=== PATIENT | female | born 1945 | race Caucasian/White ===

== ENCOUNTER 2017-03-17 11:11 | Inpatient (IN) | payer OTHER ==
[2017-03-17] MEDS ORDERED: LIDOCAINE 2% VISCOUS 15 ML UDCUP PO ONE (11:36)
[2017-03-17] MEDS ORDERED: MAG HYDROX/AL HYDROX/SIMETH 30 ML UDCUP PO ONE (11:36)
[2017-03-17] MEDS ORDERED: HYOSCYAMINE SULFATE 0.125 MG TAB PO ONE (11:36)
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
[2017-03-17 12:35] LABS: % IMMATURE GRANULYOCYTES 0.5 % (0.0-1.1); ABSOLUTE IMMATURE GRANULOCYTES 0.06 10^3/uL (0.00-0.10); ADD DIFF? NO; ADD MORPH? NO; ADD SCAN? NO; ATYPICAL LYMPHOCYTE FLAG 0 (0-99); FRAGMENT RBC FLAG 0 (0-99); HEMATOCRIT 46.8 % (38.0-47.0); HEMOGLOBIN 16.2 g/dL (12.6-16.3); LEFT SHIFT FLG 20 (0-99); LIPEMIA HEMOLYSIS FLAG 90 (0-99); MEAN CELL HEMOGLOBIN CONCENTR. 34.6 g/dL (32.4-36.7); MEAN CELL VOLUME 92.3 fL (81.5-99.8); MEAN PLATELET VOLUME 11.2 fL (8.7-11.7); PLATELET CLUMPS FLAG 0 (0-99); PLATELET COUNT 120 10^3/uL (150-400); RED BLOOD CELL COUNT 5.07 10^6/uL (4.18-5.33); RED CELL DISTRIBUTION WIDTH 12.3 % (11.5-15.2)
[2017-03-17 12:45] LABS: SEDIMENTATION RATE 22 MM/HR (0-30)
[2017-03-17 12:53] LABS: ANION GAP 18 mEq/L (8-16); CALCIUM 9.8 mg/dL (8.5-10.4); CARBON DIOXIDE 24 mEq/l (22-31); CHLORIDE 95 mEq/L (97-110); CREATININE 0.8 mg/dL (0.6-1.0); GLOMERULAR FILTRATION RATE > 60; GLUCOSE 125 mg/dL (70-100); POTASSIUM 3.9 mEq/L (3.5-5.2); SODIUM 137 mEq/L (134-144)
[2017-03-17] MEDS ORDERED: VANCOMYCIN 1 GM in NS 250 ML IV ONE (13:13)
[2017-03-17] MEDS ORDERED: HYDROmorphONE/DILAUDID 1 MG/ML SYR IVP ONE (13:14)
[2017-03-17] MEDS ORDERED: methylPREDNISolone SOD SUCC 125 MG/2 ML VIAL IVP ONE (13:14)
[2017-03-17 16:16] LABS: WBC, SYNOVIAL FLUID 74379 /mm3 (0-150)
[2017-03-17 16:58] LABS: GLUCOSE, SYNOVIAL FLUID < 20 mg/dL (55-113)
[2017-03-17] MEDS ORDERED: TEMAZEPAM 15 MG CAP PO PRN (17:27)
[2017-03-17] MEDS ORDERED: oxyCODONE IR 5 MG TAB PO PRN (17:27)
[2017-03-17] MEDS ORDERED: ONDANSETRON DISINTEGRATING 4 MG TAB PO PRN (17:27)
[2017-03-17] MEDS ORDERED: ACETAMINOPHEN 325 MG TAB PO PRN (17:27)
[2017-03-17] MEDS ORDERED: ONDANSETRON 4 MG/2 ML VIAL IVP PRN (17:27)
[2017-03-17 17:54] LABS: CRYSTALS, SYNOVIAL FLUID NONE SEEN (NONE SEEN)
--- NOTE | 2017-03-17 18:22 | GHP ---
[f rep st] HISTORY AND PHYSICAL DATE OF ADMISSION: 03/17/2017 CHIEF COMPLAINT: Right knee pain. HISTORY OF PRESENT ILLNESS: This is a 72-year-old female, who presents with right knee pain. She h as a complicated orthopedic history with this knee, there is concern for septic arthritis. She has had 2 knee replacements in that knee. The first was complicated by what sounds like an MRSA infecti on. This was about 15 years ago. She was treated with long-term IV antibiotics including vancomyci n. At the end of her course of vancomycin, she developed a full body rash. I do not believe that t he hardware was ever explanted during this first infection. She then had a second knee replacement done by Dr. Long. She says that her right knee has been hurting for about the last year. About 2 months ago, she went to see Dr. Long, who told that there was nothing wrong with that knee. He had done x-rays at that point, but no other diagnostic workup. She then developed a rash on her ri ght jack distal to the knee and was started on Keflex by her PCP on Wednesday. She presented to the em ergency department with much worsening swelling in her knee. She has had some chills, but no fevers . The knee has been very painful, and she is unable to bend it more than a few degrees. [place] [facility]. She also received vancomycin preceded by IV Solu-Medrol, a s well as Benadryl. PAST MEDICAL/SURGICAL HISTORY: 1. Hypertension. 2. GERD. 3. CHUCKIE, on CPAP. 4. History of rheumatic fever with mild valvular disease. 5. Knee replacements, as above. 6. Colon resection. 7. . 8. Carpal tunnel release. MEDICATIONS: Please see medication reconciliation. ALLERGIES: Sulfa, tetracyclines, alcohol, caffeine, gluten, vancomycin, beer, nuts, seeds, spices, onion, broccoli, cauliflower, [place] sprouts, dairy, fresh fruits except bananas, fresh vegetables , tapes except paper. FAMILY HISTORY: Father had COPD, as well as a stroke. SOCIAL HISTORY: She drinks about 2 glasses of wine a year. She does not smoke. REVIEW OF SYSTEMS: A 10-point review of systems is conducted and is negative, except per HPI. PHYSICAL EXAMINATION: VITAL SIGNS: Blood pressure 120/68, heart rate is 85, respiration rate 16, s atting 92% on room air. Temperature is 36.9. GENERAL: The patient is a pleasant female, who is re sting in bed comfortably, in no acute distress. HEENT: Shows her to be normocephalic, atraumatic. CARDIOVASCULAR: Regular rate and rhythm. No murmurs, rubs, or gallops. PULMONARY: Lungs clear t o auscultation bilaterally. ABDOMEN: Soft, nontender, nondistended. SKIN: Showed no rash. : No Us. NEUROLOGIC: Shows her to be alert and oriented x3. She is moving all extremities. PSYC HIATRIC: Normal mood and affect. EXTREMITIES: Show her right lower extremity to have a mild area of erythema on the distal jack. This area is warm. Also, her right knee has a notable effusion. S he has an old surgical scar that is well healed. It is not red, however, it is quite warm, very ten angus to palpation, and very tender with active or passive range of motion. LABS: White count is 13,000, with 76% neutrophils. Lactate 1.1. CRP is 255. ESR is 22. Her meta bolic panel is unremarkable. Synovial fluid shows 74,000 whites, crystals are pending at this time, it was a yellow-cloudy fluid. DATA: 1. Knee x-ray shows knee joint effusion with no fracture. 2. I discussed this with Dr. Izquierdo, who will consult. IMPRESSION AND PLAN: A 72-year-old female, with suspected prosthetic knee joint infection. 1. Suspected prosthetic knee joint infection: Gram stain is still pending, as are crystals. She h as empirically gotten a dose of vancomycin. Fluid has been sent for Gram stain and culture. We jeffry l follow this. Dr. Lackey, with orthopedics, has been consulted, who will be involved in her care. I have discussed this with Dr. Izquierdo, who will be involved in her care. If this ends up being cryst alline disease, we will discontinue antibiotics and start appropriate treatment. Otherwise, would e xpect that she would get a washout. She may need her hardware explanted. Given her reaction to van comycin, Dr. Izquierdo will likely put her on daptomycin. She does have significant swelling distal to t he knee. I will go ahead and order a lower extremity ultrasound. I think a deep venous thrombosis may be secondary to the inflammatory process and swelling that she is experiencing. 2. Leukocytosis: No evidence of sepsis. This is secondary to her knee inflammatory process. 3. Hypertension: We will continue her home medications. 4. Obstructive sleep apnea: Continuous positive airway pressure. 5. Venous thromboembolism risk is moderate to high. I have given her prophylactic Lovenox. 6. Code status: She would like to be full code. /[id number]/MODL
[2017-03-17] MEDS: NS 1,000 ML IV SCH (18:32)
[2017-03-17] MEDS: HYDROmorphONE/DILAUDID 1 MG/ML SYR IVP PRN (18:44)
--- NOTE | 2017-03-17 20:37 | GCON ---
[f rep st] CONSULTATION INFECTIOUS DISEASE CONSULTATION DATE OF CONSULTATION: 03/17/2017 REFERRING PHYSICIAN: Panfilo Zabala MD REASON FOR CONSULTATION: Possible right knee total arthroplasty infection. HISTORY OF PRESENT ILLNESS: The patient is a 72-year-old female with a past medical history of righ t knee replacement x2 and prior infection in the right knee replacement who I am asked to see in [facility] for possible right total knee arthroplasty infection. The patient describes having an ini tial knee replacement on the right many years ago in [place]. She describes having postoperativ e infection of this knee several months after the initial surgery. She does not know what bacterial organism was responsible. She does describe having several weeks of IV antibiotics and a prolonged rehabilitation course. She does not describe having her joint explanted and is unclear if she unde rwent incision and drainage. She subsequently had a 2nd knee replacement done several years previou s to today's visit after moving to [place]. Over the last year, she notes that she has had progres sive right knee pain. Over the last several days, she noted that the pain had increased and became a ssociated with erythema over the knee and anterior jack. She was seen by her primary care physician and treated for cellulitis with cephalexin; this did not lead to any improvement and she subsequent ly had progressive knee pain to the point that she could not walk or stand. She did not have associ ated fever. She does describe having chills but no rigors. Based on those findings, she was seen a t the emergency department in [place] earlier today, at which point in time an arthrocentesis was performed. Synovial fluid showed 74,379 white blood cells, with 1269 red blood cells; neutrophils w ere at 94%. Crystal analysis is pending. Gram stain of the specimen has shown 4+ white blood cells with 1+ gram-positive cocci. Blood cultures x2 sets are pending. The patient was given a dose of vancomycin with premedication including Solu-Medrol based on a prior rash with vancomycin. She tole rated this dose without difficulty. She subsequently has been admitted to the hospital for further evaluation, including Orthopedic and Infectious Disease consultation. The patient does not note any preceding injury to the knee. She has been receiving injections of steroids and local anesthetic i nto her right hip and back for pain over the last several months. Given the above findings, I am no w asked to assist in her ongoing management. 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 Aortic insufficiency, prior rheumatic hea rt disease, asthma, Roth's esophagus, gastroesophageal reflux, gout (patient does not note prior history of gout however when asked), hypertension, hyperlipidemia, irritable bowel syndrome, history of right bundle branch block, thrombocytopenia, vitamin D deficiency. PAST SURGICAL HISTORY: Bilateral knee replacements as outlined above, , sigmoid resection, hysterectomy, prior lumbar spinal fusion. CURRENT MEDICATIONS: Lovenox 40 mg subcu daily, status post vancomycin 1 g x1. Prior to admission included cephalexin 500 mg p.o. four times daily, carvedilol 6.25 mg p.o. twice daily, losartan 50 m g p.o. daily, oxybutynin 5 mg p.o. twice daily, spironolactone 50 mg p.o. daily. ALLERGIES: Vancomycin associated with diffuse rash 10 days into therapy; sulfonamides associated wi th hives; doxycycline associated with rash. SOCIAL HISTORY: Patient does not smoke or drink alcohol. Traveled to [place]. Pet cat at [facility] with no recent bites or scratches. FAMILY HISTORY: No notable family history contributory to current presentation. REVIEW OF SYSTEMS: Outside that noted in the HPI, remainder of a 10 system review is unremarkable. PHYSICAL EXAMINATION: VITAL SIGNS: Temperature 36.9, heart rate 85, respiratory rate 16, blood pre ssure 120/68, oxygen saturation 92% on room air. GENERAL: Patient is an obese female, in no acute distress. She appears nontoxic. HEENT: There is no scleral icterus, conjunctival injection, or co njunctival petechiae. Oropharynx clear without lesions. The mucous membranes are moist. There is no nasal discharge. There is no tenderness over the frontal, maxillary or mastoid area. NECK: Sup ple without lymphadenopathy or palpable thyromegaly. CHEST: Clear to auscultation bilaterally with out adventitious sounds. The respiratory effort is normal. CARDIOVASCULAR: Regular rate and rhyth m with a 2/6 systolic murmur heard throughout. There are no gallops or rubs. ABDOMEN: Obese, nont [place], nondistended. There is no palpable organomegaly. Bowel sounds are present. MUSCULOSKELETAL : The right knee shows edema with tenderness to palpation which is most prominent medially; there i s irritability present with range of motion. There is discontinuous erythema beginning over the low er knee incision with subsequent patches present more distally and along the anterior jack. These a re warm and tender to palpation. The left knee shows well-healed incision without warmth or tendern ess. LYMPHATICS: No cervical or supraclavicular nodes. There is no lymphangitis in the right thigh . NEUROLOGIC: Patient is alert and interacts appropriately with the examiner. Cranial nerves 2-12 are grossly intact. Sensation is grossly intact. Muscle tone and bulk are normal. LABORATORY DATA: White blood cell count 13.1, hematocrit 46.8, platelets 120, neutrophils 77%. ESR 22, C-reactive protein 255. Synovial fluid as outlined in history of present illness. Venous lactate is 1.1. Blood cultures x2 sets are pending. Plain film of the knee shows a joint effusion. Gram stain of the synovial fluid shows 4+ white bloo d cells with 1+ gram-positive cocci. IMPRESSION: 1. Right total knee arthroplasty inflammatory arthropathy: Synovial fluid shows 74,000 white blood cells with 1+ GPCs seen on Gram stain consistent with total knee arthroplasty infection. She does have concomitant overlying cellulitis present. Most likely, this will be due to staphylococci or be ta-hemolytic streptococci. In the setting of prior history of gout, crystalline arthropathy as a co ntributor is also a consideration. Crystalline analysis is currently pending. The initial Gram sta in was set up on a cytospin specimen and I have asked the Laboratory to perform a repeat specimen fo r confirmation. If Gram stain confirmed, will need to undergo incision and drainage as component of her therapy. RECOMMENDATIONS: 1. Daptomycin 600 mg IV q. 24 hours. 2. Check baseline CPK with daptomycin use. 3. Await repeat Gram stain. 4. Agree with orthopedic consultation to assess for possible incision and drainage. 5. Follow up blood and synovial cultures as available. 6. Thank you for this consultation. We will continue to follow the patient with you. /[id number]/MODL
[2017-03-17] MEDS: DOCUSATE SODIUM 100 MG CAP PO SCH (21:15)
[2017-03-18] MEDS: HYDROmorphONE/DILAUDID 1 MG/ML SYR IVP PRN ×3 (01:15→15:46)
--- NOTE | 2017-03-18 02:08 | PDCONSULT ---
Analytical Chemist Note: Ortho Consult DOS: 03/18/2017 CC: R knee and leg pain and swelling HPI: 72y F h/o B TKA, revision R TKA p/w 2 days of increased redness and swelling of Right knee and leg. Pt's original R TKA done in [place], was c/ b infection but resolved. R TKA revised by Javi Alvarez of [place] 4-5 years ago , potentially for continued knee pain. Did well for several years. During last year, patient has noted some medial sided pain. This episode's pain seems more distinct. She noted some leg rash and was started on PO abx by PCP. Today she presented to [facility] ED for continued Right leg pain, swelling and rash. She denies any inciting trauma for this episode. subjective chills. difficulty with ambulation The ED physician called me to describe the patient. He noted the suspicion for septic TKA joint with an elevated WBC and I encouraged him to attempt an aspiration of the joint for cell count/GS/culture/crystals. I asked him to call me back with the results. I told him that while I was comfortable doing a shawnee knee washout, a washout of a prosthetic knee would best be triaged to a knee arthroplasty expert and that a liner exchange concomitant with an knee I&D would be appropriate. I requested we get the aspiration data to determine if the patient needed a surgical debridement, and if so, to help facilitate a transfer to a different ED and/or ortho provider with more accurate information (e.g. definitive cell count, fluid appearance, etc.) Much to my suprise, I later got a call from the [facility] floor nurse indicating that the patient had been admitted to the hospitalist service and that I was being expected to wash the joint out tonight. I came to speak with the patient and help develop the most appropriate plan for her continuing care. PMHx/PSHx: HTN, GERD, CHUCKIE (CPAP), RA, L TKA, R TKA x2, Colon resections, hysterectomy, , carpal tunnel release Meds: See med list (many) Allergies: includes sulfa, tetracylcine, alcohol, caffeine and more SocHx: retired nurse. Nonsmoker ROS: MSK per HPI Eyes wnl, ENT wnl, CV wnl, Pulm - CPAP used, GI - irritable bowel stable at the moment, - leaky bladder, Skin - rash, Endocrine wnl, Neuro wnl PE: AxOx3, unlabored breathing R knee: large midline scar over knee. small scab 1/3 down. mildly ballotable patella, Increased edema of R leg, rash over anterior mid-leg. PROM 0-85 degrees, AROM limited, SILT S/S/SP/DP/T, 2+ DP/PT Labs: WBC 13, Synovial fluid with >74k WBC Right knee aspirate:Yellow, turbid/cloudy 15cc removed RLE: U/s negative for clot Imaging: Radiographs visualized of the R knee showing stemmed tibial implant. No signs of loosening under tibial compojnent nor around femoral component A/p: 72y F patient of Dr Alvarez for R revision TKA p/w septic Right TKA - Ideally, patient would go to OR for surgical debridement of R knee combined with liner exchange. She is not septic yet and symptoms have only been present for a coule days. We have a window of time, albeit limited, to get her to the OR for debridement. We discussed that too long adelay in treatment would mean an explant and/or amputation. - Patient will try to obtain record of operation to get size of implant - She will call Dr. Alvarez' office in the AM to discuss possibility of their involvement in her care as she needs both long and short term management of this problem - I am happy to discuss her case with them and to help develop a plan going forward and even facilitate transfer if needed. This was a scenario I was hoping to avoid by having [facility] potentially transfer the patient to an appropriate ED with access to the correct subspecialty services. - ID/Primary service to start IV abx.
[2017-03-18 05:40] LABS: % IMMATURE GRANULYOCYTES 0.7 % (0.0-1.1); ABSOLUTE IMMATURE GRANULOCYTES 0.08 10^3/uL (0.00-0.10); ADD DIFF? NO; ADD MORPH? NO; ADD SCAN? NO; ATYPICAL LYMPHOCYTE FLAG 0 (0-99); FRAGMENT RBC FLAG 0 (0-99); HEMATOCRIT 41.4 % (38.0-47.0); HEMOGLOBIN 13.9 g/dL (12.6-16.3); LEFT SHIFT FLG 30 (0-99); LIPEMIA HEMOLYSIS FLAG 80 (0-99); MEAN CELL HEMOGLOBIN 31.8 pg (27.9-34.1); MEAN CELL HEMOGLOBIN CONCENTR. 33.6 g/dL (32.4-36.7); MEAN CELL VOLUME 94.7 fL (81.5-99.8); MEAN PLATELET VOLUME 12.3 fL (8.7-11.7); PLATELET CLUMPS FLAG 0 (0-99); PLATELET COUNT 99 10^3/uL (150-400); RED BLOOD CELL COUNT 4.37 10^6/uL (4.18-5.33); RED CELL DISTRIBUTION WIDTH 12.3 % (11.5-15.2)
[2017-03-18 06:13] LABS: ALANINE AMINOTRANSFERASE 27 IU/L (9-52); ALBUMIN 3.3 g/dL (3.5-5.0); ALKALINE PHOSPHATASE 64 IU/L (38-126); ANION GAP 11 mEq/L (8-16); ASPARTATE AMINOTRANSFERASE 20 IU/L (14-46); BILIRUBIN,TOTAL 0.9 mg/dL (0.1-1.4); CALCIUM 9.2 mg/dL (8.5-10.4); CARBON DIOXIDE 22 mEq/l (22-31); CHLORIDE 105 mEq/L (97-110); CREATININE 0.7 mg/dL (0.6-1.0); GLOMERULAR FILTRATION RATE > 60; GLUCOSE 154 mg/dL (70-100); POTASSIUM 4.1 mEq/L (3.5-5.2); SODIUM 138 mEq/L (134-144); TOTAL PROTEIN 6.1 g/dL (6.3-8.2)
[2017-03-18] MEDS: NS 1,000 ML IV SCH (06:13)
[2017-03-18] MEDS ORDERED: DAPTOmycin 600 MG in NS 100 ML IV SCH (09:00)
[2017-03-18] MEDS ORDERED: ENOXAPARIN 40 MG/0.4 ML SYR SC SCH (09:00)
[2017-03-18] MEDS: DOCUSATE SODIUM 100 MG CAP PO SCH (09:01)
[2017-03-18 09:41] VITALS: RESP 18
[2017-03-18] MEDS ORDERED: FLUTICASONE HFA 110 MCG MDI IH PRN (10:07)
[2017-03-18] MEDS ORDERED: Diclofenac Sodium [Voltaren Gel (*)] 1 APP TP PRN (10:07)
[2017-03-18] MEDS ORDERED: DOCUSATE SODIUM 100 MG CAP PO PRN (10:07)
[2017-03-18] MEDS ORDERED: ALBUTEROL 60 PUFFS/8 GM MDI IH PRN (10:07)
[2017-03-18] MEDS ORDERED: CARVEDILOL 6.25 MG TAB PO SCH (10:15)
[2017-03-18] MEDS ORDERED: SPIRONOLACTONE 50 MG TAB PO SCH (10:15)
--- NOTE | 2017-03-18 10:42 | PCMIDPN ---
Assessment/Plan: Assessment/Plan: * Right TKA septic arthritis: Synovial cultures with early growth of gram- positive not further identified. Confirmatory of septic arthritis. Will require incision and drainage. Likely will be transferred to [facility] given prior knee replacement x2 to define optimal therapy including consideration of incision and drainage with liner exchange versus 2 step revision. Patient is anxious about additional surgical intervention. Will continue daptomycin pending culture data given prior vancomycin allergy. Findings and plan were discussed with patient, nursing staff, and Dr. Zabala 03/18/17 10:39 03/18/17 10:40 Subjective: Patient with persistent right knee pain. Erythema slightly decreased. Orthopedic consultation reviewed. Objective: Vital Signs Temp Pulse Resp BP Pulse Ox 36.6 C 77 18 152/70 H 97 03/18/17 09:39 03/18/17 09:39 03/18/17 09:39 03/18/17 09:39 03/18/17 09:39 Microbiology 03/18/17 01:20 Gram Stain - Final Synovial Fluid - Aspirate 03/17/17 14:06 Gram Stain - Final Knee - Aspirate Laboratory Results 03/18/17 04:52 03/18/17 04:52 03/17/17 03/18/17 03/19/17 05:59 05:59 05:59 Intake Total 590 Output Total 400 350 Balance 190 -350 ESR 22 MM/HR (0-30) 03/17/17 12:20 C-Reactive Protein 255.0 mg/L (<10.0) H 03/17/17 12:20 Daptomycin # 1 Synovial cultures with early growth of gram-positive organism (too young for id) Blood cultures x2 pending Synovial fluid crystal analysis pending Laboratory Tests 03/17/17 20:02 Creatine Kinase 83 - Physical Exam General Appearance: alert, no apparent distress Extremities: inflammation (Erythema over right knee and anterior jack less prominent; overall less tender but still irritable with range of motion primarily medially) Abdomen: non-tender, No distended Lymphatic: other (No lymphangitis right thigh) ICD10 Worksheet Patient Problems: Problems Problem Status Onset Knee pain Acute Septic joint of right knee joint Acute
[2017-03-18 15:44] VITALS: BP 130/70; PULSE 75; TEMP 98.2; O2SAT 94
--- NOTE | 2017-03-18 15:49 | GDS ---
[f rep st] DISCHARGE SUMMARY FINAL DIAGNOSES: 1. 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 2. Leukocytosis without sepsis. 3. Hypertension. 4. Obstructive sleep apnea. 5. Gastroesophageal reflux disease. 6. Continuous positive airway pressure use. 7. History of rheumatic fever with mild valvular disease. HOSPITAL COURSE: A 72-year-old female who presented with a right prosthetic septic knee arthritis. Preliminary cultures growing Staph aureus, no susceptibilities are available at this time. She has had her right knee replaced 2 times. 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 She was treated with vancomycin. At that time she developed a rash, though t to be allergic not red man syndrome. Because of this, she is being treated at this hospital with daptomycin. The plan will be to transfer her to [facility] [place] given lack of orthopedic specialty capable of handling this at [facility]. I have discussed this with Dr. Miller, who will be the accepting hos pitalist there. Dr. Isidro with Orthopedics has been consulted, and plans to assume her orthopedic c are at [facility] [place]. She has been stable without any signs of sepsis. Dr. Ethan Izquierdo has been involved at [facility]. He is with Infectious Disease. She received her last dose of daptomycin 600 mg at 9:0 0 a.m. this morning. She will be due for her next dose 24 hours after that. She has been n.p.o. to day. BILLING: I spent more than 30 minutes on the day of discharge coordinating her care. /[id number]/MODL
[2017-03-18] MEDS ORDERED: CALCIUM CARBONATE 500 MG TAB PO SCH (21:00)
[2017-03-18] MEDS ORDERED: LOSARTAN POTASSIUM 50 MG TAB PO SCH (21:00)
[2017-03-18] MEDS ORDERED: OXYBUTYNIN CHLORIDE 5 MG TAB PO SCH (21:00)
[2017-03-18] MEDS ORDERED: FAMOTIDINE 20 MG TAB PO SCH (21:00)
[2017-03-18] MEDS ORDERED: CALCIUM CITRATE 400 MG PO SCH (21:00)
== END 2017-03-18 16:02 | disposition short-term general hospital (02) | DRG 561 ==
LOC: CED 11:11 → CEDHOLD 13:24 → OBSVTOIN 13:24 → F1N 16:20
PROVIDERS: ADMIT Internal Medicine Pulmonary Disease; ATTEND Student in an Organized Health Care Education/Training Program
DX: T84.53XA Infection and inflammatory reaction due to internal right knee prosthesis, initial encounter (principal); Z98.1 Arthrodesis status; Z96.698 Presence of other orthopedic joint implants; I10 Essential (primary) hypertension; K21.9 Gastro-esophageal reflux disease without esophagitis; G47.33 Obstructive sleep apnea (adult) (pediatric); D72.829 Elevated white blood cell count, unspecified
CPT/HCPCS: 73562-PO; 80048-PO; 83605-PO; 85025-PO; 85652-PO; 93971-PO; 97161-GP; G8978-GP-CI; G8979-GP-CI; G8980-GP-CI; J0878; J1170; J1200; J1650; J3370

== ENCOUNTER → 2017-05-28 | Outpatient (CLI) | payer OTHER | LOC: CIMAGING 10:24 | PROVIDERS: ATTEND Physician Assistant Medical | DX: M46.92 Unspecified inflammatory spondylopathy, cervical region (principal); M48.02 Spinal stenosis, cervical region; M50.11 Cervical disc disorder with radiculopathy, high cervical region | CPT/HCPCS: 72125-PO ==

== ENCOUNTER → 2017-06-29 | Outpatient (CLI) | payer OTHER | LOC: CIMAGING 13:26 | PROVIDERS: ATTEND Internal Medicine | DX: Z12.31 Encounter for screening mammogram for malignant neoplasm of breast (principal); R92.8 Other abnormal and inconclusive findings on diagnostic imaging of breast | CPT/HCPCS: G0202 ==

== ENCOUNTER → 2017-07-09 | Outpatient (CLI) | payer OTHER | LOC: CIMAGING 13:51 | PROVIDERS: ATTEND Internal Medicine | DX: Z12.39 Encounter for other screening for malignant neoplasm of breast (principal); R92.8 Other abnormal and inconclusive findings on diagnostic imaging of breast | CPT/HCPCS: 76641-PO ==

== ENCOUNTER → 2017-07-21 | Outpatient (CLI) | payer OTHER | LOC: CIMAGING 11:54 | PROVIDERS: ATTEND Internal Medicine Infectious Disease | DX: M25.561 Pain in right knee (principal); M25.461 Effusion, right knee; Z96.651 Presence of right artificial knee joint | CPT/HCPCS: 73564-PO ==

== ENCOUNTER 2017-11-05 08:39 | Observation (INO) | payer OTHER ==
--- NOTE | 2017-11-05 06:45 | GHP ---
[f rep st] PREOP HISTORY AND PHYSICAL DATE OF SURGERY: 11/05/2017 PREOPERATIVE DIAGNOSIS: Septic arthritis, right knee following total knee arthroplasty. HISTORY OF PRESENT ILLNESS: The patient is a 72-year-old female who has had 2 knee replacements in the right knee. These were done at outside facilities. She has also had an irrigation and debridement, done in April of 2017 in [place] for a periprosthetic infection. She was treated with IV antibiotics for 6 weeks followed by suppressive oral antibiotics, Keflex 2 a day, and approximately 1 week ago developed a small red bump on the front of her knee. This has gotten slightly larger. She followed up with Dr. Ethan Izquierdo in infectious disease, who increased her dose of Keflex temporally to 4 a day and referred her to me. We have evaluated her and decided to proceed with an irrigation debridement if it is a superficial infection and explant of the total knee replacement if the infection goes into the joint. PRIOR MEDICAL HISTORY: She has mitral regurgitation, not currently on any blood thinner for that. Hypertension. SURGICAL HISTORY: Multiple orthopedic surgeries including a left total knee arthroplasty and bilateral shoulder rotator cuff repairs. MEDICATION: See attached medication list. ALLERGIES: Sulfa, antibiotics, vancomycin and tetracycline. SOCIAL HISTORY: She is . Lives with her . They recently moved from [place]. She does not smoke. Does not drink alcohol. REVIEW OF SYSTEMS: No fevers, no chills. No shortness of breath. Otherwise, review of systems is unremarkable. PHYSICAL EXAM: GENERAL: A 72-year-old female, she is alert and oriented times 3. Blood pressure is 156/84, heart rate is 88, respiratory rate is 16 on room air. HEENT: Normocephalic, atraumatic. Extraocular muscles intact. NECK: Supple. There is no lymphadenopathy. No JVD. CHEST: Clear to auscultation. CARDIOVASCULAR: Regular rate and rhythm. ABDOMEN: Soft, nontender, nondistended. Right knee does not show any significant swelling. She does have a small abscess in the distal 3rd of her knee. It is about 1 cm across. It is not draining. There is a little bit of surrounding erythema. Range of motion of the knee, she has full extension 120 degrees of flexion without much pain. She is ambulating with a walker. Her calf is otherwise soft. She has 5/ 5 ankle dorsiflexion and plantar flexion strength. Alignment of the knee is straight. IMAGING: X-rays 2 views of the knee taken today in the office show a long-stem tibial prosthesis cemented in place. No signs of loosening. ASSESSMENT: Possible superficial abscess versus recurrent septic arthritis following total knee arthroplasty right knee. PLAN: The patient and I and her spent 15 minutes reviewing treatment options. I think at this point, we should proceed with an I and D. if it is superficial, we will wash it out and then have Infectious Disease decide how to treat that. If it is deeper, I would recommend removing the total knee prosthesis since this has already been washed out once with a poly exchange and with a recurrent infection. She understands that she will get an antibiotic spacer and then treated with IV antibiotics. Hopefully we can clear that infection and then proceed with a reimplantation. We have surgery set up for tomorrow afternoon at [facility]. Preoperative paperwork was completed. /[id number]/MODL MTDD
[2017-11-05] MEDS ORDERED: ceFAZolin 1 GM/5 ML SYR ONE ×2 (13:15→14:56)
[2017-11-05] MEDS ORDERED: ceFAZolin 2 GM/SWFI 2 GM/20 ML SYR IVP ONE (13:22)
[2017-11-05] MEDS ORDERED: LR 1,000 ML IV ONE (13:23)
[2017-11-05] MEDS ORDERED: MIDAZOLAM 2 MG/2 ML VIAL IVP ONE (13:57)
--- NOTE | 2017-11-05 13:57 | PDANEPAE ---
ANE History of Present Illness I&D infected R knee prosthesis ANE Past Medical History - Cardiovascular History Hx Hypertension: Yes Hx Arrhythmias: No Hx Chest Pain: No Hx Coronary Artery / Peripheral Vascular Disease: Yes Hx CHF / Valvular Disease: No Hx Palpitations: No Cardiovascular History Comment: aortic insuff. htn. rheumatic heart disease - Pulmonary History Hx COPD: No Hx Asthma/Reactive Airway Disease: Yes Hx Recent Upper Respiratory Infection: No Hx Oxygen in Use at Home: No Hx Sleep Apnea: Yes Sleep Apnea Screening Result - Last Documented: Positive Pulmonary History Comment: berkley positive- uses cpap- instructed pt to bring. instructed pt to bring inhalers - Neurologic History Hx Cerebrovascular Accident: No Hx Seizures: No Hx Dementia: No Neurologic History Comment: hx of lumbar fusion - Endocrine History Hx Diabetes: No - Renal History Hx Renal Disorders: No - Liver History Hx Hepatic Disorders: No - Neurological & Psychiatric Hx Hx Neurological and Psychiatric Disorders: No - Cancer History Hx Cancer: No - Congenital Disorder History Hx Congenital Disorders: No - GI History Hx Gastrointestinal Disorders: Yes Gastrointestinal History Comment: GERD. HIATAL HERNIA. BARRETS ESOPHAGUS. DIFF SWALLOWING. ibs - Other Health History Other Health History: EASY BLEEDING AND BRUISING. FIBROMYALGIA. CHRONIC FATIGUE SYNDROME. wears glasses - Chronic Pain History Chronic Pain: Yes (right knee and generalized d/t fibromyalgia) - Surgical History Prior Surgeries: 05/09/14 right hammer toe repair with kincaid. 03/06/13 right rtc repair. varicose vein surgery- right leg. left knee scope x2. right knee scope x2. left tka x2. right tka x2. t&a as child. d&c in mid . i&d of episotomy in 1972. 1973. urethrotomy. exploratory lap with removal of benign tumor. abd hysterectomy. lumbar laminectomy x2. lumbosacral fusion. sigmoid colon resction 2003. colposcopy 2007. phlebectomy right leg ANE Review of Systems Review of Systems: - Exercise capacity METS (RN): 3 METS ANE Patient History - Allergies Allergies/Adverse Reactions: alcohol Allergy (Verified 11/04/17 17:36) allergic to sulfates in alcohol caffeine Allergy (Verified 11/04/17 17:36) causes agitation and insomnia gluten Allergy (Verified 11/04/17 17:36) gi issues oxycodone Allergy (Verified 11/04/17 17:36) Itching Sulfa (Sulfonamide Antibiotics) Allergy (Verified 11/04/17 17:36) Hives tetracycline [Tetracycline] Allergy (Verified 11/04/17 17:36) Hives vancomycin Allergy (Verified 11/04/17 17:36) very fine whole body rash BEANS,NUTS,SEEDS,SPICES,ONIONS Allergy (Uncoded 11/04/17 17:36) GI PROBLEMS BROCCOLI,CAULIFLOWER,BRUSSELSPROUTS Allergy (Uncoded 11/04/17 17:36) GI PROBLEMS DAIRY Allergy (Uncoded 11/04/17 17:36) GI PROBLEMS FRESH FRUITS EXCEPT BANANAS Allergy (Uncoded 11/04/17 17:36) GI PROBLEMS FRESH VEGETABLES Allergy (Uncoded 11/04/17 17:36) GI PROBLEMS TAPES EXCEPT PAPER Allergy (Uncoded 11/04/17 17:36) SKIN IRRITATION-BLISTERS - Home Medications Home medications: home medication list seen and reviewed Home Medications: Albuterol [Proventil Inhaler HFA (*)] 2 puffs IH Q6 PRN 02/24/13 [Last Taken Unknown] Calcium Citrate [Citracal] 400 mg PO BID 02/24/13 [Last Taken 03/05/13] Cholecalciferol Vit D3 [Vitamin D3 (*)] 5,000 units PO HS 02/24/13 [Last Taken 03/05/13] Herbals/Supplements -Info Only 1 each PO AD 02/24/13 [Last Taken Unknown] Vitamin B Complex [Vitamin B Complex (OTC)] 1 each PO HS 02/24/13 [Last Taken Unknown] Multivitamins W-Minerals [Thera M Plus Tablet (*)] 1 each PO DAILY 03/06/13 [ Last Taken 03/05/13] Ranitidine HCl [Ranitidine HCl 150 mg] 150 mg PO BID 03/06/13 [Last Taken 06:00] Losartan Potassium [Cozaar 50 mg (*)] 50 mg PO HS 07/08/13 [Last Taken Unknown] Carvedilol 6.25 mg PO BID 03/17/17 [Last Taken 03/17/17] Docusate Sodium [Colace 100 MG (*)] 100 mg PO BID PRN 03/17/17 [Last Taken Unknown] Methylcellulose [Citrucel] 1,000 mg PO BID 05/31/17 [Last Taken Unknown] Spironolactone [SPIRONOLACTONE] 50 mg PO DAILY 03/17/17 [Last Taken 03/17/17] Aller-Radha D 5-120 mg Tablet 11/04/17 [Last Taken Unknown] Flovent 110 MCG Hfa MDI (*) 11/04/17 [Last Taken Unknown] GUAIFENESIN 400 mg PO BID 11/04/17 [Last Taken Unknown] HYDROCODONE BIT/ACETAMINOPHEN 11/04/17 [Last Taken Unknown] - NPO status NPO Status: no food or drink >8 hours - Anes Hx Anes Hx: post operative nausea and vomiting (better with Zofran) - Smoking Hx Smoking Status: Never smoked - Alcohol Use Alcohol Use: None - Family Anes Hx Family Anes Hx: none Family Hx Anesthesia Complications: none ANE Labs/Vital Signs - Labs - BMP Sodium: pending - Vital Signs Height: 149.86 cm Weight: 99.79 kg ANE Physical Exam - Airway Mallampati Score: Class 2 Mouth exam: normal dental/mouth exam - Pulmonary Pulmonary: no respiratory distress - Cardiovascular Cardiovascular: regular rate and rhythym - ASA Status ASA Status: II ANE Anesthesia Plan Anesthesia Plan: GA w LMA (R/B/A explained and agrees to proceed)
[2017-11-05] MEDS ORDERED: MIDAZOLAM 2 MG/2 ML VIAL ONE (13:59)
[2017-11-05] MEDS ORDERED: fentaNYL 100 MCG/2 ML INJ ONE ×3 (14:23→16:28)
[2017-11-05] MEDS ORDERED: PROPOFOL/EMULSION 500 MG/50 ML BOTTLE IV ONE (14:24)
[2017-11-05] MEDS ORDERED: LIDOCAINE 2% JELLY 5 ML TUBE ONE (14:28)
[2017-11-05] MEDS ORDERED: DEXAMETHASONE 4 MG/ML VIAL ONE (14:35)
[2017-11-05] MEDS ORDERED: ONDANSETRON 4 MG/2 ML VIAL ONE (14:35)
[2017-11-05] MEDS ORDERED: PHENYLEPHRINE HCL 100 MCG/ML SYR ONE (14:36)
[2017-11-05] MEDS ORDERED: BUPIVACAINE 0.5% 30 ML SDV ONE (14:54)
[2017-11-05] MEDS ORDERED: MEPERIDINE 25 MG/ML SYR IVP PRN (15:28)
[2017-11-05] MEDS ORDERED: PROMETHAZINE HCL 25 MG/ML INJ IVP PRN ×2 (15:28→15:45)
[2017-11-05] MEDS ORDERED: NALOXONE HCL 0.4 MG/ML INJ IVP PRN (15:28)
[2017-11-05] MEDS ORDERED: LR 500 ML IV PRN (15:28)
[2017-11-05] MEDS ORDERED: HYDROCODONE/APAP 5/325 TAB PO PRN (15:28)
[2017-11-05] MEDS ORDERED: ALBUTEROL 3 ML DEYVIAL IH PRN (15:28)
[2017-11-05] MEDS ORDERED: ACETAMINOPHEN 500 MG TAB PO PRN (15:28)
[2017-11-05] MEDS ORDERED: LABETALOL HCL 5 MG/ML 20 ML MDV IVP PRN (15:28)
[2017-11-05] MEDS ORDERED: DEXAMETHASONE 4 MG/ML VIAL IVP PRN (15:28)
[2017-11-05] MEDS ORDERED: ONDANSETRON 4 MG/2 ML VIAL IVP PRN ×2 (15:28→15:45)
[2017-11-05] MEDS ORDERED: OXYCODONE/APAP 5/325 TAB PO PRN (15:28)
[2017-11-05] MEDS ORDERED: PHENYLEPHRINE HCL 100 MCG/ML SYR IVP PRN (15:28)
[2017-11-05] MEDS ORDERED: METOCLOPRAMIDE 10 MG/2 ML VIAL IVP PRN ×2 (15:28→15:45)
[2017-11-05] MEDS ORDERED: BISACODYL 10 MG SUPP PR PRN (15:45)
[2017-11-05] MEDS ORDERED: LACTULOSE 20 GM/30 ML UDCUP PO PRN (15:45)
[2017-11-05] MEDS ORDERED: ONDANSETRON DISINTEGRATING 4 MG TAB PO PRN (15:45)
[2017-11-05] MEDS ORDERED: TEMAZEPAM 15 MG CAP PO PRN (15:45)
[2017-11-05] MEDS ORDERED: diphenhydrAMINE 25 MG CAP PO PRN (15:45)
[2017-11-05] MEDS ORDERED: traMADol 50 MG TAB PO PRN (15:45)
[2017-11-05] MEDS ORDERED: POLYETHYLENE GLYCOL 3350 17 GM PKT PO PRN (15:45)
[2017-11-05] MEDS ORDERED: DIPHENOXYLATE/ATROPINE LOMOTIL 1 TAB PO PRN (15:45)
[2017-11-05] MEDS ORDERED: NS 500 ML IV PRN (15:45)
[2017-11-05] MEDS ORDERED: MAGNESIUM HYDROXIDE 30 ML UDCUP PO PRN (15:45)
[2017-11-05] MEDS ORDERED: PROMETHAZINE HCL 25 MG SUPPR PR PRN (15:45)
[2017-11-05] MEDS ORDERED: HYDROCODONE/APAP 10/325 TAB PO PRN (15:51)
[2017-11-05] MEDS ORDERED: HYDROmorphONE/DILAUDID 1 MG/ML INJ IVP PRN (15:51)
[2017-11-05] MEDS: fentaNYL 100 MCG/2 ML INJ IVP PRN ×3 (15:52→16:30)
--- NOTE | 2017-11-05 15:55 | POSTOPPROG ---
Post Op Note Date of Operation: 11/05/17 Surgeon: Mina Holden Anesthesiologist: Malick Anesthesia: GET(General Endotracheal) Pre-op Diagnosis: possible septic arthritis Post-op Diagnosis: Superficial abscess Procedure: I&D RT knee Findings: superficial abscess Inf/Abcess present in the surg proc area at time of surgery?: Yes Depth: Superfical (Skin SQ) EBL: 50-100 Complications: none
[2017-11-05] MEDS ORDERED: LR 1,000 ML IV SCH (16:00)
[2017-11-05] MEDS: CYCLOBENZAPRINE 10 MG TAB PO PRN (18:03)
[2017-11-05] MEDS: HYDROCODONE/APAP 10/325 TAB PO PRN ×2 (18:05→22:25)
--- NOTE | 2017-11-05 18:45 | PCMIDPN ---
Assessment/Plan: Assessment: Superficial postoperative infection of the knee. Surgeon discussion revealed that there was a small superficial abscess that did not penetrate the joint space. This was drained intraoperatively. Cultures were taken. Patient has previous MSSA infection. She is covered with IV cefazolin currently. Plan to transition over to oral Keflex for discharge tomorrow. Dose is 500 mg p.o. four times daily. Duration for 10 days. Follow-up in office. Plan: 1. IV cefazolin through tomorrow morning q.8 hours. 2. Transition over to oral Keflex 500 mg p.o. 4 times a day. Duration of 10 days upon discharge. 11/05/17 18:43 Subjective: Patient is postoperative and resting in her hospital bed. Reasonable amount of postoperative pain at knee present. No fevers or chills. Objective: Cefazolin # 1 Vital Signs Temp Pulse Resp BP Pulse Ox 36.9 C 87 17 154/73 H 97 11/05/17 17:24 11/05/17 17:24 11/05/17 17:24 11/05/17 17:24 11/05/17 17:24 Microbiology 11/05/17 14:50 Gram Stain - Final Knee - Eswab Laboratory Results 11/05/17 13:51 11/04/17 11/05/17 11/06/17 05:59 05:59 05:59 Intake Total 1000 Output Total 290 Balance 710 - Physical Exam General Appearance: WD/WN, alert, no apparent distress, non-toxic Respiratory: lungs clear, normal breath sounds, No respiratory distress Cardiac/Chest: regular rate, rhythm, No tachycardia Extremities: No non-tender, No normal inspection Skin: normal color, warm/dry, No rash Neuro/Psych: alert, normal mood/affect, oriented x 3 ICD10 Worksheet Patient Problems: Problems Problem Status Onset Knee pain Acute Septic joint of right knee joint Acute
[2017-11-05 20:06] VITALS: RESP 16
[2017-11-05] MEDS: SENNOSIDES/DOCUSATE SODIUM TAB PO SCH (20:21)
[2017-11-05] MEDS: FAMOTIDINE 20 MG TAB PO SCH ×2 (20:21→21:34)
--- NOTE | 2017-11-05 21:22 | POSTANESTH ---
Post Anesthetic Evaluation Cardiovascular Status: Normal, Stable Respiratory Status: Normal, Stable Level of Consciousness/Mental Status: Can Participate in Eval Pain Control: Adequate, Prn Tx Ordered Nausea/Vomiting Control: Adequate, Prn Tx Ordered Complications Possibly Related to Anesthesia: None Noted
[2017-11-05] MEDS ORDERED: ceFAZolin 2 GM/DEXTROSE 100 ML IV ONE (22:00)
--- NOTE | 2017-11-05 23:23 | GOP ---
[f rep st] OPERATIVE REPORT DATE OF OPERATION: SURGEON: Mina Holden MD ANESTHESIA: General. ANESTHESIOLOGIST: Dr. Teresa PREOPERATIVE DIAGNOSIS: Possible septic arthritis, right knee. POSTOPERATIVE DIAGNOSIS: Superficial abscess, right knee. PROCEDURE PERFORMED: Irrigation and debridement of skin, subcutaneous fat, soft tissue. FINDINGS: INDICATIONS: The patient is a 72-year-old female, who has had a revision knee replacement on the [facility]. She had a septic arthritis in April of 2017. This was washed out by Dr. Vanessa barker in [place]. She has been on both IV and suppressive oral antibiotics since then. About a week or so ago, she dev eloped a red bump on the front of the incision. It was evaluated by Dr. Ethan Izquierdo, who asked me in c onsultation to see her. I saw in the office and decision was made to proceed with an irrigation and debridement, possible explant of the total knee. DESCRIPTION OF PROCEDURE: After appropriate informed consent was obtained, patient was taken to the operating room, placed supine on the operating table. Time-out was performed. Patient was identifie d, correct site was identified. She received no antibiotics preoperatively. The right lower extremi ty was prepped and draped in usual sterile fashion. All bony prominences well padded. I incised the area over the abscess and sent cultures. We then gave her 2 g of Ancef. The remainder of the wound was opened up. This was a very superficial abscess just in the subcutaneous layer of fat, did not p enetrate the fascia. There was no fluid collection beneath the fat. There was no purulence beneath the fat. I excised all the necrotic fat around this abscess, on both the medial and lateral flaps of skin. I gently elevated the skin flaps both medially and laterally, and with pulsatile lavage, irri gated the wound with 9 L of normal saline with Ancef in the irrigation. Any nonviable tissue was rem ashutosh with a rongeur. Bleeding was controlled with electrocautery. I closed the deep layers with 0 V icryl, superficial layers closed with 2-0 Vicryl. Skin was closed with kaitlynn. I instilled 30 mL o f 0.5% Marcaine plain into the knee. A sterile dressing was applied. The patient was awakened from anesthesia, taken to the recovery room in satisfactory condition. There were no immediate intraopera tive complications. COMPLICATIONS: None. DRAINS: None. TOTAL TOURNIQUET TIME: 48 minutes at 275 mmHg. /[id number]/MODL
[2017-11-05 23:27] VITALS: O2SAT 90
[2017-11-06] MEDS: HYDROCODONE/APAP 10/325 TAB PO PRN (05:17)
[2017-11-06] MEDS: CYCLOBENZAPRINE 10 MG TAB PO PRN (05:55)
[2017-11-06] MEDS ORDERED: ceFAZolin 2 GM/SWFI 2 GM/20 ML SYR IVP ONE (06:00)
[2017-11-06 07:29] VITALS: BP 128/58; PULSE 72; TEMP 97.9
[2017-11-06] MEDS: FAMOTIDINE 20 MG TAB PO SCH (07:31)
[2017-11-06] MEDS: SENNOSIDES/DOCUSATE SODIUM TAB PO SCH (07:32)
[2017-11-06] MEDS ORDERED: ASPIRIN EC 325 MG TAB PO SCH (09:00)
[2017-11-06] MEDS ORDERED: DOCUSATE SODIUM 100 MG CAP PO PRN (09:22)
[2017-11-06] MEDS ORDERED: FLUTICASONE HFA 110 MCG MDI IH PRN (09:22)
[2017-11-06] MEDS ORDERED: ALBUTEROL 60 PUFFS/8 GM MDI IH PRN (09:22)
--- NOTE | 2017-11-06 09:22 | SOAPPROG ---
SOAP Progress Note Assessment/Plan: Assessment: POD#1 I&D superficial abscess Plan: 11/06/17 09:21 DC home Keflex 500 mg qid [place] prn pain F/U [facility] 7-10 days Subjective: Pain controlled walking to BR on own Objective: dressing changed incision healing nicely minimal drainage calf soft Vital Signs Temp Pulse Resp BP Pulse Ox 36.6 C 72 16 128/58 H 90 L 11/06/17 07:27 11/06/17 07:27 11/06/17 07:27 11/06/17 07:27 11/06/17 03:48 Microbiology 11/05/17 14:50 Gram Stain - Final Knee - Eswab Laboratory Results 11/05/17 13:51 11/05/17 11/06/17 11/07/17 05:59 05:59 05:59 Intake Total 2040 Output Total 1390 Balance 650 ICD10 Worksheet Patient Problems: Problems Problem Status Onset Knee pain Acute Septic joint of right knee joint Acute
[2017-11-06] MEDS ORDERED: HYDROCODONE/APAP 5/325 TAB PO PRN (09:25)
--- NOTE | 2017-11-06 09:28 | PDIAF ---
- Diagnosis Code Status: Full Code - Medication Management Discharge Medications: Medications to Continue on Transfer Albuterol [Proventil Inhaler HFA (*)] 2 puffs IH Q6 PRN 02/24/13 [Last Taken 06:00] Calcium Citrate [Citracal] 400 mg PO BID 02/24/13 [Last Taken 11/04/17 20:00] Cholecalciferol Vit D3 [Vitamin D3 (*)] 5,000 units PO HS 02/24/13 [Last Taken 11/04/17 20:00] Herbals/Supplements -Info Only 1 each PO AD 02/24/13 [Last Taken 11/04/17 20:00] Vitamin B Complex [Vitamin B Complex (OTC)] 1 each PO HS 02/24/13 [Last Taken 20:00] Multivitamins W-Minerals [Thera M Plus Tablet (*)] 1 each PO DAILY 03/06/13 [ Last Taken 11/04/17 20:00] Ranitidine HCl [Ranitidine HCl 150 mg] 150 mg PO BID 03/06/13 [Last Taken 20:00] Losartan Potassium [Cozaar 50 mg (*)] 50 mg PO HS 07/08/13 [Last Taken 11/04/17 20:00] Carvedilol 6.25 mg PO BID 03/17/17 [Last Taken 11/05/17 06:00] Docusate Sodium [Colace 100 MG (*)] 100 - 200 mg PO BID PRN 03/17/17 [Last Taken 11/04/17 20:00] Methylcellulose [Citrucel] 1,000 mg PO BID 03/17/17 [Last Taken 11/04/17 20:00] Spironolactone [SPIRONOLACTONE] 50 mg PO DAILY 03/17/17 [Last Taken 11/04/17 08: 00] Fluticasone Hfa 110 Mcg [Flovent 110 MCG Hfa MDI (*)] 2 puffs IH BID PRN [Last Taken Unknown] Mcfp Antibiotics: keflex 500 mg qid Discharge Medications: Refer to the Discharge Home Medication list for PRN reason. PICC Care - Routine: N/A - Orders Isolation Type: None Diet Recommendation: no restrictions on diet Diet Texture: Regular Texture Diet Us: Not applicable Wound Care Instructions: Keep wound covered x 7 days Sutures/[place] Site: remove 3 weeks Activity/Weight Bearing Restrictions: WBAT - Follow Up Care Current Providers and Referrals: Carol Ann Cain MD [Primary Care Provider] - Ethan Izquierdo MD [Medical Doctor] - Mina Holden MD [Medical Doctor] -
--- NOTE | 2017-11-06 10:42 | ASDISCHSUM ---
Discharge Information Plan Status:Home with No Needs Medically Cleared to Leave:11/05/2017 Discharge Date:11/06/2017 10:23 AM CM D/C Disposition:Home, Routine, Self-Care ADT D/C Disposition:Home, Routine, Self-Care Projected Discharge Date:11/06/2017 10:23 AM Transportation at D/C:Family Discharge Delay Reason: Follow-Up Date:11/06/2017 10:23 AM Discharge Slot:1 - 8:01 am - 12:00 noon Final Diagnosis:Septic arthritis s/p total knee arthroplasty, s/p I&D Placement Information Patient Contact Information Contact Name:PHIL Relationship: Address:[address] [place] Alternate Phone: [facility]/Zip Code:[place] [address] Email: Financial Information Financial Class:Medicare Advantage Plans Primary Plan Desc:[employer] MEDICARE COMPLETE Primary Plan Number:[id number] Secondary Plan Desc:[facility] Secondary Plan Number:[id number] Assessment Information [facility] CM Progress Note CM Note CM Note Notes: Pt admitted for septic arthritis s/p total knee arthroplasty. Per MD notes, I&D done, Infectious Disease consulted, pt started on PO antibiotics. PT/OT consulted, pt declined evals and per notes, declined Home Health Care. Pt to discharge home independently w/ family support and no identified needs. No IM/FLORES signed, pt admission <24 hrs. Pt to follow up as directed. CM avail for any further issues or concerns. Discharge Plan: Home independently Date Signed: 11/06/2017 10:39 AM Electronically Signed By:Mell Lujan RN Intervention Information Intervention Type:*Incorrect Registration Date of Service:11/05/2017 06:39 PM Patient Type:Inpatient Staff Member:BALA Barrientos Dina Hours: Discipline: Severity: Comment:
[2017-11-06] MEDS ORDERED: CALCIUM CITRATE 400 MG PO SCH (21:00)
[2017-11-06] MEDS ORDERED: CARVEDILOL 6.25 MG TAB PO SCH (21:00)
[2017-11-06] MEDS ORDERED: CHOLECALCIFEROL VIT D3 1,000 UNITS TAB PO SCH (21:00)
[2017-11-06] MEDS ORDERED: LOSARTAN POTASSIUM 50 MG TAB PO SCH (21:00)
[2017-11-06] MEDS ORDERED: METHYLCELLULOSE 1000 MG PO SCH (21:00)
[2017-11-06] MEDS ORDERED: VITAMIN B COMPLEX 1 EA CAP/TAB PO SCH (21:00)
[2017-11-06] MEDS ORDERED: FAMOTIDINE 20 MG TAB PO SCH (21:00)
[2017-11-07] MEDS ORDERED: MULTIVITAMINS W-MINERALS 1 EACH TAB PO SCH (09:00)
[2017-11-07] MEDS ORDERED: SPIRONOLACTONE 50 MG TAB PO SCH (09:00)
== END 2017-11-06 10:23 | disposition home or self-care (01) ==
LOC: INTOOBSV 13:11 → F3N 13:11
PROVIDERS: ADMIT Orthopaedic Surgery; ATTEND Orthopaedic Surgery
PROC: 0J9N0ZX Drainage of Right Lower Leg Subcutaneous Tissue and Fascia, Open Approach, Diagnostic (ICD-10-PCS; principal; 2017-11-05 15:00)
DX: L02.415 Cutaneous abscess of right lower limb (principal); T81.4XXA Infection following a procedure, initial encounter; G47.33 Obstructive sleep apnea (adult) (pediatric); I10 Essential (primary) hypertension; I34.0 Nonrheumatic mitral (valve) insufficiency; Z96.651 Presence of right artificial knee joint; Z86.19 Personal history of other infectious and parasitic diseases; Z98.1 Arthrodesis status
CPT/HCPCS: 10060; G0378; J0690; J1100; J2250; J2370; J2405; J2704; J3010; J2765

== ENCOUNTER → 2017-11-18 | Outpatient (CLI) | payer OTHER | LOC: CIMAGING 11:27 | PROVIDERS: ATTEND Nurse Practitioner | DX: R05 Cough (principal) | CPT/HCPCS: 71046-PO ==

== ENCOUNTER 2018-01-18 09:12 | Emergency (ER) | payer OTHER ==
[2018-01-18 09:17] VITALS: TEMP 97.9
--- NOTE | 2018-01-18 09:25 | CPEKG ---
Heart Rate: 85 RR Interval: 706 P-R Interval: 136 QRSD Interval: 134 QT Interval: 376 QTC Interval: 447 P [place]: -68 QRS [place]: -53 T Wave [place]: 15 EKG Severity - ABNORMAL ECG - EKG Impression: SINUS OR ECTOPIC ATRIAL RHYTHM EKG Impression: RBBB AND LAFB EKG Impression: LEFT VENTRICULAR HYPERTROPHY Electronically Signed By: Sergio Manzanares 19-Jan-2018 11:29:28
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
[2018-01-18 09:46] LABS: PLATELET COUNT 236 10^3/uL (150-400)
[2018-01-18] MEDS ORDERED: IOPAMIDOL (ISOVUE 370) 100 ML BTL IV ONE (09:56)
[2018-01-18 10:24] VITALS: O2SAT 97
[2018-01-18 11:09] VITALS: BP 118/61; PULSE 89; RESP 18
== END 2018-01-18 11:08 | disposition home or self-care (01) ==
DX: J18.9 Pneumonia, unspecified organism (principal); J45.909 Unspecified asthma, uncomplicated
CPT/HCPCS: 71275; 93005; 99285; Q9967

== ENCOUNTER 2018-01-24 05:38 | Inpatient (IN) | payer OTHER ==
--- NOTE | 2018-01-23 08:04 | GHP ---
[f rep st] PREOP HISTORY AND PHYSICAL Amended report DATE OF PLANNED PROCEDURE: 01/24/2018. ADMISSION DIAGNOSIS: Septic arthritis, following total knee arthroplasty, right knee. PLANNED PROCEDURE: Explant right knee. HPI: The patient is a 72-year-old female, who has had a long history with this right knee dating back 15 years ago when she had an initial postoperative infection. It sounds like this may have been an MRSA infection. She was treated with vancomycin toward the end of that course of infection. She developed a rash to vancomycin. She then underwent a revision knee arthroplasty. She has had a washout done by Dr. 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 She has been on suppressive antibiotics and followed by Dr. Ethan Izquierdo in Infectious Disease. PRIOR MEDICAL HISTORY: Hypertension; GERD; sleep apnea, currently on CPAP; rheumatic fever with valvular disease. SURGICAL HISTORY: Colon resection, , carpal tunnel release, and multiple knee surgeries as noted above. MEDICATIONS: Please see attached medication list. ALLERGIES: Sulfa, tetracycline, alcohol, caffeine, glutin, vancomycin, nuts, seeds, spices, onions, broccoli, cauliflower, brussel sprouts, dairy, fresh fruit, fresh vegetables, and adhesive tape. SOCIAL HISTORY: . Does not smoke. Occasional alcohol use. REVIEW OF SYSTEMS: No fevers, no chills. No shortness of breath. No chest pain. PHYSICAL EXAM: VITAL SIGNS: She is 4 feet 11 inches tall, weighs 228 pounds. Blood pressure is 125/81, heart rate is 91, respiratory rate is 16 on room air. GENERAL: Alert and oriented x3. HEENT: Normocephalic, atraumatic. Extraocular muscles intact. NECK: Supple. There is no lymphadenopathy. No JVD. CHEST: Clear to auscultation. CARDIOVASCULAR: Regular rate and rhythm. ABDOMEN: Soft, nontender, nondistended. EXTREMITIES: Right knee shows a well-healed incision. There is a small sinus tract. Mid to the distal 3rd of the incision is not currently draining. There is some redness and warmth there. She is able to bear weight on the knee. She lacks about 5 degrees extension and flexes to 120 degrees. Knee is stable to varus and valgus stress testing. IMAGING: Cemented knee replacement, stable. ASSESSMENT: Septic arthritis, right knee. Currently on suppressive antibiotics. PLAN: We have spent several visits discussing treatment options for this. I think given the fact that the infection has returned, we have no other choice other than explant the knee, treat with IV antibiotics, and proceed from there. Currently, cultures are growing MSSA, so we will treat her with Ancef. We will consult Infectious Disease. We will put an antibiotic spacer in. Hopefully we can clear the infection up after 6 weeks and reimplant the knee. /[id number]/MODL Add account number [email or web address]
[2018-01-24] MEDS ORDERED: LR 1,000 ML IV ONE (05:52)
[2018-01-24] MEDS ORDERED: ceFAZolin 1 GM/5 ML SYR ONE (07:00)
[2018-01-24] MEDS ORDERED: ceFAZolin 2 GM/SWFI 2 GM/20 ML SYR IVP ONE (07:05)
--- NOTE | 2018-01-24 07:07 | PDHPUP ---
History & Physical Update H&P update statement: This history and physical update is based on an assessment of the patient which was completed after admission or registration (within 24 hours), but prior to the surgery/procedure. H&P update: H&P reviewed & patient examined, no change in patient's condition since H&P completed
[2018-01-24] MEDS ORDERED: MIDAZOLAM 2 MG/2 ML VIAL ONE (07:09)
[2018-01-24] MEDS ORDERED: MIDAZOLAM 2 MG/2 ML VIAL IVP ONE (07:14)
--- NOTE | 2018-01-24 07:14 | PDANEPAE ---
ANE History of Present Illness Patient presents for explant of R TKA ANE Past Medical History - Cardiovascular History Hx Hypertension: Yes Hx Arrhythmias: No Hx Chest Pain: No Hx Coronary Artery / Peripheral Vascular Disease: Yes Hx CHF / Valvular Disease: No Hx Palpitations: No Cardiovascular History Comment: aortic insuff. htn. rheumatic heart disease - Pulmonary History Hx COPD: No Hx Asthma/Reactive Airway Disease: Yes Hx Recent Upper Respiratory Infection: No Hx Oxygen in Use at Home: No Hx Sleep Apnea: Yes Sleep Apnea Screening Result - Last Documented: Positive Pulmonary History Comment: berkley positive- uses cpap- instructed pt to bring. instructed pt to bring inhalers - Neurologic History Hx Cerebrovascular Accident: No Hx Seizures: No Hx Dementia: No Neurologic History Comment: Hx of kirill quintero - Endocrine History Hx Diabetes: No - Renal History Hx Renal Disorders: No Renal History Comment: serious incontinence USES 2 POISE PAD EVERY 2-3 HRS - Liver History Hx Hepatic Disorders: No - Neurological & Psychiatric Hx Hx Neurological and Psychiatric Disorders: Yes Neurological / Psychiatric History Comment: essential tremor. Hx of kirill quintero - Cancer History Hx Cancer: No Cancer History Comment: pre-cancerous lumpectomy - Congenital Disorder History Hx Congenital Disorders: No - GI History Hx Gastrointestinal Disorders: Yes Gastrointestinal History Comment: GERD-controlled with Zantac. HIATAL HERNIA. BARRETS ESOPHAGUS. DIFF SWALLOWING. IBS - Other Health History Other Health History: EASY BLEEDING AND BRUISING. FIBROMYALGIA. CHRONIC FATIGUE SYNDROME. MSSA KNEE INFECTION X 3 YSR 3RD ATTEMPT TO CORRECT INFECTION. PT TENDS TO HAVE LOW PLATETS. SPINAL STENOSIS. BILAT ROTATOR CUFF TEARS - Chronic Pain History Chronic Pain: Yes (right knee and generalized d/t fibromyalgia) - Surgical History Prior Surgeries: 05/09/14 right hammer toe repair with kincaid. 03/06/13 right rtc repair. varicose vein surgery- right leg. left knee scope x2. right knee scope x2. left tka x2. right tka x2. t&a as child. d&c in mid . i&d of episotomy in 1972. 1973. urethrotomy. exploratory lap with removal of benign tumor. abd hysterectomy. lumbar laminectomy x2. lumbosacral fusion. sigmoid colon resction 2003. colposcopy 2006. phlebectomy right leg. 09/03 right knee cleaned out ANE Review of Systems Review of Systems: - Exercise capacity METS (RN): 2 METS ANE Patient History - Allergies Allergies/Adverse Reactions: alcohol Allergy (Verified 01/18/18 09:14) allergic to sulfates in alcohol caffeine Allergy (Verified 01/18/18 09:14) causes agitation and insomnia gluten Allergy (Verified 01/18/18 09:14) gi issues oxycodone Allergy (Verified 01/18/18 09:14) Itching Sulfa (Sulfonamide Antibiotics) Allergy (Verified 01/18/18 09:14) Hives tetracycline [Tetracycline] Allergy (Verified 01/18/18 09:14) Hives vancomycin Allergy (Verified 01/18/18 09:14) very fine whole body rash BEANS,NUTS,SEEDS,SPICES,ONIONS Allergy (Uncoded 11/04/17 17:36) GI PROBLEMS BROCCOLI,CAULIFLOWER,BRUSSELSPROUTS Allergy (Uncoded 11/04/17 17:36) GI PROBLEMS DAIRY Allergy (Uncoded 11/04/17 17:36) GI PROBLEMS FRESH FRUITS EXCEPT BANANAS Allergy (Uncoded 11/04/17 17:36) GI PROBLEMS FRESH VEGETABLES Allergy (Uncoded 11/04/17 17:36) GI PROBLEMS TAPES EXCEPT PAPER Allergy (Uncoded 11/04/17 17:36) SKIN IRRITATION-BLISTERS - Home Medications Home medications: home medication list seen and reviewed Home Medications: Albuterol [Proventil Inhaler HFA (*)] 2 puffs IH Q6 PRN 02/24/13 [Last Taken 06/04] Calcium Citrate [Citracal] 400 mg PO BID 02/24/13 [Last Taken 01/23/18] Cholecalciferol Vit D3 [Vitamin D3 (*)] 5,000 units PO HS 02/24/13 [Last Taken 01/23/18] Vitamin B Complex [Vitamin B Complex (OTC)] 1 each PO HS 02/24/13 [Last Taken ] Multivitamins W-Minerals [Thera M Plus Tablet (*)] 1 each PO DAILY 03/06/13 [ Last Taken 01/23/18] Ranitidine HCl [Ranitidine HCl 150 mg] 150 mg PO BID 03/06/13 [Last Taken ] Losartan Potassium [Cozaar 50 mg (*)] 50 mg PO HS 07/08/13 [Last Taken 01/23/18] Carvedilol 6.25 mg PO BID 03/17/17 [Last Taken 01/24/18] Docusate Sodium [Colace 100 MG (*)] 100 - 200 mg PO BID PRN 03/17/17 [Last Taken 01/23/18] Methylcellulose [Citrucel] 1,000 mg PO BID 03/17/17 [Last Taken 01/23/18] Spironolactone [SPIRONOLACTONE] 50 mg PO DAILY 03/17/17 [Last Taken 01/23/18] Fluticasone Hfa 110 Mcg [Flovent 110 MCG Hfa MDI (*)] 2 puffs IH BID PRN [Last Taken 01/23/18] - NPO status NPO Status: no food or drink >8 hours NPO Since - Liquids (Date): 01/24/18 NPO Since - Liquids (Time): 05:00 NPO Since - Solids (Date): 01/23/18 NPO Since - Solids (Time): 21:00 - Smoking Hx Smoking Status: Never smoked - Family Anes Hx Family Hx Anesthesia Complications: none ANE Labs/Vital Signs - Vital Signs Blood Pressure: 119/65 Heart Rate: 88 Respiratory Rate: 18 O2 Sat (%): 95 Height: 149.86 cm Weight: 97.976 kg ANE Physical Exam - Airway Neck exam: decreased ROM Mallampati Score: Class 3 - Pulmonary Pulmonary: no respiratory distress - Cardiovascular Cardiovascular: regular rate and rhythym - ASA Status ASA Status: III ANE Anesthesia Plan Anesthesia Plan: GA w LMA (RBA discussed)
[2018-01-24] MEDS ORDERED: PROPOFOL 200 MG/20 ML VIAL ONE (07:17)
[2018-01-24] MEDS ORDERED: PROPOFOL/EMULSION 500 MG/50 ML BOTTLE IV ONE (07:17)
[2018-01-24] MEDS ORDERED: fentaNYL 100 MCG/2 ML INJ ONE ×5 (07:17→10:59)
[2018-01-24] MEDS ORDERED: ONDANSETRON 4 MG/2 ML VIAL ONE (07:49)
[2018-01-24] MEDS ORDERED: DEXAMETHASONE 4 MG/ML VIAL ONE (07:49)
[2018-01-24] MEDS ORDERED: ROPIVACAINE HCL 150 MG/30 ML INJ ONE (07:58)
[2018-01-24] MEDS ORDERED: BUPIVACAINE/EPI 0.5% 30 ML SDV ONE (07:58)
[2018-01-24] MEDS ORDERED: clonIDINE 1 MG/10 ML VIAL EP ONE (07:58)
[2018-01-24] MEDS ORDERED: HYDROCODONE/APAP 5/325 TAB PO PRN (09:32)
[2018-01-24] MEDS ORDERED: NALOXONE HCL 0.4 MG/ML INJ IVP PRN (09:32)
[2018-01-24] MEDS ORDERED: ONDANSETRON 4 MG/2 ML VIAL IVP PRN ×2 (09:32→10:10)
[2018-01-24] MEDS ORDERED: LR 500 ML IV PRN (09:32)
[2018-01-24] MEDS ORDERED: TEMAZEPAM 15 MG CAP PO PRN (10:10)
[2018-01-24] MEDS ORDERED: DIPHENOXYLATE/ATROPINE LOMOTIL 1 TAB PO PRN (10:10)
[2018-01-24] MEDS ORDERED: ONDANSETRON DISINTEGRATING 4 MG TAB PO PRN (10:10)
[2018-01-24] MEDS ORDERED: METOCLOPRAMIDE 10 MG/2 ML VIAL IVP PRN (10:10)
[2018-01-24] MEDS ORDERED: PROMETHAZINE HCL 25 MG/ML INJ IVP PRN (10:10)
[2018-01-24] MEDS ORDERED: POLYETHYLENE GLYCOL 3350 17 GM PKT PO PRN (10:10)
[2018-01-24] MEDS ORDERED: LACTULOSE 20 GM/30 ML UDCUP PO PRN (10:10)
[2018-01-24] MEDS ORDERED: BISACODYL 10 MG SUPP PR PRN (10:10)
[2018-01-24] MEDS ORDERED: PROMETHAZINE HCL 25 MG SUPPR PR PRN (10:10)
[2018-01-24] MEDS ORDERED: MAGNESIUM HYDROXIDE 30 ML UDCUP PO PRN (10:10)
[2018-01-24] MEDS ORDERED: diphenhydrAMINE 25 MG CAP PO PRN (10:10)
--- NOTE | 2018-01-24 10:10 | POSTOPPROG ---
Post Op Note Date of Operation: 01/24/18 Surgeon: Mina Holden [employer] Worker: FLY Shaw Anesthesia: GET(General Endotracheal) Pre-op Diagnosis: septic arthritis rt knee Post-op Diagnosis: same Procedure: RT TKA explant Inf/Abcess present in the surg proc area at time of surgery?: Yes Depth: Deep Incisional (Fascial) EBL: 100-500 Complications: none
[2018-01-24] MEDS: fentaNYL 100 MCG/2 ML INJ IVP PRN ×4 (10:20→11:20)
--- NOTE | 2018-01-24 10:25 | POSTANESTH ---
Post Anesthetic Evaluation Cardiovascular Status: Similar to Pre-Op Cond Respiratory Status: Similar to Pre-op Cond. Level of Consciousness/Mental Status: Alert and Oriented Pain Control: Adequate, Prn Tx Ordered Nausea/Vomiting Control: Adequate, Prn Tx Ordered Complications Possibly Related to Anesthesia: None Noted
[2018-01-24] MEDS ORDERED: LR 1,000 ML IV SCH (10:30)
--- NOTE | 2018-01-24 11:16 | GOP ---
[f rep st] OPERATIVE REPORT DATE OF OPERATION: 01/24/2018 SURGEON: Mina Holden MD OFFICE CORRESPONDENT: Anselmo Aleman, THEODORA. ANESTHESIA: General with a femoral canal block. ANESTHESIOLOGIST: Dr. Martino. PREOPERATIVE DIAGNOSIS: Septic arthritis, right knee. POSTOPERATIVE DIAGNOSIS: Septic arthritis, right knee. PROCEDURE PERFORMED: Explant total knee arthroplasty, right knee, with antibiotic spacer placement. FINDINGS: ESTIMATED BLOOD LOSS: 200 mL. INDICATIONS: The patient has had a longstanding right knee septic arthritis, has been on suppressive antibiotics. However, she has developed a fistula. Consulted with Infectious Disease, Dr. Izquierdo, min ferrer has recommended implant removal and she is brought to the operating room today for implant removal and IV antibiotics postoperatively. She, in the past, has grown out MSSA bacteria. DESCRIPTION OF PROCEDURE: After appropriate informed consent was obtained, patient was taken to the operating room and placed supine on the operating table. Time-out was performed. Patient was identi fied. Correct site was identified, matched with radiographs available in the room. She received 2 g of Ancef following cultures that were taken intraoperatively. After general endotracheal tube anest hesia, the right lower extremity was prepped and draped in the usual sterile fashion. There was 1 ar ea of fistula drainage on the anterior aspect of the knee, distal 3rd. Using the previous incision, skin was incised. Bleeding was controlled with electrocautery. The fistula was also excised. There was abundant scar tissue in the knee. I was able to perform a medial parapatellar arthrotomy, parti ally parvez the patella. Within the joint, there was no purulence, but the fluid was quite cloudy; th is was removed. We sent cultures both from the synovial fluid as well as the synovial lining. Then, using flexible reamers and oscillating saw, I was able to remove the femoral component. The infecti on had softened the bone throughout the distal end of the femur, and there was extensive bone loss. The tibial component was also removed again with a combination of flexible osteotomes and oscillating saw. It was well fixed but was able to be removed. The patella showed complete erosion of the cent ral pole of the patella down to the patellar tendon. The poly implant was removed. Any excess remai roel cement was removed from the bone. Pulsatile lavage was used with 7 L of normal saline. Remaini ng nonviable tissue was sharply excised. Bleeding was controlled with electrocautery. She sized to a size femur spacer. Tobramycin infused cement was mixed on the back table. Implant was cemented in to the knee. We then closed the deep layers with 0 Vicryl. Superficial layers were closed with 2-0 Vicryl. I instilled 20 mL of 0.5% Marcaine with epinephrine into the knee. Skin was closed with sta ples. Sterile dressing and a knee immobilizer were applied. Maury Aleman's assistance was required th roughout the entire case. COMPLICATIONS: None. DRAINS: None. TOTAL TOURNIQUET TIME: 107 minutes at 250 mmHg. IMPLANTS: Antibiotic spacer was a size medium tibial component with a wedge and a size medium femora l component. These were Remedy implants with tobramycin antibiotic cement. We also used tobramycin cement to cement the prosthesis in. /[id number]/MODL
[2018-01-24] MEDS: ACETAMINOPHEN 325 MG TAB PO SCH ×3 (12:36→23:36)
[2018-01-24] MEDS: CYCLOBENZAPRINE 10 MG TAB PO PRN ×2 (12:37→23:16)
[2018-01-24] MEDS: KETOROLAC 30 MG/1 ML SDV IVP PRN ×2 (12:42→23:17)
[2018-01-24] MEDS: traMADol 50 MG TAB PO PRN (12:59)
[2018-01-24] MEDS ORDERED: FLUTICASONE HFA 110 MCG MDI IH PRN (13:40)
[2018-01-24] MEDS ORDERED: ALBUTEROL 60 PUFFS/8 GM MDI IH PRN (13:40)
[2018-01-24] MEDS ORDERED: ceFAZolin 2 GM/DEXTROSE 100 ML IV SCH (14:00)
[2018-01-24] MEDS: oxyCODONE IR 5 MG TAB PO PRN ×3 (15:37→23:18)
--- NOTE | 2018-01-24 18:02 | PCMIDPN ---
Assessment/Plan: Assessment/Plan: * Chronic septic arthritis of right TKA status post explantation with spacer placement: Prior cultures with growth of MSSA. Will continue on cefazolin. Anticipate 6 week course of postoperative therapy. Follow-up operative cultures as available. 01/24/18 17:59 Subjective: Patient well known to me from outpatient care for chronic septic arthritis of right knee with sinus tract. Admitted today for explantation and spacer placement. Operative notes reviewed. Prior cultures with growth of MSSA. Objective: Vital Signs Temp Pulse Resp BP Pulse Ox 36.6 C 76 16 144/52 H 100 01/24/18 16:53 01/24/18 16:53 01/24/18 16:53 01/24/18 16:53 01/24/18 16:53 Microbiology 01/24/18 08:01 Mycobacterial Smear (SUZANNE) - Final Knee - Tissue 01/24/18 08:01 Mycobacterial Smear (SUZANNE) - Final Knee - Tissue 01/24/18 08:01 Gram Stain - Final Knee - Eswab 01/24/18 08:01 Gram Stain - Final Knee - Tissue 01/24/18 08:01 Gram Stain - Final Knee - Tissue 01/24/18 08:50 Fungal Culture - Final Knee - Tissue 01/24/18 08:50 Mycobacterial Smear (SUZANNE) - Final Knee - Tissue Mycobacterial Culture - Final 01/24/18 08:50 Gram Stain - Final Knee - Tissue Anaerobic Culture - Final 01/24/18 08:25 Fungal Culture - Final Knee - Eswab 01/24/18 08:25 Gram Stain - Final Knee - Eswab Anaerobic Culture - Final 01/24/18 08:25 Mycobacterial Smear (SUZANNE) - Final Knee - Tissue Mycobacterial Culture - Final 01/24/18 08:25 Fungal Culture - Final Knee - Tissue 01/24/18 08:25 Gram Stain - Final Knee - Tissue Anaerobic Culture - Final 01/24/18 08:01 Mycobacterial Smear (SUZANNE) - Final Knee - Eswab Mycobacterial Culture - Final 01/23/18 01/24/18 01/25/18 05:59 05:59 05:59 Intake Total 1610 Output Total 375 Balance 1235 Multiple Gram stain showing white blood cells with no organisms - Physical Exam General Appearance: alert, no apparent distress EENT: No scleral icterus Extremities: other (Right knee dressed postoperatively) ICD10 Worksheet Patient Problems: Problems Problem Status Onset Abscess of knee, right Acute Knee pain Acute Septic joint of right knee joint Acute
[2018-01-24] MEDS: ceFAZolin 2 GM/SWFI 2 GM/20 ML SYR IVP SCH (18:37)
[2018-01-24] MEDS: CARVEDILOL 6.25 MG TAB PO SCH (18:39)
[2018-01-24] MEDS ORDERED: FAMOTIDINE 20 MG TAB PO SCH (21:00)
[2018-01-24] MEDS ORDERED: NON-FORMULARY NEW DRUG (Ranitidine Hcl [Ranitidine Hcl 150 Mg] 150 MG) PO SCH (21:00)
[2018-01-24] MEDS: VITAMIN B COMPLEX 1 EA CAP/TAB PO SCH (23:16)
[2018-01-24] MEDS: CHOLECALCIFEROL VIT D3 1,000 UNITS TAB PO SCH (23:16)
[2018-01-24] MEDS: ASPIRIN 325 MG TAB PO SCH ×2 (23:17→23:23)
[2018-01-24] MEDS: SENNOSIDES/DOCUSATE SODIUM TAB PO SCH (23:17)
[2018-01-24] MEDS: FAMOTIDINE 20 MG TAB PO SCH (23:17)
[2018-01-24] MEDS: LOSARTAN POTASSIUM 50 MG TAB PO SCH (23:19)
[2018-01-24] MEDS: METHYLCELLULOSE 1000 MG PO SCH (23:23)
[2018-01-24] MEDS: CALCIUM CITRATE 400 MG PO SCH (23:23)
[2018-01-25] MEDS: ceFAZolin 2 GM/SWFI 2 GM/20 ML SYR IVP SCH ×3 (00:29→23:33)
[2018-01-25] MEDS: KETOROLAC 30 MG/1 ML SDV IVP PRN ×2 (05:07→11:59)
[2018-01-25] MEDS: ACETAMINOPHEN 325 MG TAB PO SCH ×3 (05:09→18:54)
[2018-01-25] MEDS ORDERED: DIAZEPAM 5 MG/ML 1 ML SYR IVP PRN (06:24)
[2018-01-25] MEDS: CYCLOBENZAPRINE 10 MG TAB PO PRN ×2 (08:45→17:10)
[2018-01-25] MEDS: oxyCODONE IR 5 MG TAB PO PRN ×2 (08:45→11:59)
[2018-01-25] MEDS: SENNOSIDES/DOCUSATE SODIUM TAB PO SCH ×2 (08:47→21:37)
[2018-01-25] MEDS: FAMOTIDINE 20 MG TAB PO SCH ×2 (08:48→21:37)
[2018-01-25] MEDS: CARVEDILOL 6.25 MG TAB PO SCH (08:50)
[2018-01-25] MEDS: CALCIUM CITRATE 400 MG PO SCH (08:51)
[2018-01-25] MEDS: METHYLCELLULOSE 1000 MG PO SCH ×2 (08:51→22:52)
[2018-01-25] MEDS: SPIRONOLACTONE 25 MG TAB PO SCH (08:52)
[2018-01-25] MEDS: ASPIRIN 325 MG TAB PO SCH (08:53)
[2018-01-25] MEDS ORDERED: SPIRONOLACTONE 50 MG TAB PO SCH (09:00)
--- NOTE | 2018-01-25 12:05 | SOAPPROG ---
SOAP Progress Note Assessment/Plan: Assessment: Plan: - hold ASA by pt request - will monitor, cont pt 01/25/18 12:05 Subjective: Pt c/o severe pain this am, doing better currently. Very unstable, difficulty w transfers Objective: Vital Signs Temp Pulse Resp BP Pulse Ox 36.9 C 98 17 104/62 88 L 01/25/18 08:02 01/25/18 08:50 01/25/18 08:02 01/25/18 08:50 01/25/18 08:02 Microbiology 01/24/18 08:01 Gram Stain - Final Knee - Eswab 01/24/18 08:01 Gram Stain - Final Knee - Tissue 01/24/18 08:01 Gram Stain - Final Knee - Tissue 01/24/18 08:01 Mycobacterial Smear (SUZANNE) - Final Knee - Tissue 01/24/18 08:01 Mycobacterial Smear (SUZANNE) - Final Knee - Tissue 01/24/18 08:50 Fungal Culture - Final Knee - Tissue 01/24/18 08:50 Mycobacterial Smear (SUZANNE) - Final Knee - Tissue Mycobacterial Culture - Final 01/24/18 08:50 Gram Stain - Final Knee - Tissue Anaerobic Culture - Final 01/24/18 08:25 Fungal Culture - Final Knee - Eswab 01/24/18 08:25 Gram Stain - Final Knee - Eswab Anaerobic Culture - Final 01/24/18 08:25 Mycobacterial Smear (SUZANNE) - Final Knee - Tissue Mycobacterial Culture - Final 01/24/18 08:25 Fungal Culture - Final Knee - Tissue 01/24/18 08:25 Gram Stain - Final Knee - Tissue Anaerobic Culture - Final 01/24/18 08:01 Mycobacterial Smear (SUZANNE) - Final Knee - Eswab Mycobacterial Culture - Final Laboratory Results 01/25/18 05:31 01/24/18 01/25/18 01/26/18 05:59 05:59 05:59 Intake Total 2885 Output Total 725 Balance 2160 dressing cdi, compartments soft, nvi, no dvt - Time Spent With Patient Time Spent With Patient: 15 - Pending Discharge Pending Discharge Within 24 Hours: No Pending Discharge Within 48 Hours: No ICD10 Worksheet Patient Problems: Problems Problem Status Onset Abscess of knee, right Acute Knee pain Acute Septic joint of right knee joint Acute
[2018-01-25] MEDS ORDERED: ALTEPLASE 2 MG VIAL IVP PRN (12:47)
--- NOTE | 2018-01-25 13:37 | PDMN ---
Medical Necessity Medical necessity: S700 knee arthroplasty explant of Total knee with spacer insertion [facility] INPT only- S/P I/D of infected joint and hardware, pending PICC line, poss MSSA infection, not tolerating Weight bearing, ongoing pain, pt with chronic septic arthritis - [facility] [place] S605 3 days: cont. monitoring and tx > 2 midnights
--- NOTE | 2018-01-25 16:45 | ASMTCMCOM ---
CM Note CM Note Notes: Met with patient and regarding discharge plan of care. Patient lives at home with and normally functions very well. Patient is concerned about her ability to transfer/move at this time. Patient agreeable to rehab, #1 choice [facility], #2 choice [facility]. Referral sent to [facility], awaiting final approval. Spoke with Sharron at [facility], they are recommending SNF at this time. CM will continue to follow. Plan: [facility] Date Signed: 01/25/2018 04:45 PM Electronically Signed By:Briseida Vela RN
--- NOTE | 2018-01-25 18:33 | PCMIDPN ---
Assessment/Plan: Assessment/Plan: * Chronic septic arthritis of right TKA status post explantation with spacer placement: 1 of 3 culture showing growth of Staphylococcus species. Suspect will likely be MSSA which has been isolated previously. Continue cefazolin with anticipated 6 week course of IV treatment post explantation. PICC line placed earlier today with plans for weekly CBC, CMP and CRP on antibiotic therapy. Continue to follow cultures as they mature. 01/25/18 18:31 Subjective: Patient complains of inability to bear weight. Objective: Vital Signs Temp Pulse Resp BP Pulse Ox 37.6 C 102 H 15 149/56 H 89 L 01/25/18 16:00 01/25/18 16:00 01/25/18 16:00 01/25/18 16:00 01/25/18 16:00 Microbiology 01/24/18 08:01 Gram Stain - Final Knee - Eswab 01/24/18 08:01 Mycobacterial Smear (SUZANNE) - Final Knee - Tissue 01/24/18 08:01 Mycobacterial Smear (SUZANNE) - Final Knee - Tissue 01/24/18 08:01 Gram Stain - Final Knee - Tissue 01/24/18 08:01 Gram Stain - Final Knee - Tissue Laboratory Results 01/25/18 05:31 01/24/18 01/25/18 01/26/18 05:59 05:59 05:59 Intake Total 2885 Output Total 725 Balance 2160 Cefazolin # 1 1/3 operative cultures with growth of Staphylococcus species AFB smears negative - Physical Exam General Appearance: alert, non-toxic EENT: No scleral icterus, No thrush Cardiac/Chest: tachycardia Extremities: inflammation (Right lower extremity dressed postoperatively) Abdomen: non-tender, No distended ICD10 Worksheet Patient Problems: Problems Problem Status Onset Abscess of knee, right Acute Knee pain Acute Septic joint of right knee joint Acute
[2018-01-25] MEDS: VITAMIN B COMPLEX 1 EA CAP/TAB PO SCH (21:36)
[2018-01-25] MEDS: LOSARTAN POTASSIUM 50 MG TAB PO SCH (21:37)
[2018-01-25] MEDS: CHOLECALCIFEROL VIT D3 1,000 UNITS TAB PO SCH (21:37)
--- NOTE | 2018-01-25 22:19 | GCON ---
[f rep st] CONSULTATION DATE OF CONSULTATION: 01/25/2018 REFERRING PHYSICIAN: Mina Holden MD REASON FOR CONSULTATION: Acute encephalopathy. HISTORY OF PRESENT ILLNESS: A 72-year-old female with history of chronic septic arthritis of right TKA on suppressive antibiotics. Followed by ID. She developed a fistula, so Dr. Izquierdo recommended surgical intervention. Status post explantation and spacer placement yesterday by Dr. Holden. One of 3 cultures show staph species, likely MSSA, which has been previously isolated. She is on cefazolin 6 weeks post explantation. I was called due to increased confusion that was different from this afternoon. says when he came into the room, and she was confused, had the oxygen cord wrapped around her head, and was not making sense. Patient denies chest pain, fevers, chills, or sweats. No nausea, vomiting, diarrhea. Has pain in the right knee. No headache. No blurred vision. No dysuria or urinary frequency. Has a history of CHUCKIE on CPAP, hypertension, GERD. Medications today: 6mg morphine, 20 mg of oxycodone, Flexeril at 17:00 this evening. REVIEW OF SYSTEMS: I completed a 10-point review of systems, negative except as noted in HPI. PAST MEDICAL HISTORY: Hypertension, GERD, CHUCKIE on CPAP, chronic right knee septic arthritis. PAST SURGICAL HISTORY: Right TKA complicated by infection, back surgery, colon resection, carpal tunnel, leaky aortic valve, . SOCIAL HISTORY: Lives with her , been 35 years in [place]. No alcohol, tobacco, or illicits. HOME MEDICATIONS: 1. Vitamin B. 2. Spironolactone 50 mg daily. 3. Ranitidine 150 mg b.i.d. 4. Multivitamin. 5. Citrucel 1000 mg b.i.d. 6. Hooker 1 tab q.4 hours. 7. Colace. 8. Vitamin D3. 9. Coreg 6.25 mg b.i.d. 10. Calcium citrate. 11. Albuterol as needed. ALLERGIES: Alcohol, caffeine, gluten, oxycodone, sulfa, tetracycline, vancomycin, beer, nuts, seeds, spices, onions, tape. PHYSICAL EXAMINATION: VITAL SIGNS: Temperature 37.6, blood pressure 149/56, heart rate is 100, respirations 15, 89% on room air, 94% on 1 L. GENERAL: Patient is an obese female, lying in bed, mildly agitated. HEENT: PERRLA. Small pupils, but reactive. EOMI. Dry mucous membranes. CVA: Tachy, but regular. No murmurs, gallops, or rubs. LUNGS: Clear anteriorly. ABDOMEN: Soft, nontender, nondistended. Positive bowel sounds. : Us in place. MUSCULOSKELETAL: Right leg in brace. Lalo bandage. She is moving all 4 extremities, 5/5 upper extremity strength. NEURO: 2 through 12 intact. Normal sensation to touch. No focal neuro deficits PSYCH: Alert and oriented to place, self, and the year, but she was confused saying her center administrator visited her at home today. LABORATORY DATA: H/H 7.7 and 25 (BL ). Sodium 139, potassium 5, chloride 102, carbon dioxide 24, creatinine 0.8, glucose 162. IMAGING DATA: CTA, 01/18/2018, was negative for pulmonary embolism. Positive for coronary artery calcifications. ASSESSMENT AND PLAN: 1. Acute toxic encephalopathy: related to pain medications and Flexeril. She has a nonfocal exam. May be retaining CO2 with CHUCKIE. Check ABG, trop, EKG ( coronary calcifications on recent CTA). Stop narcotics and Flexeril, Reglan. She is afebrile. H/H was low, repeat. 2. Obstructive sleep apnea: CPAP 3. Chronic septic knee joint: Status post explantation and spacer placement. Care per ortho team 4. Chronic right septic knee joint: Cefazolin per ID. 5. Tachycardia: from pain, acute blood loss anemia. CTA /3 negative for PE 6. Acute blood loss anemia: transfuse 1 unit RBC DISPOSITION: We will continue to follow along, and please call if any questions. /[id number]/MODL MTDD
[2018-01-26] MEDS: ACETAMINOPHEN 325 MG TAB PO SCH ×4 (02:11→17:10)
[2018-01-26] MEDS: CALCIUM CITRATE 400 MG PO SCH ×3 (02:20→20:46)
[2018-01-26] MEDS: traMADol 50 MG TAB PO PRN ×2 (03:12→12:06)
[2018-01-26] MEDS: KETOROLAC 30 MG/1 ML SDV IVP PRN ×2 (03:12→09:35)
[2018-01-26] MEDS: CARVEDILOL 6.25 MG TAB PO SCH ×3 (05:31→17:10)
[2018-01-26] MEDS: ceFAZolin 2 GM/SWFI 2 GM/20 ML SYR IVP SCH ×3 (07:54→22:49)
[2018-01-26 07:59] LABS: PLATELET COUNT 154 10^3/uL (150-400)
[2018-01-26] MEDS: ASPIRIN 325 MG TAB PO SCH ×2 (08:16→08:19)
[2018-01-26] MEDS: METHYLCELLULOSE 1000 MG PO SCH ×2 (08:20→20:46)
--- NOTE | 2018-01-26 08:43 | SOAPPROG ---
SOAP Progress Note Assessment/Plan: Assessment: Plan: 01/26/18 08:41 POD#2 explant removed appreciate medicine help mental status improved HGB stable after 1 unit PRBC for acute blodd loss anemia remove Us xray knee due to pain will probably need SNF DC asa will start xarelto for dvt proph if hgb stable in am Subjective: feeling better Today knee still painful with movement Objective: knee immob in place dressing in place df/pf 01/19 Vital Signs Temp Pulse Resp BP Pulse Ox 36.7 C 86 17 131/67 H 95 01/26/18 07:27 01/26/18 07:27 01/26/18 07:27 01/26/18 07:27 01/26/18 07:27 Microbiology 01/24/18 08:01 Gram Stain - Final Knee - Eswab 01/24/18 08:01 Mycobacterial Smear (SUZANNE) - Final Knee - Tissue 01/24/18 08:01 Mycobacterial Smear (SUZANNE) - Final Knee - Tissue 01/24/18 08:01 Gram Stain - Final Knee - Tissue 01/24/18 08:01 Gram Stain - Final Knee - Tissue Laboratory Results 01/26/18 07:45 01/26/18 07:45 01/25/18 01/26/18 01/27/18 05:59 05:59 05:59 Intake Total 8955 750 Output Total 728 1100 Balance 2160 -350 ICD10 Worksheet Patient Problems: Problems Problem Status Onset Abscess of knee, right Acute Knee pain Acute Septic joint of right knee joint Acute
[2018-01-26] MEDS ORDERED: HYDROCODONE/APAP 5/325 TAB PO PRN (09:18)
[2018-01-26] MEDS: SENNOSIDES/DOCUSATE SODIUM TAB PO SCH ×2 (09:25→20:44)
[2018-01-26] MEDS: FAMOTIDINE 20 MG TAB PO SCH ×2 (09:25→20:44)
[2018-01-26] MEDS: SPIRONOLACTONE 25 MG TAB PO SCH (09:25)
--- NOTE | 2018-01-26 14:09 | HOSPPROG ---
Hospitalist Progress Note Assessment/Plan: 72y female with c/o confusion. First encounter, chart reviewed. #Acute encephalopathy -resolved -in the setting of anemia and medication #Pain -add oxy CR -watch closely -try robaxin #Anemia -1 unit given -follow #Septic knee -cont IV abx therapy #CHUCKIE -CPAP #Dispo -unclear -needs better pain control -cont to follow Subjective: Feeling better today. Still having significant pain. Knows she was confused yesterday. Objective: Vital Signs Temp Pulse Resp BP Pulse Ox 36.6 C 87 18 119/50 L 93 01/26/18 12:53 01/26/18 12:53 01/26/18 12:53 01/26/18 12:53 01/26/18 12:53 Microbiology 01/24/18 08:01 Gram Stain - Final Knee - Tissue 01/24/18 08:01 Mycobacterial Smear (SUZANNE) - Final Knee - Tissue 01/24/18 08:01 Gram Stain - Final Knee - Eswab 01/24/18 08:01 Gram Stain - Final Knee - Tissue 01/24/18 08:01 Mycobacterial Smear (SUZANNE) - Final Knee - Eswab Mycobacterial Culture - Final 01/24/18 08:01 Mycobacterial Smear (SUZANNE) - Final Knee - Tissue Laboratory Results 01/26/18 07:45 01/26/18 07:45 01/25/18 01/26/18 01/27/18 05:59 05:59 05:59 Intake Total 2885 750 200 Output Total 725 1100 500 Balance 2160 -350 -300 - Physical Exam Constitutional: chronically ill appearing, obese, uncomfortable Eyes: PERRL, anicteric sclera, EOMI Ears, Nose, Mouth, Throat: moist mucous membranes, hearing normal, ears appear normal Cardiovascular: edema, No JVD, No tachycardia Respiratory: no respiratory distress, no rales or rhonchi, reduced air movement Gastrointestinal: normoactive bowel sounds, soft, non-tender abdomen, No ascites Skin: warm, No mottled, No induration Musculoskeletal: joint tenderness, pain with ROM, muscular tenderness, abnormal gait, generalized weakness Neurologic: AAOx3 Psychiatric: not anxious, not encephalopathic, thought process linear ICD10 Worksheet Patient Problems: Problems Problem Status Onset Abscess of knee, right Acute Knee pain Acute Septic joint of right knee joint Acute
[2018-01-26] MEDS: METHOCARBAMOL 500 MG TAB PO SCH ×2 (16:16→22:49)
--- NOTE | 2018-01-26 17:45 | PCMIDPN ---
Assessment/Plan: Assessment/Plan: * Chronic septic arthritis of right TKA status post explantation with spacer placement: 2 of 3 cultures showing growth of Staphylococcus aureus with susceptibility pending. Suspect will likely be MSSA which has been isolated previously. In continue cefazolin 2 g IV q.8 hours x6 weeks. Weekly laboratory monitoring with CBC, CMP and CRP. Await knee x-ray given persistent knee pain post explantation. 01/26/18 17:43 Subjective: Patient complains of persistent right knee pain. Objective: Vital Signs Temp Pulse Resp BP Pulse Ox 36.8 C 84 18 121/61 H 98 01/26/18 16:00 01/26/18 17:10 01/26/18 16:00 01/26/18 17:10 01/26/18 16:00 Microbiology 01/24/18 08:01 Gram Stain - Final Knee - Eswab 01/24/18 08:01 Gram Stain - Final Knee - Tissue 01/24/18 08:01 Gram Stain - Final Knee - Tissue 01/24/18 08:01 Mycobacterial Smear (SUZANNE) - Final Knee - Tissue 01/24/18 08:01 Mycobacterial Smear (SUZANNE) - Final Knee - Eswab Mycobacterial Culture - Final 01/24/18 08:01 Mycobacterial Smear (SUZANNE) - Final Knee - Tissue Laboratory Results 01/26/18 07:45 01/26/18 07:45 01/25/18 01/26/18 01/27/18 05:59 05:59 05:59 Intake Total 2885 750 200 Output Total 725 1100 500 Balance 2160 -350 -300 C-Reactive Protein 260.0 mg/L (<10.0) H 01/26/18 07:45 Cefazolin # 2 2/3 operative cultures of Staphylococcus aureus - Physical Exam General Appearance: alert, no apparent distress, non-toxic EENT: No scleral icterus, No thrush Respiratory: lungs clear, No respiratory distress Cardiac/Chest: regular rate, rhythm Extremities: other (Right knee dressed postoperatively) Abdomen: non-tender, No distended Neuro/Psych: No confused ICD10 Worksheet Patient Problems: Problems Problem Status Onset Abscess of knee, right Acute Knee pain Acute Septic joint of right knee joint Acute
[2018-01-26] MEDS: CHOLECALCIFEROL VIT D3 1,000 UNITS TAB PO SCH (20:44)
[2018-01-26] MEDS: LOSARTAN POTASSIUM 50 MG TAB PO SCH (20:44)
[2018-01-26] MEDS: VITAMIN B COMPLEX 1 EA CAP/TAB PO SCH (20:44)
[2018-01-27] MEDS: ACETAMINOPHEN 325 MG TAB PO SCH ×5 (00:43→23:13)
[2018-01-27] MEDS: oxyCODONE IR 5 MG TAB PO PRN ×2 (05:59→15:38)
[2018-01-27] MEDS: ceFAZolin 2 GM/SWFI 2 GM/20 ML SYR IVP SCH ×3 (07:00→23:12)
[2018-01-27] MEDS: CARVEDILOL 6.25 MG TAB PO SCH ×3 (07:27→20:11)
[2018-01-27] MEDS: CALCIUM CITRATE 400 MG PO SCH ×2 (08:36→20:07)
[2018-01-27] MEDS: METHYLCELLULOSE 1000 MG PO SCH ×2 (08:36→20:07)
[2018-01-27] MEDS: FAMOTIDINE 20 MG TAB PO SCH ×2 (08:37→20:05)
[2018-01-27] MEDS: METHOCARBAMOL 500 MG TAB PO SCH ×3 (08:37→23:12)
[2018-01-27] MEDS: SPIRONOLACTONE 25 MG TAB PO SCH (08:37)
[2018-01-27] MEDS: SENNOSIDES/DOCUSATE SODIUM TAB PO SCH ×2 (08:38→20:07)
[2018-01-27] MEDS: RIVAROXABAN 10 MG TAB PO SCH (08:42)
--- NOTE | 2018-01-27 09:47 | SOAPPROG ---
SOAP Progress Note Assessment/Plan: Assessment: Plan: - improving overall, likely d/c to rehab tomorrow 01/25/18 12:05 01/27/18 09:46 Subjective: Pain improved, better overall function today, no confusion Objective: Vital Signs Temp Pulse Resp BP Pulse Ox 36.8 C 90 18 148/68 H 90 L 01/27/18 04:00 01/27/18 07:27 01/27/18 04:00 01/27/18 07:27 01/27/18 04:00 Microbiology 01/24/18 08:01 Gram Stain - Final Knee - Eswab 01/24/18 08:01 Gram Stain - Final Knee - Tissue 01/24/18 08:01 Gram Stain - Final Knee - Tissue 01/24/18 08:01 Mycobacterial Smear (SUZANNE) - Final Knee - Tissue 01/24/18 08:01 Mycobacterial Smear (SUZANNE) - Final Knee - Eswab Mycobacterial Culture - Final Laboratory Results 01/27/18 05:25 01/26/18 07:45 01/26/18 01/27/18 01/28/18 05:59 05:59 05:59 Intake Total 750 750 Output Total 1100 501 Balance -350 249 dressing cdi, swelling improved, compartments soft, nvi distally, no evidence of dvt - Time Spent With Patient Time Spent With Patient: 15 - Pending Discharge Pending Discharge Within 24 Hours: No Pending Discharge Within 48 Hours: Yes Pending Discharge Date: 01/29/18 Pending Discharge Time: 11:00 ICD10 Worksheet Patient Problems: Problems Problem Status Onset Abscess of knee, right Acute Knee pain Acute Septic joint of right knee joint Acute
--- NOTE | 2018-01-27 11:20 | HOSPPROG ---
Hospitalist Progress Note Assessment/Plan: 72y female with c/o confusion. D/W Ortho #Acute encephalopathy -resolved -in the setting of anemia and medication #Pain -oxy CR -watch closely -robaxin -stable #Anemia -1 unit given -follow #Septic knee -cont IV abx therapy #CHUCKIE -CPAP #Dispo -medically stable -rec snf DC in am Subjective: Feeling better. Still having pain. No other complaints. Objective: Vital Signs Temp Pulse Resp BP Pulse Ox 36.8 C 90 18 148/68 H 90 L 01/27/18 04:00 01/27/18 07:27 01/27/18 04:00 01/27/18 07:27 01/27/18 04:00 Microbiology 01/24/18 08:01 Gram Stain - Final Knee - Eswab 01/24/18 08:01 Gram Stain - Final Knee - Tissue 01/24/18 08:01 Gram Stain - Final Knee - Tissue 01/24/18 08:01 Mycobacterial Smear (SUZANNE) - Final Knee - Tissue 01/24/18 08:01 Mycobacterial Smear (SUZANNE) - Final Knee - Eswab Mycobacterial Culture - Final Laboratory Results 01/27/18 05:25 01/26/18 07:45 01/26/18 01/27/18 01/28/18 05:59 05:59 05:59 Intake Total 750 750 Output Total 1100 501 Balance -350 249 - Physical Exam Constitutional: no apparent distress, obese, uncomfortable Eyes: PERRL, anicteric sclera, EOMI Ears, Nose, Mouth, Throat: moist mucous membranes, hearing normal, ears appear normal Cardiovascular: No JVD, No tachycardia, No edema Respiratory: no respiratory distress, no rales or rhonchi, reduced air movement Gastrointestinal: normoactive bowel sounds, No tenderness, No ascites Skin: warm, normal color, No mottled Musculoskeletal: joint tenderness, pain with ROM, muscular tenderness, abnormal gait, generalized weakness Neurologic: AAOx3 Psychiatric: interacting appropriately, not anxious, not encephalopathic, thought process linear ICD10 Worksheet Patient Problems: Problems Problem Status Onset Abscess of knee, right Acute Knee pain Acute Septic joint of right knee joint Acute
[2018-01-27] MEDS: traMADol 50 MG TAB PO PRN (11:30)
--- NOTE | 2018-01-27 12:00 | PDIAF ---
- Diagnosis Diagnosis: Septic TKA right Code Status: Full Code - Medication Management Discharge Medications: Medications to Continue on Transfer Albuterol [Proventil Inhaler HFA (*)] 2 puffs IH Q6 PRN 02/24/13 [Last Taken 06/04] Calcium Citrate [Citracal] 400 mg PO BID 02/24/13 [Last Taken 01/23/18] Cholecalciferol Vit D3 [Vitamin D3 (*)] 5,000 units PO HS 02/24/13 [Last Taken 01/23/18] Vitamin B Complex [Vitamin B Complex (OTC)] 1 each PO HS 02/24/13 [Last Taken ] Multivitamins W-Minerals [Thera M Plus Tablet (*)] 1 each PO DAILY 03/06/13 [ Last Taken 01/23/18] Ranitidine HCl [Ranitidine HCl 150 mg] 150 mg PO BID 03/06/13 [Last Taken ] Losartan Potassium [Cozaar 50 mg (*)] 50 mg PO HS 07/08/13 [Last Taken 01/23/18] Docusate Sodium [Colace 100 MG (*)] 100 - 200 mg PO BID PRN 03/17/17 [Last Taken 01/23/18] Methylcellulose [Citrucel] 1,000 mg PO BID 03/17/17 [Last Taken 01/23/18] Spironolactone [SPIRONOLACTONE] 50 mg PO DAILY 03/17/17 [Last Taken 01/23/18] Fluticasone Hfa 110 Mcg [Flovent 110 MCG Hfa MDI (*)] 2 puffs IH BID PRN [Last Taken 01/23/18] Hydrocodone/APAP 5/325 [[place] 5/325 (*)] 1 tab PO Q4HRS PRN #40 tab 11/06/17 [ Last Taken 01/23/18] Carvedilol [Coreg (*)] 6.25 mg PO BIDMEAL 01/24/18 [Last Taken 01/24/18] Herbals/Supplements -Info Only 1 ea PO DAILY 01/24/18 [Last Taken Unknown] Educational Program Assistant Antibiotics: Cefazolin 2 g IV q 8 hours Assisted Antibiotic Stop Date: 03/08/18 Discharge Medications: Refer to the Discharge Home Medication list for PRN reason. PICC Care - Routine: Yes - Orders Isolation Type: None - Labs/Radiology CBC w/diff Date: 01/31/18 (weekly q Mon) CMP Date: 01/31/18 (weekly q Mon) CRP Date: 01/31/18 (weekly q Mon) Call or Fax Lab and Imaging Results to: Dr. Izquierdo, - Follow Up Care Current Providers and Referrals: Carol Ann Cain MD [Primary Care Provider] - Ethan Izquierdo MD [Medical Doctor] -
--- NOTE | 2018-01-27 15:16 | PDIAF ---
- Diagnosis Diagnosis: Septic TKA right Code Status: Full Code - Medication Management Discharge Medications: Medications to Continue on Transfer Albuterol [Proventil Inhaler HFA (*)] 2 puffs IH Q6 PRN 02/24/13 [Last Taken 06/04] Calcium Citrate [Citracal] 400 mg PO BID 02/24/13 [Last Taken 01/23/18] Cholecalciferol Vit D3 [Vitamin D3 (*)] 5,000 units PO HS 02/24/13 [Last Taken 01/23/18] Vitamin B Complex [Vitamin B Complex (OTC)] 1 each PO HS 02/24/13 [Last Taken ] Multivitamins W-Minerals [Thera M Plus Tablet (*)] 1 each PO DAILY 03/06/13 [ Last Taken 01/23/18] Ranitidine HCl [Ranitidine HCl 150 mg] 150 mg PO BID 03/06/13 [Last Taken ] Losartan Potassium [Cozaar 50 mg (*)] 50 mg PO HS 07/08/13 [Last Taken 01/23/18] Docusate Sodium [Colace 100 MG (*)] 100 - 200 mg PO BID PRN 03/17/17 [Last Taken 01/23/18] Methylcellulose [Citrucel] 1,000 mg PO BID 03/17/17 [Last Taken 01/23/18] Spironolactone [SPIRONOLACTONE] 50 mg PO DAILY 03/17/17 [Last Taken 01/23/18] Fluticasone Hfa 110 Mcg [Flovent 110 MCG Hfa MDI (*)] 2 puffs IH BID PRN [Last Taken 01/23/18] Hydrocodone/APAP 5/325 [[place] 5/325 (*)] 1 tab PO Q4HRS PRN #40 tab 11/06/17 [ Last Taken 01/23/18] Carvedilol [Coreg (*)] 6.25 mg PO BIDMEAL 01/24/18 [Last Taken 01/24/18] Herbals/Supplements -Info Only 1 ea PO DAILY 01/24/18 [Last Taken Unknown] Director Community Organization Antibiotics: Cefazolin 2 g IV q 8 hours [facility] Antibiotic Stop Date: 03/08/18 Discharge Medications: Refer to the Discharge Home Medication list for PRN reason. PICC Care - Routine: Yes - Orders Isolation Type: None - Labs/Radiology CBC w/diff Date: 01/31/18 (weekly q Mon) CMP Date: 01/31/18 (weekly q Mon) CRP Date: 01/31/18 (weekly q Mon) Call or Fax Lab and Imaging Results to: Dr. Izquierdo, - Follow Up Care Current Providers and Referrals: Carol Ann Cain MD [Primary Care Provider] - Ethan Izquierdo MD [Medical Doctor] - 02/07/18 2:30 pm
--- NOTE | 2018-01-27 15:29 | ASMTCMCOM ---
CM Note CM Note Notes: Spoke w/pt re; dc snf. Inpt rehab feels pt is more appropriate for snf, pt would like [facility] updated notes. DC Plan: SNF/[facility] Date Signed: 01/27/2018 03:28 PM Electronically Signed By:Tiffanie Campos RN
[2018-01-27] MEDS: CHOLECALCIFEROL VIT D3 1,000 UNITS TAB PO SCH (20:04)
[2018-01-27] MEDS: VITAMIN B COMPLEX 1 EA CAP/TAB PO SCH (20:05)
[2018-01-27] MEDS: LOSARTAN POTASSIUM 50 MG TAB PO SCH (20:09)
[2018-01-28] MEDS: oxyCODONE IR 5 MG TAB PO PRN ×5 (00:46→18:09)
[2018-01-28] MEDS: ACETAMINOPHEN 325 MG TAB PO SCH ×4 (06:17→22:53)
[2018-01-28] MEDS: ceFAZolin 2 GM/SWFI 2 GM/20 ML SYR IVP SCH ×3 (07:26→22:49)
[2018-01-28] MEDS: SPIRONOLACTONE 25 MG TAB PO SCH (09:54)
[2018-01-28] MEDS: CARVEDILOL 6.25 MG TAB PO SCH ×2 (09:55→17:55)
[2018-01-28] MEDS: FAMOTIDINE 20 MG TAB PO SCH ×2 (09:56→20:10)
[2018-01-28] MEDS: METHOCARBAMOL 500 MG TAB PO SCH ×3 (09:57→22:49)
[2018-01-28] MEDS: SENNOSIDES/DOCUSATE SODIUM TAB PO SCH ×2 (09:57→20:10)
[2018-01-28] MEDS: RIVAROXABAN 10 MG TAB PO SCH (09:57)
[2018-01-28] MEDS: METHYLCELLULOSE 1000 MG PO SCH ×2 (10:44→20:12)
[2018-01-28] MEDS: CALCIUM CITRATE 400 MG PO SCH ×2 (10:44→20:12)
--- NOTE | 2018-01-28 11:42 | HOSPPROG ---
Hospitalist Progress Note Assessment/Plan: 72 yo F with hx of chronic septic arthritis of right TKA s/p explantation # chronic septic arthritis: s/p explantation, cxs showing MSSA. Patient has been on chronic suppressive abx and followed by ID. Knee remains painful and mobility has been limited largely by pain. Will need SNF and has been accepted to [facility] for rehab. # acute encephalopathy: has resolved, presumably post operative delirium # pain: relatively well controlled at this time on oxycontin/oxycodone and will continue # anemia: due to anemia of chronic disease, stable, will continue # Chronic medical issues: CHUCKIE on CPAP, HTN, GERD--continue op medications # dispo: IP status, likely to dc to snf today Patient new to my care. Old records reviewed and summarized as above. Care plan reviewed with CM, further hx obtained from patients present at bedside. Subjective: no significant overnight events, patient notes that her leg continues to hurt more than it has after previous surgeries, her mobility has been limited Objective: Vital Signs Temp Pulse Resp BP Pulse Ox 36.7 C 84 16 150/62 H 93 01/28/18 07:43 01/28/18 09:55 01/28/18 07:43 01/28/18 09:55 01/28/18 07:43 Microbiology 01/24/18 08:01 Gram Stain - Final Knee - Tissue 01/24/18 08:01 Gram Stain - Final Knee - Eswab 01/24/18 08:01 Gram Stain - Final Knee - Tissue Laboratory Results 01/27/18 05:25 01/26/18 07:45 01/27/18 01/28/18 01/29/18 05:59 05:59 05:59 Intake Total 750 600 Output Total 501 900 450 Balance 249 -300 -450 awake alert nad anicteric op clear rrr no mrg cta b soft nt nd right knee bandaged warm dry well perfused oriented appropriate - Time Spent With Patient Time Spent with Patient: greater than 35 minutes Time Spent with Patient: Greater than 35 minutes spent on this patients care, greater than 50% of time spent counseling, educating, and coordinating care regarding the above mentioned plan. ICD10 Worksheet Patient Problems: Problems Problem Status Onset Abscess of knee, right Acute Knee pain Acute Septic joint of right knee joint Acute
--- NOTE | 2018-01-28 13:40 | PDIAF ---
- Diagnosis Diagnosis: Septic TKA right Code Status: Full Code - Medication Management Discharge Medications: Medications to Continue on Transfer Albuterol [Proventil Inhaler HFA (*)] 2 puffs IH Q6 PRN 02/24/13 [Last Taken 06/04] Calcium Citrate [Citracal] 400 mg PO BID 02/24/13 [Last Taken 01/23/18] Cholecalciferol Vit D3 [Vitamin D3 (*)] 5,000 units PO HS 02/24/13 [Last Taken 01/23/18] Vitamin B Complex [Vitamin B Complex (OTC)] 1 each PO HS 02/24/13 [Last Taken ] Multivitamins W-Minerals [Thera M Plus Tablet (*)] 1 each PO DAILY 03/06/13 [ Last Taken 01/23/18] Ranitidine HCl [Ranitidine HCl 150 mg] 150 mg PO BID 03/06/13 [Last Taken ] Losartan Potassium [Cozaar 50 mg (*)] 50 mg PO HS 07/08/13 [Last Taken 01/23/18] Docusate Sodium [Colace 100 MG (*)] 100 - 200 mg PO BID PRN 03/17/17 [Last Taken 01/23/18] Methylcellulose [Citrucel] 1,000 mg PO BID 03/17/17 [Last Taken 01/23/18] Spironolactone [SPIRONOLACTONE] 50 mg PO DAILY 03/17/17 [Last Taken 01/23/18] Fluticasone Hfa 110 Mcg [Flovent 110 MCG Hfa MDI (*)] 2 puffs IH BID PRN [Last Taken 01/23/18] Hydrocodone/APAP 5/325 [[place] 5/325 (*)] 1 tab PO Q4HRS PRN #40 tab 11/06/17 [ Last Taken 01/23/18] Carvedilol [Coreg (*)] 6.25 mg PO BIDMEAL 01/24/18 [Last Taken 01/24/18] Herbals/Supplements -Info Only 1 ea PO DAILY 01/24/18 [Last Taken Unknown] Acetaminophen [Tylenol 325mg (*)] 650 mg PO Q6HRS tab 01/28/18 [Last Taken Unknown] Rivaroxaban [Xarelto 10mg (*)] 10 mg PO DAILY tab 01/28/18 [Last Taken Unknown] oxyCODONE CR [Oxycontin] 10 mg PO BID tab 01/28/18 [Last Taken Unknown] oxyCODONE IR [Oxycodone Ir (*)] 5 - 10 mg PO Q3HRS PRN #0 tab 01/28/18 [Last Taken Unknown] traMADol [Ultram 50 mg (*)] 100 mg PO Q6HRS PRN tab 01/28/18 [Last Taken Unknown] Robot Designer Antibiotics: Cefazolin 2 g IV q 8 hours Alf Antibiotic Stop Date: 03/08/18 Discharge Medications: Refer to the Discharge Home Medication list for PRN reason. PICC Care - Routine: Yes - Orders Services needed: Home Care, Physical Therapy Home Care Face to Face: I certify that this patient was under my care and that I had the required [id number] encounter meeting the encounter requirements on the discharge day. My findings support the fact that the patient is homebound as defined in Home Care Face to Face Continued: CMS Chapter 7 Medicare Benefits Manual 30.1.1 , The condition of the patient is such that there exists a normal inability to leave home and consequently, leaving home would require a considerable and taxing effort. Isolation Type: None Diet Recommendation: no restrictions on diet Diet Texture: Regular Texture Diet Additional Instructions: Touchdown WB R leg, can progress as she tolerates - Labs/Radiology CBC w/diff Date: 01/31/18 (weekly q Mon) CMP Date: 01/31/18 (weekly q Mon) CRP Date: 01/31/18 (weekly q Mon) Call or Fax Lab and Imaging Results to: Dr. Izquierdo, - Follow Up Care Current Providers and Referrals: Carol Ann Cain MD [Primary Care Provider] - Ethan Izquierdo MD [Medical Doctor] - 02/07/18 2:30 pm
--- NOTE | 2018-01-28 14:22 | ASMTCMCOM ---
CM Note CM Note Notes: [facility] pt notified. Will likely dc on Wednesday, cm w/f DC Plan: [facility]/ [facility] Date Signed: 01/28/2018 02:20 PM Electronically Signed By:Tiffanie Campos RN
--- NOTE | 2018-01-28 16:08 | SOAPPROG ---
SOAP Progress Note Assessment/Plan: Assessment: Plan: 01/26/18 08:41 POD#2 explant removed appreciate medicine help mental status improved HGB stable after 1 unit PRBC for acute blodd loss anemia remove Us xray knee due to pain will probably need SNF DC asa will start xarelto for dvt proph if hgb stable in am 01/28/18 16:07 POD#4 RT tka explant MSSA DC in am to [facility] xarelto x 21 days Subjective: still having quite a bit of pain Objective: dressing changed incision c/d/i no drainage no redness calf soft Vital Signs Temp Pulse Resp BP Pulse Ox 36.9 C 91 14 126/60 H 90 L 01/28/18 15:33 01/28/18 15:33 01/28/18 15:33 01/28/18 15:33 01/28/18 15:33 Microbiology 01/24/18 08:01 Gram Stain - Final Knee - Eswab 01/24/18 08:01 Gram Stain - Final Knee - Tissue 01/24/18 08:01 Gram Stain - Final Knee - Tissue Laboratory Results 01/27/18 05:25 01/26/18 07:45 01/27/18 01/28/18 01/29/18 05:59 05:59 05:59 Intake Total 750 600 Output Total 501 900 450 Balance 249 -300 -450 ICD10 Worksheet Patient Problems: Problems Problem Status Onset Abscess of knee, right Acute Knee pain Acute Septic joint of right knee joint Acute
[2018-01-28] MEDS: CHOLECALCIFEROL VIT D3 1,000 UNITS TAB PO SCH (20:10)
[2018-01-28] MEDS: VITAMIN B COMPLEX 1 EA CAP/TAB PO SCH (20:10)
[2018-01-28] MEDS: LOSARTAN POTASSIUM 50 MG TAB PO SCH (20:10)
[2018-01-29] MEDS: oxyCODONE IR 5 MG TAB PO PRN ×2 (03:19→07:37)
[2018-01-29] MEDS: ACETAMINOPHEN 325 MG TAB PO SCH ×2 (05:21→13:07)
[2018-01-29] MEDS: ceFAZolin 2 GM/SWFI 2 GM/20 ML SYR IVP SCH (05:46)
--- NOTE | 2018-01-29 06:12 | SOAPPROG ---
SOAP Progress Note Assessment/Plan: Assessment: Plan: 01/26/18 08:41 POD#2 explant removed appreciate medicine help mental status improved HGB stable after 1 unit PRBC for acute blodd loss anemia remove Us xray knee due to pain will probably need SNF DC asa will start xarelto for dvt proph if hgb stable in am 01/28/18 16:07 POD#4 RT tka explant MSSA DC in am to [facility] xarelto x 21 days 01/29/18 06:11 S/P explant TKA DC to [facility] Today Subjective: patient resting comfortably no events o/n Objective: dressing c/d/i changed yesterday KI in place 1+ dp/tp pulse Vital Signs Temp Pulse Resp BP Pulse Ox 37.1 C 90 20 129/46 H 91 L 01/28/18 23:34 01/28/18 23:34 01/28/18 23:34 01/28/18 23:34 01/28/18 23:34 Microbiology 01/24/18 08:01 Gram Stain - Final Knee - Eswab 01/24/18 08:01 Gram Stain - Final Knee - Tissue 01/24/18 08:01 Gram Stain - Final Knee - Tissue Laboratory Results 01/27/18 05:25 01/26/18 07:45 01/28/18 01/29/18 01/30/18 05:59 05:59 05:59 Intake Total 600 Output Total 900 1150 Balance -300 -1150 ICD10 Worksheet Patient Problems: Problems Problem Status Onset Abscess of knee, right Acute Knee pain Acute Septic joint of right knee joint Acute
[2018-01-29 07:48] VITALS: BP 126/71
[2018-01-29] MEDS: METHOCARBAMOL 500 MG TAB PO SCH (08:29)
[2018-01-29] MEDS: SENNOSIDES/DOCUSATE SODIUM TAB PO SCH (08:30)
[2018-01-29] MEDS: SPIRONOLACTONE 25 MG TAB PO SCH (08:31)
[2018-01-29] MEDS: RIVAROXABAN 10 MG TAB PO SCH (08:31)
[2018-01-29] MEDS: CARVEDILOL 6.25 MG TAB PO SCH (08:31)
[2018-01-29] MEDS: FAMOTIDINE 20 MG TAB PO SCH (08:31)
[2018-01-29] MEDS: CALCIUM CITRATE 400 MG PO SCH (08:32)
[2018-01-29] MEDS: METHYLCELLULOSE 1000 MG PO SCH (08:32)
--- NOTE | 2018-01-29 11:24 | PDIAF ---
- Diagnosis Diagnosis: Septic TKA right Code Status: Full Code - Medication Management Discharge Medications: Medications to Continue on Transfer Albuterol [Proventil Inhaler HFA (*)] 2 puffs IH Q6 PRN 02/24/13 [Last Taken 06/04] Calcium Citrate [Citracal] 400 mg PO BID 02/24/13 [Last Taken 01/23/18] Cholecalciferol Vit D3 [Vitamin D3 (*)] 5,000 units PO HS 02/24/13 [Last Taken 01/23/18] Vitamin B Complex [Vitamin B Complex (OTC)] 1 each PO HS 02/24/13 [Last Taken ] Multivitamins W-Minerals [Thera M Plus Tablet (*)] 1 each PO DAILY 03/06/13 [ Last Taken 01/23/18] Ranitidine HCl [Ranitidine HCl 150 mg] 150 mg PO BID 03/06/13 [Last Taken ] Losartan Potassium [Cozaar 50 mg (*)] 50 mg PO HS 07/08/13 [Last Taken 01/23/18] Docusate Sodium [Colace 100 MG (*)] 100 - 200 mg PO BID PRN 03/17/17 [Last Taken 01/23/18] Methylcellulose [Citrucel] 1,000 mg PO BID 03/17/17 [Last Taken 01/23/18] Spironolactone [SPIRONOLACTONE] 50 mg PO DAILY 03/17/17 [Last Taken 01/23/18] Fluticasone Hfa 110 Mcg [Flovent 110 MCG Hfa MDI (*)] 2 puffs IH BID PRN [Last Taken 01/23/18] Hydrocodone/APAP 5/325 [[place] 5/325 (*)] 1 tab PO Q4HRS PRN #40 tab 11/06/17 [ Last Taken 01/23/18] Carvedilol [Coreg (*)] 6.25 mg PO BIDMEAL 01/24/18 [Last Taken 01/24/18] Herbals/Supplements -Info Only 1 ea PO DAILY 01/24/18 [Last Taken Unknown] Acetaminophen [Tylenol 325mg (*)] 650 mg PO Q6HRS tab 01/28/18 [Last Taken Unknown] Rivaroxaban [Xarelto 10mg (*)] 10 mg PO DAILY tab 01/28/18 [Last Taken Unknown] oxyCODONE CR [Oxycontin] 10 mg PO BID tab 01/28/18 [Last Taken Unknown] oxyCODONE IR [Oxycodone Ir (*)] 5 - 10 mg PO Q3HRS PRN #0 tab 01/28/18 [Last Taken Unknown] traMADol [Ultram 50 mg (*)] 100 mg PO Q6HRS PRN tab 01/28/18 [Last Taken Unknown] Nutrition Specialist Antibiotics: Cefazolin 2 g IV q 8 hours Senior Care Antibiotic Stop Date: 03/08/18 Discharge Medications: Refer to the Discharge Home Medication list for PRN reason. PICC Care - Routine: Yes - Orders Services needed: Home Care, Physical Therapy Home Care Face to Face: I certify that this patient was under my care and that I had the required [id number] encounter meeting the encounter requirements on the discharge day. My findings support the fact that the patient is homebound as defined in Home Care Face to Face Continued: CMS Chapter 7 Medicare Benefits Manual 30.1.1 , The condition of the patient is such that there exists a normal inability to leave home and consequently, leaving home would require a considerable and taxing effort. Isolation Type: None Diet Recommendation: no restrictions on diet Diet Texture: Regular Texture Diet Additional Instructions: Touchdown WB R leg, can progress as she tolerates - Labs/Radiology CBC w/diff Date: 01/31/18 (weekly q Mon) CMP Date: 01/31/18 (weekly q Mon) CRP Date: 01/31/18 (weekly q Mon) Call or Fax Lab and Imaging Results to: Dr. Izquierdo, - Follow Up Care Current Providers and Referrals: Carol Ann Cain MD [Primary Care Provider] - Ethan Izquierdo MD [Medical Doctor] - 02/07/18 2:30 pm
--- NOTE | 2018-01-29 11:45 | PDIAF ---
- Diagnosis Diagnosis: Septic TKA right Code Status: Full Code - Medication Management Discharge Medications: Medications to Continue on Transfer Albuterol [Proventil Inhaler HFA (*)] 2 puffs IH Q6 PRN 02/24/13 [Last Taken 06/04] Calcium Citrate [Citracal] 400 mg PO BID 02/24/13 [Last Taken 01/23/18] Cholecalciferol Vit D3 [Vitamin D3 (*)] 5,000 units PO HS 02/24/13 [Last Taken 01/23/18] Vitamin B Complex [Vitamin B Complex (OTC)] 1 each PO HS 02/24/13 [Last Taken ] Multivitamins W-Minerals [Thera M Plus Tablet (*)] 1 each PO DAILY 03/06/13 [ Last Taken 01/23/18] Ranitidine HCl [Ranitidine HCl 150 mg] 150 mg PO BID 03/06/13 [Last Taken ] Losartan Potassium [Cozaar 50 mg (*)] 50 mg PO HS 07/08/13 [Last Taken 01/23/18] Docusate Sodium [Colace 100 MG (*)] 100 - 200 mg PO BID PRN 03/17/17 [Last Taken 01/23/18] Methylcellulose [Citrucel] 1,000 mg PO BID 03/17/17 [Last Taken 01/23/18] Spironolactone [SPIRONOLACTONE] 50 mg PO DAILY 03/17/17 [Last Taken 01/23/18] Fluticasone Hfa 110 Mcg [Flovent 110 MCG Hfa MDI (*)] 2 puffs IH BID PRN [Last Taken 01/23/18] Hydrocodone/APAP 5/325 [[place] 5/325 (*)] 1 tab PO Q4HRS PRN #40 tab 11/06/17 [ Last Taken 01/23/18] Carvedilol [Coreg (*)] 6.25 mg PO BIDMEAL 01/24/18 [Last Taken 01/24/18] Herbals/Supplements -Info Only 1 ea PO DAILY 01/24/18 [Last Taken Unknown] Acetaminophen [Tylenol 325mg (*)] 650 mg PO Q6HRS tab 01/28/18 [Last Taken Unknown] Rivaroxaban [Xarelto 10mg (*)] 10 mg PO DAILY tab 01/28/18 [Last Taken Unknown] oxyCODONE CR [Oxycontin] 10 mg PO BID tab 01/28/18 [Last Taken Unknown] oxyCODONE IR [Oxycodone Ir (*)] 5 - 10 mg PO Q3HRS PRN #0 tab 01/28/18 [Last Taken Unknown] traMADol [Ultram 50 mg (*)] 100 mg PO Q6HRS PRN tab 01/28/18 [Last Taken Unknown] Flexographic Press Set Up Operator Antibiotics: Cefazolin 2 g IV q 8 hours Senior Care Antibiotic Stop Date: 03/08/18 Discharge Medications: Refer to the Discharge Home Medication list for PRN reason. PICC Care - Routine: Yes - Orders Services needed: Home Care, Physical Therapy, Occupational Therapy Home Care Face to Face: I certify that this patient was under my care and that I had the required [id number] encounter meeting the encounter requirements on the discharge day. My findings support the fact that the patient is homebound as defined in Home Care Face to Face Continued: CMS Chapter 7 Medicare Benefits Manual 30.1.1 , The condition of the patient is such that there exists a normal inability to leave home and consequently, leaving home would require a considerable and taxing effort. Isolation Type: None Diet Recommendation: no restrictions on diet Diet Texture: Regular Texture Diet Additional Instructions: Touchdown WB R leg, can progress as she tolerates - Labs/Radiology CBC w/diff Date: 01/31/18 (weekly q Mon) CMP Date: 01/31/18 (weekly q Mon) CRP Date: 01/31/18 (weekly q Mon) Call or Fax Lab and Imaging Results to: Dr. Izquierdo, - Follow Up Care Current Providers and Referrals: Carol Ann Cain MD [Primary Care Provider] - Ethan Izquierdo MD [Medical Doctor] - 02/07/18 2:30 pm
--- NOTE | 2018-01-29 11:48 | PDIAF ---
- Diagnosis Diagnosis: Septic TKA right Code Status: Full Code - Medication Management Discharge Medications: Medications to Continue on Transfer Albuterol [Proventil Inhaler HFA (*)] 2 puffs IH Q6 PRN 02/24/13 [Last Taken 06/04] Calcium Citrate [Citracal] 400 mg PO BID 02/24/13 [Last Taken 01/23/18] Cholecalciferol Vit D3 [Vitamin D3 (*)] 5,000 units PO HS 02/24/13 [Last Taken 01/23/18] Vitamin B Complex [Vitamin B Complex (OTC)] 1 each PO HS 02/24/13 [Last Taken ] Multivitamins W-Minerals [Thera M Plus Tablet (*)] 1 each PO DAILY 03/06/13 [ Last Taken 01/23/18] Ranitidine HCl [Ranitidine HCl 150 mg] 150 mg PO BID 03/06/13 [Last Taken ] Losartan Potassium [Cozaar 50 mg (*)] 50 mg PO HS 07/08/13 [Last Taken 01/23/18] Docusate Sodium [Colace 100 MG (*)] 100 - 200 mg PO BID PRN 03/17/17 [Last Taken 01/23/18] Methylcellulose [Citrucel] 1,000 mg PO BID 03/17/17 [Last Taken 01/23/18] Spironolactone [SPIRONOLACTONE] 50 mg PO DAILY 03/17/17 [Last Taken 01/23/18] Fluticasone Hfa 110 Mcg [Flovent 110 MCG Hfa MDI (*)] 2 puffs IH BID PRN [Last Taken 01/23/18] Hydrocodone/APAP 5/325 [[place] 5/325 (*)] 1 tab PO Q4HRS PRN #40 tab 11/06/17 [ Last Taken 01/23/18] Carvedilol [Coreg (*)] 6.25 mg PO BIDMEAL 01/24/18 [Last Taken 01/24/18] Herbals/Supplements -Info Only 1 ea PO DAILY 01/24/18 [Last Taken Unknown] Acetaminophen [Tylenol 325mg (*)] 650 mg PO Q6HRS tab 01/28/18 [Last Taken Unknown] Rivaroxaban [Xarelto 10mg (*)] 10 mg PO DAILY tab 01/28/18 [Last Taken Unknown] oxyCODONE CR [Oxycontin] 10 mg PO BID tab 01/28/18 [Last Taken Unknown] oxyCODONE IR [Oxycodone Ir (*)] 5 - 10 mg PO Q3HRS PRN #0 tab 01/28/18 [Last Taken Unknown] traMADol [Ultram 50 mg (*)] 100 mg PO Q6HRS PRN tab 01/28/18 [Last Taken Unknown] Mechanical Shop Laborer Antibiotics: Cefazolin 2 g IV q 8 hours Halfway Antibiotic Stop Date: 03/08/18 Discharge Medications: Refer to the Discharge Home Medication list for PRN reason. PICC Care - Routine: Yes - Orders Services needed: Physical Therapy, Occupational Therapy Isolation Type: None Diet Recommendation: no restrictions on diet Diet Texture: Regular Texture Diet Additional Instructions: Touchdown WB R leg, can progress as she tolerates - Labs/Radiology CBC w/diff Date: 01/31/18 (weekly q Mon) CMP Date: 01/31/18 (weekly q Mon) CRP Date: 01/31/18 (weekly q Mon) Call or Fax Lab and Imaging Results to: Dr. Izquierdo, - Follow Up Care Current Providers and Referrals: Carol Ann Cain MD [Primary Care Provider] - Ethan Izquierdo MD [Medical Doctor] - 02/07/18 2:30 pm
--- NOTE | 2018-01-29 18:55 | ASDISCHSUM ---
Discharge Information Plan Status:SNF Medically Cleared to Leave: Discharge Date:01/29/2018 01:09 PM D/C Disposition:Shelter Facility ADT D/C Disposition:Rehab Snf Care Projected Discharge Date:01/28/2018 11:00 AM Transportation at D/C:ALS/BLS Discharge Delay Reason: Follow-Up Date:01/28/2018 11:00 AM Discharge Slot: Final Diagnosis: Placement Information Referral Type:*Long-Term/SNF Referral ID:[id number] Provider Name:[facility] Address 1:[address] Address 2: City:[place] Selection Factors: State:[place] Referral Type:Rehabilitation Hospital Referral ID:[id number] Provider Name: Address 1: Phone Number: Address 2: Fax Number: City: Selection Factors: State: Patient Contact Information Contact Name:PHIL Relationship: Address:[address] [place] [address] [address] City:[place] Alternate Phone: State/Zip Code:[place] [address] Email: Financial Information Financial Class:Medicare Advantage Plans Primary Plan Desc:UNITED MEDICARE COMPLETE Primary Plan Number:[id number] Secondary Plan Desc:[facility] Secondary Plan Number:[id number] Assessment Information LACE LACE Acuity / Level of Answers: Yes Care: Did the patient have an inpatient admission? Comorbidities - select Answers: Coronary Artery Disease all that apply Opioid dependence / Chronic pain Peptic ulcer disease Other Notes: HTN, CHUCKIE, Hx of kirill leon # of Emergency department Answers: 1-2 visits in the last 6 months Score: 13 Date Signed: 01/25/2018 04:19 PM Electronically Signed By:Briseida Vela RN [facility] Progress Note CM Note CM Note Notes: Met with patient and regarding discharge plan of care. Patient lives at home with and normally functions very well. Patient is concerned about her ability to transfer/move at this time. Patient agreeable to rehab, #1 choice [facility], #2 [facility] Referral sent to [facility], awaiting final approval. Spoke with Sharron at [facility], they are recommending SNF at this time. CM will continue to follow. Plan: [facility] Date Signed: 01/25/2018 04:45 PM Electronically Signed By:Briseida Vela RN [facility] CM Progress Note CM Note CM Note Notes: Spoke w/pt re; dc snf. In rehab feels pt is more appropriate for snf, pt would like [facility] faxed updated notes. DC Plan[facility] Date Signed: 01/27/2018 03:28 PM Electronically Signed By:Tiffanie Campos RN [facility] CM Progress Note CM Note CM Note Notes: Pt accepted by [facility], pt notified. Will likely dc on Wednesday, cm w/f DC Plan[facility] Date Signed: 01/28/2018 02:20 PM Electronically Signed By:Tiffanie Campos RN Case Management Discharge Plan Note Case Management Discharge Discharge Order Complete? Answers: Yes Patient to Obtain Answers: Other Notes: [facility] Transportation Arranged Answers: [facility] will Pick (Date 01/29/2018 01:00 PM & Time) Case Management Transport Answers: Yes Form Complete Faxed Final Orders Answers: Yes Agency/Facility Transfer Answers: Yes Report Printed & Faxed to Receiving Agency Family Notified Answers: Yes Discharge Comments Notes: D/w PA, final orders faxed. [facility] at [facility] notified, BALA to call report. Date Signed: 01/29/2018 10:36 AM Electronically Signed By:Tiffanie Campos RN Intervention Information Intervention Type:*IM-Signed Date of Service:01/28/2018 02:38 PM Patient Type:Inpatient Staff Member:Marcelle Christiansen Hours: Discipline: Severity: Comment:
== END 2018-01-29 13:09 | DRG 463 ==
LOC: F3N 05:38 → F3E 01-26 12:50
PROVIDERS: ADMIT Orthopaedic Surgery; ATTEND Orthopaedic Surgery
DX: T84.53XA Infection and inflammatory reaction due to internal right knee prosthesis, initial encounter (principal); M25.161 Fistula, right knee; M00.061 Staphylococcal arthritis, right knee; B95.61 Methicillin susceptible Staphylococcus aureus infection as the cause of diseases classified elsewhere; G93.40 Encephalopathy, unspecified; G92 Toxic encephalopathy; T40.605A Adverse effect of unspecified narcotics, initial encounter; T48.1X5A Adverse effect of skeletal muscle relaxants [neuromuscular blocking agents], initial encounter; D62 Acute posthemorrhagic anemia; I10 Essential (primary) hypertension; I06.1 Rheumatic aortic insufficiency; K21.9 Gastro-esophageal reflux disease without esophagitis; J45.909 Unspecified asthma, uncomplicated; G47.33 Obstructive sleep apnea (adult) (pediatric); D63.8 Anemia in other chronic diseases classified elsewhere; R32 Unspecified urinary incontinence; G25.0 Essential tremor; K22.70 Barrett's esophagus without dysplasia; M79.7 Fibromyalgia; R53.82 Chronic fatigue, unspecified; Z96.651 Presence of right artificial knee joint
CPT/HCPCS: 97110-GP; 97116-GP; 97162-GP; 97166-GO; 97530-GO; 97530-GP; 97535-GO; C1713; C1751; G0378; G8978-GP-CM; G8979-GP-CJ; G8987-GO-CL; G8988-GO-CJ; J0690; J0735; J1100; J1885; J2250; J2270; J2405; J2704; J2795; J3010; J3360; P9016

== ENCOUNTER → 2018-03-11 | Outpatient (CLI) | payer OTHER ==
[~2018-03-11] MED LIST: LIDOCAINE 1% 300 MG/30 ML SDV ONE
== END ==
LOC: FIMAGING 11:48
PROVIDERS: ATTEND Orthopaedic Surgery
PROC: 0S9C3ZZ Drainage of Right Knee Joint, Percutaneous Approach (ICD-10-PCS; principal; 2018-03-11)
DX: T81.4XXA Infection following a procedure, initial encounter (principal)

== ENCOUNTER 2018-03-18 09:00 | Inpatient (IN) | payer OTHER ==
--- NOTE | 2018-03-17 12:36 | GHP ---
[f rep st] PREOP HISTORY AND PHYSICAL DATE OF ADMISSION: 03/18/2018 DATE OF PROCEDURE: March 18, 2018. ADMISSION DIAGNOSIS: Septic arthritis, status post explant right knee. PLANNED PROCEDURE: Implant, right total knee arthroplasty. 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 She failed suppressive antibiotics. She was admitted to the hospital in early January, we explanted the implant. She has had an antibiotic spacer in there. She has been living at an assisted care SNF since the explant. She has completed her course of IV antibiotics. Follow up knee aspiration was negative for any organisms or growth. We have consulted with Dr. Ethan Izquierdo, in Infectious Disease, and we are ready to reimplant a total knee on the right side. PRIOR MEDICAL HISTORY: Hypertension, GERD, sleep apnea with CPAP at night, rheumatic fever with valvular disease, colon resection, colon resection, C- section, carpal tunnel release, multiple knee surgeries as noted above. MEDICATIONS: Please see accompanying medication list. ALLERGIES: Sulfa, tetracycline, alcohol, caffeine, gluten, vancomycin, nuts, seeds, spices, onions, broccoli, cauliflower, Brussel sprouts, dairy, fresh fruits, fresh vegetables, and adhesive tape. SOCIAL HISTORY: She is . Does not smoke. Occasional alcohol. Is currently at a [facility] facility. REVIEW OF SYSTEMS: No fevers, chills, shortness of breath, chest pain. Otherwise, review of systems is unremarkable. PHYSICAL EXAM: VITAL SIGNS: She is 4 feet 11 inches tall, weighs 228 pounds. Blood pressure is 132/76, heart rate is 86, respiratory rate 16 on room air. GENERAL: Alert and oriented x3. HEENT: Normocephalic, atraumatic. Extraocular muscles are intact. NECK: Supple. There is no lymphadenopathy. No JVD. CHEST: Clear to auscultation. CARDIOVASCULAR: Regular rate and rhythm. ABDOMEN: Obese, soft, nontender, nondistended. There is no hepatosplenomegaly. EXTREMITIES: Right knee incision has healed. Low-grade effusion. Calf is soft. She has 5/5 ankle dorsiflexion, plantar flexion strength, 1+ dorsalis pedis and posterior tibial pulses. ASSESSMENT: Status post explant right knee for deep infection. Completed antibiotic course. PLAN: We are ready to reimplant her knee. Plan on this for Wednesday. Risks and benefits including recurrence of infection, blood clots were discussed. She understands these risks, wishes to proceed. /[id number]/MODL MTDD
[2018-03-23] MEDS ORDERED: LIDOCAINE 1% 2 ML INJ ID PRN (09:45)
[2018-03-23] MEDS ORDERED: LR 1,000 ML IV ONE (09:45)
[2018-03-23] MEDS ORDERED: ceFAZolin 1 GM/5 ML SYR ONE ×2 (09:57→12:00)
[2018-03-23] MEDS ORDERED: MIDAZOLAM 2 MG/2 ML VIAL IVP ONE (10:04)
[2018-03-23] MEDS ORDERED: DEXAMETHASONE 4 MG/ML VIAL IVP PRN (10:05)
[2018-03-23] MEDS ORDERED: HYDROCODONE/APAP 5/325 TAB PO PRN (10:05)
[2018-03-23] MEDS ORDERED: NALOXONE HCL 0.4 MG/ML INJ IVP PRN (10:05)
[2018-03-23] MEDS ORDERED: ONDANSETRON 4 MG/2 ML VIAL IVP PRN ×2 (10:05→14:24)
[2018-03-23] MEDS ORDERED: ACETAMINOPHEN 500 MG TAB PO PRN (10:05)
[2018-03-23] MEDS ORDERED: ALBUTEROL 3 ML DEYVIAL IH PRN (10:05)
[2018-03-23] MEDS ORDERED: MIDAZOLAM 2 MG/2 ML VIAL ONE (10:06)
--- NOTE | 2018-03-23 10:07 | PDANEPAE ---
ANE History of Present Illness R Knee ANE Past Medical History - Cardiovascular History Hx Hypertension: Yes Hx Arrhythmias: No Hx Chest Pain: No Hx Coronary Artery / Peripheral Vascular Disease: Yes Hx CHF / Valvular Disease: No Hx Palpitations: No Cardiovascular History Comment: aortic insuff. htn. rheumatic heart disease - Pulmonary History Hx COPD: No Hx Asthma/Reactive Airway Disease: Yes Hx Recent Upper Respiratory Infection: No Hx Oxygen in Use at Home: No Hx Sleep Apnea: Yes Sleep Apnea Screening Result - Last Documented: Positive Pulmonary History Comment: berkley positive- uses cpap- instructed pt to bring. instructed pt to bring inhalers - Neurologic History Hx Cerebrovascular Accident: No Hx Seizures: No Hx Dementia: No Neurologic History Comment: Hx of kirill quintero. essential tremor. spinal stenosis - Endocrine History Hx Diabetes: No - Renal History Hx Renal Disorders: Yes Renal History Comment: incontinence- USES 2 POISE PAD EVERY 2-3 HRS - Liver History Hx Hepatic Disorders: No - Neurological & Psychiatric Hx Hx Neurological and Psychiatric Disorders: No Neurological / Psychiatric History Comment: essential tremor. Hx of kirill quintero - Cancer History Hx Cancer: No Cancer History Comment: pre-cancerous lumpectomy - Congenital Disorder History Hx Congenital Disorders: No - GI History Hx Gastrointestinal Disorders: Yes Gastrointestinal History Comment: GERD-controlled with Zantac. HIATAL HERNIA. BARRETS ESOPHAGUS. DIFF SWALLOWING. IBS - Other Health History Other Health History: wears glasses. long standing septic arthritis. EASY BLEEDING AND BRUISING. FIBROMYALGIA. CHRONIC FATIGUE SYNDROME. BILAT ROTATOR CUFF TEARS - Chronic Pain History Chronic Pain: Yes (right knee and generalized d/t fibromyalgia) - Surgical History Prior Surgeries: 01/24/18 right tka with explant of hardware with [facility]. right knee i&d with [facility]. 09/03 right knee cleaned out. 05/31/15 left carpal tunnel release with [facility]. 05/09/14 right hammer toe repair with [facility]. 03/06/13 right rtc repair. varicose vein surgery- right leg. left knee scope x2. right knee scope x2. left tka x2. right tka x2. t&a as child. d&c in mid . i&d of episotomy in 1972. 1973. urethrotomy. exploratory lap with removal of benign tumor. abd hysterectomy. lumbar laminectomy x2. lumbosacral fusion. sigmoid colon resction 2003. colposcopy 2007. phlebectomy right leg ANE Review of Systems Review of Systems: - Exercise capacity METS (RN): 2 METS ANE Patient History - Allergies Allergies/Adverse Reactions: alcohol Allergy (Verified 03/18/18 16:40) allergic to sulfates in alcohol caffeine Allergy (Verified 03/18/18 16:40) causes agitation and insomnia gluten Allergy (Verified 03/18/18 16:40) gi issues Sulfa (Sulfonamide Antibiotics) Allergy (Verified 03/18/18 16:40) Hives tetracycline [Tetracycline] Allergy (Verified 03/18/18 16:40) Hives vancomycin Allergy (Verified 03/18/18 16:40) very fine whole body rash BEANS,NUTS,SEEDS,SPICES,ONIONS Allergy (Uncoded 11/04/17 17:36) GI PROBLEMS BROCCOLI,CAULIFLOWER,BRUSSELSPROUTS Allergy (Uncoded 11/04/17 17:36) GI PROBLEMS DAIRY Allergy (Uncoded 11/04/17 17:36) GI PROBLEMS FRESH FRUITS EXCEPT BANANAS Allergy (Uncoded 11/04/17 17:36) GI PROBLEMS FRESH VEGETABLES Allergy (Uncoded 11/04/17 17:36) GI PROBLEMS TAPES EXCEPT PAPER Allergy (Uncoded 11/04/17 17:36) SKIN IRRITATION-BLISTERS - Home Medications Home Medications: Albuterol [Proventil Inhaler HFA (*)] Q6 PRN 02/24/13 [Last Taken 01/23/18] Calcium Citrate [Citracal] BID 02/24/13 [Last Taken 01/23/18] Cholecalciferol Vit D3 [Vitamin D3 (*)] 02/24/13 [Last Taken 03/18/18] Vitamin B Complex [Vitamin B Complex (OTC)] 02/24/13 [Last Taken 03/18/18] Multivitamins W-Minerals [Thera M Plus Tablet (*)] 03/06/13 [Last Taken ] Ranitidine HCl [Ranitidine HCl 150 mg] BID 03/06/13 [Last Taken 01/24/18] Losartan Potassium [Cozaar 50 mg (*)] HS 07/08/13 [Last Taken 01/23/18] Docusate Sodium [Colace 100 MG (*)] BID PRN 03/17/17 [Last Taken 01/23/18] Methylcellulose [Citrucel] BID 03/17/17 [Last Taken 01/23/18] Spironolactone [SPIRONOLACTONE] 03/17/17 [Last Taken 01/23/18] Fluticasone Hfa 110 Mcg [Flovent 110 MCG Hfa MDI (*)] BID PRN 11/05/17 [Last Taken 01/23/18] Carvedilol [Coreg (*)] BIDMEAL 01/24/18 [Last Taken 01/24/18] Herbals/Supplements -Info Only 01/24/18 [Last Taken 03/18/18] Acetaminophen [Tylenol 325mg (*)] Q6HRS 03/18/18 [Last Taken Unknown] Guaifenesin BID PRN 03/18/18 [Last Taken Unknown] Hydrocodone/APAP 5/325 [[place] 5/325 (*)] PRN 03/18/18 [Last Taken Unknown] Rivaroxaban [Xarelto 10mg (*)] 03/18/18 [Last Taken 03/18/18] Zofran 03/18/18 [Last Taken Unknown] oxyCODONE CR [Oxycontin] 03/18/18 [Last Taken Unknown] tiZANidine HCL 03/18/18 [Last Taken Unknown] traMADol [Ultram 50 mg (*)] 03/18/18 [Last Taken Unknown] - Smoking Hx Smoking Status: Never smoked - Family Anes Hx Family Hx Anesthesia Complications: none ANE Labs/Vital Signs - Vital Signs Height: 149.86 cm Weight: 97.976 kg ANE Physical Exam - Airway Neck exam: FROM Mallampati Score: Class 2 Mouth exam: normal dental/mouth exam - Pulmonary Pulmonary: clear to auscultation - Cardiovascular Cardiovascular: regular rate and rhythym - ASA Status ASA Status: III ANE Anesthesia Plan Anesthesia Plan: GA w LMA
[2018-03-23] MEDS ORDERED: PROPOFOL 200 MG/20 ML VIAL ONE (10:20)
[2018-03-23] MEDS ORDERED: LIDOCAINE 2% 5 ML SDV ONE (10:21)
[2018-03-23] MEDS ORDERED: HYDROmorphONE/DILAUDID 2 MG/ML INJ ONE ×2 (10:23→11:39)
[2018-03-23] MEDS ORDERED: BUPIVACAINE 0.5% 30 ML SDV ONE (10:37)
[2018-03-23] MEDS ORDERED: EPINEPHrine 1 MG/ML INJ ONE (10:37)
[2018-03-23] MEDS ORDERED: CEFAZOLIN 2 GM/DEXTROSE/100 ML BAG IV ONE (11:05)
[2018-03-23] MEDS ORDERED: ONDANSETRON 4 MG/2 ML VIAL ONE ×3 (11:25→14:38)
[2018-03-23] MEDS ORDERED: METOCLOPRAMIDE 10 MG/2 ML VIAL ONE (11:25)
[2018-03-23] MEDS ORDERED: DEXAMETHASONE 4 MG/ML VIAL ONE (11:25)
[2018-03-23] MEDS ORDERED: THROMBIN (BOVINE) 5,000 UNIT VIAL TP ONE (11:50)
[2018-03-23] MEDS ORDERED: CALCIUM CHLORIDE 1 GM/10 ML INJ ONE (11:51)
[2018-03-23] MEDS: ceFAZolin 1 GM/5 ML SYR ONE ×4 (12:40→13:50)
[2018-03-23] MEDS ORDERED: LABETALOL HCL 5 MG/ML 20 ML MDV ONE (12:51)
[2018-03-23] MEDS ORDERED: RANITIDINE 50 MG/2 ML VIAL ONE (13:47)
[2018-03-23] MEDS ORDERED: ceFAZolin 2 GM/DEXTROSE 100 ML IV ONE (14:00)
[2018-03-23] MEDS ORDERED: diphenhydrAMINE 25 MG CAP PO PRN (14:24)
[2018-03-23] MEDS ORDERED: LACTULOSE 20 GM/30 ML UDCUP PO PRN (14:24)
[2018-03-23] MEDS ORDERED: BISACODYL 10 MG SUPP PR PRN (14:24)
[2018-03-23] MEDS ORDERED: DIPHENOXYLATE/ATROPINE LOMOTIL 1 TAB PO PRN (14:24)
[2018-03-23] MEDS ORDERED: TEMAZEPAM 15 MG CAP PO PRN (14:24)
[2018-03-23] MEDS ORDERED: MAGNESIUM HYDROXIDE 30 ML UDCUP PO PRN (14:24)
[2018-03-23] MEDS ORDERED: PROMETHAZINE HCL 25 MG/ML INJ IVP PRN (14:24)
[2018-03-23] MEDS ORDERED: ONDANSETRON DISINTEGRATING 4 MG TAB PO PRN (14:24)
[2018-03-23] MEDS ORDERED: KETOROLAC 15 MG/1 ML SDV IVP ONE (14:24)
[2018-03-23] MEDS ORDERED: METOCLOPRAMIDE 10 MG/2 ML VIAL IVP PRN (14:24)
[2018-03-23] MEDS ORDERED: PROMETHAZINE HCL 25 MG SUPPR PR PRN (14:24)
[2018-03-23] MEDS ORDERED: POLYETHYLENE GLYCOL 3350 17 GM PKT PO PRN (14:24)
[2018-03-23] MEDS ORDERED: LR 1,000 ML IV SCH (14:30)
--- NOTE | 2018-03-23 14:30 | POSTOPPROG ---
Post Op Note Date of Operation: 03/23/18 Surgeon: Mina Holden Animal Caretaker: Vince Aviles Anesthesiologist: Jorge Anesthesia: GET(General Endotracheal) Pre-op Diagnosis: explant TKA for infection Post-op Diagnosis: same Procedure: revision TKA RT Findings: no obvious signs infection Inf/Abcess present in the surg proc area at time of surgery?: No EBL: 100-500 Complications: none
[2018-03-23] MEDS ORDERED: HYDROmorphONE/DILAUDID 1 MG/ML INJ ONE (14:36)
[2018-03-23] MEDS ORDERED: fentaNYL 100 MCG/2 ML INJ ONE (14:36)
[2018-03-23] MEDS: HYDROmorphONE/DILAUDID 2 MG/ML INJ IVP PRN ×2 (14:40→14:52)
[2018-03-23] MEDS: fentaNYL 100 MCG/2 ML INJ IVP PRN ×2 (14:40→14:51)
[2018-03-23] MEDS ORDERED: PROMETHAZINE HCL 25 MG/ML INJ ONE (14:54)
[2018-03-23] MEDS ORDERED: KETOROLAC 15 MG/1 ML SDV ONE (14:54)
[2018-03-23] MEDS ORDERED: oxyCODONE IR 5 MG TAB ONE (15:40)
[2018-03-23] MEDS: oxyCODONE IR 5 MG TAB PO PRN ×3 (15:41→22:25)
--- NOTE | 2018-03-23 15:55 | GOP ---
[f rep st] OPERATIVE REPORT DATE OF OPERATION: 03/23/2018 SURGEON: Mina Holden MD ETL MANAGER: Jordon Aviles ENVIRONMENTAL PROJECT MANAGER, [facility] ANESTHESIA: General. PREOPERATIVE DIAGNOSIS: Status explant right total knee for septic arthritis. POSTOPERATIVE DIAGNOSIS: Status explant right total knee for septic arthritis. PROCEDURE PERFORMED: Revision right knee arthroplasty. FINDINGS: ESTIMATED BLOOD LOSS: 250 mL. DESCRIPTION OF PROCEDURE: After appropriate informed consent was obtained, patient was taken to the operating room, placed supine on the operating table. Time-out was performed. Patient was identifie d and correct site was identified, matched with the radiographs that were available in the room. She received 2 g of Ancef preoperatively. Following general endotracheal tube anesthesia, the right low er extremity was prepped and draped in usual sterile fashion. Using the previous incision, soft tiss ues were carefully dissected. A plane was developed over the extensor tendon and medial retinaculum. I then excised the distal quad tendon and made a medial parapatellar arthrotomy and was able to be parvez the patella over, laterally exposing the knee. Carefully fibrinous tissue was removed from the ends of the femur, trying to identify what bone we had to work with. We irrigated the wound with pu lsatile lavage with Ancef in the irrigant. We were then able to use our broaches, and we broached up to a size 13 on the tibial side, and then we could resect a millimeter or 2 using our extramedullary guide off the tibial side. We placed a cone after we reamed onto the tibia for extra stability and support. On the femoral side, we broached up to a size 13 again and resected a few millimeters off the distal femur and the posterior condyles. Bone was a little bit better on the lateral side than the medial s zachary. We then trialed our tibia with 10 mm augments in the femur with 10 mm distal augments and 5 mm posterior medial augment. This gave us good tenriism of the joint line as well as good medial lat eral stability with a 22 mm poly. We also tried a 19 and that was a little more lax on the medial jocelynn e. Trial implants were removed. All remaining fibrinous tissue was removed with curettes, rongeurs, and electrocautery. Pulsatile lavage was used again. A total of 6 L was used. We then mixed cemen t on the back table. Cemented our tibia, followed by our femur. When the cement had dried, we trial ed both a 19 and 22. The 22 poly gave us a little bit better stability still with good extension. S o we then placed that in. At this point we turned our attention to the patella. There really was not much good bone to work wi th. I was concerned about fracturing what remained of the patella so I made the decision not to resu rface the patella. It was covered in fibrinous tissue so hopefully would give a buffer between the p atella and the implant. Wound was irrigated a final time. Deep layer was closed with 0 Vicryl. I p laced 10 mL of PRP across the cut bone surfaces and 30 mL joint cocktail. Superficial layer was clos ed with 2-0 Vicryl. Skin was closed with kaitlynn. Soft sterile dressing was applied. The patient w as awakened from anesthesia, taken to the recovery room in satisfactory condition. There were no imm ediate intraoperative complications. Vince Aviles's assistance was required throughout the entire ca se. TOTAL TOURNIQUET TIME: 103 minutes at 250 mmHg. IMPLANTS USED: Long size 2 posterior stabilized femoral component with 10 mm distal augments and 5 mm medial posterior augment, a size 2 tibia with a cone, and a 22 mm poly. COMPLICATIONS: None. DRAINS: None. HISTORY: The patient is a 73-year-old female, who underwent explant of her right total knee by cindi montes approximately 7 weeks ago. She underwent IV antibiotic treatment directed by Dr. Ethan Izquierdo in Infe ctious Disease. Antibiotic spacer aspiration last week was negative for growth. Decision was made t o attempt a reimplantation of a total knee arthroplasty. /[id number]/MODL
[2018-03-23] MEDS: ACETAMINOPHEN 325 MG TAB PO SCH (18:45)
[2018-03-23] MEDS: ceFAZolin 2 GM/DEXTROSE 100 ML IV SCH (18:46)
[2018-03-23] MEDS: FAMOTIDINE 20 MG TAB PO SCH (20:48)
[2018-03-23] MEDS: SENNOSIDES/DOCUSATE SODIUM TAB PO SCH (20:48)
[2018-03-23] MEDS: ASPIRIN 325 MG TAB PO SCH (20:51)
[2018-03-24] MEDS: ACETAMINOPHEN 325 MG TAB PO SCH ×4 (00:27→18:06)
[2018-03-24] MEDS: oxyCODONE IR 5 MG TAB PO PRN ×6 (01:14→22:58)
[2018-03-24] MEDS: ceFAZolin 2 GM/DEXTROSE 100 ML IV SCH (01:15)
[2018-03-24] MEDS: SENNOSIDES/DOCUSATE SODIUM TAB PO SCH ×2 (08:17→22:59)
[2018-03-24] MEDS: FAMOTIDINE 20 MG TAB PO SCH ×3 (08:17→20:31)
[2018-03-24] MEDS: ASPIRIN 325 MG TAB PO SCH (08:20)
[2018-03-24] MEDS ORDERED: ALBUTEROL 60 PUFFS/8 GM MDI IH PRN (08:27)
[2018-03-24] MEDS ORDERED: NYSTATIN POWDER 15 GM BTL TP PRN (08:27)
[2018-03-24] MEDS ORDERED: FLUTICASONE HFA 110 MCG MDI IH PRN (08:27)
[2018-03-24] MEDS ORDERED: SIMETHICONE 80 MG TAB CHEW PO PRN (08:27)
[2018-03-24] MEDS: SPIRONOLACTONE 25 MG TAB PO SCH (09:10)
[2018-03-24] MEDS: MULTIVITAMINS 1 EACH TAB PO SCH (09:12)
[2018-03-24] MEDS: RIVAROXABAN 10 MG TAB PO SCH (09:12)
[2018-03-24] MEDS: CYCLOBENZAPRINE 10 MG TAB PO SCH ×2 (09:12→16:31)
[2018-03-24] MEDS: VITAMIN B COMPLEX 1 EA CAP/TAB PO SCH (09:12)
[2018-03-24] MEDS: CEPHALEXIN 500 MG CAP PO SCH ×3 (09:13→20:32)
[2018-03-24] MEDS: METHYLCELLULOSE 1000 MG PO SCH (10:58)
[2018-03-24] MEDS: CALCIUM CITRATE PO SCH (10:59)
[2018-03-24] MEDS: CHOLECALCIFEROL PO SCH (10:59)
[2018-03-24] MEDS: guaiFENesin 200 MG TAB PO SCH ×2 (12:55→20:35)
--- NOTE | 2018-03-24 16:10 | ASMTCMCOM ---
CM Note CM Note Notes: Pt s/p total knee revision. Pt has a long history of infected knee and came in from [facility]. ID consulting. In January 2018 pt d/c to [facility] where she ran out of Medicare days, was unable to afford the [facility] copay and went tot [facility] under Medicaid LTC. Spoke with pt about d/c plan of care, while she ideally wants to go home she does not know if she can, her helps but they have no family/friends to assist. Pt reports the therapy program at [facility] is good. Pt decline OT/PT today. CM to follow for d/c planning. Date Signed: 03/24/2018 04:10 PM Electronically Signed By:ASHLEY Brooke
--- NOTE | 2018-03-24 16:55 | PCMIDPN ---
Assessment/Plan: Assessment/Plan: * Right septic total knee arthroplasty due to MSSA status post two-stage revision with reimplantation of new joint: Aspiration of joint prior to reimplantation with negative cultures and low white blood cell count without neutrophil predominance. Operative cultures are no growth to date. Patient received bianca procedure cefazolin. 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 03/24/18 16:52 Subjective: Patient complains of right knee pain and worsening tremor overnight. Objective: Vital Signs Temp Pulse Resp BP Pulse Ox 36.8 C 84 16 114/55 L 96 03/24/18 16:00 03/24/18 16:00 03/24/18 16:00 03/24/18 16:00 03/24/18 16:00 Microbiology 03/23/18 11:33 Gram Stain - Final Knee - Tissue 03/23/18 11:33 Mycobacterial Smear (SUZANNE) - Final Knee - Tissue Laboratory Results 03/24/18 04:56 03/23/18 03/24/18 03/25/18 05:59 05:59 05:59 Intake Total 4500 Output Total 900 Balance 3600 Cephalexin twice daily suppression Operative culture Gram stain negative, no growth on cultures to date Synovial fluid from 03/11/2018: WBC 195, RBC 75,602, neutrophils 9%, lymphocytes 30%, monocytes 61%; Gram stain and culture no growth - Physical Exam General Appearance: alert, no apparent distress EENT: No scleral icterus, No thrush Respiratory: lungs clear, No respiratory distress Cardiac/Chest: regular rate, rhythm, systolic murmur (2/6 early systolic murmur throughout) Extremities: other (Right knee dressed postoperatively) Abdomen: non-tender, No distended ICD10 Worksheet Patient Problems: Problems Problem Status Onset Abscess of knee, right Acute Knee pain Acute Septic joint of right knee joint Acute
--- NOTE | 2018-03-24 17:09 | SOAPPROG ---
SOAP Progress Note Assessment/Plan: Assessment: Plan: 03/24/18 17:08 POD#1 Revision RT knee encouraged patient to participate in PT/OT Xarelto for DVT proph keflex for suppression Subjective: refused PT/OT Today feeling a little better now Objective: Vital Signs Temp Pulse Resp BP Pulse Ox 36.8 C 84 16 114/55 L 96 03/24/18 16:00 03/24/18 16:00 03/24/18 16:00 03/24/18 16:00 03/24/18 16:00 Microbiology 03/23/18 11:33 Gram Stain - Final Knee - Tissue 03/23/18 11:33 Mycobacterial Smear (SUZANNE) - Final Knee - Tissue Laboratory Results 03/24/18 04:56 03/23/18 03/24/18 03/25/18 05:59 05:59 05:59 Intake Total 4500 Output Total 900 Balance 3600 dressing c/d/i calf soft 5/5 df/pf 1+ dp/tp pulses ICD10 Worksheet Patient Problems: Problems Problem Status Onset Abscess of knee, right Acute Knee pain Acute Septic joint of right knee joint Acute
[2018-03-24] MEDS: CARVEDILOL 6.25 MG TAB PO SCH (18:07)
[2018-03-24] MEDS: LOSARTAN POTASSIUM 50 MG TAB PO SCH (20:30)
[2018-03-24] MEDS: CHOLECALCIFEROL VIT D3 1,000 UNITS TAB PO SCH (20:31)
[2018-03-24] MEDS: GABAPENTIN 100 MG CAP PO SCH (20:33)
[2018-03-25] MEDS: CHOLECALCIFEROL PO SCH ×3 (00:11→22:02)
[2018-03-25] MEDS: CALCIUM CITRATE PO SCH ×3 (00:11→22:02)
[2018-03-25] MEDS: CYCLOBENZAPRINE 10 MG TAB PO SCH ×4 (00:12→22:15)
[2018-03-25] MEDS: METHYLCELLULOSE 1000 MG PO SCH ×3 (00:12→22:04)
[2018-03-25] MEDS: ACETAMINOPHEN 325 MG TAB PO SCH ×5 (01:24→23:47)
[2018-03-25] MEDS: oxyCODONE IR 5 MG TAB PO PRN ×3 (02:26→17:52)
[2018-03-25] MEDS: CARVEDILOL 6.25 MG TAB PO SCH ×2 (07:46→17:47)
[2018-03-25] MEDS: guaiFENesin 200 MG TAB PO SCH ×2 (08:15→22:05)
[2018-03-25] MEDS: CEPHALEXIN 500 MG CAP PO SCH ×2 (08:16→22:03)
[2018-03-25] MEDS: SENNOSIDES/DOCUSATE SODIUM TAB PO SCH ×2 (08:16→22:04)
[2018-03-25] MEDS: VITAMIN B COMPLEX 1 EA CAP/TAB PO SCH (08:16)
[2018-03-25] MEDS: SPIRONOLACTONE 25 MG TAB PO SCH (08:16)
[2018-03-25] MEDS: MULTIVITAMINS 1 EACH TAB PO SCH (08:16)
[2018-03-25] MEDS: FAMOTIDINE 20 MG TAB PO SCH ×2 (08:16→22:03)
[2018-03-25] MEDS: RIVAROXABAN 10 MG TAB PO SCH (08:32)
--- NOTE | 2018-03-25 08:38 | SOAPPROG ---
SOAP Progress Note Assessment/Plan: Assessment: Plan: 03/24/18 17:08 POD#1 Revision RT knee encouraged patient to participate in PT/OT Xarelto for DVT proph keflex for suppression 03/25/18 08:36 POD#2 revision RT knee HGB 7.5 hold xarelto acute blood loss anemia Asymptomatic at this point VS stable Cont PT/OT Subjective: feeling better Today walked with PT Objective: dressing re enforced o/n calf soft 5/5 df/pf 1+ dp/tp pulses Vital Signs Temp Pulse Resp BP Pulse Ox 36.8 C 104 H 20 100/48 L 97 03/25/18 07:47 03/25/18 07:47 03/25/18 07:47 03/25/18 07:47 03/25/18 07:47 Microbiology 03/23/18 11:33 Gram Stain - Final Knee - Tissue Laboratory Results 03/25/18 04:20 03/24/18 03/25/18 03/26/18 05:59 05:59 05:59 Intake Total 4500 250 Output Total 900 1050 Balance 3600 -800 ICD10 Worksheet Patient Problems: Problems Problem Status Onset Abscess of knee, right Acute Knee pain Acute Septic joint of right knee joint Acute
--- NOTE | 2018-03-25 13:59 | PDMN ---
Medical Necessity Medical necessity: [facility] S700: knee arthroplasty- TKA revision for septic arthritis
[2018-03-25] MEDS ORDERED: NS BOLUS 500 ML IV ONE (21:00)
[2018-03-25] MEDS ORDERED: NS 1,000 ML IV SCH (21:00)
[2018-03-25] MEDS: LOSARTAN POTASSIUM 50 MG TAB PO SCH (21:57)
[2018-03-25] MEDS: CHOLECALCIFEROL VIT D3 1,000 UNITS TAB PO SCH (22:02)
[2018-03-25] MEDS: GABAPENTIN 100 MG CAP PO SCH (22:15)
[2018-03-26] MEDS: oxyCODONE IR 5 MG TAB PO PRN ×6 (01:43→21:08)
[2018-03-26] MEDS: ACETAMINOPHEN 325 MG TAB PO SCH ×5 (01:44→22:54)
--- NOTE | 2018-03-26 08:56 | SOAPPROG ---
SOAP Progress Note Assessment/Plan: Assessment: Plan: 03/24/18 17:08 POD#1 Revision RT knee encouraged patient to participate in PT/OT Xarelto for DVT proph keflex for suppression 03/25/18 08:36 POD#2 revision RT knee HGB 7.5 hold xarelto acute blood loss anemia Asymptomatic at this point VS stable Cont PT/OT 03/26/18 08:55 some hypotension o/n pain better controlled HGB pending acute blood loss anemia may need prbc's today poss DC Wednesday Subjective: feeling better Objective: dressing reinforced o/n calf soft 5/5 df/pf Vital Signs Temp Pulse Resp BP Pulse Ox 36.9 C 80 18 161/73 H 98 03/26/18 07:25 03/26/18 07:25 03/26/18 07:25 03/26/18 07:25 03/26/18 07:25 Microbiology 03/23/18 11:33 Gram Stain - Final Knee - Tissue 03/25/18 03/26/18 03/27/18 05:59 05:59 05:59 Intake Total 250 2600 Output Total 1050 1000 500 Balance -800 1600 -500 ICD10 Worksheet Patient Problems: Problems Problem Status Onset Abscess of knee, right Acute Knee pain Acute Septic joint of right knee joint Acute
[2018-03-26] MEDS: CALCIUM CITRATE PO SCH ×2 (10:11→21:03)
[2018-03-26] MEDS: CHOLECALCIFEROL PO SCH ×2 (10:11→21:03)
[2018-03-26] MEDS: CEPHALEXIN 500 MG CAP PO SCH ×2 (10:13→21:07)
[2018-03-26] MEDS: guaiFENesin 200 MG TAB PO SCH ×2 (10:19→21:11)
[2018-03-26] MEDS: MULTIVITAMINS 1 EACH TAB PO SCH (10:22)
[2018-03-26] MEDS: VITAMIN B COMPLEX 1 EA CAP/TAB PO SCH (10:23)
[2018-03-26] MEDS: FAMOTIDINE 20 MG TAB PO SCH ×2 (10:25→21:07)
[2018-03-26] MEDS: CYCLOBENZAPRINE 10 MG TAB PO SCH ×3 (10:26→22:51)
[2018-03-26] MEDS: METHYLCELLULOSE 1000 MG PO SCH ×2 (10:28→21:05)
[2018-03-26] MEDS: SENNOSIDES/DOCUSATE SODIUM TAB PO SCH ×2 (10:32→21:06)
[2018-03-26] MEDS: SPIRONOLACTONE 25 MG TAB PO SCH (10:38)
[2018-03-26] MEDS: RIVAROXABAN 10 MG TAB PO SCH (10:38)
--- NOTE | 2018-03-26 15:46 | ASMTCMCOM ---
CM Note CM Note Notes: PT Flora stated today that pt could possibly DC home with HC rather than return to LTC bed at [facility]. PT still rec SF. CM will follow Date Signed: 03/26/2018 03:45 PM Electronically Signed By:July Simon LCSW
[2018-03-26] MEDS ORDERED: guaiFENesin 200 MG TAB PO SCH (21:00)
[2018-03-26] MEDS: GABAPENTIN 100 MG CAP PO SCH (21:06)
[2018-03-26] MEDS: CHOLECALCIFEROL VIT D3 1,000 UNITS TAB PO SCH (21:08)
[2018-03-27] MEDS: oxyCODONE IR 5 MG TAB PO PRN ×4 (05:48→22:33)
[2018-03-27] MEDS: ACETAMINOPHEN 325 MG TAB PO SCH ×3 (05:48→18:27)
[2018-03-27] MEDS: CALCIUM CITRATE PO SCH ×2 (08:48→22:09)
[2018-03-27] MEDS: CHOLECALCIFEROL PO SCH ×2 (08:48→22:09)
[2018-03-27] MEDS: METHYLCELLULOSE 1000 MG PO SCH ×2 (08:49→22:16)
[2018-03-27] MEDS: guaiFENesin 200 MG TAB PO SCH ×2 (08:56→22:15)
[2018-03-27] MEDS: SENNOSIDES/DOCUSATE SODIUM TAB PO SCH ×2 (08:59→22:19)
[2018-03-27] MEDS: FAMOTIDINE 20 MG TAB PO SCH ×2 (08:59→22:15)
[2018-03-27] MEDS: CEPHALEXIN 500 MG CAP PO SCH ×2 (08:59→22:13)
[2018-03-27] MEDS: VITAMIN B COMPLEX 1 EA CAP/TAB PO SCH (08:59)
[2018-03-27] MEDS: MULTIVITAMINS 1 EACH TAB PO SCH (08:59)
[2018-03-27] MEDS: CYCLOBENZAPRINE 10 MG TAB PO SCH ×3 (09:00→22:19)
[2018-03-27] MEDS: SPIRONOLACTONE 25 MG TAB PO SCH (11:57)
[2018-03-27] MEDS: RIVAROXABAN 10 MG TAB PO SCH (11:57)
--- NOTE | 2018-03-27 16:02 | ASMTCMCOM ---
CM Note CM Note Notes: Spoke with pt re home care options. She would like [facility]. [facility]. Per RN, pt won't need IV ABX at d/c. Referral has been sent to [facility] for possible IV ABX d/c. Date Signed: 03/27/2018 04:02 PM Electronically Signed By:ASHLEY Piper
--- NOTE | 2018-03-27 20:46 | SOAPPROG ---
ARABELLA Progress Note Assessment/Plan: Assessment: Plan: 03/24/18 17:08 POD#1 Revision RT knee encouraged patient to participate in PT/OT Xarelto for DVT proph keflex for suppression 03/25/18 08:36 POD#2 revision RT knee HGB 7.5 hold xarelto acute blood loss anemia Asymptomatic at this point VS stable Cont PT/OT 03/26/18 08:55 some hypotension o/n pain better controlled HGB pending acute blood loss anemia may need prbc's today poss DC Wednesday03/27/18 20:45 REcheck hgb in am PT/OT home vs snf Subjective: walked to door several times today no dizziness when up Objective: dressing dry calf soft 2+ dp/tp pulses calf soft Vital Signs Temp Pulse Resp BP Pulse Ox 37.3 C 96 19 132/53 H 97 03/27/18 20:00 03/27/18 20:00 03/27/18 20:00 03/27/18 20:00 03/27/18 20:00 Laboratory Results 03/26/18 07:56 03/26/18 03/27/18 03/28/18 05:59 05:59 05:59 Intake Total 2600 1150 500 Output Total 1000 1100 Balance 1600 50 500 ICD10 Worksheet Patient Problems: Problems Problem Status Onset Abscess of knee, right Acute Knee pain Acute Septic joint of right knee joint Acute
[2018-03-27] MEDS: CHOLECALCIFEROL VIT D3 1,000 UNITS TAB PO SCH (22:13)
[2018-03-27] MEDS: GABAPENTIN 100 MG CAP PO SCH (22:15)
[2018-03-28] MEDS: ACETAMINOPHEN 325 MG TAB PO SCH ×4 (00:02→18:47)
[2018-03-28] MEDS: oxyCODONE IR 5 MG TAB PO PRN ×4 (05:04→21:41)
--- NOTE | 2018-03-28 08:39 | SOAPPROG ---
SOAP Progress Note Assessment/Plan: Assessment: Plan: 03/24/18 17:08 POD#1 Revision RT knee encouraged patient to participate in PT/OT Xarelto for DVT proph keflex for suppression 03/25/18 08:36 POD#2 revision RT knee HGB 7.5 hold xarelto acute blood loss anemia Asymptomatic at this point VS stable Cont PT/OT 03/26/18 08:55 some hypotension o/n pain better controlled HGB pending acute blood loss anemia may need prbc's today poss DC Wednesday03/27/18 20:45 REcheck hgb in am PT/OT home vs snf 03/28/18 08:38 S/P revision RT TKA acute blood loss anemia, hgb 6.6 will transfuse 1 u PRBC hold xarelto resume spironolactone PT/OT poss Dc home vs snf wednesday Subjective: slept o/n pain controlled had some dizziness when up Objective: dressing dry calf soft 5/5 df/pf Vital Signs Temp Pulse Resp BP Pulse Ox 36.6 C 83 16 136/59 H 100 03/28/18 07:54 03/28/18 07:54 03/28/18 07:54 03/28/18 07:54 03/28/18 07:54 Laboratory Results 03/28/18 05:24 03/27/18 03/28/18 03/29/18 05:59 05:59 05:59 Intake Total 1150 900 Output Total 1100 350 450 Balance 50 550 -450 ICD10 Worksheet Patient Problems: Problems Problem Status Onset Abscess of knee, right Acute Knee pain Acute Septic joint of right knee joint Acute
[2018-03-28] MEDS: SENNOSIDES/DOCUSATE SODIUM TAB PO SCH ×2 (09:29→21:37)
[2018-03-28] MEDS: SPIRONOLACTONE 25 MG TAB PO SCH (09:29)
[2018-03-28] MEDS: guaiFENesin 200 MG TAB PO SCH ×2 (09:31→21:35)
[2018-03-28] MEDS: FAMOTIDINE 20 MG TAB PO SCH ×2 (09:33→21:35)
[2018-03-28] MEDS: CYCLOBENZAPRINE 10 MG TAB PO SCH ×3 (09:33→21:35)
[2018-03-28] MEDS: MULTIVITAMINS 1 EACH TAB PO SCH (09:34)
[2018-03-28] MEDS: CEPHALEXIN 500 MG CAP PO SCH ×2 (09:36→21:33)
[2018-03-28] MEDS: VITAMIN B COMPLEX 1 EA CAP/TAB PO SCH (09:36)
[2018-03-28] MEDS: RIVAROXABAN 10 MG TAB PO SCH (09:41)
[2018-03-28] MEDS: CALCIUM CITRATE PO SCH ×2 (09:43→21:32)
[2018-03-28] MEDS: CHOLECALCIFEROL PO SCH ×2 (09:43→21:32)
[2018-03-28] MEDS: METHYLCELLULOSE 1000 MG PO SCH ×2 (09:43→21:36)
[2018-03-28] MEDS: CHOLECALCIFEROL VIT D3 1,000 UNITS TAB PO SCH (21:34)
[2018-03-28] MEDS: GABAPENTIN 100 MG CAP PO SCH (21:35)
[2018-03-29] MEDS: ACETAMINOPHEN 325 MG TAB PO SCH (00:07)
[2018-03-29] MEDS: METHYLCELLULOSE 1000 MG PO SCH (21:00)
[2018-03-29] MEDS: CEPHALEXIN 500 MG CAP PO SCH (21:00)
[2018-03-29] MEDS: GABAPENTIN 100 MG CAP PO SCH (21:00)
[2018-03-29] MEDS: guaiFENesin 200 MG TAB PO SCH (21:00)
[2018-03-29] MEDS: FAMOTIDINE 20 MG TAB PO SCH (21:00)
[2018-03-29] MEDS: CHOLECALCIFEROL VIT D3 1,000 UNITS TAB PO SCH (21:00)
[2018-03-29] MEDS: CYCLOBENZAPRINE 10 MG TAB PO SCH (22:00)
[2018-03-30] MEDS: oxyCODONE IR 5 MG TAB PO PRN ×2 (04:20→11:20)
[2018-03-30] MEDS: ACETAMINOPHEN 325 MG TAB PO SCH ×5 (05:34→11:20)
[2018-03-30] MEDS: CHOLECALCIFEROL PO SCH ×3 (05:38→09:12)
[2018-03-30] MEDS: CALCIUM CITRATE PO SCH ×3 (05:38→09:12)
[2018-03-30] MEDS: CEPHALEXIN 500 MG CAP PO SCH ×2 (05:39→09:13)
[2018-03-30] MEDS: CYCLOBENZAPRINE 10 MG TAB PO SCH ×2 (05:41→09:13)
[2018-03-30] MEDS: FAMOTIDINE 20 MG TAB PO SCH ×2 (05:41→09:17)
[2018-03-30] MEDS: METHYLCELLULOSE 1000 MG PO SCH ×2 (05:43→09:12)
[2018-03-30] MEDS: guaiFENesin 200 MG TAB PO SCH ×2 (05:43→09:17)
[2018-03-30] MEDS: RIVAROXABAN 10 MG TAB PO SCH ×2 (05:44→09:17)
[2018-03-30] MEDS: MULTIVITAMINS 1 EACH TAB PO SCH ×2 (05:44→09:17)
[2018-03-30] MEDS: SENNOSIDES/DOCUSATE SODIUM TAB PO SCH ×2 (05:44→09:17)
[2018-03-30] MEDS: VITAMIN B COMPLEX 1 EA CAP/TAB PO SCH ×2 (05:45→09:13)
[2018-03-30] MEDS: SPIRONOLACTONE 25 MG TAB PO SCH ×2 (05:45→09:16)
[2018-03-30 07:10] VITALS: BP 139/48
--- NOTE | 2018-03-30 08:08 | SOAPPROG ---
ARABELLA Progress Note Assessment/Plan: Assessment: Plan: 03/24/18 17:08 POD#1 Revision RT knee encouraged patient to participate in PT/OT Xarelto for DVT proph keflex for suppression 03/25/18 08:36 POD#2 revision RT knee HGB 7.5 hold xarelto acute blood loss anemia Asymptomatic at this point VS stable Cont PT/OT 03/26/18 08:55 some hypotension o/n pain better controlled HGB pending acute blood loss anemia may need prbc's today poss DC Wednesday03/27/18 20:45 REcheck hgb in am PT/OT home vs snf 03/28/18 08:38 S/P revision RT TKA acute blood loss anemia, hgb 6.6 will transfuse 1 u PRBC hold xarelto resume spironolactone PT/OT poss Dc home vs snf wednesday03/30/18 08:04 slow but steady progress patient really wants to go home versus snf, her dee is in agreement and feels they can manage safely wound with small amount drainage will need ongoing dressing care at home home care would be helpful in addition to home PT/OT will not restart xarelto due to ongoing wound drainage, encouraged mobility at home will dc home later today if PT/OT feels safe Subjective: able to walk out to nurses station yesterday Objective: dressing changed by nursing last night, dry now calf soft 5/5 df/pf Vital Signs Temp Pulse Resp BP Pulse Ox 36.7 C 76 17 139/48 H 93 03/30/18 07:09 03/30/18 07:09 03/30/18 07:09 03/30/18 07:09 03/30/18 07:09 Laboratory Results 03/28/18 05:24 03/29/18 03/30/18 03/31/18 05:59 05:59 05:59 Intake Total 600 300 Output Total 450 300 Balance 150 0 ICD10 Worksheet Patient Problems: Problems Problem Status Onset Abscess of knee, right Acute Knee pain Acute Septic joint of right knee joint Acute
--- NOTE | 2018-03-30 08:12 | PDIAF ---
- Diagnosis Diagnosis: revision TKA for septic arthritis Code Status: Full Code - Medication Management Discharge Medications: Medications to Continue on Transfer Albuterol [Proventil Inhaler HFA (*)] 1 - 2 puffs IH Q4 PRN 02/24/13 [Last Taken 01/23/18] Cholecalciferol Vit D3 [Vitamin D3 (*)] 5,000 units PO HS 02/24/13 [Last Taken 03/18/18] Vitamin B Complex [Vitamin B Complex (OTC)] 1 ea PO DAILY 02/24/13 [Last Taken 03/18/18] Losartan Potassium [Cozaar 50 mg (*)] 50 mg PO HS 07/08/13 [Last Taken 01/23/18] Docusate Sodium [Colace 100 MG (*)] 100 mg PO DAILY PRN 03/17/17 [Last Taken 06/04] Fluticasone Hfa 110 Mcg [Flovent 110 MCG Hfa MDI (*)] 2 puffs IH BID PRN [Last Taken 01/23/18] Herbals/Supplements -Info Only 1 ea PO DAILY 01/24/18 [Last Taken 03/18/18] Acetaminophen [Tylenol 325mg (*)] 650 mg PO Q6HRS PRN 03/18/18 [Last Taken Unknown] Ondansetron HCl [Zofran] 4 mg PO Q6H PRN 03/18/18 [Last Taken Unknown] Rivaroxaban [Xarelto 10mg (*)] 10 mg PO DAILY 03/18/18 [Last Taken 03/19/18] Tizanidine HCl [Zanaflex] 4 mg PO TID PRN 03/18/18 [Last Taken Unknown] guaiFENesin [Guaifenesin] 800 mg PO BID 03/18/18 [Last Taken Unknown] oxyCODONE CR [Oxycontin] 10 mg PO BID 03/18/18 [Last Taken 03/23/18 09:00] traMADol [Ultram 50 mg (*)] 100 mg PO TID 03/18/18 [Last Taken 03/23/18] Calcium Citrate 400 mg PO BID 03/23/18 [Last Taken Unknown] Carvedilol [Coreg (*)] 6.25 mg PO BIDMEAL 03/23/18 [Last Taken Unknown] Gabapentin [Neurontin 100 MG (*)] 100 mg PO HS 03/23/18 [Last Taken Unknown] Hydrocodone/Acetaminophen [[place] 5/325 (*)] 1 each PO Q6 PRN 03/23/18 [Last Taken Unknown] Methylcellulose [Fiber] 1,000 mg PO BID 03/23/18 [Last Taken Unknown] Multivitamins [Multivitamin (*)] 1 each PO DAILY 03/23/18 [Last Taken Unknown] Nystatin [Nystop] 1 dayanara TP TID PRN 03/23/18 [Last Taken Unknown] Ranitidine HCl [Zantac] 150 mg PO BID 03/23/18 [Last Taken Unknown] Simethicone [Gas Relief] 160 mg PO DAILY PRN 03/23/18 [Last Taken Unknown] Spironolactone [Aldactone 50 MG (RX)] 50 mg PO DAILY 03/23/18 [Last Taken Unknown] Pin Puller Antibiotics: keflex 500 mg BID Discharge Medications: Refer to the Discharge Home Medication list for PRN reason. PICC Care - Routine: N/A - Orders Services needed: Home Care, Physical Therapy, Occupational Therapy Home Care Face to Face: I certify that this patient was under my care and that I had the required [id number] encounter meeting the encounter requirements on the discharge day. My findings support the fact that the patient is homebound as defined in Home Care Face to Face Continued: CMS Chapter 7 Medicare Benefits Manual 30.1.1 , The condition of the patient is such that there exists a normal inability to leave home and consequently, leaving home would require a considerable and taxing effort. Isolation Type: None Diet Recommendation: no restrictions on diet Diet Texture: Regular Texture Diet Wound Care Instructions: keep wound clean and dry, change every other day, dry gauze, ALY wrap, until drainage stops Activity/Weight Bearing Restrictions: WBAT, ROM as tolerated - Follow Up Care Current Providers and Referrals: Carol Ann Cain MD [Primary Care Provider] - Ethan Izquierdo MD [Medical Doctor] - Mina Holden MD [Medical Doctor] -
--- NOTE | 2018-03-30 11:48 | ASMTLACE ---
LACE Length of stay for Answers: 4-6 days current admission Acuity / Level of Answers: Yes Care: Did the patient have an inpatient admission? Comorbidities - select Answers: Coronary Artery Disease all that apply Opioid dependence / Chronic pain Other Notes: HTN # of Emergency department Answers: 1-2 visits in the last 6 months Score: 15 Date Signed: 03/30/2018 11:47 AM Electronically Signed By:ASHLEY Brooke
--- NOTE | 2018-03-30 14:58 | SOAPPROG ---
[facility] Patient Name: STAN JAY Rpt#: [id number] Unit Number: [id number] Attending/ER Physician: Mina Holden MD Patient Type: ADM IN Adm Date/Source: 03/25/18 PHY Discharge Date: Primary Carrier: [facility] [employer] SOAP NOTE SOAP Progress Note Assessment/Plan: Assessment: Plan: 03/24/18 17:08 POD#1 Revision RT knee encouraged patient to participate in PT/OT Xarelto for DVT proph keflex for suppression 03/25/18 08:36 POD#2 revision RT knee HGB 7.5 hold xarelto acute blood loss anemia Asymptomatic at this point VS stable Cont PT/OT 03/26/18 08:55 some hypotension o/n pain better controlled HGB pending acute blood loss anemia may need prbc's today poss DC Wednesday03/27/18 20:45 REcheck hgb in am PT/OT home vs snf 03/28/18 08:38 S/P revision RT TKA acute blood loss anemia, hgb 6.6 will transfuse 1 u PRBC hold xarelto resume spironolactone PT/OT poss Dc home vs snf wednesday03/29/18 08:31 S/P revision tka hold xarelto DC Wednesday home vs snf per therapy rec today Subjective: feels better since transfusion yesterday Objective: dressing changed this am, dry now 5/5 df/p1+ dp/tp pulses Vital Signs Temp Pulse Resp BP Pulse Ox 36.7 C 70 15 126/57 H 93 03/29/18 08:00 03/29/18 08:00 03/29/18 08:00 03/29/18 08:00 03/29/18 08:00 Microbiology 03/23/18 11:33 Gram Stain - Final Knee - Tissue Laboratory Results 03/28/18 05:24 03/28/18 03/29/1818 05:59 05:59 05:59 Intake Total 900 600 Output Total 350 450 Balance 550 150 - Pending Discharge Pending Discharge Within 24 Hours: Yes Pending Discharge Date: 03/30/18 Pending Discharge Time: 11:00 ICD10 Worksheet Patient Problems: Problems Problem Status Onset Abscess of knee, right Acute Knee pain Acute Septic joint of right knee joint Acute *This report may have been compiled using a voice recognition system, and might contain typographical errors and blanks.* Mina Holden MD 03/29/1832 <Electronically signed by Mina Holden MD> 9 T: CAMPOS 03/29/18829 CC:
--- NOTE | 2018-03-30 15:27 | ASMTCMCOM ---
CM Note CM Note Notes: Pt medically stable for d/c with [facility] OT/PT. Orders to be obtained via [facility]. Pt to transport home. Date Signed: 03/30/2018 03:26 PM Electronically Signed By:ASHLEY Brooke
--- NOTE | 2018-03-30 15:27 | ASDISCHSUM ---
Discharge Information Plan Status:Home with Home Health Medically Cleared to Leave: Discharge Date:03/30/2018 12:08 PM D/C Disposition:Home Health Service [facility] D/C Disposition:Home, Routine, Self-Care Projected Discharge Date:03/28/2018 11:00 AM Transportation at D/C: Discharge Delay Reason: Follow-Up Date:03/28/2018 11:00 AM Discharge Slot: Final Diagnosis: Placement Information Referral Type:*[facility]/SNF Referral ID:[id number] Provider Name: Address 1: Phone Number: Address 2: Fax Number: City: Selection Factors: State: Referral Type:*Home Health Care Services Referral ID:[id number] Provider Name:[facility] Address 1:[address] [address] Address 2: City:[place] Selection Factors: State:[place] Referral Type:Home Infusion Referral ID:[id number] Provider Name: Address 1: Phone Number: Address 2: Fax Number: City: Selection Factors: State: Patient Contact Information Contact Name:PHIL Relationship: Address:[address] [place] City:[place] Alternate Phone: State/Zip Code:[place] [address] Email: Financial Information Financial Class:Medicare Advantage Plans Primary Plan Desc:[employer] MEDICARE COMPLETE Primary Plan Number:[id number] Secondary Plan Desc:[facility] Secondary Plan Number:[id number] Assessment Information LACE LACE Length of stay for Answers: 4-6 days current admission Acuity / Level of Answers: Yes Care: Did the patient have an inpatient admission? Comorbidities - select Answers: Coronary Artery Disease all that apply Opioid dependence / Chronic pain Other Notes: HTN # of Emergency department Answers: 1-2 visits in the last 6 months Score: 15 Date Signed: 03/30/2018 11:47 AM Electronically Signed By:ASHLEY Brooke [facility] CM Progress Note CM Note CM Note Notes: Pt s/p total knee revision. Pt has a long history of infected knee and came in from [facility]. ID consulting. In January 2018 pt d/c to [facility] where she ran out of Medicare days, was unable to afford the [facility] copay and went tot [facility] under Medicaid LTC. Spoke with pt about d/c plan of care, while she ideally wants to go home she does not know if she can, her helps but they have no family/friends to assist. Pt reports the therapy program at [facility] is good. Pt decline OT/PT today. CM to follow for d/c planning. Date Signed: 03/24/2018 04:10 PM Electronically Signed By:ASHLEY Brooke [facility] CM Progress Note CM Note CM Note Notes: PT Flora stated today that pt could possibly DC home with HC rather than return to LTC bed at [facility]. PT still rec SF. CM will follow Date Signed: 03/26/2018 03:45 PM Electronically Signed By:July Simon LCSW [facility] CM Progress Note CM Note CM Note Notes: Spoke with pt re home care options. She would like [facility]. Referral sent via [facility]. Per RN, pt won't need IV ABX at d/c. Referral has been sent to [facility] for possible IV ABX d/c. Date Signed: 03/27/2018 04:02 PM Electronically Signed By:ASHLEY Piper [facility] CM Progress Note CM Note CM Note Notes: Pt medically stable for d/c with [facility] OT/PT. Orders to be obtained via [facility]. Pt to transport home. Date Signed: 03/30/2018 03:26 PM Electronically Signed By:ASHLEY Brooke Intervention Information
== END 2018-03-30 12:08 | disposition home health service (06) | DRG 467 ==
LOC: INTOOBSV 03-23 09:21 → F3N 03-23 09:21 → OBSVTOIN 03-25 13:50
PROVIDERS: ADMIT Orthopaedic Surgery; ATTEND Orthopaedic Surgery
PROC: 0SRC0J9 Replacement of Right Knee Joint with Synthetic Substitute, Cemented, Open Approach (ICD-10-PCS; principal; 2018-03-25)
PROC: 30233N1 Transfusion of Nonautologous Red Blood Cells into Peripheral Vein, Percutaneous Approach (ICD-10-PCS; principal; 2018-03-25)
PROC: 0SPC08Z Removal of Spacer from Right Knee Joint, Open Approach (ICD-10-PCS; principal; 2018-03-25)
DX: M13.861 Other specified arthritis, right knee (principal); D62 Acute posthemorrhagic anemia; I10 Essential (primary) hypertension; K21.9 Gastro-esophageal reflux disease without esophagitis; G47.30 Sleep apnea, unspecified; I06.9 Rheumatic aortic valve disease, unspecified
CPT/HCPCS: 86157-90; 86850-90; 86870-90; 86905-90; 86922-90; 97110-GP; 97116-GP; 97161-GP; 97166-GO; 97530-GO; 97530-GP; 97535-GO; C1713; G0378; G8978-GP-CL; G8979-GP-CJ; G8987-GO-CK; G8988-GO-CI; J0171; J0690; J1100; J1170; J1885; J2250; J2270; J2405; J2550; J2704; J2765; J2780; J3010; P9016

== ENCOUNTER 2018-03-31 16:45 | Emergency (ER) | payer OTHER ==
[2018-03-31 17:28] LABS: PLATELET COUNT 198 10^3/uL (150-400)
[2018-03-31] MEDS ORDERED: oxyCODONE IR 5 MG TAB PO ONE (17:29)
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
[2018-03-31 17:38] LABS: INR 1.23 (0.83-1.16); PROTIME(PATIENT) 15.7 SEC (12.0-15.0)
--- NOTE | 2018-03-31 18:59 | ASMTCMCOM ---
CM Note CM Note Notes: Patient presents to the ER this evening accompanied by her . Patient was discharged to home with [facility] to follow, yesterday from N. Although recommendations for discharge were for patient to go to SNF, patient chose to go home. Fortunately, patient had a referral and was accepted to prior to her discharge yesterday and [facility] was able to coordinate an admission to today. Patient was to be picked up at home this evening (arranged by ) but patient presented to the ER due to bleeding and increased pain in her R knee. Patient has been medically cleared for discharge from the ER at this time. I have contacted Jasmine at and hse confirms that they have accepted the patient and we can arrange for transport wit [facility]. Lazaro MCKENNA will call report to RN at prior to [facility]. I have contacted the production stage manager RN at [facility] (Marianna) and informed her of plans for patient to discharge to this evening Date Signed: 03/31/2018 06:58 PM Electronically Signed By:Keysha Tay RN
[2018-03-31 19:06] VITALS: BP 145/61
== END 2018-03-31 19:28 | disposition home or self-care (01) ==
LOC: EDUNIT#
DX: M96.830 Postprocedural hemorrhage of a musculoskeletal structure following a musculoskeletal system procedure (principal); D50.0 Iron deficiency anemia secondary to blood loss (chronic); J45.909 Unspecified asthma, uncomplicated; Z79.01 Long term (current) use of anticoagulants

== ENCOUNTER 2018-04-12 20:53 | Emergency (ER) | payer OTHER ==
[2018-04-12] MEDS ORDERED: ONDANSETRON 4 MG/2 ML VIAL ONE (21:38)
[2018-04-12] MEDS ORDERED: ONDANSETRON 4 MG/2 ML VIAL IVP ONE (21:40)
[2018-04-12] MEDS ORDERED: NS 1,000 ML IV ONE (21:46)
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
[2018-04-12 22:11] LABS: PLATELET COUNT 263 10^3/uL (150-400)
[2018-04-12] MEDS ORDERED: IOPAMIDOL (ISOVUE-300) 100 ML BTL ONE (22:14)
[2018-04-12] MEDS ORDERED: LORazepam 2 MG/ML INJ IVP ONE (23:41)
[2018-04-13 00:54] VITALS: BP 173/70
== END 2018-04-13 00:53 | disposition home or self-care (01) ==
LOC: EDUNIT#
DX: K59.00 Constipation, unspecified (principal); J45.909 Unspecified asthma, uncomplicated; R11.2 Nausea with vomiting, unspecified
CPT/HCPCS: 74177; 96361; 96374; 96375; 99285; J2060; J2405; Q9967

== ENCOUNTER → 2018-05-11 | Outpatient (CLI) | payer OTHER | LOC: CIMAGING 12:31 | PROVIDERS: ATTEND Orthopaedic Surgery | DX: M79.661 Pain in right lower leg (principal); M79.89 Other specified soft tissue disorders; M71.21 Synovial cyst of popliteal space [Baker], right knee | CPT/HCPCS: 93971-PO ==

== ENCOUNTER → 2018-05-16 | Outpatient (CLI) | payer OTHER | LOC: FIMAGING 10:38 | PROVIDERS: ATTEND Orthopaedic Surgery | PROC: 0S9C3ZX Drainage of Right Knee Joint, Percutaneous Approach, Diagnostic (ICD-10-PCS; principal; 2018-05-16) | DX: M25.561 Pain in right knee (principal); M79.89 Other specified soft tissue disorders; Z96.651 Presence of right artificial knee joint ==

== ENCOUNTER → 2018-10-04 | Outpatient (CLI) | payer OTHER | LOC: CIMAGING 14:11 | PROVIDERS: ATTEND Physician Assistant Medical | DX: M47.895 Other spondylosis, thoracolumbar region (principal); M48.05 Spinal stenosis, thoracolumbar region; M51.35 Other intervertebral disc degeneration, thoracolumbar region | CPT/HCPCS: 72131-PO ==

== ENCOUNTER 2018-10-14 17:10 | Inpatient (IN) | payer OTHER ==
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
[2018-10-14 19:03] LABS: PLATELET COUNT 168 10^3/uL (150-400)
[2018-10-14 19:05] LABS: INR 1.13 (0.83-1.16); PROTIME(PATIENT) 14.7 SEC (12.0-15.0)
[2018-10-14] MEDS ORDERED: oxyCODONE IR 5 MG TAB PO ONE (19:15)
[2018-10-14] MEDS: ERTAPENEM 1 GM in NS 100 ML IV SCH (19:20)
[2018-10-14 19:33] LABS: CREATINE KINASE 29 IU/L (0-156)
[2018-10-14] MEDS: DAPTOMYCIN IV SCH (20:10)
[2018-10-14] MEDS: NS IV SCH (20:10)
[2018-10-14] MEDS ORDERED: HYDROmorphONE/DILAUDID 1 MG/ML INJ IVP PRN (21:54)
[2018-10-14] MEDS ORDERED: ONDANSETRON DISINTEGRATING 4 MG TAB PO PRN (21:54)
[2018-10-14] MEDS ORDERED: ONDANSETRON 4 MG/2 ML VIAL IVP PRN (21:54)
[2018-10-14] MEDS ORDERED: ALBUTEROL 60 PUFFS/8 GM MDI IH PRN (23:01)
[2018-10-14] MEDS ORDERED: SIMETHICONE 80 MG TAB CHEW PO PRN (23:01)
[2018-10-14] MEDS ORDERED: DICLOFENAC SODIUM 1% 100 GM GEL TP PRN (23:01)
--- NOTE | 2018-10-14 23:09 | PDGENHP ---
History and Physical - Chief Complaint right knee swelling, redness - History of Present Illness 73yo F with history right knee arthroplasty s/p numerous revisions due to infection here with worsening redness, swelling and pain in right knee. Symptoms started about a week ago. Progressively getting worse. Redness spreading down leg. Leg very swollen, hasn't taken lasix yet today. Had fever today to 100.4 that prompted her to come to the ED. She has been taking her suppressive levofloxacin daily. Denies chills, shortness of breath, chest pain, n/v, diarrhea, urinary symptoms. She also reports having lower lip lesion that hasn't gone away in 4 weeks with over the counter topical agents. In the ED, ID was consulted and recommended placing her on daptomycin and ertapenem given past culture results. Dr Mcintosh from orthopedic surgery has been consulted as well. History Information - Allergies/Home Medication List Allergies/Adverse Reactions: alcohol Allergy (Verified 06/17/18 13:14) allergic to sulfates in alcohol caffeine Allergy (Verified 06/17/18 13:14) causes agitation and insomnia gluten Allergy (Verified 06/17/18 13:14) gi issues NSAIDS (Non-Steroidal Anti-Inflamma Allergy (Verified 06/22/18 11:08) Sulfa (Sulfonamide Antibiotics) Allergy (Verified 06/17/18 13:14) Hives tetracycline [Tetracycline] Allergy (Verified 06/17/18 13:14) Hives vancomycin Allergy (Verified 06/17/18 13:14) very fine whole body rash BEANS,NUTS,SEEDS,SPICES,ONIONS Allergy (Uncoded 05/23/18 11:45) GI PROBLEMS BROCCOLI,CAULIFLOWER,BRUSSELSPROUTS Allergy (Uncoded 05/23/18 11:45) GI PROBLEMS DAIRY Allergy (Uncoded 05/23/18 11:45) GI PROBLEMS FRESH FRUITS EXCEPT BANANAS Allergy (Uncoded 05/23/18 11:45) GI PROBLEMS FRESH VEGETABLES Allergy (Uncoded 05/23/18 11:45) GI PROBLEMS TAPES EXCEPT PAPER Allergy (Uncoded 05/23/18 11:45) SKIN IRRITATION-BLISTERS Home Medications: Albuterol [Proventil Inhaler HFA (*)] 1 - 2 puffs IH Q4 PRN 02/24/13 [Last Taken 06/17/18] Cholecalciferol Vit D3 [Vitamin D3 (*)] 5,000 units PO HS 02/24/13 [Last Taken 10/13/18] Losartan Potassium [Cozaar 50 mg (*)] 50 mg PO HS 07/08/13 [Last Taken 10/13/18] guaiFENesin [Guaifenesin] 400 mg PO BID 03/18/18 [Last Taken 10/14/18] Carvedilol [Coreg (*)] 6.25 mg PO BIDMEAL 03/23/18 [Last Taken 09/14/18] Multivitamins [Multivitamin (*)] 1 each PO DAILY 03/23/18 [Last Taken 10/14/18] Simethicone [Gas Relief] 160 mg PO DAILY PRN 03/23/18 [Last Taken 10/14/18] Spironolactone [Aldactone] 50 mg PO DAILY 03/23/18 [Last Taken 10/14/18] Loperamide HCl [Imodium 2 mg (*)] 2 mg PO PRN PRN 06/17/18 [Last Taken Unknown] Diclofenac Sodium 1% [Voltaren Gel (*)] 2 gm TP QID PRN 10/14/18 [Last Taken ] Furosemide [Lasix 40 MG (*)] 40 mg PO DAILY 10/14/18 [Last Taken 10/14/18] Gabapentin [Neurontin 100 MG (*)] 200 mg PO DAILY 10/14/18 [Last Taken 10/14/18] Gabapentin [Neurontin 100 MG (*)] 300 mg PO HS 10/14/18 [Last Taken 10/13/18] Herbals/Supplements -Info Only 1 ea PO DAILY 10/14/18 [Last Taken 10/14/18] tiZANidine HCL [Zanaflex] 4 mg PO BID PRN 10/14/18 [Last Taken Unknown] I have personally reviewed and updated: family history, medical history, social history, surgical history - Past Medical History Additional medical history: osteoarthritis, obesity, multiple orthopedic/ arthroplasty infections, HTN, CHUCKIE on CPAP, rheumatic fever with valvular disease (? aortic insufficiency) - Surgical History Additional surgical history: multiple knee replacements and shoulder replacements, , carpal tunnel release, colonic resection - Family History Additional family history: COPD, CVA - Social History Smoking Status: Never smoked Alcohol Use: None Drug Use: None Additional social history: Lives with Review of Systems Review of Systems: ROS: 10pt was reviewed & negative except for what was stated in HPI & below Physical Exam Physical Exam: Temp Pulse Resp BP Pulse Ox 36.7 C 114 H 19 117/63 92 10/14/18 21:50 10/14/18 21:50 10/14/18 21:50 10/14/18 21:50 10/14/18 21:50 Constitutional: no apparent distress, obese Eyes: PERRL, anicteric sclera, EOMI Ears, Nose, Mouth, Throat: moist mucous membranes, hearing normal, ears appear normal, no oral mucosal ulcers Cardiovascular: regular rate and rhythym, no murmur, rub, or gallop, edema (2+ RLE) Respiratory: no respiratory distress, no rales or rhonchi, clear to auscultation Gastrointestinal: normoactive bowel sounds, soft, non-tender abdomen, no palpable masses Genitourinary: no bladder fullness Skin: warm, erythema (from right knee down to ankle) Musculoskeletal: full muscle strength, no muscle tenderness, normal joint ROM, no joint effusions Neurologic: AAOx3 Psychiatric: interacting appropriately, not anxious, not encephalopathic, thought process linear Lab Data & Imaging Review 10/14/18 18:25 10/14/18 18:25 WBC 10.73 10^3/uL (3.80-9.50) H 10/14/18 18:25 RBC 4.41 10^6/uL (4.18-5.33) 10/14/18 18:25 Hgb 11.8 g/dL (12.6-16.3) L 10/14/18 18:25 Hct 37.4 % (38.0-47.0) L 10/14/18 18:25 MCV 84.8 fL (81.5-99.8) 10/14/18 18:25 MCH 26.8 pg (27.9-34.1) L 10/14/18 18:25 MCHC 31.6 g/dL (32.4-36.7) L 10/14/18 18:25 RDW 16.8 % (11.5-15.2) H 10/14/18 18:25 Plt Count 168 10^3/uL (150-400) 10/14/18 18:25 MPV 10.7 fL (8.7-11.7) 10/14/18 18:25 Neut % (Auto) 75.8 % (39.3-74.2) H 10/14/18 18:25 Lymph % (Auto) 10.9 % (15.0-45.0) L 10/14/18 18: [place] % (Auto) 11.9 % (4.5-13.0) 10/14/18 18:25 Eos % (Auto) 0.6 % (0.6-7.6) 10/14/18 18: Baso % (Auto) 0.3 % (0.3-1.7) 10/14/18 18: Nucleat RBC Rel Count 0.0 % (0.0-0.2) 10/14/18 18: Absolute Neuts (auto) 8.14 10^3/uL (1.70-6.50) H 10/14/18 18: Absolute Lymphs (auto) 1.17 10^3/uL (1.00-3.00) 10/14/18 18: Absolute Monos (auto) 1.28 10^3/uL (0.30-0.80) H 10/14/18 18: Absolute Eos (auto) 0.06 10^3/uL (0.03-0.40) 10/14/18 18: Absolute Basos (auto) 0.03 10^3/uL (0.02-0.10) 10/14/18 18: Absolute Nucleated RBC 0.00 10^3/uL (0-0.01) 10/14/18 18: Immature Gran % 0.5 % (0.0-1.1) 10/14/18 18: Immature Gran # 0.05 10^3/uL (0.00-0.10) 10/14/18 18: ESR 59 MM/HR (0-30) H 10/14/18 18:25 PT 14.7 SEC (12.0-15.0) 10/14/18 18:25 INR 1.13 (0.83-1.16) 10/14/18 18:25 APTT 39.4 SEC (23.0-38.0) H 10/14/18 18:25 VBG Lactic Acid 1.2 mmol/L (0.7-2.1) 10/14/18 18:35 Sodium 134 mEq/L (135-145) L 10/14/18 18:25 Potassium 4.1 mEq/L (3.5-5.2) 10/14/18 18:25 Chloride 100 mEq/L (97-110) 10/14/18 18:25 Carbon Dioxide 25 mEq/l (22-31) 10/14/18 18:25 Anion Gap 9 mEq/L (6-14) 10/14/18 18:25 BUN 22 mg/dL (7-23) 10/14/18 18:25 Creatinine 0.9 mg/dL (0.6-1.0) 10/14/18 18:25 Estimated GFR > 60 10/14/18 18:25 Glucose 115 mg/dL (70-100) H 10/14/18 18:25 Calcium 9.4 mg/dL (8.5-10.4) 10/14/18 18:25 Total Bilirubin 0.5 mg/dL (0.1-1.4) 10/14/18 18:25 Creatine Kinase 29 IU/L (0-156) 10/14/18 18:25 C-Reactive Protein 66.7 mg/L (<10.0) H 10/14/18 18:25 Assessment & Plan Assessment: 73yo F with history right knee arthroplasty s/p numerous revisions due to infection here with worsening redness, swelling and pain in right knee concerning for prosthetic knee infection and overlying cellulitis. Plan: 1. 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 Appears to have gotten infected despite suppressive antibiotics. - ID consulted, receiving IV daptomycin and ertapenem given past culture results, narrow as able - Follow blood cultures - Ortho consulted (Dr Mcintosh). Considering wash out. This is a recurrent issue for her and ultimately an amputation may be the only viable solution. 2. RLE cellulitis and edema: Will eval for underlying DVT. - Antibiotics as above - Check RLE duplex US 3. Sepsis: With fever, tachycardia. Lactate ok and normotensive. - Management per above, hold anti-hypertensives for now 4. 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 Anemia: H/H better than prior. Likely chronic inflammation. Monitor. 6. CHUCKIE: on CPAP at night. 7. Osteoarthritis: Continue home pain meds, add IV dilaudid PRN for breakthrough. VTE ppx: SCDs Diet: NPO at midnight Code: full Dispo: Admit as inpatient
[2018-10-14] MEDS ORDERED: GABAPENTIN 100 MG CAP PO SCH ×2 (23:30→23:45)
[2018-10-14] MEDS: oxyCODONE IR 5 MG TAB PO PRN (23:55)
[2018-10-15] MEDS: valACYclovir 500 MG TAB PO SCH ×3 (00:14→21:07)
[2018-10-15] MEDS: oxyCODONE IR 5 MG TAB PO PRN ×6 (00:15→23:10)
[2018-10-15] MEDS: ACETAMINOPHEN 325 MG TAB PO PRN ×2 (03:34→16:54)
[2018-10-15 06:13] LABS: PLATELET COUNT 143 10^3/uL (150-400)
[2018-10-15 06:18] LABS: INR 1.2 (0.83-1.16); PROTIME(PATIENT) 15.4 SEC (12.0-15.0)
[2018-10-15] MEDS ORDERED: BUPIVACAINE/EPI 0.5% 30 ML SDV ONE (07:36)
--- NOTE | 2018-10-15 07:40 | PDMN ---
Medical Necessity Medical necessity: Pt meets inpt criteria per MD order and MCG M-70, Cellulitis , A-2 days. 73 y/o w/hx R knee arthroplasty s/p numerous revisions due to infection and on suppressive levofloxacin, presenting to ED w/worsening R knee redness, swelling, pain, and fever, admitted with likely prosthetic knee infection and overlying RLE cellulitis despite suppressive antibiotics, also w/ sepsis w/fever, tachycardia (HR 105-120). Hyponatremia w/Na 132, C-reactive protein lev at 66.7, blood cultures pending. ID consulted, IV ABX's, Ortho consult- may need washout. Other comorbid conditions include osteoarthritis, obesity, HTN, hx rheumatic fever w/valvular disease. Anticipate>2MN for ongoing eval/treatment of recurrent R knee infection/sepsis.
[2018-10-15] MEDS ORDERED: MIDAZOLAM 2 MG/2 ML VIAL ONE (07:57)
[2018-10-15] MEDS ORDERED: fentaNYL 100 MCG/2 ML INJ ONE ×2 (08:00→09:17)
[2018-10-15] MEDS ORDERED: PROPOFOL 200 MG/20 ML VIAL ONE (08:00)
[2018-10-15] MEDS ORDERED: ONDANSETRON 4 MG/2 ML VIAL ONE (08:19)
[2018-10-15] MEDS ORDERED: DEXAMETHASONE 4 MG/ML VIAL ONE (08:19)
[2018-10-15] MEDS ORDERED: RANITIDINE 50 MG/2 ML VIAL ONE (08:19)
[2018-10-15] MEDS ORDERED: METOCLOPRAMIDE 10 MG/2 ML VIAL ONE (08:19)
--- NOTE | 2018-10-15 08:38 | HOSPPROG ---
Hospitalist Progress Note Assessment/Plan: 73yo F with history right knee arthroplasty s/p numerous revisions due to infection here with worsening redness, swelling and pain in right knee. Symptoms started about a week ago. First encounter, chart reviewed. 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 Objective: Vital Signs Temp Pulse Resp BP Pulse Ox 37.2 C 98 16 128/69 H 94 10/15/18 07:48 10/15/18 07:48 10/15/18 07:48 10/15/18 07:48 10/15/18 07:48 Laboratory Results 10/15/18 05:40 10/15/18 05:40 10/14/18 10/15/18 10/16/18 05:59 05:59 05:59 Intake Total 250 Output Total 400 Balance -150 PT 15.4 SEC (12.0-15.0) H 10/15/18 05:40 INR 1.20 (0.83-1.16) H 10/15/18 05:40 - Physical Exam Constitutional: no apparent distress, appears nourished, not in pain, obese Eyes: PERRL Ears, Nose, Mouth, Throat: hearing normal Cardiovascular: regular rate and rhythym, edema (bilateral lower ext) Respiratory: no respiratory distress Gastrointestinal: normoactive bowel sounds Skin: warm, other (right knee wrapped in giovanna wrap) Neurologic: AAOx3 Psychiatric: interacting appropriately ICD10 Worksheet Patient Problems: Problems Problem Status Onset Infected prosthetic knee joint Acute Knee pain Acute Abscess of knee, right Acute Septic joint of right knee joint Acute
[2018-10-15] MEDS ORDERED: MIDAZOLAM 2 MG/2 ML VIAL IVP ONE (08:41)
[2018-10-15] MEDS ORDERED: PROMETHAZINE HCL 25 MG/ML INJ IVP PRN (08:41)
[2018-10-15] MEDS ORDERED: NS 500 ML IV PRN (08:41)
[2018-10-15] MEDS ORDERED: fentaNYL 100 MCG/2 ML INJ IVP PRN (08:41)
[2018-10-15] MEDS ORDERED: HYDROmorphONE/DILAUDID 2 MG/ML INJ IVP PRN (08:41)
[2018-10-15] MEDS ORDERED: ONDANSETRON 4 MG/2 ML VIAL IVP PRN (08:41)
[2018-10-15] MEDS ORDERED: NALOXONE HCL 0.4 MG/ML INJ IVP PRN (08:41)
[2018-10-15] MEDS ORDERED: ALBUTEROL 3 ML DEYVIAL IH PRN (08:41)
--- NOTE | 2018-10-15 08:43 | PDANEPAE ---
ANE History of Present Illness R Knee Washout ANE Past Medical History - Cardiovascular History Hx Hypertension: Yes Hx Arrhythmias: No Hx Chest Pain: No Hx Coronary Artery / Peripheral Vascular Disease: Yes Hx CHF / Valvular Disease: No Hx Palpitations: No Cardiovascular History Comment: aortic insuff. htn. rheumatic heart disease - Pulmonary History Hx COPD: No Hx Asthma/Reactive Airway Disease: Yes Hx Recent Upper Respiratory Infection: No Hx Oxygen in Use at Home: No Hx Sleep Apnea: Yes Sleep Apnea Screening Result - Last Documented: Positive Pulmonary History Comment: berkley positive- uses cpap- instructed pt to bring. instructed pt to bring inhalers - Neurologic History Hx Cerebrovascular Accident: No Hx Seizures: No Hx Dementia: No Neurologic History Comment: Hx of kirill quintero. essential tremor. spinal stenosis - Endocrine History Hx Diabetes: No - Renal History Hx Renal Disorders: Yes Renal History Comment: incontinence- USES 2 POISE PAD EVERY 2-3 HRS - Liver History Hx Hepatic Disorders: No - Neurological & Psychiatric Hx Hx Neurological and Psychiatric Disorders: No Neurological / Psychiatric History Comment: essential tremor. Hx of kirill quintero - Cancer History Hx Cancer: No Cancer History Comment: pre-cancerous lumpectomy - Congenital Disorder History Hx Congenital Disorders: No - GI History Hx Gastrointestinal Disorders: Yes Gastrointestinal History Comment: GERD-controlled with Zantac. HIATAL HERNIA. BARRETS ESOPHAGUS. DIFF SWALLOWING. IBS - Other Health History Other Health History: wears glasses. long standing septic arthritis. EASY BLEEDING AND BRUISING. FIBROMYALGIA. CHRONIC FATIGUE SYNDROME. BILAT ROTATOR CUFF TEARS - Chronic Pain History Chronic Pain: Yes (right knee and generalized d/t fibromyalgia) - Surgical History Prior Surgeries: 01/24/18 right tka with explant of hardware with [facility]. right knee i&d with [facility]. 09/03 right knee cleaned out. 05/31/15 left carpal tunnel release with [facility]. 05/09/14 right hammer toe repair with [facility]. 03/06/13 right rtc repair. varicose vein surgery- right leg. left knee scope x2. right knee scope x2. left tka x2. right tka x2. t&a as child. d&c in mid . i&d of episotomy in 1972. 1973. urethrotomy. exploratory lap with removal of benign tumor. abd hysterectomy. lumbar laminectomy x2. lumbosacral fusion. sigmoid colon resction 2003. colposcopy 2006. phlebectomy right leg ANE Review of Systems Review of Systems: ANE Patient History - Allergies Allergies/Adverse Reactions: alcohol Allergy (Verified 06/17/18 13:14) allergic to sulfates in alcohol caffeine Allergy (Verified 06/17/18 13:14) causes agitation and insomnia gluten Allergy (Verified 06/17/18 13:14) gi issues NSAIDS (Non-Steroidal Anti-Inflamma Allergy (Verified 06/22/18 11:08) Sulfa (Sulfonamide Antibiotics) Allergy (Verified 06/17/18 13:14) Hives tetracycline [Tetracycline] Allergy (Verified 06/17/18 13:14) Hives vancomycin Allergy (Verified 06/17/18 13:14) very fine whole body rash BEANS,NUTS,SEEDS,SPICES,ONIONS Allergy (Uncoded 05/23/18 11:45) GI PROBLEMS BROCCOLI,CAULIFLOWER,BRUSSELSPROUTS Allergy (Uncoded 05/23/18 11:45) GI PROBLEMS DAIRY Allergy (Uncoded 05/23/18 11:45) GI PROBLEMS FRESH FRUITS EXCEPT BANANAS Allergy (Uncoded 05/23/18 11:45) GI PROBLEMS FRESH VEGETABLES Allergy (Uncoded 05/23/18 11:45) GI PROBLEMS TAPES EXCEPT PAPER Allergy (Uncoded 05/23/18 11:45) SKIN IRRITATION-BLISTERS - Home Medications Home Medications: Albuterol [Proventil Inhaler HFA (*)] 1 - 2 puffs IH Q4 PRN 02/24/13 [Last Taken 06/17/18] Cholecalciferol Vit D3 [Vitamin D3 (*)] 5,000 units PO HS 02/24/13 [Last Taken 10/13/18] Losartan Potassium [Cozaar 50 mg (*)] 50 mg PO HS 07/08/13 [Last Taken 10/13/18] guaiFENesin [Guaifenesin] 400 mg PO BID 03/18/18 [Last Taken 10/14/18] Carvedilol [Coreg (*)] 6.25 mg PO BIDMEAL 03/23/18 [Last Taken 09/14/18] Multivitamins [Multivitamin (*)] 1 each PO DAILY 03/23/18 [Last Taken 10/14/18] Simethicone [Gas Relief] 160 mg PO DAILY PRN 03/23/18 [Last Taken 10/14/18] Spironolactone [Aldactone] 50 mg PO DAILY 03/23/18 [Last Taken 10/14/18] Loperamide HCl [Imodium 2 mg (*)] 2 mg PO PRN PRN 06/17/18 [Last Taken Unknown] Diclofenac Sodium 1% [Voltaren Gel (*)] 2 gm TP QID PRN 10/14/18 [Last Taken ] Furosemide [Lasix 40 MG (*)] 40 mg PO DAILY 10/14/18 [Last Taken 10/14/18] Gabapentin [Neurontin 100 MG (*)] 200 mg PO DAILY 10/14/18 [Last Taken 10/14/18] Gabapentin [Neurontin 100 MG (*)] 300 mg PO HS 10/14/18 [Last Taken 10/13/18] Herbals/Supplements -Info Only 1 ea PO DAILY 10/14/18 [Last Taken 10/14/18] tiZANidine HCL [Zanaflex] 4 mg PO BID PRN 10/14/18 [Last Taken Unknown] - NPO status NPO Since - Liquids (Date): 10/15/18 NPO Since - Liquids (Time): 00:00 NPO Since - Solids (Date): 10/14/18 NPO Since - Solids (Time): 22:00 - Smoking Hx Smoking Status: Never smoked - Alcohol Use Alcohol Use: None - Family Anes Hx Family Hx Anesthesia Complications: none ANE Labs/Vital Signs - Labs Result Diagrams: 10/15/18 05:40 10/15/18 05:40 - Vital Signs Blood Pressure: 128/69 Heart Rate: 98 Respiratory Rate: 16 O2 Sat (%): 94 Height: 149.86 cm Weight: 81.4 kg ANE Physical Exam - Airway Neck exam: FROM Mallampati Score: Class 2 Mouth exam: normal dental/mouth exam - Pulmonary Pulmonary: clear to auscultation - Cardiovascular Cardiovascular: regular rate and rhythym - ASA Status ASA Status: III ANE Anesthesia Plan Anesthesia Plan: GA w LMA
--- NOTE | 2018-10-15 08:57 | GCON ---
REASON FOR CONSULTATION: Right knee pain. HISTORY OF PRESENT ILLNESS: The patient is a 73-year-old with very involved history relative to her right knee. She has undergone a staged revision right total knee arthroplasty secondary to infection approximately in January of this year. While she was never "pain-free" post surgery, she had a recent increase in pain, erythema, and swelling in her knee and lower leg. She had significant difficulty ambulating secondary to her pain. She presented to the emergency room secondary to her increasing pr oblems. PHYSICAL EXAMINATION: There is significant swelling in the right knee. It is difficult to assess fo r effusion. She has erythema in her lower leg, extending down to near her ankle level. Attempts at moving her knee produce pain. ASSESSMENT: Probable recurrent infection, right total knee arthroplasty. PLAN: I spoke at length with the patient regarding her condition and treatment options. If there is persistent infection in the knee despite suppressive antibiotics, ultimately, this may involve remov al of the implant and knee arthrodesis or above-knee amputation. She is not at a point where she wis hes to make this type of a decision at this point in time. There is concern with leaving her knee in its current state as despite augmentation with IV antibiotics, her worsening condition is unlikely t o significantly improve. As a "temporizing" measure, it was recommended that a limited irrigation of the knee be pursued in hopes of temporizing any acute worsening infection and enabling her to "buy s ome time" before a potential more definitive operative treatment is considered if necessary. This wi ll be scheduled for the morning after admission. /[id number]/MODL
[2018-10-15] MEDS ORDERED: SPIRONOLACTONE 50 MG TAB PO SCH (09:00)
[2018-10-15] MEDS ORDERED: valACYclovir 500 MG TAB PO SCH (09:00)
[2018-10-15] MEDS ORDERED: GABAPENTIN 100 MG CAP PO SCH ×3 (09:00→21:00)
--- NOTE | 2018-10-15 09:06 | POSTOPPROG ---
Post Op Note Date of Operation: 10/15/18 Surgeon: Felipe Mcintosh Anesthesia: LMA Pre-op Diagnosis: R knee infection Post-op Diagnosis: same Procedure: R knee I&D Inf/Abcess present in the surg proc area at time of surgery?: No EBL: Minimal (Uncertain infection)
--- NOTE | 2018-10-15 09:06 | POSTANESTH ---
Post Anesthetic Evaluation Cardiovascular Status: Normal, Stable Respiratory Status: Normal, Stable Level of Consciousness/Mental Status: Can Participate in Eval, Mildly Sleepy, Arousable Pain Control: Adequate, Prn Tx Ordered Nausea/Vomiting Control: Adequate, Prn Tx Ordered Complications Possibly Related to Anesthesia: None Noted
[2018-10-15] MEDS ORDERED: HYDROmorphONE/DILAUDID 2 MG/ML INJ ONE (09:17)
[2018-10-15] MEDS: CARVEDILOL 6.25 MG TAB PO SCH ×2 (10:53→16:54)
--- NOTE | 2018-10-15 11:23 | GOP ---
DATE OF OPERATION: 10/15/2018 SURGEON: Felipe Mcintosh MD ANESTHESIA: General. PREOPERATIVE DIAGNOSIS: Probable right infected total knee arthroplasty. POSTOPERATIVE DIAGNOSIS: Probable right infected total knee arthroplasty. PROCEDURE PERFORMED: Right knee irrigation debridement. FINDINGS: SPECIMENS: Knee aspirate sent for cultures. ESTIMATED BLOOD LOSS: Negligible.new DESCRIPTION OF PROCEDURE: The patient was brought to the operating room, placed in a supine position on the operating table. Antibiotics had been given on the floor previously. General anesthetic was administered. A tourniquet was placed on the right thigh but not inflated. The right lower extremi ty was prepped and draped in standard sterile fashion. An aspirate of the knee was performed gaining predominantly serosanguineous fluid. This was sent for cultures. 2 portals were placed, 1 anterome dially, the other superolaterally for inflow and outflow. A 4.0 mm arthroscopic cannula was placed o adriano a blunt trocar inferomedially. An outflow cannula was placed superolaterally. The knee was then copiously irrigated with 6 L of normal saline with gravity flow. After irrigation of the knee, the skin portals were closed with 3-0 nylon suture. The wounds were dressed with sterile Adaptic, 4 x 4 Kerlix, and Lalo wrap. The patient tolerated the procedure well, was taken to the recovery room, extu bated in stable condition postoperatively. All sponge, needle, and instrument counts were reported a s being correct. DRAINS: None. COMPLICATIONS: None. PLAN: The patient be readmitted for medical management and IV antibiotics. She will be weightbearin g as tolerated on her operative extremity. /[id number]/MODL
--- NOTE | 2018-10-15 16:31 | ASMTCMCOM ---
CM Note CM Note Notes: Pt admitted for recurrent infected right total knee arthroplasty. Pt lives independently with Ethan in [place]. No therapies ordered at this time. ID has been consulted and there is a potential for IV abx upon discharge. CM to follow. D/C Plan: likely Independent, possible IV Abx Date Signed: 10/15/2018 04:30 PM Electronically Signed By:Daniela Jensen
--- NOTE | 2018-10-15 16:38 | PCMIDPN ---
Assessment/Plan: 1. Recurrent right prosthetic knee infection, status post arthroscopic washout: Continue daptomycin and ertapenem as is for now, pending culture results. Ultimate antibiotic and surgical plan unclear at this point in time, as this is the patient's 3rd knee. 2. Oral labial HSV: Lesion appears unusual. Valtrex has been started. If this does not improve with Valtrex, will need to see a residential green building designer for biopsy as an outpatient. Over 30 min spent with this patient today. 10/15/18 16:36 Subjective: Patient is well known to me, and followed by Dr. Izquierdo, my colleague. This is the patient's 3rd right artificial knee that has gotten infected; she was recently here in June and had a washout. Cultures grew Serratia for which he has been taking levofloxacin as chronic suppression. Unfortunately, over the past several weeks the patient has had increasing pain and recently developed redness over the knee. She saw her primary care doctor on Wednesday, and had a low-grade fever of 100.4. She was referred here for further evaluation and treatment. She was taken to the operating room today by Dr. Mcintosh for an arthroscopic washout. Cultures were sent. She is now on daptomycin and ertapenem, which I requested last night when I was called from the emergency department about this patient. Today, the patient is in a good mood, and is hopeful that this will help. Objective: Daptomycin 510 mg IV daily day 2 Ertapenem 1 g IV daily day 2 No fevers Vital Signs Temp Pulse Resp BP Pulse Ox 37.2 C 91 14 117/57 L 93 10/15/18 15:50 10/15/18 15:50 10/15/18 15:50 10/15/18 15:50 10/15/18 15:50 Microbiology 10/15/18 08:30 Gram Stain - Final Knee - Aspirate Laboratory Results 10/15/18 05:40 10/15/18 05:40 10/14/18 10/15/18 10/16/18 05:59 05:59 05:59 Intake Total 250 700 Output Total 400 310 Balance -150 390 ESR 59 MM/HR (0-30) H 10/14/18 18:25 C-Reactive Protein 66.7 mg/L (<10.0) H 10/14/18 18:25 Cultures are pending from the knee blood cultures are also pending - Physical Exam General Appearance: no apparent distress, obese EENT: other (Patient has a pea size almost nodular on her lower lip vermilion border. No surrounding erythema.), No scleral icterus Respiratory: lungs clear Cardiac/Chest: systolic murmur Extremities: other (Right knee is wrapped with a primary surgical dressing. No obvious cellulitis outside the dressing margins.) Skin: other (Patient has some excoriated papules on her upper arms, which she feels are bug bites, as she may have found a bed bug in her bed.) ICD10 Worksheet Patient Problems: Problems Problem Status Onset Infected prosthetic knee joint Acute Knee pain Acute Abscess of knee, right Acute Septic joint of right knee joint Acute
[2018-10-15] MEDS: ERTAPENEM 1 GM in NS 100 ML IV SCH (19:42)
[2018-10-15] MEDS ORDERED: LOSARTAN POTASSIUM 50 MG TAB PO SCH (21:00)
[2018-10-15] MEDS: DAPTOMYCIN IV SCH (21:07)
[2018-10-15] MEDS: GABAPENTIN 100 MG CAP PO SCH (21:07)
[2018-10-15] MEDS: NS IV SCH (21:07)
[2018-10-16] MEDS: oxyCODONE IR 5 MG TAB PO PRN ×3 (04:51→20:23)
[2018-10-16] MEDS: valACYclovir 500 MG TAB PO SCH ×2 (09:42→20:19)
[2018-10-16] MEDS: GABAPENTIN 100 MG CAP PO SCH (09:42)
[2018-10-16] MEDS: CARVEDILOL 6.25 MG TAB PO SCH ×2 (09:42→17:33)
--- NOTE | 2018-10-16 11:41 | HOSPPROG ---
Hospitalist Progress Note Assessment/Plan: 73yo F with history right knee arthroplasty s/p numerous revisions due to infection here with worsening redness, swelling and pain in right knee. Symptoms started about a week ago. First encounter, chart reviewed. 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 No pain currently. Concerned about plan. Objective: Vital Signs Temp Pulse Resp BP Pulse Ox 36.7 C 83 16 110/48 L 98 10/16/18 08:00 10/16/18 09:42 10/16/18 08:00 10/16/18 09:42 10/16/18 08:00 Microbiology 10/15/18 08:30 Gram Stain - Final Knee - Aspirate Laboratory Results 10/15/18 05:40 10/15/18 05:40 10/15/18 10/16/18 10/17/18 05:59 05:59 05:59 Intake Total 250 2110 Output Total 400 310 Balance -150 1800 PT 15.4 SEC (12.0-15.0) H 10/15/18 05:40 INR 1.20 (0.83-1.16) H 10/15/18 05:40 - Physical Exam Constitutional: appears nourished, chronically ill appearing, obese Eyes: PERRL, anicteric sclera, EOMI Ears, Nose, Mouth, Throat: moist mucous membranes, hearing normal, ears appear normal Cardiovascular: regular rate and rhythym, edema, No JVD Respiratory: no respiratory distress, no rales or rhonchi, reduced air movement Gastrointestinal: normoactive bowel sounds, No tenderness, No ascites Skin: warm, normal color, erythema Musculoskeletal: joint tenderness, pain with ROM, generalized weakness Neurologic: AAOx3 Psychiatric: not anxious, not encephalopathic, thought process linear ICD10 Worksheet Patient Problems: Problems Problem Status Onset Infected prosthetic knee joint Acute Abscess of knee, right Acute Knee pain Acute Septic joint of right knee joint Acute
--- NOTE | 2018-10-16 12:57 | SOAPPROG ---
SOAP Progress Note Assessment/Plan: Assessment: S/P I&D R knee Knee pain at baseline OOB in chair Albino po Dressing intact Lower leg erythema improved Plan: IV abx per ID OK for D/C from ortho standpoint F/U Dr. Craft 1 wk 10/16/18 12:55 Objective: Vital Signs Temp Pulse Resp BP Pulse Ox 36.7 C 83 16 110/48 L 98 10/16/18 08:00 10/16/18 09:42 10/16/18 08:00 10/16/18 09:42 10/16/18 08:00 Microbiology 10/15/18 08:30 Gram Stain - Final Knee - Aspirate Laboratory Results 10/15/18 05:40 10/15/18 05:40 10/15/18 10/16/18 10/17/18 05:59 05:59 05:59 Intake Total 250 2110 Output Total 400 310 Balance -150 1800 PT 15.4 SEC (12.0-15.0) H 10/15/18 05:40 INR 1.20 (0.83-1.16) H 10/15/18 05:40 ICD10 Worksheet Patient Problems: Problems Problem Status Onset Infected prosthetic knee joint Acute Knee pain Acute Abscess of knee, right Acute Septic joint of right knee joint Acute
--- NOTE | 2018-10-16 13:22 | PCMIDPN ---
Assessment/Plan: 1. Recurrent right prosthetic knee infection, status post arthroscopic washout: Continue daptomycin and ertapenem as is for now, pending culture results. Hopefully, something will grow and we can streamline her antibiotics. She will unfortunately need 6 weeks of IV therapy moving forward. 2. Oral labial HSV: Lesion appears unusual. Seems slightly improved on Valtrex today. It does not entirely resolve, needs biopsy as an outpatient. Subjective: Complaining of pain. No diarrhea on the antibiotics. Objective: Daptomycin 510 mg IV daily day 3 Ertapenem 1 g IV daily day 3 No fevers Vital Signs Temp Pulse Resp BP Pulse Ox 36.7 C 83 16 110/48 L 98 10/16/18 08:00 10/16/18 09:42 10/16/18 08:00 10/16/18 09:42 10/16/18 08:00 Microbiology 10/15/18 08:30 Gram Stain - Final Knee - Aspirate Laboratory Results 10/15/18 05:40 10/15/18 05:40 10/15/18 10/16/18 10/17/18 05:59 05:59 05:59 Intake Total 250 2110 Output Total 400 310 Balance -150 1800 ESR 59 MM/HR (0-30) H 10/14/18 18:25 C-Reactive Protein 66.7 mg/L (<10.0) H 10/14/18 18:25 Knee Gram stain 4+ PMNs, no organisms, culture pending Blood cultures negative, AFB and fungal cultures from the knee are pending as well - Physical Exam General Appearance: obese EENT: pharynx normal, other (Lower lip lesion seems to have flattened slightly) Extremities: other (Right lower extremity: Lalo bandage and Kerlix taken down. Patient's right knee is clearly swollen chronically compared to the left, and is warm, but is not erythematous. Trocar incisions noted, and are sutured. No active drainage. Again, no evidence of cellulitis.) ICD10 Worksheet Patient Problems: Problems Problem Status Onset Infected prosthetic knee joint Acute Knee pain Acute Abscess of knee, right Acute Septic joint of right knee joint Acute
--- NOTE | 2018-10-16 17:23 | ASMTCMCOM ---
CM Note CM Note Notes: Chart reviewed. Per ID patient will need 6 weeks of antibiotic therapy. Referral to [facility]ina in [facility], CM to follow. Plan: Home with home infusion and HHC Date Signed: 10/16/2018 05:23 PM Electronically Signed By:Jenny Luna RN
[2018-10-16] MEDS: NS IV SCH (18:43)
[2018-10-16] MEDS: DAPTOMYCIN IV SCH (18:43)
[2018-10-16] MEDS: ERTAPENEM 1 GM in NS 100 ML IV SCH (19:23)
[2018-10-16] MEDS ORDERED: GABAPENTIN 100 MG CAP PO SCH (21:00)
[2018-10-17] MEDS: ACETAMINOPHEN 325 MG TAB PO PRN ×2 (06:03→17:00)
[2018-10-17] MEDS: CARVEDILOL 6.25 MG TAB PO SCH ×2 (08:51→18:14)
[2018-10-17] MEDS: GABAPENTIN 100 MG CAP PO SCH ×2 (08:51→21:34)
[2018-10-17] MEDS: valACYclovir 500 MG TAB PO SCH ×2 (08:51→21:33)
[2018-10-17] MEDS: oxyCODONE IR 5 MG TAB PO PRN ×2 (09:44→19:55)
--- NOTE | 2018-10-17 10:19 | PCMIDPN ---
Assessment/Plan: Assessment: Recurrent Right knee prosthetic joint infection. Unclear pathogen. Patient is status post washout. Coverage currently with both daptomycin and ertapenem. Plan to continue this empiric coverage until directed by joint fluid samples. Plan: 1. Continue both daptomycin and ertapenem as dosed. 2. Follow up on microbiologic samples 10/17/18 15:36 Subjective: 73 year-old female seen for recurrent R prosthetic knee infection s/p arthroscopic washout. Reports associated diarrhea, flatulence, and abdominal cramps. Pt falls asleep while speaking with her today and spontaneously reawakens complaining of need for central line. She did have an episode of confusion last night, per pt's nurse. IGlory, am scribing for, and in the presence of, Azeem Haider MD. IAzeem MD, personally performed the services described in this documentation, as scribed by Glory Dove in my presence, and it is both accurate and complete. Objective: Vital Signs Temp Pulse Resp BP Pulse Ox 37.0 C 82 16 126/60 H 94 10/17/18 08:00 10/17/18 08:51 10/17/18 08:00 10/17/18 08:51 10/17/18 08:00 Microbiology 10/15/18 08:30 Gram Stain - Final Knee - Aspirate Laboratory Results 10/15/18 05:40 10/15/18 05:40 10/16/18 10/17/18 10/18/18 05:59 05:59 05:59 Intake Total 2110 Output Total 310 Balance 1800 ESR 59 MM/HR (0-30) H 10/14/18 18:25 C-Reactive Protein 66.7 mg/L (<10.0) H 10/14/18 18:25 Microbiology: 10/15/18 Knee aspirate, culture with NGTD and gram stain positive for 4+ PMNs and 4+ mononuclear white cells. AFB smear and fungal culture, pending results. 10/14/18 Blood cx 2/2 sets, NGTD. - Physical Exam General Appearance: alert, other (intermittently dozes off during evaluation ) EENT: other (hyperpigmented nodular lower lip lesion without active inflammation ) Respiratory: lungs clear, normal breath sounds Cardiac/Chest: regular rate, rhythm Skin: pallor ICD10 Worksheet Patient Problems: Problems Problem Status Onset Infected prosthetic knee joint Acute Knee pain Acute Abscess of knee, right Acute Septic joint of right knee joint Acute
[2018-10-17] MEDS: LOPERAMIDE HCL 2 MG CAP PO PRN ×2 (13:43→18:21)
--- NOTE | 2018-10-17 14:00 | HOSPPROG ---
Hospitalist Progress Note Assessment/Plan: 73yo F with history right knee arthroplasty s/p numerous revisions due to infection here with worsening redness, swelling and pain in right knee. Symptoms started about a week ago. * recurrent prosthetic right knee infection - ID following, Daptomycin and Ertapenem - s/p I & D -per patient she has had 4 I & D and 3 knee replacements, had been on suppressive therapy * RLE cellulitis and edema -ultrasound shows no DVT * Sepsis -fever, tachycardia * Lower lip lesion - Valtrex - appears larger - may need biopsy outpatient *obesity w a BMI of 36 * Anemia -follow * CHUCKIE - CPAP *Osteoarthritis - Continue home pain meds *Diarrhea - check for cdiff -will add imodium if negative *Confusion -last night -resolved now *DVT prophylaxis -lmwh *plan: -wait cultures -cont abx IV Subjective: Feeling weak and tired. Feverish. Objective: Vital Signs Temp Pulse Resp BP Pulse Ox 37.3 C 78 14 125/51 H 95 10/17/18 11:54 10/17/18 11:54 10/17/18 11:54 10/17/18 11:54 10/17/18 11:54 Microbiology 10/15/18 08:30 Gram Stain - Final Knee - Aspirate 10/17/18 12:00 Gastrointestinal Tract Panel (PCR) - Final Stool No Organism Detected By Pcr Laboratory Results 10/15/18 05:40 10/15/18 05:40 10/16/18 10/17/18 10/18/18 05:59 05:59 05:59 Intake Total 2110 Output Total 310 Balance 1800 PT 15.4 SEC (12.0-15.0) H 10/15/18 05:40 INR 1.20 (0.83-1.16) H 10/15/18 05:40 - Physical Exam Constitutional: chronically ill appearing, obese, uncomfortable Eyes: PERRL, anicteric sclera, EOMI Ears, Nose, Mouth, Throat: moist mucous membranes, hearing normal, ears appear normal Cardiovascular: regular rate and rhythym, edema, No JVD Respiratory: no respiratory distress, no rales or rhonchi, reduced air movement Gastrointestinal: normoactive bowel sounds, No tenderness, No ascites Skin: warm, normal color, erythema Musculoskeletal: joint tenderness, pain with ROM, generalized weakness Neurologic: AAOx3 Psychiatric: not anxious, poor insight, poor judgement, poor memory ICD10 Worksheet Patient Problems: Problems Problem Status Onset Infected prosthetic knee joint Acute Abscess of knee, right Acute Knee pain Acute Septic joint of right knee joint Acute
--- NOTE | 2018-10-17 14:43 | ASMTCMCOM ---
CM Note CM Note Notes: Spoke with Johanny from [facility] who states patient's insurance is changing and they will wait until after the first to determine services and coverage for the patient. Johanny plans to return to visit with the patient on . CM will follow. Date Signed: 10/17/2018 02:42 PM Electronically Signed By:Patt Clinton LCSW
[2018-10-17] MEDS: ENOXAPARIN 40 MG/0.4 ML SYR SC SCH (16:57)
[2018-10-17] MEDS: DAPTOMYCIN IV SCH (18:14)
[2018-10-17] MEDS: NS IV SCH (18:14)
[2018-10-17 19:40] LABS: PLATELET COUNT 136 10^3/uL (150-400)
[2018-10-17] MEDS: ERTAPENEM 1 GM in NS 100 ML IV SCH (19:40)
[2018-10-18] MEDS: oxyCODONE IR 5 MG TAB PO PRN ×3 (03:46→21:34)
[2018-10-18] MEDS: ACETAMINOPHEN 325 MG TAB PO PRN ×2 (09:57→23:36)
[2018-10-18] MEDS: valACYclovir 500 MG TAB PO SCH ×2 (10:00→21:34)
[2018-10-18] MEDS: ENOXAPARIN 40 MG/0.4 ML SYR SC SCH (10:00)
[2018-10-18] MEDS: GABAPENTIN 100 MG CAP PO SCH ×2 (10:00→21:33)
[2018-10-18] MEDS: CARVEDILOL 6.25 MG TAB PO SCH ×2 (10:00→16:36)
--- NOTE | 2018-10-18 11:16 | PCMIDPN ---
Assessment/Plan: Assessment: Recurrent Right knee prosthetic joint infection. Unclear pathogen. Patient is status post washout. Coverage currently with both daptomycin and ertapenem. Joint fluid is no growth to date. At this point since no antibiotic resistant Gram-positive seen will discontinue daptomycin and proceed forward with ertapenem monotherapy. Will discuss case with Dr. Izquierdo her regular ID physician tomorrow to see if potentially changing her back to oral Levaquin after postoperative recovery if cultures remain negative is a reasonable course in his opinion. Plan: 1. Discontinue daptomycin. 2. Continue ertapenem as dosed. 3. Follow up on microbiologic samples. Subjective: Pt provides that her R-knee feels unchanged since admittance. Is more alert, vigorous, and communicative today. Pt was prophylactically on Levaquin prior to hospitalization. Complains of chronic low back pain and difficulty with word finding. IGlory, am scribing for, and in the presence of, Azeem Haider MD. IAzeem MD, personally performed the services described in this documentation, as scribed by Glory Dove in my presence, and it is both accurate and complete. Objective: Vital Signs Temp Pulse Resp BP Pulse Ox 36.9 C 75 14 113/61 90 L 10/18/18 11:04 10/18/18 11:04 10/18/18 11:04 10/18/18 11:04 10/18/18 11:04 Microbiology 10/15/18 08:30 Gram Stain - Final Knee - Aspirate 10/15/18 08:30 Mycobacterial Smear (SUZANNE) - Final Knee - Other 10/17/18 12:00 Gastrointestinal Tract Panel (PCR) - Final Stool No Organism Detected By Pcr Laboratory Results 10/17/18 19:28 10/17/18 19:28 10/17/18 10/18/18 10/19/18 05:59 05:59 05:59 Intake Total 950 Output Total 200 Balance 950 -200 ESR 59 MM/HR (0-30) H 10/14/18 18:25 C-Reactive Protein 66.7 mg/L (<10.0) H 10/14/18 18:25 Microbiology: 10/17/18 GI panel PCR, negative. 10/15/18 Knee aspirate, culture with NGTD and gram stain positive for 4+ PMNs and 4+ mononuclear white cells. AFB smear and fungal culture, pending results and NGTD. 10/14/18 Blood cx 2/2 sets, NGTD. - Physical Exam General Appearance: alert, no apparent distress, obese Skin: normal color, No rash ICD10 Worksheet Patient Problems: Problems Problem Status Onset Infected prosthetic knee joint Acute Knee pain Acute Abscess of knee, right Acute Septic joint of right knee joint Acute
--- NOTE | 2018-10-18 12:39 | HOSPPROG ---
Hospitalist Progress Note Assessment/Plan: 73yo F with history right knee arthroplasty s/p numerous revisions due to infection here with worsening redness, swelling and pain in right knee. Symptoms started about a week ago. * recurrent prosthetic right knee infection - ID following, Daptomycin and Ertapenem - s/p I & D - D/W Dr Haider * RLE cellulitis and edema -ultrasound shows no DVT * Sepsis -fever, tachycardia * Lower lip lesion - Valtrex - appears larger - may need biopsy outpatient *obesity w a BMI of 36 * Anemia -follow * CHUCKIE - CPAP *Osteoarthritis - Continue home pain meds *Diarrhea - cdiff negative -will add imodium *Confusion -resolved now *DVT prophylaxis -lmwh *plan: -wait cultures -cont abx IV Subjective: Up walking with PT. Doing well. Objective: Vital Signs Temp Pulse Resp BP Pulse Ox 36.9 C 75 14 113/61 90 L 10/18/18 11:04 10/18/18 11:04 10/18/18 11:04 10/18/18 11:04 10/18/18 11:04 Microbiology 10/15/18 08:30 Mycobacterial Smear (SUZANNE) - Final Knee - Other 10/15/18 08:30 Gram Stain - Final Knee - Aspirate 10/17/18 12:00 Gastrointestinal Tract Panel (PCR) - Final Stool No Organism Detected By Pcr Laboratory Results 10/17/18 19:28 10/17/18 19:28 10/17/18 10/18/18 10/19/18 05:59 05:59 05:59 Intake Total 950 Output Total 200 Balance 950 -200 PT 15.4 SEC (12.0-15.0) H 10/15/18 05:40 INR 1.20 (0.83-1.16) H 10/15/18 05:40 - Physical Exam Constitutional: not in pain, chronically ill appearing, obese Eyes: PERRL, anicteric sclera, EOMI Ears, Nose, Mouth, Throat: moist mucous membranes, hearing normal, ears appear normal Cardiovascular: regular rate and rhythym, edema, No JVD, No tachycardia Respiratory: no respiratory distress, no rales or rhonchi, reduced air movement Gastrointestinal: normoactive bowel sounds, No tenderness, No ascites Skin: warm, normal color, No mottled Musculoskeletal: joint tenderness, pain with ROM, generalized weakness Neurologic: AAOx3 Psychiatric: interacting appropriately, not anxious, not encephalopathic ICD10 Worksheet Patient Problems: Problems Problem Status Onset Infected prosthetic knee joint Acute Abscess of knee, right Acute Knee pain Acute Septic joint of right knee joint Acute
[2018-10-18] MEDS ORDERED: GABAPENTIN 100 MG CAP PO SCH (14:00)
[2018-10-18] MEDS: ERTAPENEM 1 GM in NS 100 ML IV SCH (18:04)
[2018-10-18] MEDS: DAPTOMYCIN IV SCH (18:53)
[2018-10-18] MEDS: NS IV SCH (18:53)
[2018-10-19] MEDS: oxyCODONE IR 5 MG TAB PO PRN ×3 (00:48→16:32)
--- NOTE | 2018-10-19 06:09 | SOAPPROG ---
SOAP Progress Note Assessment/Plan: Assessment: S/P I&D R knee Knee pain at baseline OOB in chair Albino po Dressing intact Lower leg erythema improved Plan: IV abx per ID OK for D/C from ortho standpoint F/U Dr. Craft 1 wk 10/16/18 12:55 10/19/18 06:07 Cognition improved Pain with mild improvement Lower leg erythema improved OK for D/C from ortho standpoint F/U Dr. Holden 1 wk. Objective: Vital Signs Temp Pulse Resp BP Pulse Ox 36.8 C 75 16 135/52 H 95 10/18/18 23:34 10/18/18 23:34 10/18/18 23:34 10/18/18 23:34 10/18/18 23:34 Microbiology 10/15/18 08:30 Gram Stain - Final Knee - Aspirate 10/15/18 08:30 Mycobacterial Smear (SUZANNE) - Final Knee - Other Laboratory Results 10/17/18 19:28 10/17/18 19:28 10/18/18 10/19/18 10/20/18 05:59 05:59 05:59 Intake Total 950 Output Total 500 Balance 950 -500 PT 15.4 SEC (12.0-15.0) H 10/15/18 05:40 INR 1.20 (0.83-1.16) H 10/15/18 05:40 ICD10 Worksheet Patient Problems: Problems Problem Status Onset Infected prosthetic knee joint Acute Knee pain Acute Abscess of knee, right Acute Septic joint of right knee joint Acute
[2018-10-19] MEDS: CARVEDILOL 6.25 MG TAB PO SCH ×2 (08:59→18:00)
[2018-10-19] MEDS: GABAPENTIN 100 MG CAP PO SCH (08:59)
[2018-10-19] MEDS: valACYclovir 500 MG TAB PO SCH ×2 (09:00→22:24)
[2018-10-19] MEDS: ENOXAPARIN 40 MG/0.4 ML SYR SC SCH (09:04)
--- NOTE | 2018-10-19 13:05 | HOSPPROG ---
Hospitalist Progress Note Assessment/Plan: 73yo F with history right knee arthroplasty s/p numerous revisions due to infection here with worsening redness, swelling and pain in right knee. Symptoms started about a week ago. * recurrent prosthetic right knee infection - ID following, Daptomycin and Ertapenem - s/p I & D -cultures NGTD * RLE cellulitis and edema -ultrasound shows no DVT * Sepsis -fever, tachycardia * Lower lip lesion - Valtrex - appears larger - may need biopsy outpatient *obesity w a BMI of 36 * Anemia -follow * CHUCKIE - CPAP *Osteoarthritis - Continue home pain meds *Diarrhea - cdiff negative - imodium *Confusion -resolved now *DVT prophylaxis -lmwh *plan: -wait cultures -cont abx IV Subjective: Very tired today. Slow to move. Some stiffness. Objective: Vital Signs Temp Pulse Resp BP Pulse Ox 36.8 C 76 17 136/66 H 98 10/19/18 08:00 10/19/18 08:59 10/19/18 08:00 10/19/18 08:59 10/19/18 08:00 Microbiology 10/15/18 08:30 Gram Stain - Final Knee - Aspirate 10/15/18 08:30 Mycobacterial Smear (SUZANNE) - Final Knee - Other Laboratory Results 10/17/18 19:28 10/17/18 19:28 10/18/18 10/19/18 10/20/18 05:59 05:59 05:59 Intake Total 950 350 100 Output Total 850 Balance 950 -500 100 PT 15.4 SEC (12.0-15.0) H 10/15/18 05:40 INR 1.20 (0.83-1.16) H 10/15/18 05:40 - Physical Exam Constitutional: chronically ill appearing, obese Eyes: PERRL, anicteric sclera Ears, Nose, Mouth, Throat: moist mucous membranes, hearing normal Cardiovascular: edema, No JVD Respiratory: no respiratory distress, reduced air movement Gastrointestinal: No tenderness, No ascites Skin: warm, normal color Musculoskeletal: joint tenderness, pain with ROM, generalized weakness Neurologic: AAOx3 Psychiatric: not anxious, not encephalopathic ICD10 Worksheet Patient Problems: Problems Problem Status Onset Infected prosthetic knee joint Acute Abscess of knee, right Acute Knee pain Acute Septic joint of right knee joint Acute
[2018-10-19] MEDS ORDERED: ERTAPENEM 1 GM in NS 100 ML IV SCH (18:00)
--- NOTE | 2018-10-19 19:32 | PCMIDPN ---
Assessment/Plan: Assessment/Plan: * Recurrent right knee septic arthritis s/p arthroscopic incision and drainage: Cultures remain no growth recognizing obtained after antibiotics started. Knee with limited inflammatory findings on exam. Given negative cultures will resume suppressive levofloxacin while cultures are pending as do not think great benefit to another 6 week course of IV antibiotics. Will ask lab if any sample remaining which could be sent for multiplex PCR at [facility]. Risks and benefits of levofloxacin reviewed with patient including risk of tendinopathy. Operative findings reviewed with Dr. Mcintosh. 10/19/18 19:29 10/19/18 19:35 Subjective: Patient up walking earlier. Prefers discharge to home rather than SNF. Persistent right knee pain and swelling. Objective: Vital Signs Temp Pulse Resp BP Pulse Ox 36.8 C 78 17 123/79 H 100 10/19/18 16:00 10/19/18 18:00 10/19/18 16:00 10/19/18 18:00 10/19/18 16:00 Microbiology 10/15/18 08:30 Gram Stain - Final Knee - Aspirate Laboratory Results 10/17/18 19:28 10/17/18 19:28 10/18/18 10/19/18 10/20/18 05:59 05:59 05:59 Intake Total 950 350 600 Output Total 850 Balance 950 -500 600 ESR 59 MM/HR (0-30) H 10/14/18 18:25 C-Reactive Protein 66.7 mg/L (<10.0) H 10/14/18 18:25 Daptomycin #6 Ertapenem #6 Knee cultures no growth to date Blood cultures X 2 no growth - Physical Exam General Appearance: alert, no apparent distress Extremities: pedal edema (2+ edema right lower extremity), inflammation (right knee with mild warmth; edema present; no erythema or drainage; limited pain with range of motion) - Time Spent With Patient Time Spent with Patient: greater than 25 minutes Time Spent with Patient: Greater than 25 minutes spent on this patients care, greater than 50% of time spent counseling, educating, and coordinating care regarding the above mentioned plan. ICD10 Worksheet Patient Problems: Problems Problem Status Onset Infected prosthetic knee joint Acute Knee pain Acute Abscess of knee, right Acute Septic joint of right knee joint Acute
[2018-10-19] MEDS ORDERED: GABAPENTIN 100 MG CAP PO SCH (21:00)
[2018-10-20] MEDS: oxyCODONE IR 5 MG TAB PO PRN ×2 (04:31→09:57)
[2018-10-20 08:03] VITALS: BP 122/59
[2018-10-20] MEDS: GABAPENTIN 100 MG CAP PO SCH (08:58)
[2018-10-20] MEDS: valACYclovir 500 MG TAB PO SCH (08:58)
[2018-10-20] MEDS: CARVEDILOL 6.25 MG TAB PO SCH (08:58)
[2018-10-20] MEDS: ENOXAPARIN 40 MG/0.4 ML SYR SC SCH (08:59)
--- NOTE | 2018-10-20 09:56 | HOSPPROG ---
Hospitalist Progress Note Assessment/Plan: 73yo F with history right knee arthroplasty s/p numerous revisions due to infection here with worsening redness, swelling and pain in right knee. Symptoms started about a week ago. * recurrent prosthetic right knee infection - ID following, had been treated w Daptomycin and Ertapenem - s/p I & D -cultures NGTD * RLE cellulitis and edema -ultrasound shows no DVT * Sepsis -fever, tachycardia * Lower lip lesion - Valtrex - appears larger - may need biopsy outpatient *obesity w a BMI of 36 * Anemia -follow * CHUCKIE - CPAP *Osteoarthritis - Continue home pain meds *Diarrhea - cdiff negative - imodium *Confusion -resolved *DVT prophylaxis -lmwh *plan: dc home and to remain on Levaquin Subjective: Joesph still has right knee tenderness. Objective: Vital Signs Temp Pulse Resp BP Pulse Ox 36.8 C 74 18 122/59 H 90 L 10/20/18 07:55 10/20/18 08:58 10/20/18 07:55 10/20/18 08:58 10/20/18 07:55 Microbiology 10/15/18 08:30 Gram Stain - Final Knee - Aspirate Laboratory Results 10/17/18 19:28 10/17/18 19:28 10/19/18 10/20/18 10/21/18 05:59 05:59 05:59 Intake Total 350 1300 Output Total 850 Balance -500 1300 PT 15.4 SEC (12.0-15.0) H 10/15/18 05:40 INR 1.20 (0.83-1.16) H 10/15/18 05:40 - Physical Exam Constitutional: chronically ill appearing, obese, uncomfortable Eyes: PERRL Ears, Nose, Mouth, Throat: hearing normal Respiratory: no respiratory distress Skin: warm Musculoskeletal: generalized weakness Neurologic: AAOx3 Psychiatric: interacting appropriately ICD10 Worksheet Patient Problems: Problems Problem Status Onset Infected prosthetic knee joint Acute Knee pain Acute Abscess of knee, right Acute Septic joint of right knee joint Acute
--- NOTE | 2018-10-20 12:13 | GDS ---
DISCHARGE DIAGNOSES: 1. Recurrent prosthetic right knee infection. 2. Right lower extremity cellulitis and edema. 3. Sepsis. 4. Lower lip lesion. 5. Obesity, with a body mass index of 36. 6. Anemia. 7. Obstructive sleep apnea. 8. Osteoarthritis. 9. Diarrhea. 10. Episode of confusion. CONSULTATIONS DURING HER STAY: 1. Dr. Mcintosh. 2. Dr. Flynn. HISTORY OF PRESENT ILLNESS: Briefly, the patient is a 73-year-old woman with a history of right knee arthroplasty, status post numerous revisions due to infection. She presented to the emergency room with worsening redness, swelling and pain to the right knee. The symptoms started a week prior to her admission. She had been on suppressive Levaquin daily. She was seen and evaluated by Dr. Mcintosh. She had a washout of the right knee area. She was treated with IV antibiotics. Her cultures remained negative. She will be discharged to home and have further follow up with Dr. Izquierdo in the outpatient setting. HOSPITAL COURSE: 1. Recurrent right prosthetic knee infection. She received IV antibiotics. Culture showed no growth. She will resume her Levaquin suppressive therapy. 2. Right lower extremity cellulitis, with edema. Ultrasound showed no DVT. 3. Sepsis, resolved. 4. Lower lip lesion. She is on Valtrex. She likely needs further followup and an outpatient biopsy. 5. Obesity. She has a BMI of 36. 6. Anemia, stable. 7. Obstructive sleep apnea, on CPAP. 8. Osteoarthritis, stable. 9. Diarrhea. C. difficile was negative. 10. Confusion, resolved. DISCHARGE CONDITION: Stable. VITAL SIGNS: Blood pressure 122/59, heart rate 74, respiratory rate 18, O2 saturation on room air 90%, temperature 36.8 Celsius. MEDICATIONS AT DISCHARGE: Please see the EMR. DISCHARGE INSTRUCTIONS: 1. To follow up with Dr. Izquierdo sooner than later if she develops any fever, chills, or worsening pain to her knee. 2. To continue Levaquin suppressive therapy indefinitely. TIME SPENT: Greater than 30 minutes discharging and coordinating the patient's care. Copy requested to: Dr. Izquierdo /[id number]/MODL MTDD
--- NOTE | 2018-10-20 13:09 | ASDISCHSUM ---
Discharge Information Plan Status:Home with Home Health Medically Cleared to Leave: Discharge Date:10/20/2018 11:09 AM D/C Disposition:Home Health Service ADT D/C Disposition:Home, Routine, Self-Care Projected Discharge Date:10/18/2018 11:00 AM Transportation at D/C:Family Discharge Delay Reason: Follow-Up Date:10/18/2018 11:00 AM Discharge Slot: Final Diagnosis: Placement Information Referral Type:Home Infusion Referral ID:[id number] Provider Name: Address 1: Phone Number: Address 2: Fax Number: City: Selection Factors: State: Referral Type:*Home Health Care Services Referral ID:[id number] Provider [facility] [address] Address 2: City:[place] Selection Factors: State:[place] Patient Contact Information Contact Name:PHIL Relationship: Address:[address] [place] City:[place] Alternate Phone: State/Zip Code:[place] [address] Email: Financial Information Financial Class:Medicare Advantage Plans Primary Plan Desc:UNITED MEDICARE COMPLETE Primary Plan Number:[id number] Secondary Plan Desc: Secondary Plan Number: Assessment Information LACE LACE Length of stay for Answers: 4-6 days current admission Acuity / Level of Answers: Yes Care: Did the patient have an inpatient admission? Comorbidities - select Answers: Other Notes: HTM, OA, CHUCKIE, valvular all that apply disease # of Emergency department Answers: 3-4 visits in the last 6 months Score: 11 Date Signed: 10/21/2018 08:22 AM Electronically Signed By:ELADIA Alvarado [facility] CM Progress Note CM Note CM Note Notes: Pt admitted for recurrent infected right total knee arthroplasty. Pt lives independently with Ethan in [place]. No therapies ordered at this time. ID has been consulted and there is a potential for IV abx upon discharge. CM to follow. D/C Plan: likely Independent, possible IV Abx Date Signed: 10/15/2018 04:30 PM Electronically Signed By:Daniela Jensen [facility] CM Progress Note CM Note CM Note Notes: Chart reviewed. Per ID patient will need 6 weeks of antibiotic therapy. Referral to [facility] in [facility], CM to follow. Plan: Home with home infusion and HHC Date Signed: 10/16/2018 05:23 PM Electronically Signed By:Jenny Luna RN [facility] CM Progress Note CM Note CM Note Notes: Spoke with Johanny from [facility] who states patient's insurance is changing and they will wait until after the first to determine services and coverage for the patient. Johanny plans to return to visit with the patient on . CM will follow. Date Signed: 10/17/2018 02:42 PM Electronically Signed By:Patt Clinton LCSW Case Management Discharge Plan Note Case Management Discharge Discharge Order Complete? Answers: Yes Patient to Obtain Answers: via Family Medications Transportation Arranged Answers: Family/Friends Faxed Final Orders Answers: Yes Agency/Facility Transfer Answers: Yes Report Printed & Faxed to Receiving Agency Discharge Comments Notes: Discharge Note from 10/20/18 CM discussed discharge plan with RN. RN reported pt was on PO antibiotics and no longer needed home infusion. [facility] rep came to speak with CM and family regarding discharge plans. CM submit discharge orders to [facility]. Pt was discharged. Later in the day CM recieved call from Keysha in ED re: pt presenting in ED. CM provided information. Date Signed: 10/21/2018 08:21 AM Electronically Signed By:ELADIA Alvarado Intervention Information
--- NOTE | 2018-10-21 08:22 | ASMTDCNOTE ---
Case Management Discharge Discharge Order Complete? Answers: Yes Patient to Obtain Answers: via Family Medications Transportation Arranged Answers: Family/Friends Faxed Final Orders Answers: Yes Agency/Facility Transfer Answers: Yes Report Printed & Faxed to Receiving Agency Discharge Comments Notes: Discharge Note from 10/20/18 CM discussed discharge plan with RN. RN reported pt was on PO antibiotics and no longer needed home infusion. [facility] rep came to speak with CM and family regarding discharge plans. CM submit discharge orders to [facility]. Pt was discharged. Later in the day CM recieved call from Keysha in ED re: pt presenting in ED. CM provided information. Date Signed: 10/21/2018 08:21 AM Electronically Signed By:ELADIA Alvarado
--- NOTE | 2018-10-21 08:23 | ASMTLACE ---
LACE Length of stay for Answers: 4-6 days current admission Acuity / Level of Answers: Yes Care: Did the patient have an inpatient admission? Comorbidities - select Answers: Other Notes: HTM, OA, CHUCKIE, valvular all that apply disease # of Emergency department Answers: 3-4 visits in the last 6 months Score: 11 Date Signed: 10/21/2018 08:22 AM Electronically Signed By:ELADIA Alvarado
== END 2018-10-20 11:09 | disposition home health service (06) | DRG 559 ==
LOC: F3N 21:28
PROVIDERS: ADMIT Internal Medicine; ATTEND Internal Medicine
PROC: 0S9C3ZX Drainage of Right Knee Joint, Percutaneous Approach, Diagnostic (ICD-10-PCS; principal; 2018-10-15 08:00)
PROC: 3E1U38Z Irrigation of Joints using Irrigating Substance, Percutaneous Approach (ICD-10-PCS; principal; 2018-10-15 08:00)
DX: T84.53XA Infection and inflammatory reaction due to internal right knee prosthesis, initial encounter (principal); A41.9 Sepsis, unspecified organism; L03.115 Cellulitis of right lower limb; B00.1 Herpesviral vesicular dermatitis; R19.7 Diarrhea, unspecified; E66.9 Obesity, unspecified; Z68.36 Body mass index [BMI] 36.0-36.9, adult; D64.9 Anemia, unspecified; G47.33 Obstructive sleep apnea (adult) (pediatric); I10 Essential (primary) hypertension; Z96.619 Presence of unspecified artificial shoulder joint
CPT/HCPCS: 96365; 97116-GP; 97161-GP; G8978-GP-CJ; G8979-GP-CI; J0878; J1100; J1170; J1335; J1650; J2250; J2405; J2704; J2765; J2780; J3010

== ENCOUNTER 2018-10-20 16:22 | Observation (INO) | payer OTHER ==
--- NOTE | 2018-10-20 16:42 | EDPHY ---
H & P Time Seen by Provider: 10/20/18 16:26 HPI/ROS: CHIEF COMPLAINT: Right knee pain HISTORY OF PRESENT ILLNESS: Patient is a 73-year-old female with a complicated right knee infection. She has had a history of knee arthroplasty with his subsequent revision due to infection. She was admitted to the hospital 2017. She was discharged earlier today 10/20/2018. Patient's drove her home. He was unable to get her in the house. He subsequently called the fire department to help them move her. Once they placed her on her bed the fire department left. Patient's head on the edge of the bed for approximately 1-2 hours. Her was unable to get the patient into bed. She ultimately slid off the bed onto the floor. He was unable to get her up and called EMS. Patient has ongoing pain in her right knee. She is not sure if it is worse since her fall. Patient's states "there is no way in hell I can take care of her at home."The patient states she does not want to be admitted to a nursing care facility. The patient's feels he cannot safely care for her at home. REVIEW OF SYSTEMS: 10 systems were reveiwed and are negative with the exception of the elements mentioned in the history of present illness. Past Medical/Surgical History: Includes recurrent prosthetic right knee infection, lower extremity cellulitis, sepsis, lower lip lesion, BC, anemia, obstructive sleep apnea, osteoarthritis, diarrhea Past Surgical history: Knee surgery Smoking Status: Never smoked Physical Exam: Vitals noted GENERAL: Well-appearing, in no acute distress, alert. HEENT: Eyes normal to inspection, normal pharynx, no signs of dehydration. NECK: Normal, supple. RESPIRATORY: Clear to auscultation bilaterally, no rales, rhonchi or wheezing. CVS: Regular rate and rhythm, no rubs, murmurs, or gallops. ABDOMEN: Soft, nontender, nondistended, no organomegaly. BACK: Normal to inspection, no CVA tenderness. Pelvis: Stable SKIN: Normal color, no rash, warm, dry. No pallor. EXTREMITIES: The patient has swelling around her right knee. The surgical site is clean dry and intact with no discharge. There is no surrounding erythema. No warmth. No streaking up the leg. No palpable deformity. Mild bilateral pedal edema, no calf tenderness. Neurovascular intact distally. NEURO/PSYCH: Alert and oriented, normal mood and affect, normal motor sensory exam. No obvious cranial nerve deficit. Constitutional: Initial Vital Signs Temperature (C) 37 C 10/20/18 16:30 Heart Rate 90 10/20/18 16:30 Respiratory Rate 18 10/20/18 16:30 Blood Pressure 110/64 10/20/18 16:30 O2 Sat (%) 92 10/20/18 16:30 O2 Delivery Mode Room Air Allergies/Adverse Reactions: alcohol Allergy (Verified 06/17/18 13:14) allergic to sulfates in alcohol caffeine Allergy (Verified 06/17/18 13:14) causes agitation and insomnia gluten Allergy (Verified 06/17/18 13:14) gi issues NSAIDS (Non-Steroidal Anti-Inflamma Allergy (Verified 06/22/18 11:08) Sulfa (Sulfonamide Antibiotics) Allergy (Verified 06/17/18 13:14) Hives tetracycline [Tetracycline] Allergy (Verified 06/17/18 13:14) Hives vancomycin Allergy (Verified 06/17/18 13:14) very fine whole body rash BEANS,NUTS,SEEDS,SPICES,ONIONS Allergy (Uncoded 05/23/18 11:45) GI PROBLEMS BROCCOLI,CAULIFLOWER,BRUSSELSPROUTS Allergy (Uncoded 05/23/18 11:45) GI PROBLEMS DAIRY Allergy (Uncoded 05/23/18 11:45) GI PROBLEMS FRESH FRUITS EXCEPT BANANAS Allergy (Uncoded 05/23/18 11:45) GI PROBLEMS FRESH VEGETABLES Allergy (Uncoded 05/23/18 11:45) GI PROBLEMS TAPES EXCEPT PAPER Allergy (Uncoded 05/23/18 11:45) SKIN IRRITATION-BLISTERS Home Medications: Medication Instructions Recorded Albuterol [Proventil Inhaler HFA 1 - 2 puffs IH Q4 PRN 02/24/13 (*)] Cholecalciferol Vit D3 [Vitamin D3 5,000 units PO HS 02/24/13 (*)] Losartan Potassium [Cozaar 50 mg 50 mg PO HS 07/08/13 (*)] guaiFENesin [Guaifenesin] 400 mg PO BID 03/18/18 Carvedilol [Coreg (*)] 6.25 mg PO BIDMEAL 03/23/18 Multivitamins [Multivitamin (*)] 1 each PO DAILY 03/23/18 Simethicone [Gas Relief] 160 mg PO DAILY PRN 03/23/18 Spironolactone [Aldactone] 50 mg PO DAILY 03/23/18 Loperamide HCl [Imodium 2 mg (*)] 2 mg PO PRN PRN 06/17/18 oxyCODONE IR [Oxycodone Ir (*)] 5 mg PO Q4HRS PRN tab 06/22/18 Diclofenac Sodium 1% [Voltaren Gel 2 gm TP QID PRN 10/14/18 (*)] Furosemide [Lasix 40 MG (*)] 40 mg PO DAILY 10/14/18 Gabapentin [Neurontin 100 MG (*)] 200 mg PO DAILY 10/14/18 Gabapentin [Neurontin 100 MG (*)] 300 mg PO HS 10/14/18 Herbals/Supplements -Info Only 1 ea PO DAILY 10/14/18 tiZANidine HCL [Zanaflex] 4 mg PO BID PRN 10/14/18 levOFLOXACIN [levAQUIN (*)] 750 mg PO DAILY10 #30 tab 10/20/18 Medical Decision Making - Diagnostics Imaging Results: Imaging Impressions Knee X-Ray 10/20/18 16:34 Impression: Revision right total knee arthroplasty again noted, with progressive bone resorption from prior study along the femoral component of the prosthesis suspicious for loosening or infection. Less severe bone resorption along the tibial component of the prosthesis. ED Course/Re-evaluation: In the emergency department I reviewed the patient's medical record. I discussed the case with case management. Paged the hospitalist service to inform them of her return. An x-ray of the right knee was ordered. Right knee x-ray: Please refer the dictated report. Prosthetic in place. No fracture dislocation. I discussed the case again with case management. They attempted to place the patient directly into a nursing care facility. However, the care facility is not able to take the patient tomorrow. She will be admitted to the hospital in observation status. I discussed the case with the hospitalist service. They will admit the patient. Differential Diagnosis: My differential includes but is not limited to recurrent right knee infection, fracture, dislocation, failure to thrive, fall risk, hip fracture Departure - Departure Disposition: [facility] Inpatient Acute Clinical Impression: Knee pain Qualifiers: Chronicity: acute Laterality: right Qualified Code(s): M25.561 - Pain in right knee Condition: Good Referrals: Patient,NotPresent [Primary Care Provider] - As per Instructions
[2018-10-20] MEDS ORDERED: OXYCODONE/APAP 5/325 TAB PO ONE (17:46)
[2018-10-20] MEDS ORDERED: oxyCODONE IR 5 MG TAB PO ONE (17:49)
[2018-10-20] MEDS ORDERED: ONDANSETRON DISINTEGRATING 4 MG TAB PO PRN (18:24)
[2018-10-20] MEDS ORDERED: ACETAMINOPHEN 325 MG TAB PO PRN (18:24)
[2018-10-20] MEDS ORDERED: ONDANSETRON 4 MG/2 ML VIAL IVP PRN (18:24)
--- NOTE | 2018-10-20 18:36 | ASMTCMCOM ---
CM Note CM Note Notes: Patient returns to ED with her after discharging home from today. See ED report for details. This CM has met with patient and her Ethan in the ED. Patient is emotional and explains that she really wanted to be home and not go to "rehab". She does admit that she feels "weak" and is frustrated that she cannot do as much as she thought. Ethan is sensitive to patient's desire to be home, but is clear that he is unable to manage patient's physical needs/support until she is able to be more independent with her ADL's, etc. I have acknowledged patient's anxiety related to going to rehab/SNF and encouraged her to consider the "up side", stressing that a SNF stay could help her to get stronger sooner than HH alone. This would allow her to return home with (from SNF) without risking a fall and/or injury to her or Ethan as he is trying to help her. Patient ultimately agrees to this plan. She and Ethan are in agreement to [facility] for SNF. I have contacted Valentina at to inquire into an admission to SNF from the ED, but she does not have an admission RN available at this time. Valentina has requested that patient be admitted for observation with plans for patient to transfer to tomorrow. Referral has been initiated to SNF via [facility] and Valentina will follow up with CM and patient in AM. This CM has contacted Almaz (leak detection engineer RN) at [facility] and informed her of patient's admission and plans for SNF. CM to follow Date Signed: 10/20/2018 06:36 PM Electronically Signed By:Keysha Tay, BALA
[2018-10-20] MEDS ORDERED: LOPERAMIDE HCL 2 MG CAP PO PRN (19:00)
[2018-10-20] MEDS ORDERED: ALBUTEROL 60 PUFFS/8 GM MDI IH PRN (19:00)
[2018-10-20] MEDS ORDERED: DICLOFENAC SODIUM 1% 100 GM GEL TP PRN (19:00)
[2018-10-20] MEDS ORDERED: SIMETHICONE 80 MG TAB CHEW PO PRN (19:00)
--- NOTE | 2018-10-20 19:01 | GHP ---
DATE OF ADMISSION: 10/20/2018 The patient is a 73-year-old female with a chronically infected right knee, who was discharged from [facility] today after recommended she go to SNF. The patient was here with a recurrent prosthetic knee infection. She underwent operative debridement by Dr. Mcintosh and she received daptomycin. Cultures were negative and she was discharged home on li felong suppressive levofloxacin. It was felt that SNF was appropriate. She declined that and when s katia went home, her had to call the fire department to get her off the 2 stairs that go out of the garage and into the living room, and then ultimately after that, she sat on bed and then she slid off and the fire department came and brought her in here. She complains of right hip pain, back delfino n, and chronic right knee pain. No fevers or chills. REVIEW OF SYSTEMS: Complete 10-point review of systems conducted, negative except as noted in the HP I. PAST MEDICAL HISTORY: 1. Recurrent right prosthetic knee infection. 2. Lip lesion that needs biopsy. 3. Hypertension. 4. Obesity. 5. Sepsis on presentation last admission. 6. Anemia. 7. Obstructive sleep apnea. 8. Osteoarthritis. 9. Diarrhea. 10. Episode of confusion. ALLERGIES: Alcohol, caffeine, gluten, NSAID, sulfa, tetracycline, vancomycin. Beans, not seeds. Sp ices, onions, broccoli, cauliflower, brussel sprouts, dairy, fresh fruits except bananas, fresh veget jose antonio, tapes except paper. SOCIAL HISTORY: No tobacco, no alcohol. Originally from [place], [place]. FAMILY HISTORY: Reviewed and unremarkable. PHYSICAL EXAMINATION: VITAL SIGNS: Temp 37, blood pressure 110/64, pulse 90, breathing at 18 times a minute, 92% on room air. GENERAL: No acute distress. HEENT: Sclerae anicteric. Oropharynx volodymyr r. Mucous membranes moist. She has a crusted lesion on her lower lip. It is actually bigger than i t was a few days ago. On the. NECK: Supple without lymphadenopathy or JVD. LUNGS: Clear to auscu ltation bilaterally. HEART: S1, S2. ABDOMEN: Soft, nontender, nondistended. EXTREMITIES: There is some pain over her right hip. It is not shortened or externally rotated. LOWER EXTREMITIES: No edema. Calves nontender. SKIN: Without rash. NEUROLOGIC: Exam is nonfocal. DATA REVIEWED: Labs: None. Knee film shows evidence of bony erosion, but no fracture. I have reviewed and interpreted these josef ges myself. This is the right knee. I have discussed the case with Dr. Bri Sharp. ASSESSMENT/PLAN: A 73-year-old female, recently discharged from this hospital for prosthetic joint i nfection, now returns with a fall. 1. Fall. This is due to generalized weakness. This is not a surprising outcome. Needs SNF. 2. Hip pain. Will check a hip film. I do not think she has a hip fracture. 3. Pain. We will continue her chronic pain medications. 4. Chronic infection. We will continue her suppressive antibiotics. 5. Lip lesion. This needs to be biopsied as an outpatient. PROPHYLAXIS: Low molecular heparin. DISPOSITION: Inpatient, needs SNF. /[id number]/MODL
[2018-10-20] MEDS: CHOLECALCIFEROL VIT D3 2,000 UNITS TAB/CAP PO SCH (22:07)
[2018-10-20] MEDS: guaiFENesin 200 MG TAB PO SCH (22:08)
[2018-10-20] MEDS: oxyCODONE IR 5 MG TAB PO PRN (22:09)
[2018-10-20] MEDS: LOSARTAN POTASSIUM 50 MG TAB PO SCH (22:09)
[2018-10-20] MEDS: GABAPENTIN 300 MG CAP PO SCH (22:09)
[2018-10-21] MEDS: CARVEDILOL 6.25 MG TAB PO SCH ×3 (02:42→18:53)
[2018-10-21] MEDS: oxyCODONE IR 5 MG TAB PO PRN ×3 (04:55→20:33)
[2018-10-21] MEDS ORDERED: Herbals/Supplements -Info Only PO SCH (09:00)
--- NOTE | 2018-10-21 09:18 | HOSPPROG ---
Hospitalist Progress Note Assessment/Plan: A 73-year-old female, recently discharged from this hospital for r prosthetic joint infection, now returns with a fall. First encounter on this admission, chart reviewed. *Fall -she realizes she was too weak to go home -now willing to go to the SNF *hip pain -pelvis x ray shows nothing acute -if she has continued pain; will get a CT scan (reviewed this option w her) *right prosthetic knee infection -s/p wash out -on suppressive therapy w Levaquin *obesity w a BMI of 36 *lip lesion -needs to biopsied in the OP setting *back issues, has had surgery to the lumbar area -ongoing, to f/u w [facility] -told her not to get any procedures without clearance from ID team *plan: will discuss w CM about placement to a SNF (only wants to go to [facility] Subjective: Joesph says her hip, back, knee are sore, but nothing more acute than her normal pain. Objective: Vital Signs Temp Pulse Resp BP Pulse Ox 37.2 C 81 16 127/58 H 95 10/21/18 03:37 10/21/18 03:37 10/21/18 03:37 10/21/18 03:37 10/21/18 03:37 10/20/18 10/21/18 10/22/18 05:59 05:59 05:59 Intake Total 200 Balance 200 - Physical Exam Constitutional: chronically ill appearing, obese, uncomfortable Eyes: PERRL Ears, Nose, Mouth, Throat: other (lesion on lower lip) Cardiovascular: regular rate and rhythym Respiratory: no respiratory distress, reduced air movement Skin: warm, other (right knee w some swelling, not red, no drainage) Musculoskeletal: generalized weakness Neurologic: AAOx3 Psychiatric: interacting appropriately ICD10 Worksheet Patient Problems: Problems Problem Status Onset Knee pain Acute Abscess of knee, right Acute Infected prosthetic knee joint Acute Septic joint of right knee joint Acute
[2018-10-21] MEDS: GABAPENTIN 100 MG CAP PO SCH (09:52)
[2018-10-21] MEDS: MULTIVITAMINS 1 EACH TAB PO SCH (09:52)
[2018-10-21] MEDS: ENOXAPARIN 40 MG/0.4 ML SYR SC SCH ×2 (09:52→10:01)
[2018-10-21] MEDS: SPIRONOLACTONE 50 MG TAB PO SCH (09:52)
[2018-10-21] MEDS: guaiFENesin 200 MG TAB PO SCH ×2 (09:53→20:32)
[2018-10-21] MEDS: FUROSEMIDE 40 MG TAB PO SCH (09:53)
--- NOTE | 2018-10-21 16:19 | ASMTCMCOM ---
CM Note CM Note Notes: Jai with [facility] reports insurance auth is in, Hospitalist Jese updated and reports she will d/c pt in the morning. D/c plan of care: [facility] tomorrow Date Signed: 10/21/2018 04:17 PM Electronically Signed By:ASHLEY Brooke
[2018-10-21] MEDS: CHOLECALCIFEROL VIT D3 2,000 UNITS TAB/CAP PO SCH (20:30)
[2018-10-21] MEDS: GABAPENTIN 300 MG CAP PO SCH (20:31)
[2018-10-21] MEDS: LOSARTAN POTASSIUM 50 MG TAB PO SCH (20:33)
[2018-10-22] MEDS: oxyCODONE IR 5 MG TAB PO PRN (00:33)
[2018-10-22] MEDS ORDERED: LOSARTAN POTASSIUM 50 MG TAB PO SCH (08:52)
[2018-10-22] MEDS ORDERED: oxyCODONE IR 5 MG TAB PO PRN (08:52)
[2018-10-22] MEDS ORDERED: CARVEDILOL 6.25 MG TAB PO SCH (08:52)
--- NOTE | 2018-10-22 08:54 | HOSPPROG ---
Hospitalist Progress Note Assessment/Plan: A 73-year-old female, recently discharged from this hospital for r prosthetic joint infection, now returns with a fall. *Fall -she realizes she was too weak to go home -now willing to go to the SNF *hypotension -decreased her doses of Losartan and Coreg -her low bp may be contributing to her fall *hip pain -pelvis x ray shows nothing acute -if she has continued pain; will get a CT scan (reviewed this option w her) -increased oxy doseing *right prosthetic knee infection -s/p wash out -on suppressive therapy w Levaquin *obesity w a BMI of 36 *lip lesion -needs to biopsied in the OP setting (she is aware of this) *back issues, has had surgery to the lumbar area -ongoing, to f/u w [facility] -told her not to get any procedures without clearance from ID team *plan: dc today Subjective: Joesph is having ongoing back pain, says this is chronic. Is planning on f/u w [facility]. Objective: Vital Signs Temp Pulse Resp BP Pulse Ox 36.5 C 70 16 89/56 L 95 10/22/18 08:00 10/22/18 08:00 10/22/18 08:00 10/22/18 08:00 10/22/18 08:00 10/21/18 10/22/18 10/23/18 05:59 05:59 05:59 Intake Total 200 100 Output Total 200 Balance 200 100 -200 - Physical Exam Constitutional: chronically ill appearing, obese Eyes: PERRL Ears, Nose, Mouth, Throat: hearing normal, other (lesion on lower lip) Respiratory: no respiratory distress Musculoskeletal: generalized weakness Neurologic: AAOx3 Psychiatric: interacting appropriately ICD10 Worksheet Patient Problems: Problems Problem Status Onset Knee pain Acute Abscess of knee, right Acute Infected prosthetic knee joint Acute Septic joint of right knee joint Acute
--- NOTE | 2018-10-22 09:01 | PDIAF ---
- Diagnosis Diagnosis: falls, hypotension, chronic knee infection on suppressive therapy, Code Status: Full Code - Medication Management Discharge Medications: electronically signed and located in the Home Medication List. - Orders Isolation Type: None Diet Recommendation: no restrictions on diet Diet Texture: Regular Texture Diet Additional Instructions: stay on Levaquin indefinitely hold Lasix and Aldactone for systolic bp <110 Coreg dose was decreased to 3.125 mg bid (she has been on 6.25 mg bid) Losartan dose decreased to 25 mg, patient had been on 50mg f/u with cardiology in the next few weeks to review changes in your blood pressure medications get your lower lip lesion biopsied take good care of yourself - Labs/Radiology BMP Date: 10/26/18 CBC w/diff Date: 10/26/18 - Follow Up Care Current Providers and Referrals: Patient,NotPresent [Unknown] - As per Instructions
[2018-10-22] MEDS: GABAPENTIN 100 MG CAP PO SCH (09:15)
[2018-10-22] MEDS: guaiFENesin 200 MG TAB PO SCH (09:15)
[2018-10-22] MEDS: FUROSEMIDE 40 MG TAB PO SCH (09:16)
[2018-10-22] MEDS: MULTIVITAMINS 1 EACH TAB PO SCH (09:17)
[2018-10-22] MEDS: SPIRONOLACTONE 50 MG TAB PO SCH (09:17)
[2018-10-22] MEDS: CARVEDILOL 6.25 MG TAB PO SCH (09:18)
[2018-10-22 09:19] VITALS: BP 105/53
[2018-10-22] MEDS: ENOXAPARIN 40 MG/0.4 ML SYR SC SCH (09:19)
--- NOTE | 2018-10-22 10:17 | GDS ---
DISCHARGE DIAGNOSES: 1. Fall, with gait instability. 2. Hypotension. 3. Hip pain. 4. Right prosthetic knee infection. 5. Obesity, with a body mass index of 36. 6. Lip lesion. 7. Back issues. HISTORY: Briefly, the patient is a 73-year-old female with multiple medical health problems. She was recently here at the hospital for treatment for recurrent prosthetic knee infection. She was subsequently discharged home in the hopes that she would do well. She went home, and her had to call the fire department to get her off the 2 stairs that go to the garage to the living room, and then she sat on the bed and slid off it, and the fire department had to come back again. Today, she will be discharged to a assisted facility. She will continue suppressive antibiotic therapy for her recurrent right knee infection. Also, she has had some low blood pressures during her stay. Changes have been made to her medications. HOSPITAL COURSE: 1. Fall, going to the assisted facility. 2. Hypotension. Her blood pressure has been on the low side of normal. Her losartan dose has been decreased from 50 mg to 25 mg. Coreg dose has been decreased from 6.25 and is now on 3.125 b.i.d. This may be contributing to her fall. 3. Hip pain. Her pelvis x-ray showed nothing acute. Offered a CT scan, but she feels this is her chronic pain. 4. Right prosthetic knee infection. She had a washout just recently. She is on suppressive therapy with Levaquin. 5. Obesity. She has a BMI of 36 impacting all the above. 6. Lip lesion. We reviewed this. She understands that this needs to get biopsied in the outpatient setting. 7. Back issues. She is hoping to get a steroid injection. I told her to talk to Dr. Izquierdo, Infectious Disease, prior to getting any injections into her spine. DISCHARGE CONDITION: Fair. Her blood pressure is low this morning at 89/56. Heart rate is 70, respiratory rate of 16. O2 saturation on room air 95%. Temperature is 36.5 Celsius. Of note, she is asymptomatic of these low blood pressures. DISCHARGE MEDICATIONS: Please see the EMR. DISCHARGE INSTRUCTIONS: 1. To hold Aldactone and Lasix held if her systolic is less than 110. 2. To take Levaquin indefinitely. 3. If she develops fever, chills, chest pain, or shortness of breath, return to the ER. 4. To get her lip lesion biopsied. Greater than 30 minutes discharging and coordinating the patient's care. Copy requested to: Dr. Izquierdo /[id number]/MODL MTDD
--- NOTE | 2018-10-22 14:24 | ASMTLACE ---
LACE Length of stay for Answers: 3 days current admission Acuity / Level of Answers: No Care: Did the patient have an inpatient admission? Comorbidities - select Answers: Chronic pulmonary disease all that apply # of Emergency department Answers: 3-4 visits in the last 6 months Score: 8 Date Signed: 10/22/2018 02:23 PM Electronically Signed By:ASHLEY Brooke
--- NOTE | 2018-10-22 15:30 | ASDISCHSUM ---
Discharge Information Plan Status: Medically Cleared to Leave: Discharge Date:10/22/2018 11:17 AM CM D/C Disposition: ADT D/C Disposition:Detention Facility Projected Discharge Date:10/21/2018 11:00 AM Transportation at D/C: Discharge Delay Reason: Follow-Up Date:10/21/2018 11:00 AM Discharge Slot: Final Diagnosis: Placement Information Referral Type:*Halfway/SNF Referral ID:[id number] Provider Name:[facility] Address 1:[address] Address 2: City:[place] Selection Factors: State:[place] Patient Contact Information Contact Name:PHIL Relationship: Address:[address] [place] Alternate Phone: State/Zip Code:[place] [address] Email: Financial Information Financial Class:Medicare Advantage Plans Primary Plan Desc:UNITED MEDICARE COMPLETE Primary Plan Number:[id number] Secondary Plan Desc: Secondary Plan Number: Assessment Information [facility] CM Progress Note CM Note CM Note Notes: Patient returns to ED with her after discharging home from today. See ED report for details. This CM has met with patient and her Ethan in the ED. Patient is emotional and explains that she really wanted to be home and not go to "rehab". She does admit that she feels "weak" and is frustrated that she cannot do as much as she thought. Ethan is sensitive to patient's desire to be home, but is clear that he is unable to manage patient's physical needs/support until she is able to be more independent with her ADL's, etc. I have acknowledged patient's anxiety related to going to rehab/SNF and encouraged her to consider the "up side", stressing that a SNF stay could help her to get stronger sooner than HH alone. This would allow her to return home with HH (from SNF) without risking a fall and/or injury to her or Ethan as he is trying to help her. Patient ultimately agrees to this plan. She and Ethan are in agreement to [facility] for SNF. I have contacted Valentina at to inquire into an admission to SNF from the ED, but she does not have an admission RN available at this time. Valentina has requested that patient be admitted for observation with plans for patient to transfer to tomorrow. Referral has been initiated to SNF via [employer] and Valentina will follow up with CM and patient in AM. This CM has contacted Almaz (operations superintendent RN) at [facility] and informed her of patient's admission and plans for SNF. CM to follow Date Signed: 10/20/2018 06:36 PM Electronically Signed By:Keysha Tay RN LACE LACGonzalez Length of stay for Answers: 3 days current admission Acuity / Level of Answers: No Care: Did the patient have an inpatient admission? Comorbidities - select Answers: Chronic pulmonary disease all that apply # of Emergency department Answers: 3-4 visits in the last 6 months Score: 8 Date Signed: 10/22/2018 02:23 PM Electronically Signed By:ASHLEY Brooke [facility] Progress Note CM Note CM Note Notes: Jai with [facility] reports insurance auth is in, Hospitalist Jese updated and reports she will d/c pt in the morning. D/c plan of care: [facility] tomorrow Date Signed: 10/21/2018 04:17 PM Electronically Signed By:ASHLEY Brooke [facility] CM Progress Note CM Note CM Note Notes: Pt medically stable for d/c to [facility], they have ins auth. Transport arranged by Jai. BALA Chopra called report. Date Signed: 10/22/2018 03:29 PM Electronically Signed By:ASHLEY Brooke Intervention Information
== END 2018-10-22 11:17 ==
LOC: EDUNIT# → F3N 20:04
PROVIDERS: ADMIT Internal Medicine; ATTEND Internal Medicine
DX: M25.561 Pain in right knee (principal); Z91.81 History of falling; R26.89 Other abnormalities of gait and mobility; R29.6 Repeated falls; M25.551 Pain in right hip; T84.53XD Infection and inflammatory reaction due to internal right knee prosthesis, subsequent encounter; E66.9 Obesity, unspecified; Z68.36 Body mass index [BMI] 36.0-36.9, adult; K13.0 Diseases of lips; I95.9 Hypotension, unspecified; D64.9 Anemia, unspecified; G47.33 Obstructive sleep apnea (adult) (pediatric); I10 Essential (primary) hypertension; M48.05 Spinal stenosis, thoracolumbar region; M51.35 Other intervertebral disc degeneration, thoracolumbar region; Z96.619 Presence of unspecified artificial shoulder joint
CPT/HCPCS: 72170; 73564; G0378; J1650

== ENCOUNTER 2018-11-14 15:38 | Inpatient (IN) | payer OTHER ==
[2018-11-14] MEDS ORDERED: NS 1,000 ML IV ONE (15:48)
[2018-11-14 15:56] LABS: PLATELET COUNT 162 10^3/uL (150-400)
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
[2018-11-14] MEDS ORDERED: IOHEXOL 350mgI/ML (OMNIPAQUE) 150 ML BTL IV ONE (16:41)
--- NOTE | 2018-11-14 17:14 | CPEKG ---
Test Reason : OPEN Blood Pressure : / mmHG Vent. Rate : 053 BPM Atrial Rate : 053 BPM P-R Int : 180 ms QRS Dur : 143 ms QT Int : 538 ms P-R-T Axes : -62 -53 007 degrees QTc Int : 506 ms Sinus or ectopic atrial rhythm RBBB and LAFB Left ventricular hypertrophy Confirmed by Darek Louie ([id number]) on 11/14/2018 5:13:52 PM Referred By: Darek Louie Confirmed By:Darek Louie
[2018-11-14] MEDS ORDERED: ONDANSETRON DISINTEGRATING 4 MG TAB PO PRN (17:38)
[2018-11-14] MEDS ORDERED: PROMETHAZINE HCL 25 MG/ML INJ IVP PRN (17:38)
[2018-11-14] MEDS ORDERED: HYDROCODONE/APAP 5/325 TAB PO PRN (17:38)
--- NOTE | 2018-11-14 17:55 | PDGENHP ---
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 Izquierdo presenting from home after recently being discharged from [facility] with complaints of confusion, increased somnolence and purulent appearing urine. She had been seen by Dr. Izquierdo for purulent urine and there was concern that a fistula may be present and for that reason a CT scan was planned for later this week. She also has a lip lesion that was initially thought to be 2/2 HSV but given progression and worsening was ultimately referred to ENT for biopsy-- this was scheduled for today initially but rescheduled due to the weather. present at bedside notes that since Wednesday Joesph has been increasingly confused, spending all day in bed and was even hallucinating it seemed like last night. She has not had fever or chills, she has chronic pain but no new pain, her right knee does not seem worse and the swelling in her right lower extremity is at baseline. History Information - Allergies/Home Medication List Allergies/Adverse Reactions: alcohol Allergy (Verified 06/17/18 13:14) allergic to sulfates in alcohol caffeine Allergy (Verified 06/17/18 13:14) causes agitation and insomnia gluten Allergy (Verified 06/17/18 13:14) gi issues NSAIDS (Non-Steroidal Anti-Inflamma Allergy (Verified 06/22/18 11:08) Sulfa (Sulfonamide Antibiotics) Allergy (Verified 06/17/18 13:14) Hives tetracycline [Tetracycline] Allergy (Verified 06/17/18 13:14) Hives vancomycin Allergy (Verified 06/17/18 13:14) very fine whole body rash BEANS,NUTS,SEEDS,SPICES,ONIONS Allergy (Uncoded 05/23/18 11:45) GI PROBLEMS BROCCOLI,CAULIFLOWER,BRUSSELSPROUTS Allergy (Uncoded 05/23/18 11:45) GI PROBLEMS DAIRY Allergy (Uncoded 05/23/18 11:45) GI PROBLEMS FRESH FRUITS EXCEPT BANANAS Allergy (Uncoded 05/23/18 11:45) GI PROBLEMS FRESH VEGETABLES Allergy (Uncoded 05/23/18 11:45) GI PROBLEMS TAPES EXCEPT PAPER Allergy (Uncoded 05/23/18 11:45) SKIN IRRITATION-BLISTERS Home Medications: Albuterol [Proventil Inhaler HFA (*)] 1 - 2 puffs IH Q4 PRN 02/24/13 [Last Taken 06/17/18] Cholecalciferol Vit D3 [Vitamin D3 (*)] 5,000 units PO HS 02/24/13 [Last Taken 10/19/18] Multivitamins [Multivitamin (*)] 1 each PO DAILY 03/23/18 [Last Taken 10/20/18] Simethicone [Gas Relief] 160 mg PO DAILY PRN 03/23/18 [Last Taken 10/14/18] Spironolactone [Aldactone] 50 mg PO DAILY 03/23/18 [Last Taken 11/14/18] Loperamide HCl [Imodium 2 mg (*)] 2 mg PO PRN PRN 06/17/18 [Last Taken Unknown] Diclofenac Sodium 1% [Voltaren Gel (*)] 2 gm TP QID PRN 10/14/18 [Last Taken ] Furosemide [Lasix 40 MG (*)] 40 mg PO DAILY 10/14/18 [Last Taken 11/12/18] Gabapentin [Neurontin 100 MG (*)] 100 mg PO HS 10/14/18 [Last Taken 11/13/18] tiZANidine HCL [Zanaflex] 4 mg PO BID PRN 10/14/18 [Last Taken Unknown] Carvedilol [Coreg (*)] 6.25 mg PO BIDMEAL 11/14/18 [Last Taken 11/13/18] levOFLOXACIN [levAQUIN (*)] 750 mg PO HS 11/14/18 [Last Taken 11/13/18] I have personally reviewed and updated: family history, medical history, social history, surgical history - Past Medical History asthma, hypertension Additional medical history: osteoarthritis, obesity, multiple orthopedic/ arthroplasty infections, HTN, CHUCKIE on CPAP, rheumatic fever with valvular disease (? aortic insufficiency) - Surgical History Additional surgical history: multiple knee replacements and shoulder replacements, , carpal tunnel release, colonic resection, tka revision - Family History Positive for: non-pertinent Additional family history: COPD, CVA - Social History Smoking Status: Never smoked Alcohol Use: None Drug Use: None Additional social history: Lives with Review of Systems Review of Systems: ROS: 10pt was reviewed & negative except for what was stated in HPI & below Physical Exam Physical Exam: Temp Pulse Resp BP Pulse Ox 36.1 C 54 L 16 95/49 L 97 11/14/18 17:12 11/14/18 17:12 11/14/18 17:12 11/14/18 17:12 11/14/18 17:12 Constitutional: chronically ill appearing, obese Eyes: PERRL, anicteric sclera Ears, Nose, Mouth, Throat: hearing normal, poor dentition, dry mucous membranes Cardiovascular: regular rate and rhythym, no murmur, rub, or gallop, edema (2-3 + pitting BLE R > L) Respiratory: no respiratory distress, reduced air movement Gastrointestinal: soft, non-tender abdomen, No normoactive bowel sounds, No guarding, No rebound Genitourinary: olivares in urethra Skin: warm, normal color Musculoskeletal: no muscle tenderness Neurologic: AAOx3, other (somnolent, falling asleep while talking) Psychiatric: encephalopathic Lab Data & Imaging Review 11/14/18 15:48 11/14/18 15:48 WBC 7.04 10^3/uL (3.80-9.50) 11/14/18 15:48 RBC 3.63 10^6/uL (4.18-5.33) L 11/14/18 15:48 Hgb 9.5 g/dL (12.6-16.3) L 11/14/18 15:48 Hct 29.2 % (38.0-47.0) L 11/14/18 15:48 MCV 80.4 fL (81.5-99.8) L 11/14/18 15:48 MCH 26.2 pg (27.9-34.1) L 11/14/18 15:48 MCHC 32.5 g/dL (32.4-36.7) 11/14/18 15:48 RDW 17.0 % (11.5-15.2) H 11/14/18 15:48 Plt Count 162 10^3/uL (150-400) 11/14/18 15:48 MPV 10.8 fL (8.7-11.7) 11/14/18 15:48 Neut % (Auto) 73.4 % (39.3-74.2) 11/14/18 15:48 Lymph % (Auto) 12.6 % (15.0-45.0) L 11/14/18 15:48 Bureau % (Auto) 12.9 % (4.5-13.0) 11/14/18 15:48 Eos % (Auto) 0.7 % (0.6-7.6) 11/14/18 15:48 Baso % (Auto) 0.3 % (0.3-1.7) 11/14/18 15:48 Nucleat RBC Rel Count 0.0 % (0.0-0.2) 11/14/18 15:48 Absolute Neuts (auto) 5.16 10^3/uL (1.70-6.50) 11/14/18 15:48 Absolute Lymphs (auto) 0.89 10^3/uL (1.00-3.00) L 11/14/18 15:48 Absolute Monos (auto) 0.91 10^3/uL (0.30-0.80) H 11/14/18 15:48 Absolute Eos (auto) 0.05 10^3/uL (0.03-0.40) 11/14/18 15:48 Absolute Basos (auto) 0.02 10^3/uL (0.02-0.10) 11/14/18 15:48 Absolute Nucleated RBC 0.00 10^3/uL (0-0.01) 11/14/18 15:48 Immature Gran % 0.1 % (0.0-1.1) 11/14/18 15:48 Immature Gran # 0.01 10^3/uL (0.00-0.10) 11/14/18 15:48 Sodium 134 mEq/L (135-145) L 11/14/18 15:48 Potassium 3.9 mEq/L (3.5-5.2) 11/14/18 15:48 Chloride 102 mEq/L (97-110) 11/14/18 15:48 Carbon Dioxide 25 mEq/l (22-31) 11/14/18 15:48 Anion Gap 7 mEq/L (6-14) 11/14/18 15:48 BUN 21 mg/dL (7-23) 11/14/18 15:48 Creatinine 1.2 mg/dL (0.6-1.0) H 11/14/18 15:48 Estimated GFR 44 11/14/18 15:48 Glucose 159 mg/dL (70-100) H 11/14/18 15:48 Calcium 9.3 mg/dL (8.5-10.4) 11/14/18 15:48 Urine Color MURTAZA 11/14/18 16:10 Urine Appearance TURBID 11/14/18 16:10 Urine pH 6.0 (5.0-7.5) 11/14/18 16:10 Ur Specific [place] 1.016 (1.002-1.030) 11/14/18 16:10 Urine Protein 2+ (NEGATIVE) H 11/14/18 16:10 Urine Ketones NEGATIVE (NEGATIVE) 11/14/18 16:10 Urine Blood 1+ (NEGATIVE) H 11/14/18 16:10 Urine Nitrate NEGATIVE (NEGATIVE) 11/14/18 16:10 Urine Bilirubin NEGATIVE (NEGATIVE) 11/14/18 16:10 Urine Urobilinogen NEGATIVE EU (0.2-1.0) 11/14/18 16:10 Ur Leukocyte Esterase 2+ (NEGATIVE) H 11/14/18 16:10 Urine RBC 25-50 /hpf (0-3) H 11/14/18 16:10 Urine WBC 50-182 /hpf (0-3) H 11/14/18 16:10 Ur Epithelial Cells NONE SEEN /lpf (NONE-1+) 11/14/18 16:10 Urine Bacteria 1+ /hpf (NONE SEEN) H 11/14/18 16:10 Urine Glucose NEGATIVE (NEGATIVE) 11/14/18 16:10 Visualized and Interpreted imaging results: Yes Interpretation: abd CT: sigmoid diverticulitis with associated abscess abutting bladder with colovesicular fistula Visualized and Interpreted EKG results: Yes EKG Interpretation: Positive for: right bundle branch block EKG additional interpertation: lafb Assessment & Plan Assessment: Bladder fistula (Acute) Dehydration (Acute) Failure to thrive in adult (Acute) Visual hallucinations (Acute) 73 yo F with PMH of recurrent right prosthetic knee infection presenting with confusion and somnolence and found to have complex sigmoid diverticulits with associated abscess and colovesicular fistula # complex sigmoid diverticulitis: with associated gas and fluid filled abscess interposed between colon and bladder with associated colovesicular abscess. Discussed with ID and surgery, will start abx given patients medical stability with ertapenem and daptomycin, ID and gen surg to see in am. Abscess too small for external drain placement and patient may require surgical intervention # colovesicular fistula: abx as above # metabolic encephalopathy: patient with increased confusion over the last several days in the setting of above and presumed due to infection, patient oriented but quite somnolent and apparently was intermittently hallucinating at home, no focal findings # chronic right knee prosthesis infection: with multiple prior surgeries and patient on chronic abx, previously on levofloxacin/dapto, more recently only levo, this was held given starting ertapenem # marylou: in the setting of above and hypotension, holding diuretics and ARB, IVF overnight # hypotension: in the setting of infection and antihypertensives, holding BP meds, checking lactate # UTI: in the setting of colovesicular fistula as above, abx as above # anemia: has trended down from prior, presumably due to anemia of chronic disease given hx, nothing to suggest bleeding # lip lesion: scheduled for biopsy by ENT, concerning for malignancy, depending on length of stay may need to arrange biopsy in house # IP status # Patient new to my care. Old records reviewed and summarized as above. Care plan reviewed with ID, surgery and ER doctor, further hx obtained from patients present at bedside.
[2018-11-14] MEDS ORDERED: ALBUTEROL 60 PUFFS/8 GM MDI IH PRN (18:15)
[2018-11-14] MEDS ORDERED: SIMETHICONE 80 MG TAB CHEW PO PRN (18:15)
[2018-11-14] MEDS ORDERED: LOPERAMIDE HCL 2 MG CAP PO PRN (18:15)
[2018-11-14] MEDS ORDERED: DICLOFENAC SODIUM 1% 100 GM GEL TP PRN (18:15)
[2018-11-14] MEDS: NS 1,000 ML IV SCH (19:57)
[2018-11-14] MEDS: ERTAPENEM 1 GM in NS 100 ML IV SCH (19:58)
[2018-11-14] MEDS: oxyCODONE IR 5 MG TAB PO PRN (20:15)
[2018-11-14] MEDS: CHOLECALCIFEROL VIT D3 1,000 UNITS TAB PO SCH (20:16)
[2018-11-14] MEDS: DAPTOMYCIN IV SCH (20:17)
[2018-11-14] MEDS: NS IV SCH (20:17)
[2018-11-14] MEDS: GABAPENTIN 100 MG CAP PO SCH (20:17)
[2018-11-15] MEDS: oxyCODONE IR 5 MG TAB PO PRN ×3 (02:57→19:47)
[2018-11-15] MEDS: ERTAPENEM 1 GM in NS 100 ML IV SCH (09:44)
--- NOTE | 2018-11-15 10:05 | PDMN ---
Medical Necessity Medical necessity: [facility] [place] divert[place]itis, acute A-2 days: pt presents with increased confusion, somnolence over last few days- - with recurrent R prosthetic knee infection -- found to have Complex sigmoid diverticulitis with associated abscess and colovesicular fistula.- may req. sgy intervention., UTI, hypotension, marylou, anemia, anticipate > 2 MN ongoing med nec care, further monitoring and tx.
--- NOTE | 2018-11-15 10:24 | ASMTCASEMG ---
Living Arrangements What is your living Answers: With Spouse arrangement? Who do you live with? Type Of Residence What kind of residence do Answers: Apartment you live in? Discharge Plan Comments Coordination Status Comments Notes: Patient is a 73yo female who is being admitted for bladder fistula, dehydration, failure to thrive, and visual hallucinations. She has had a recurrent right knee prosthetic knee infection. OT/PT evals have been ordered. D/C plan TBD. CM will follow. Date Signed: 11/15/2018 10:23 AM Electronically Signed By:Patt Clinton LCSW
[2018-11-15] MEDS: DAPTOMYCIN IV SCH (10:39)
[2018-11-15] MEDS: NS IV SCH (10:39)
[2018-11-15] MEDS: ENOXAPARIN 30 MG/0.3 ML SYR SC SCH (10:41)
[2018-11-15] MEDS: MULTIVITAMINS 1 EACH TAB PO SCH (10:41)
--- NOTE | 2018-11-15 14:12 | PCMIDPN ---
Assessment/Plan: Assessment/Plan: * Chronic septic arthritis of right knee: Previous cultures with growth of Serratia and has been on suppressive levofloxacin. Knee has been improved versus prior. Currently on ertapenem as outlined below for diverticular abscess which will serve as ongoing suppressive therapy for her knee; ongoing levofloxacin will not be necessary as long as she is on ertapenem. 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 Was awaiting outpatient CT prior to current admission with CT performed at time of admission showing evidence of diverticular abscess with probable colovesicular fistula based on gas being present within bladder. Will continue ertapenem. Agree with plans for surgical intervention which is scheduled for 11/17/2018. Think can observe without addition of antimicrobial therapy with enterococcal activity at this point in time given stability with further modification in accordance with culture findings if Enterococcus present. Previous Serratia isolate was intermediately susceptible to Zosyn which limits ability to use it for both diverticular abscess and chronic septic arthritis of knee. Will place PICC line based on prior difficult access and ongoing need for IV antibiotic therapy currently. Time spent, greater than 35 min, of which greater than half was spent in education/counseling/coordination of care related to diverticular abscess with probable colovesicular fistula and chronic septic arthritis of right knee. Care coordinated with patient, nursing staff, and Dr. Finney. 11/15/18 14:09 11/15/18 14:16 Subjective: Patient admitted after recurrent falls. Noted to have some confusion. Patient describes having some abdominal cramping over last several days. Last week was continuing to have air and fecal material past via urethra. Patient notes temperature as high as 100.7 degrees at home. Typically on suppressive levofloxacin 750 mg orally daily for chronic septic arthritis of right knee with most recent knee cultures being negative but previously having shown growth of Serratia and prior to that MSSA. Today does not appear confused with mild lower quadrant pain being present. No nausea or vomiting. Seen by surgical service with plans for operative drainage of abscess and probable diverting colostomy later this week for definitive management of diverticular abscess and colovesicular fistula. Patient notes urine has been cloudy. Objective: Vital Signs Temp Pulse Resp BP Pulse Ox 36.6 C 84 18 124/38 H 96 11/15/18 11:18 11/15/18 11:18 11/15/18 11:18 11/15/18 11:18 11/15/18 11:18 11/14/18 11/15/18 11/16/18 05:59 05:59 05:59 Intake Total 1375 Output Total 1050 Balance 325 Urine culture no growth at [address] scan of abdomen and pelvis showing findings of diverticular abscess/ diverticulitis/probable colovesicular fistula with air present within bladder - Physical Exam General Appearance: alert, no apparent distress, non-toxic EENT: No scleral icterus, No thrush, No conjunctival petechiae Respiratory: lungs clear, No respiratory distress Cardiac/Chest: regular rate, rhythm, systolic murmur (2/6 throughout) Abdomen: tender (Mild bilateral lower quadrants), No distended Neuro/Psych: No confused ICD10 Worksheet Patient Problems: Problems Problem Status Onset Bladder fistula Acute Dehydration Acute Failure to thrive in adult Acute Visual hallucinations Acute Abscess of knee, right Acute Infected prosthetic knee joint Acute Knee pain Acute Septic joint of right knee joint Acute
[2018-11-15] MEDS ORDERED: ALTEPLASE 2 MG VIAL IVP PRN (14:17)
--- NOTE | 2018-11-15 16:23 | HOSPPROG ---
Hospitalist Progress Note Assessment/Plan: 73 yo F w chronically infected L TKA here w abd pain, ct images revealing colovesicular fistula CV fistula: ertapenem surgery 11/17 lip lesion: needs bx likely basal or squamous cell chronically infected knee: erta will cover JENNIFER: repeat labs access: picc proph: refused LMWH HAS HAD MANY knee surgeries, all w/out lmwh proph., and no dvt dispo: inpt Subjective: case d/w adam puga and Objective: Vital Signs Temp Pulse Resp BP Pulse Ox 36.6 C 84 18 124/38 H 96 11/15/18 11:18 11/15/18 11:18 11/15/18 11:18 11/15/18 11:18 11/15/18 11:18 11/14/18 11/15/18 11/16/18 05:59 05:59 05:59 Intake Total 1375 Output Total 1050 Balance 325 - Physical Exam Constitutional: no apparent distress, appears nourished Eyes: PERRL, anicteric sclera Ears, Nose, Mouth, Throat: moist mucous membranes, hearing normal Cardiovascular: regular rate and rhythym, no murmur, rub, or gallop Respiratory: no respiratory distress, no rales or rhonchi Gastrointestinal: normoactive bowel sounds, soft, non-tender abdomen, No guarding, No rebound Genitourinary: no bladder fullness, No olivares in urethra Skin: warm, normal color Musculoskeletal: full muscle strength Neurologic: AAOx3 ICD10 Worksheet Patient Problems: Problems Problem Status Onset Bladder fistula Acute Dehydration Acute Failure to thrive in adult Acute Visual hallucinations Acute Abscess of knee, right Acute Infected prosthetic knee joint Acute Knee pain Acute Septic joint of right knee joint Acute
--- NOTE | 2018-11-15 16:25 | PDGENHP ---
History and Physical - Chief Complaint feculent urine - History of Present Illness 73yo F admitted with colovesicular fistula. Briefly, the patient is a 73yo F with an extensive medical history and extensive infectious history. She presents with 1 week of feculent urine and pneumaturia. She denies fevers or chills. States that she knows what pierre symptoms are as she had colovesicukar fistula about 20 years ago. She underwent resection and primary anastomosis for this and has not had issues since. She has chronic infections and sees Dr Ethan Izquierdo, per his report all of her previous orthopedic procedures were fraught with some type of infection. In the hospital today, she states that she is hungry, she denies pain and has no fevers. History Information - Allergies/Home Medication List Allergies/Adverse Reactions: alcohol Allergy (Verified 06/17/18 13:14) allergic to sulfates in alcohol caffeine Allergy (Verified 06/17/18 13:14) causes agitation and insomnia gluten Allergy (Verified 06/17/18 13:14) gi issues NSAIDS (Non-Steroidal Anti-Inflamma Allergy (Verified 06/22/18 11:08) Sulfa (Sulfonamide Antibiotics) Allergy (Verified 06/17/18 13:14) Hives tetracycline [Tetracycline] Allergy (Verified 06/17/18 13:14) Hives vancomycin Allergy (Verified 06/17/18 13:14) very fine whole body rash BEANS,NUTS,SEEDS,SPICES,ONIONS Allergy (Uncoded 05/23/18 11:45) GI PROBLEMS BROCCOLI,CAULIFLOWER,BRUSSELSPROUTS Allergy (Uncoded 05/23/18 11:45) GI PROBLEMS DAIRY Allergy (Uncoded 05/23/18 11:45) GI PROBLEMS FRESH FRUITS EXCEPT BANANAS Allergy (Uncoded 05/23/18 11:45) GI PROBLEMS FRESH VEGETABLES Allergy (Uncoded 05/23/18 11:45) GI PROBLEMS TAPES EXCEPT PAPER Allergy (Uncoded 05/23/18 11:45) SKIN IRRITATION-BLISTERS Home Medications: Albuterol [Proventil Inhaler HFA (*)] 1 - 2 puffs IH Q4 PRN 02/24/13 [Last Taken 06/17/18] Cholecalciferol Vit D3 [Vitamin D3 (*)] 5,000 units PO HS 02/24/13 [Last Taken 10/19/18] Multivitamins [Multivitamin (*)] 1 each PO DAILY 03/23/18 [Last Taken 10/20/18] Simethicone [Gas Relief] 160 mg PO DAILY PRN 03/23/18 [Last Taken 10/14/18] Spironolactone [Aldactone] 50 mg PO DAILY 03/23/18 [Last Taken 11/14/18] Loperamide HCl [Imodium 2 mg (*)] 2 mg PO PRN PRN 06/17/18 [Last Taken Unknown] Diclofenac Sodium 1% [Voltaren Gel (*)] 2 gm TP QID PRN 10/14/18 [Last Taken ] Furosemide [Lasix 40 MG (*)] 40 mg PO DAILY 10/14/18 [Last Taken 11/12/18] Gabapentin [Neurontin 100 MG (*)] 100 mg PO HS 10/14/18 [Last Taken 11/13/18] tiZANidine HCL [Zanaflex] 4 mg PO BID PRN 10/14/18 [Last Taken Unknown] Carvedilol [Coreg (*)] 6.25 mg PO BIDMEAL 11/14/18 [Last Taken 11/13/18] levOFLOXACIN [levAQUIN (*)] 750 mg PO HS 11/14/18 [Last Taken 11/13/18] I have personally reviewed and updated: family history, medical history, social history, surgical history - Past Medical History asthma, hypertension Additional medical history: osteoarthritis, obesity, multiple orthopedic/ arthroplasty infections, HTN, CHUCKIE on CPAP, rheumatic fever with valvular disease (? aortic insufficiency) - Surgical History Additional surgical history: multiple knee replacements and shoulder replacements, , carpal tunnel release, colonic resection, tka revision - Family History Positive for: non-pertinent Additional family history: COPD, CVA - Social History Smoking Status: Never smoked Alcohol Use: None Drug Use: None Additional social history: Lives with Review of Systems Review of Systems: ROS: 10pt was reviewed & negative except for what was stated in HPI & below Physical Exam Physical Exam: Temp Pulse Resp BP Pulse Ox 36.6 C 84 18 124/38 H 96 11/15/18 11:18 11/15/18 11:18 11/15/18 11:18 11/15/18 11:18 11/15/18 11:18 Constitutional: no apparent distress, not in pain, chronically ill appearing Eyes: PERRL, anicteric sclera, EOMI Ears, Nose, Mouth, Throat: moist mucous membranes, hearing normal, ears appear normal, no oral mucosal ulcers Cardiovascular: regular rate and rhythym, no murmur, rub, or gallop, No edema Respiratory: no respiratory distress, no rales or rhonchi, clear to auscultation Gastrointestinal: other (obese, nontender, no guarding, no rebound ) Genitourinary: no bladder fullness, no bladder tenderness Skin: warm, normal color, no rashes or abrasions, no fluctuance, no induration, No mottled Musculoskeletal: full muscle strength, no muscle tenderness, normal joint ROM, no joint effusions Psychiatric: interacting appropriately, not anxious, not encephalopathic, thought process linear Lymph, Heme, Immunologic: no cervical LAD, no supraclavicular LAD Lab Data & Imaging Review 11/14/18 15:48 11/14/18 15:48 WBC 7.04 10^3/uL (3.80-9.50) 11/14/18 15:48 RBC 3.63 10^6/uL (4.18-5.33) L 11/14/18 15:48 Hgb 9.5 g/dL (12.6-16.3) L 11/14/18 15:48 Hct 29.2 % (38.0-47.0) L 11/14/18 15:48 MCV 80.4 fL (81.5-99.8) L 11/14/18 15:48 MCH 26.2 pg (27.9-34.1) L 11/14/18 15:48 MCHC 32.5 g/dL (32.4-36.7) 11/14/18 15:48 RDW 17.0 % (11.5-15.2) H 11/14/18 15:48 Plt Count 162 10^3/uL (150-400) 11/14/18 15:48 MPV 10.8 fL (8.7-11.7) 11/14/18 15:48 Neut % (Auto) 73.4 % (39.3-74.2) 11/14/18 15:48 Lymph % (Auto) 12.6 % (15.0-45.0) L 11/14/18 15:48 [place]oughton % (Auto) 12.9 % (4.5-13.0) 11/14/18 15:48 Eos % (Auto) 0.7 % (0.6-7.6) 11/14/18 15:48 Baso % (Auto) 0.3 % (0.3-1.7) 11/14/18 15:48 Nucleat RBC Rel Count 0.0 % (0.0-0.2) 11/14/18 15:48 Absolute Neuts (auto) 5.16 10^3/uL (1.70-6.50) 11/14/18 15:48 Absolute Lymphs (auto) 0.89 10^3/uL (1.00-3.00) L 11/14/18 15:48 Absolute Monos (auto) 0.91 10^3/uL (0.30-0.80) H 11/14/18 15:48 Absolute Eos (auto) 0.05 10^3/uL (0.03-0.40) 11/14/18 15:48 Absolute Basos (auto) 0.02 10^3/uL (0.02-0.10) 11/14/18 15:48 Absolute Nucleated RBC 0.00 10^3/uL (0-0.01) 11/14/18 15:48 Immature Gran % 0.1 % (0.0-1.1) 11/14/18 15:48 Immature Gran # 0.01 10^3/uL (0.00-0.10) 11/14/18 15:48 Sodium 134 mEq/L (135-145) L 11/14/18 15:48 Potassium 3.9 mEq/L (3.5-5.2) 11/14/18 15:48 Chloride 102 mEq/L (97-110) 11/14/18 15:48 Carbon Dioxide 25 mEq/l (22-31) 11/14/18 15:48 Anion Gap 7 mEq/L (6-14) 11/14/18 15:48 BUN 21 mg/dL (7-23) 11/14/18 15:48 Creatinine 1.2 mg/dL (0.6-1.0) H 11/14/18 15:48 Estimated GFR 44 11/14/18 15:48 Glucose 159 mg/dL (70-100) H 11/14/18 15:48 Calcium 9.3 mg/dL (8.5-10.4) 11/14/18 15:48 Urine Color MURTAZA 11/14/18 16:10 Urine Appearance TURBID 11/14/18 16:10 Urine pH 6.0 (5.0-7.5) 11/14/18 16:10 Ur Specific Pollock 1.016 (1.002-1.030) 11/14/18 16:10 Urine Protein 2+ (NEGATIVE) H 11/14/18 16:10 Urine Ketones NEGATIVE (NEGATIVE) 11/14/18 16:10 Urine Blood 1+ (NEGATIVE) H 11/14/18 16:10 Urine Nitrate NEGATIVE (NEGATIVE) 11/14/18 16:10 Urine Bilirubin NEGATIVE (NEGATIVE) 11/14/18 16:10 Urine Urobilinogen NEGATIVE EU (0.2-1.0) 11/14/18 16:10 Ur Leukocyte Esterase 2+ (NEGATIVE) H 11/14/18 16:10 Urine RBC 25-50 /hpf (0-3) H 11/14/18 16:10 Urine WBC 50-182 /hpf (0-3) H 11/14/18 16:10 Ur Epithelial Cells NONE SEEN /lpf (NONE-1+) 11/14/18 16:10 Urine Bacteria 1+ /hpf (NONE SEEN) H 11/14/18 16:10 Urine Glucose NEGATIVE (NEGATIVE) 11/14/18 16:10 Visualized and Interpreted imaging results: Yes Interpretation: CT: sigmoid inflammation with anterior abscess adjacent to bladder with air in bladder concerning for fistula. Assessment & Plan Assessment: Bladder fistula (Acute) Dehydration (Acute) Failure to thrive in adult (Acute) Visual hallucinations (Acute) Plan: 73yo F c colovesicular fistula - abx - abdominal exam reassuring, no peritoneal signs - will need source control, wants Dr Sandoval, I discussed case with her. She is happy to see - Plan for OR in next day or so. Discussed with the patient that there is high likelihood of needing colostomy.
[2018-11-15 19:05] LABS: PLATELET COUNT 148 10^3/uL (150-400)
[2018-11-15] MEDS: CHOLECALCIFEROL VIT D3 1,000 UNITS TAB PO SCH (20:23)
[2018-11-15] MEDS: GABAPENTIN 100 MG CAP PO SCH (20:24)
[2018-11-16] MEDS: NS 1,000 ML IV SCH ×2 (01:48→15:31)
[2018-11-16] MEDS: oxyCODONE IR 5 MG TAB PO PRN ×4 (01:48→19:49)
[2018-11-16] MEDS: ACETAMINOPHEN 325 MG TAB PO PRN (04:53)
[2018-11-16] MEDS: ERTAPENEM 1 GM in NS 100 ML IV SCH (07:30)
[2018-11-16] MEDS: ENOXAPARIN 30 MG/0.3 ML SYR SC SCH (07:43)
[2018-11-16] MEDS: MULTIVITAMINS 1 EACH TAB PO SCH (07:43)
--- NOTE | 2018-11-16 11:34 | ASMTCMCOM ---
CM Note CM Note Notes: Patient will go for surgery tomorrow. Patient to be evaluated for therapies after surgery. D/C plan TBD. CM will follow. Date Signed: 11/16/2018 11:34 AM Electronically Signed By:Patt Clinton LCSW
--- NOTE | 2018-11-16 12:46 | HOSPPROG ---
Hospitalist Progress Note Assessment/Plan: 73 yo F w chronically infected L TKA here w abd pain, ct images revealing colovesicular fistula CV fistula: ertapenem surgery 11/17 urinary incontinence: olivares placed lip lesion: needs bx likely basal or squamous cell chronically infected knee: ertapenem will cover JENNIFER: repeat labs cr at baseline access: picc proph: refused LMWH HAS HAD MANY knee surgeries, all w/out lmwh proph., and no dvt dispo: inpt Subjective: case d.w dr puga Objective: Vital Signs Temp Pulse Resp BP Pulse Ox 37.2 C 96 16 134/51 H 90 L 11/16/18 11:10 11/16/18 11:10 11/16/18 11:10 11/16/18 11:10 11/16/18 11:10 Laboratory Results 11/15/18 18:40 11/16/18 04:30 11/15/18 11/16/18 11/17/18 05:59 05:59 05:59 Intake Total 1375 3100 Output Total 1050 2050 Balance 325 1050 - Physical Exam Constitutional: no apparent distress, appears nourished Eyes: PERRL, anicteric sclera Ears, Nose, Mouth, Throat: moist mucous membranes, hearing normal Cardiovascular: regular rate and rhythym, no murmur, rub, or gallop Respiratory: no respiratory distress, no rales or rhonchi Gastrointestinal: soft, non-tender abdomen, No guarding, No rebound Genitourinary: no bladder fullness, olivares in urethra Skin: warm, normal color Musculoskeletal: full muscle strength Neurologic: AAOx3 ICD10 Worksheet Patient Problems: Problems Problem Status Onset Bladder fistula Acute Dehydration Acute Failure to thrive in adult Acute Visual hallucinations Acute Abscess of knee, right Acute Infected prosthetic knee joint Acute Knee pain Acute Septic joint of right knee joint Acute
--- NOTE | 2018-11-16 15:27 | PCMIDPN ---
Assessment/Plan: # Chronic septic arthritis of right knee: Previous cultures with growth of Serratia and has been on suppressive levofloxacin. Currently on ertapenem for diverticular abscess which will serve as ongoing suppressive therapy for her knee # Diverticular abscess between sigmoid and bladder with probable colovesicular fistula --surgery tomorrow --continue ertapenem, which was selected due to past Serratia isolated with intermediate susceptibility to Zosyn --urine culture with low colony of Mary would not add fluconazole at this point --add on LFTs for baseline testing in light of unknown duration of ertapenem therapy. Greater than 15 minutes spent on this patients care, greater than 50% of time spent counseling, educating, and coordinating care regarding the above mentioned plan. Medications Ertapenem 1 g IV daily, # 3 Micro 11/15 blood cultures (2) no growth today 11/14 urine culture: Mary 1000 CFU 11/16/18 16:23 Subjective: Patient with surgery scheduled tomorrow. She is accepting that she is going to need a colostomy. She states that waiting for surgery tomorrow till tomorrow is like an "infinity" No change in character of pain Objective: Vital Signs Temp Pulse Resp BP Pulse Ox 37.2 C 96 16 134/51 H 90 L 11/16/18 11:10 11/16/18 11:10 11/16/18 11:10 11/16/18 11:10 11/16/18 11:10 Laboratory Results 11/15/18 18:40 11/16/18 04:30 11/15/18 11/16/18 11/17/18 05:59 05:59 05:59 Intake Total 1375 3100 Output Total 1050 2050 Balance 325 1050 Detailed exam deferred per patient preference. - Physical Exam General Appearance: alert, no apparent distress, obese Respiratory: No accessory muscle use Skin: other (Darwin size pearly papule left lower lip) Neuro/Psych: alert, normal mood/affect, oriented x 3 ICD10 Worksheet Patient Problems: Problems Problem Status Onset Bladder fistula Acute Dehydration Acute Failure to thrive in adult Acute Visual hallucinations Acute Abscess of knee, right Acute Infected prosthetic knee joint Acute Knee pain Acute Septic joint of right knee joint Acute
--- NOTE | 2018-11-16 17:29 | SOAPPROG ---
SOAP Progress Note Assessment/Plan: Assessment/plan: 73-year-old woman admitted for colovesicular fistula. Continue IV antibiotics Regular diet Plan for OR tomorrow afternoon at 2:00 p.m. NPO after midnight. Consent in chart. Will also biopsy lip mass and consult ENT Patient additionally seen by Dr. Carol Ann Sandoval S: Wants to have surgery as soon as possible, but specifically once Dr. Sadnoval to do her surgery. She understands this cannot be performed till tomorrow. Her pain is controlled. She is not having any nausea. Tolerating regular diet O: General: Well-developed well-nourished woman in no acute distress HENT: Normocephalic, no gross hearing deficits, mucous membranes moist, pupils equal and round. Lip mass, nodular consistent with basal cell carcinoma. Lungs: Clear to auscultation bilaterally, No increased work of breathing Cardiac: Regular rate, no peripheral edema Abdomen: Bowel sounds present, soft and non tender : Us catheter in place, feculent urine Psych: Mood and affect normal Neuro: Grossly intact 11/16/18 17:32 Objective: Vital Signs Temp Pulse Resp BP Pulse Ox 37.3 C 87 16 135/64 H 96 11/16/18 15:42 11/16/18 15:55 11/16/18 15:55 11/16/18 15:42 11/16/18 15:55 Laboratory Results 11/15/18 18:40 11/16/18 04:30 11/15/18 11/16/18 11/17/18 05:59 05:59 05:59 Intake Total 1375 3100 Output Total 1050 0 Balance 325 1050 ICD10 Worksheet Patient Problems: Problems Problem Status Onset Bladder fistula Acute Dehydration Acute Failure to thrive in adult Acute Visual hallucinations Acute Abscess of knee, right Acute Infected prosthetic knee joint Acute Knee pain Acute Septic joint of right knee joint Acute
[2018-11-16] MEDS: CHOLECALCIFEROL VIT D3 1,000 UNITS TAB PO SCH (19:54)
[2018-11-16] MEDS: GABAPENTIN 100 MG CAP PO SCH (19:54)
[2018-11-17] MEDS: oxyCODONE IR 5 MG TAB PO PRN ×2 (01:07→06:03)
[2018-11-17] MEDS: NS 1,000 ML IV SCH (01:59)
[2018-11-17] MEDS: HYDROmorphONE/DILAUDID 1 MG/ML INJ IVP PRN ×2 (03:09→09:50)
--- NOTE | 2018-11-17 09:13 | PCMIDPN ---
Assessment/Plan: Assessment/Plan: * Chronic septic arthritis of right knee: No significant inflammatory changes present. Ertapenem covering previously isolated Serratia. Will need resumption of suppressive levofloxacin once antibiotic therapy for diverticular abscess has been completed. * Diverticular abscess with colovesicular fistula: Plans for operative intervention today. Urine shows feculent appearing material. Continue ertapenem pending additional culture data. Agree with plans to observe without anti fungal therapy given low colony count of yeast in urine unless also isolated from diverticular abscess. 11/17/18 09:09 Subjective: Patient complains of low abdominal pain. Chronic knee pain is unchanged. Objective: Vital Signs Temp Pulse Resp BP Pulse Ox 36.9 C 80 18 118/54 L 92 11/17/18 08:00 11/17/18 08:00 11/17/18 08:00 11/17/18 08:00 11/17/18 08:00 Laboratory Results 11/15/18 18:40 11/16/18 04:30 11/16/18 11/17/18 11/18/18 05:59 05:59 05:59 Intake Total 3100 Output Total 2050 800 Balance 1050 -800 Ertapenem #4 Blood cultures x2 no growth Urine culture with Mary albicans at 1000 colony-forming units/mL - Physical Exam General Appearance: no apparent distress, non-toxic EENT: other (No change in lip lesion), No scleral icterus, No thrush Respiratory: lungs clear, No respiratory distress Cardiac/Chest: regular rate, rhythm, systolic murmur (2/6 throughout) Extremities: inflammation (Right knee with unchanged mild warmth and tenderness ; no erythema present) Abdomen: non-tender, No distended Pelvic Exam: olivares (Feculent material in Olivares catheter) ICD10 Worksheet Patient Problems: Problems Problem Status Onset Bladder fistula Acute Dehydration Acute Failure to thrive in adult Acute Visual hallucinations Acute Abscess of knee, right Acute Infected prosthetic knee joint Acute Knee pain Acute Septic joint of right knee joint Acute
[2018-11-17] MEDS: ERTAPENEM 1 GM in NS 100 ML IV SCH (09:52)
[2018-11-17] MEDS: MULTIVITAMINS 1 EACH TAB PO SCH (09:55)
--- NOTE | 2018-11-17 10:21 | SOAPPROG ---
SOAP Progress Note Assessment/Plan: Assessment: 73 year old woman admitted for colovesicular fistula, surgery scheduled for this afternoon. Plan: Continue IV antibiotics NPO since midnight, surgery scheduled this afternoon. Consent in chart. Plan to biopsy lip mass - if positive will have ENT perform lip resection Subjective: Patient anxious to have surgery, nervous about having a colostomy. Denies BMs or passing flatus over last 24hrs. Continuing NPO, denies abdominal discomfort, nausea. She is concerned about the mass on her lower lip. Objective: General: well-developed, well-nourished woman in no acute distress sitting upright in bed HENT: Normocephalic, no gross hearing deficits, mucous membranes moist, pupils equal and round. Lip mass of lower lip about 1 cm nodular and rolled edges Lungs: CTA bilaterally, no increased work of breathing Cardiac: regular rate, no peripheral edema Abdomen: Hypoactive bowel sounds, soft, non-distended. Mild diffuse tenderness to palpation. : Us catheter in place with purulent, feculent urine Psych: Mood and affect normal Neuro: Grossly intact. 11/17/18 10:20 11/19/18 06:46 Objective: Vital Signs Temp Pulse Resp BP Pulse Ox 36.9 C 80 18 118/54 L 92 11/17/18 08:00 11/17/18 08:00 11/17/18 08:00 11/17/18 08:00 11/17/18 08:00 Laboratory Results 11/15/18 18:40 11/16/18 04:30 11/16/18 11/17/18 11/18/18 05:59 05:59 05:59 Intake Total 3100 Output Total 2049 800 Balance 1050 -800 ICD10 Worksheet Patient Problems: Problems Problem Status Onset Bladder fistula Acute Dehydration Acute Failure to thrive in adult Acute Visual hallucinations Acute Abscess of knee, right Acute Infected prosthetic knee joint Acute Knee pain Acute Septic joint of right knee joint Acute
[2018-11-17] MEDS ORDERED: EPINEPHrine 1 MG/ML INJ ONE (12:30)
[2018-11-17] MEDS ORDERED: BUPIVACAINE 0.25% 30 ML SDV ONE (12:30)
--- NOTE | 2018-11-17 12:39 | HOSPPROG ---
Hospitalist Progress Note Assessment/Plan: 73 yo F w chronically infected L TKA here w abd pain, ct images revealing colovesicular fistula CV fistula: ertapenem surgery today urinary incontinence: olivares placed lip lesion: needs bx likely basal or squamous cell chronically infected knee: ertapenem will cover JENNIFER: repeat labs cr at baseline access: picc proph: refused LMWH HAS HAD MANY knee surgeries, all w/out lmwh proph., and no dvt dispo: inpt. Will have surgery today. cont ab. Labs in a.m. Diet: was on a regular diet, currently NPO for surgery Subjective: awaiting surgery Objective: Vital Signs Temp Pulse Resp BP Pulse Ox 36.9 C 81 16 147/81 H 99 11/17/18 10:59 11/17/18 10:59 11/17/18 10:59 11/17/18 10:59 11/17/18 10:59 Laboratory Results 11/15/18 18:40 11/16/18 04:30 11/16/18 11/17/18 11/18/18 05:59 05:59 05:59 Intake Total 3100 Output Total 2050 800 Balance 1050 -800 - Physical Exam Constitutional: no apparent distress Eyes: PERRL Ears, Nose, Mouth, Throat: moist mucous membranes Cardiovascular: No edema Respiratory: no respiratory distress, no rales or rhonchi, clear to auscultation Gastrointestinal: normoactive bowel sounds, soft, non-tender abdomen Skin: warm Neurologic: AAOx3 Psychiatric: interacting appropriately, not anxious, not encephalopathic Lymph, Heme, Immunologic: No petechiae ICD10 Worksheet Patient Problems: Problems Problem Status Onset Bladder fistula Acute Dehydration Acute Failure to thrive in adult Acute Visual hallucinations Acute Abscess of knee, right Acute Infected prosthetic knee joint Acute Knee pain Acute Septic joint of right knee joint Acute
[2018-11-17] MEDS ORDERED: LR 1,000 ML IV ONE (13:50)
--- NOTE | 2018-11-17 14:36 | PDANEPAE ---
ANE Past Medical History - Cardiovascular History Hx Hypertension: Yes Hx Arrhythmias: No Hx Chest Pain: No Hx Coronary Artery / Peripheral Vascular Disease: Yes Hx CHF / Valvular Disease: No Hx Palpitations: No Cardiovascular History Comment: aortic insuff. htn. rheumatic heart disease - Pulmonary History Hx COPD: No Hx Asthma/Reactive Airway Disease: Yes Hx Recent Upper Respiratory Infection: No Hx Oxygen in Use at Home: No Hx Sleep Apnea: Yes Sleep Apnea Screening Result - Last Documented: Positive Pulmonary History Comment: berkley positive- uses cpap- instructed pt to bring. instructed pt to bring inhalers - Neurologic History Hx Cerebrovascular Accident: No Hx Seizures: No Hx Dementia: No Neurologic History Comment: Hx of kirill quintero. essential tremor. spinal stenosis - Endocrine History Hx Diabetes: No - Renal History Hx Renal Disorders: Yes Renal History Comment: incontinence- USES 2 POISE PAD EVERY 2-3 HRS - Liver History Hx Hepatic Disorders: No - Neurological & Psychiatric Hx Hx Neurological and Psychiatric Disorders: No Neurological / Psychiatric History Comment: essential tremor. Hx of kirill quintero - Cancer History Hx Cancer: No Cancer History Comment: pre-cancerous lumpectomy - Congenital Disorder History Hx Congenital Disorders: No - GI History Hx Gastrointestinal Disorders: Yes Gastrointestinal History Comment: GERD-controlled with Zantac. HIATAL HERNIA. BARRETS ESOPHAGUS. DIFF SWALLOWING. IBS - Other Health History Other Health History: wears glasses. long standing septic arthritis. EASY BLEEDING AND BRUISING. FIBROMYALGIA. CHRONIC FATIGUE SYNDROME. BILAT ROTATOR CUFF TEARS - Chronic Pain History Chronic Pain: Yes (right knee and generalized d/t fibromyalgia) - Surgical History Prior Surgeries: 01/24/18 right tka with explant of hardware with [facility]. right knee i&d with [facility]. 09/03 right knee cleaned out. 05/31/15 left carpal tunnel release with [facility]. 05/09/14 right hammer toe repair with [facility]. 03/06/13 right rtc repair. varicose vein surgery- right leg. left knee scope x2. right knee scope x2. left tka x2. right tka x2. t&a as child. d&c in mid . i&d of episotomy in 1972. 1973. urethrotomy. exploratory lap with removal of benign tumor. abd hysterectomy. lumbar laminectomy x2. lumbosacral fusion. sigmoid colon resction 2003. colposcopy 2006. phlebectomy right leg ANE Review of Systems Review of Systems: - Exercise capacity METS (RN): 3 METS ANE Patient History - Allergies Allergies/Adverse Reactions: alcohol Allergy (Verified 06/17/18 13:14) allergic to sulfates in alcohol caffeine Allergy (Verified 06/17/18 13:14) causes agitation and insomnia gluten Allergy (Verified 06/17/18 13:14) gi issues NSAIDS (Non-Steroidal Anti-Inflamma Allergy (Verified 06/22/18 11:08) Sulfa (Sulfonamide Antibiotics) Allergy (Verified 06/17/18 13:14) Hives tetracycline [Tetracycline] Allergy (Verified 06/17/18 13:14) Hives vancomycin Allergy (Verified 06/17/18 13:14) very fine whole body rash BEANS,NUTS,SEEDS,SPICES,ONIONS Allergy (Uncoded 05/23/18 11:45) GI PROBLEMS BROCCOLI,CAULIFLOWER,BRUSSELSPROUTS Allergy (Uncoded 05/23/18 11:45) GI PROBLEMS DAIRY Allergy (Uncoded 05/23/18 11:45) GI PROBLEMS FRESH FRUITS EXCEPT BANANAS Allergy (Uncoded 05/23/18 11:45) GI PROBLEMS FRESH VEGETABLES Allergy (Uncoded 05/23/18 11:45) GI PROBLEMS TAPES EXCEPT PAPER Allergy (Uncoded 05/23/18 11:45) SKIN IRRITATION-BLISTERS - Home Medications Home Medications: Albuterol [Proventil Inhaler HFA (*)] 1 - 2 puffs IH Q4 PRN 02/24/13 [Last Taken 06/17/18] Cholecalciferol Vit D3 [Vitamin D3 (*)] 5,000 units PO HS 02/24/13 [Last Taken 10/19/18] Multivitamins [Multivitamin (*)] 1 each PO DAILY 03/23/18 [Last Taken 10/20/18] Simethicone [Gas Relief] 160 mg PO DAILY PRN 03/23/18 [Last Taken 10/14/18] Spironolactone [Aldactone] 50 mg PO DAILY 03/23/18 [Last Taken 11/14/18] Loperamide HCl [Imodium 2 mg (*)] 2 mg PO PRN PRN 06/17/18 [Last Taken Unknown] Diclofenac Sodium 1% [Voltaren Gel (*)] 2 gm TP QID PRN 10/14/18 [Last Taken ] Furosemide [Lasix 40 MG (*)] 40 mg PO DAILY 10/14/18 [Last Taken 11/12/18] Gabapentin [Neurontin 100 MG (*)] 100 mg PO HS 10/14/18 [Last Taken 11/13/18] tiZANidine HCL [Zanaflex] 4 mg PO BID PRN 10/14/18 [Last Taken Unknown] Carvedilol [Coreg (*)] 6.25 mg PO BIDMEAL 11/14/18 [Last Taken 11/13/18] levOFLOXACIN [levAQUIN (*)] 750 mg PO HS 11/14/18 [Last Taken 11/13/18] - NPO status NPO Since - Liquids (Date): 11/17/18 NPO Since - Liquids (Time): 00:00 NPO Since - Solids (Date): 11/16/18 NPO Since - Solids (Time): 07:00 - Smoking Hx Smoking Status: Never smoked - Alcohol Use Alcohol Use: None - Family Anes Hx Family Hx Anesthesia Complications: none ANE Labs/Vital Signs - Labs Result Diagrams: 11/15/18 18:40 11/16/18 04:30 - Vital Signs Vital Signs: reviewed preoperatively; see RN documention for details Blood Pressure: 147/81 Heart Rate: 81 Respiratory Rate: 16 O2 Sat (%): 99 Height: 149.86 cm Weight: 78.471 kg ANE Physical Exam - Airway Neck exam: decreased ROM Mallampati Score: Class 3 Mouth exam: small mouth opening - Pulmonary Pulmonary: clear to auscultation - Cardiovascular Cardiovascular: regular rate and rhythym - ASA Status ASA Status: III ANE Anesthesia Plan Anesthesia Plan: general endotracheal anesthesia Lines/Monitors: arterial line (herniated cervical disc per patient, no symptoms , will use glidescope. pt refused epidural.)
[2018-11-17] MEDS ORDERED: fentaNYL 100 MCG/2 ML INJ ONE (14:38)
[2018-11-17] MEDS ORDERED: PROPOFOL 200 MG/20 ML VIAL ONE (14:39)
[2018-11-17] MEDS ORDERED: KETAMINE 200 MG/20 ML VIAL ONE (15:02)
--- NOTE | 2018-11-17 15:08 | ASMTCMCOM ---
CM Note CM Note Notes: 11/17/2018 Case Management Note Phone call from [facility]. Pt is currently open with them. Faxed updates. Attempted to meet w/pt, however pt was in surgery today. PT OT evals pending. Case Management d/c poc: to be determined. Case Management to follow. Date Signed: 11/17/2018 03:08 PM Electronically Signed By:Eli Robison RN
[2018-11-17] MEDS ORDERED: HYDROmorphONE/DILAUDID 2 MG/ML INJ ONE (15:49)
[2018-11-17] MEDS ORDERED: ONDANSETRON 4 MG/2 ML VIAL ONE (15:51)
[2018-11-17] MEDS ORDERED: DEXAMETHASONE 4 MG/ML VIAL ONE (15:51)
[2018-11-17] MEDS ORDERED: ROCURONIUM 50 MG/5 ML VIAL ONE ×2 (16:02→16:20)
[2018-11-17] MEDS ORDERED: MEPERIDINE 25 MG/0.5 ML AMP IVP PRN (17:13)
[2018-11-17] MEDS ORDERED: ONDANSETRON 4 MG/2 ML VIAL IVP PRN (17:13)
[2018-11-17] MEDS ORDERED: LABETALOL HCL 5 MG/ML 20 ML MDV IVP PRN (17:13)
[2018-11-17] MEDS ORDERED: DEXAMETHASONE 4 MG/ML VIAL IVP PRN (17:13)
[2018-11-17] MEDS ORDERED: NALOXONE HCL 0.4 MG/ML INJ IVP PRN (17:13)
[2018-11-17] MEDS ORDERED: PROMETHAZINE HCL 25 MG/ML INJ IVP PRN (17:13)
[2018-11-17] MEDS ORDERED: HYDROmorphONE/DILAUDID 2 MG/ML INJ IVP PRN (17:13)
[2018-11-17] MEDS ORDERED: fentaNYL 100 MCG/2 ML INJ IVP PRN (17:13)
[2018-11-17] MEDS ORDERED: oxyCODONE IR 5 MG TAB PO PRN (17:13)
--- NOTE | 2018-11-17 17:14 | POSTANESTH ---
Post Anesthetic Evaluation Cardiovascular Status: Similar to Pre-Op Cond Respiratory Status: Similar to Pre-op Cond. Level of Consciousness/Mental Status: Can Participate in Eval, Mildly Sleepy, Arousable Pain Control: Adequate, Prn Tx Ordered Nausea/Vomiting Control: Adequate, Prn Tx Ordered Complications Possibly Related to Anesthesia: None Noted
[2018-11-17] MEDS ORDERED: HYDROmorphONE/DILAUDID 1 MG/ML INJ IVP PRN (17:39)
--- NOTE | 2018-11-17 17:41 | POSTOPPROG ---
Post Op Note Date of Operation: 11/17/18 Surgeon: Carol Ann Sandoval Front Office Representative: edd Anesthesiologist: nancy Anesthesia: GET(General Endotracheal) Pre-op Diagnosis: colovesicular fistula Post-op Diagnosis: same Indication: 73 yo with colocesicular fistula Procedure: open sigmoid colectomy anastomosis and diverting ostomy and lip biopsy Findings: very inflamed colon, omentum tethered Inf/Abcess present in the surg proc area at time of surgery?: Yes Depth: Organ Space EBL: 100-500 Drains: Castillo Arteaga Specimen(s): colon and lip biopsy
[2018-11-17] MEDS ORDERED: SUGAMMADEX SODIUM 200 MG/2 ML VIAL IVP ONE (17:48)
[2018-11-17] MEDS ORDERED: PROMETHAZINE HCL 25 MG/ML INJ ONE (18:09)
[2018-11-17] MEDS: ONDANSETRON 4 MG/2 ML VIAL IVP PRN (21:06)
[2018-11-17] MEDS: CHOLECALCIFEROL VIT D3 1,000 UNITS TAB PO SCH (21:23)
[2018-11-17] MEDS: GABAPENTIN 100 MG CAP PO SCH (21:23)
[2018-11-17] MEDS ORDERED: NS 1,000 ML IV SCH (23:25)
[2018-11-18] MEDS: ONDANSETRON 4 MG/2 ML VIAL IVP PRN (04:12)
[2018-11-18 04:29] LABS: PLATELET COUNT 165 10^3/uL (150-400)
[2018-11-18] MEDS: oxyCODONE IR 5 MG TAB PO PRN ×3 (06:36→19:57)
--- NOTE | 2018-11-18 08:27 | SOAPPROG ---
SOAP Progress Note Assessment/Plan: Assessment/plan: 73-year-old woman POD#1 s/p open sigmoidectomy with loop ileostomy for colovesicular fistula. Continue IV antibiotics Us for bladder decompression x 10d - DO NOT REMOVE Incisional wound vac - prevena. Stays in place 1 week then remove Wound/ostomy education Dispo: likely 5-7 days until return of bowel function S: feels like she was beat up. O: General: Well-developed well-nourished woman in no acute distress HENT: Normocephalic, no gross hearing deficits, mucous membranes moist, pupils equal and round. Lip biopsy CDI. Lungs: Clear to auscultation bilaterally, No increased work of breathing Cardiac: Regular rate, no peripheral edema Abdomen: +BS, soft, distended, nontender. LEMUEL more serosanguinous than yesterday. Prevena intact to suction. RUQ ileostomy flat profile, thin serous in bag : Us catheter in place Psych: Mood and affect normal Neuro: Grossly intact 11/18/18 08:45 11/18/18 12:39 Objective: Vital Signs Temp Pulse Resp BP Pulse Ox 36.7 C 104 H 18 148/67 H 94 11/18/18 08:00 11/18/18 08:00 11/18/18 08:00 11/18/18 08:00 11/18/18 08:00 Microbiology 11/17/18 15:41 Gram Stain - Final Abdomen - Other Laboratory Results 11/18/18 04:11 11/18/18 04:11 11/17/18 11/18/18 11/19/18 05:59 05:59 05:59 Intake Total 1300 Output Total 800 1410 Balance -800 -110 ICD10 Worksheet Patient Problems: Problems Problem Status Onset Bladder fistula Acute Dehydration Acute Failure to thrive in adult Acute Visual hallucinations Acute Abscess of knee, right Acute Infected prosthetic knee joint Acute Knee pain Acute Septic joint of right knee joint Acute
[2018-11-18] MEDS: ERTAPENEM 1 GM in NS 100 ML IV SCH (08:56)
[2018-11-18] MEDS: ENOXAPARIN 30 MG/0.3 ML SYR SC SCH (09:12)
[2018-11-18] MEDS: MULTIVITAMINS 1 EACH TAB PO SCH (09:12)
--- NOTE | 2018-11-18 11:33 | PCMIDPN ---
Assessment/Plan: 1. Diverticular abscess with colovesical fistula postop day 1 status post open sigmoidectomy with loop ileostomy: Continue ertapenem as is. 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 Not on anti fungal therapy unless this also grows from the abscess; fungal culture pending. Of note, leukocytosis almost certainly secondary to postoperative leukemoid reaction. 2. Chronic septic arthritis left knee: On ertapenem as per the above, which will cover her previous organisms. Stable. 3. Nonhealing lip lesion: This was biopsied yesterday and path is pending. 11/18/18 11:32 Subjective: Fairly sedated. Opens eyes and responds appropriately. Very tired. Complaining of abdominal pain 04/26. Objective: Ertapenem 1 g IV daily day 5 No fevers Vital Signs Temp Pulse Resp BP Pulse Ox 36.4 C 101 H 20 141/65 H 94 11/18/18 11:24 11/18/18 11:24 11/18/18 11:24 11/18/18 11:24 11/18/18 11:24 Microbiology 11/17/18 15:41 Gram Stain - Final Abdomen - Other Laboratory Results 11/18/18 04:11 11/18/18 04:11 11/17/18 11/18/18 11/19/18 05:59 05:59 05:59 Intake Total 1300 Output Total 800 1410 80 Balance -800 -110 -80 November 17 abdominal Gram stain: 2+ Gram-positive rods, 1+ gram-negative rods, 1+ Gram-positive cocci/culture pending, fungal culture also pending November 15 blood culture x2 negative - Physical Exam General Appearance: obese EENT: other (Lip lesion, lower lip was biopsied. Does not appear secondarily infected.), No thrush Respiratory: lungs clear Cardiac/Chest: systolic murmur, other (Left upper sternal border) Extremities: other (PICC line right upper extremity looks fine) Abdomen: other (Obese, no bowel sounds. Drain left lower quadrant with minimal serosanguineous fluid in the LEMUEL bulb. Stoma is pink, bag empty.) Skin: other (Left knee looks fine), No rash ICD10 Worksheet Patient Problems: Problems Problem Status Onset Bladder fistula Acute Dehydration Acute Failure to thrive in adult Acute Visual hallucinations Acute Abscess of knee, right Acute Infected prosthetic knee joint Acute Knee pain Acute Septic joint of right knee joint Acute
--- NOTE | 2018-11-18 11:54 | HOSPPROG ---
Hospitalist Progress Note Assessment/Plan: 73 yo F w chronically infected L TKA here w abd pain, ct images revealing colovesicular fistula Colovesicular fistula, s/p open sigmoidectomy with loop ileostomy on 11/17/18 ertapenem per ID post op care per surger urinary incontinence: olivares placed. needs to remain in place for 10 days per surgery for bladder decompression lip lesion: biopsied on 11/17/18. Awaiting biopsy likely basal or squamous cell chronically infected knee: ertapenem will cover JENNIFER: repeat labs cr at baseline Hx of Valvular disease Pedal edema: right LE is chronic. Left with trace, not chronic monitor fluid intake closely access: picc proph: refused LMWH HAS HAD MANY knee surgeries, all w/out lmwh proph., and no dvt dispo: inpt. Will have surgery today. cont ab. Labs in a.m. FEN: has been started on a CLD but not much intake yet. Will decrease IVF to 50 ml/hr given that her diet is now clears so will have some input and because of her hx of valvular disease and mild pedal edema. Fluids can be stopped once tolerating PO Subjective: generalized malaise. Pain is well controlled. Diet is clears. no cp or sob. Objective: Vital Signs Temp Pulse Resp BP Pulse Ox 36.4 C 101 H 20 141/65 H 94 11/18/18 11:24 11/18/18 11:24 11/18/18 11:24 11/18/18 11:24 11/18/18 11:24 Microbiology 11/17/18 15:41 Gram Stain - Final Abdomen - Other Laboratory Results 11/18/18 04:11 11/18/18 04:11 11/17/18 11/18/18 11/19/18 05:59 05:59 05:59 Intake Total 1300 Output Total 800 1410 80 Balance -800 -110 -80 - Physical Exam Constitutional: no apparent distress Eyes: PERRL Ears, Nose, Mouth, Throat: moist mucous membranes, hearing normal Cardiovascular: regular rate and rhythym, edema (trace left, 1+ right) Respiratory: no respiratory distress, no rales or rhonchi, clear to auscultation Gastrointestinal: normoactive bowel sounds Skin: warm Neurologic: AAOx3 Psychiatric: interacting appropriately, not anxious, not encephalopathic Lymph, Heme, Immunologic: No petechiae ICD10 Worksheet Patient Problems: Problems Problem Status Onset Bladder fistula Acute Dehydration Acute Failure to thrive in adult Acute Visual hallucinations Acute Abscess of knee, right Acute Infected prosthetic knee joint Acute Knee pain Acute Septic joint of right knee joint Acute
[2018-11-18] MEDS: CHOLECALCIFEROL VIT D3 1,000 UNITS TAB PO SCH (19:56)
[2018-11-18] MEDS: GABAPENTIN 100 MG CAP PO SCH (19:57)
[2018-11-19 05:22] LABS: PLATELET COUNT 167 10^3/uL (150-400)
[2018-11-19] MEDS: ERTAPENEM 1 GM in NS 100 ML IV SCH (07:54)
[2018-11-19] MEDS: MULTIVITAMINS 1 EACH TAB PO SCH (07:54)
[2018-11-19] MEDS: ENOXAPARIN 30 MG/0.3 ML SYR SC SCH ×2 (07:54→08:00)
--- NOTE | 2018-11-19 08:00 | GOP ---
[f rep st] OPERATIVE REPORT DATE OF OPERATION: 11/17/2018 SURGEON: Carol Ann Sandoval MD SENIOR MANAGER MERGERS & ACQUISITIONS: Santy Finney MD. ANESTHESIA: General. ANESTHESIOLOGIST: Heather Rosenthal MD PREOPERATIVE DIAGNOSIS: Colovesicular fistula and lip nodule. POSTOPERATIVE DIAGNOSIS: Colovesicular fistula and lip nodule. PROCEDURE PERFORMED: 1. Open sigmoid colectomy with primary anastomosis and diverting loop ileostomy. 2. Lip biopsy. FINDINGS: Very inflamed colon, omentum tethered in the pelvis. SPECIMENS: Sigmoid colon lip biopsy. ESTIMATED BLOOD LOSS: 100 cc. INDICATIONS: Joesph Schulte is a 73-year-old woman who had a previous colon resection for a colovesicular and colovaginal fistula. She had resection at that time, and she has had a hysterectomy. She has recently developed feculent urine again and recurrent symptoms of diverticulitis. She also has a large lesion on her lower lip. DESCRIPTION OF PROCEDURE: Patient was brought into the operating room, placed supine on the table, and general anesthesia was administered. She was then placed in a lithotomy position. Her abdomen and perineum were prepped and draped in the usual sterile fashion. We made an incision from just above her umbilicus, directed toward her pubis to gain adequate exposure. I dissected down through the skin, subcutaneous tissue, and through the adipose tissue. I elevated the fascia divided it. We had to perform adhesiolysis to free omentum from the anterior abdominal wall and with Metzenbaum scissors were able to free some loops of small bowel as well. Once we had adequate exposure, we then placed the Omni retractor. We noted immediately that her omentum was tethered down into her pelvis. We could palpate a very inflamed sigmoid colon. We continued dissection with a combination of blunt dissection, sharp dissection, and electrocautery, broke into an abscess cavity and obtained a culture from this area. The pelvis was so inflamed that it was difficult to even appreciate the Us balloon. I then identified healthy descending colon and was able to use this to trace along the white line of Toldt directed into the pelvis. Due to the inflammation, I kept extremely close to the sigmoid colon to avoid damaging the ureter. Again, there was a lot of inflammation and this was a difficult and tedious dissection. We dissected the omentum away from the phlegmon in the pelvis and were able to lift this cephalad, and we continued to dissect sharply some loops of small bowel as well as the cecum away from this area. We were able to retract all this bowel cephalad. Next, we had to continue dissecting the descending colon free. We encountered the old staple line and were able to dissect beyond this. We selected points of transection proximally and distally where the colon was soft. I used a MOI 75 to divide the descending colon. I used a contour green load to divide the colon deep in the pelvis. We passed the contracted specimen off the field. We spent time trying to identify where the injury to the bladder in the fistula was located, and due to the severe inflammation, this was not able to be identified. We performed copious irrigation. I then continued to perform additional dissection so that the descending colon would reach easily into the pelvis. The descending colon reached freely into the pelvis. We removed the staple line and placed a pursestring suture as well as the 29 EEA anvil. I oversewed this with 2-0 Prolene. Next, I evacuated stool in the rectal pouch and passed the stapler through the bottom. I deployed the spike and connected this to the anvil. There was no tension, torsion, or twisting. I fired the stapler. We placed irrigation in the pelvis and performed a leak test. There were no bubbles noted. However, due to the high risk nature of this procedure, diverting loop ileostomy was indicated. I then changed my gown and glove. I selected a piece of bowel just proximal to the terminal ileum. I made an ellipse of tissue on her abdomen lateral to the umbilicus. I dissected down through the skin subcutaneous tissue until I encountered the fascia. We made a breach in the fascia to accommodate 3 fingerbreadths and spread the rectus muscles. We delivered the loop of bowel through this area and tacked it to the fascia with 3-0 Vicryl. A 15 round silicone drain was placed into the pelvis exiting the left lower quadrant. Next, clean closure was performed. Fascia closed with #1 PDS, skin closed with kaitlynn. A Prevena wound VAC was applied. The drain was sutured into placed with 3-0 silk suture. Next, attention was drawn to maturing the ostomy. This was sutured to the fascia with 3-0 Vicryl and then I brooked the loop ileostomy with 3-0 Vicryl and an appliance was placed. I changed gown and gloves. I prepped her lip with Betadine and grasped the lesion on her lip with an Allis clamp and excised it with electrocautery and passed this off the field. Hemostasis was achieved. She was taken out of the lithotomy position, awakened in the operating room, extubated, and transferred to PACU in stable condition. /[id number]/MODL MTDD
[2018-11-19] MEDS: oxyCODONE IR 5 MG TAB PO PRN ×2 (09:11→21:02)
[2018-11-19] MEDS: CARVEDILOL 6.25 MG TAB PO SCH ×2 (09:12→17:25)
--- NOTE | 2018-11-19 13:25 | HOSPPROG ---
Hospitalist Progress Note Assessment/Plan: 73 yo F w chronically infected L TKA here w abd pain, ct images revealing colovesicular fistula Colovesicular fistula, s/p open sigmoidectomy with loop ileostomy on 11/17/18 ertapenem per ID post op care per surgery Diet per surgery, currently on Clears. Stop IVF urinary incontinence: olivares placed. needs to remain in place for 10 days per surgery for bladder decompression lip lesion: biopsied on 11/17/18. Awaiting biopsy likely basal or squamous cell chronically infected knee: ertapenem will cover JENNIFER: repeat labs cr at baseline Hx of Valvular disease: monitor fluid status closely Pedal edema: right LE is chronic. Left with trace, not chronic monitor fluid intake closely Takes Lasix at home, holding for now, may restart tomorrow HTN Restart BB today Restart Losartan today. She says she does not take her nightly dose regularly , will decrease dose access: picc proph: refused LMWH HAS HAD MANY knee surgeries, all w/out lmwh proph., and no dvt dispo: inpt Subjective: no cp or sob. no n/v. Objective: Vital Signs Temp Pulse Resp BP Pulse Ox 36.8 C 79 16 141/65 H 98 11/19/18 12:23 11/19/18 12:23 11/19/18 12:23 11/19/18 12:23 11/19/18 12:23 Microbiology 11/17/18 15:41 Gram Stain - Final Abdomen - Other Laboratory Results 11/19/18 05:05 11/19/18 05:05 11/18/18 11/19/18 11/20/18 05:59 05:59 05:59 Intake Total 1300 1987 120 Output Total 1410 955 80 Balance -110 1032 40 - Physical Exam Constitutional: no apparent distress Eyes: PERRL Ears, Nose, Mouth, Throat: moist mucous membranes, hearing normal, ears appear normal Cardiovascular: regular rate and rhythym, edema (Right (chronic)) Respiratory: no respiratory distress, no rales or rhonchi, clear to auscultation Gastrointestinal: normoactive bowel sounds, soft, non-tender abdomen Skin: warm Neurologic: AAOx3 Psychiatric: interacting appropriately, not anxious, not encephalopathic Lymph, Heme, Immunologic: No petechiae ICD10 Worksheet Patient Problems: Problems Problem Status Onset Bladder fistula Acute Dehydration Acute Failure to thrive in adult Acute Visual hallucinations Acute Abscess of knee, right Acute Infected prosthetic knee joint Acute Knee pain Acute Septic joint of right knee joint Acute
--- NOTE | 2018-11-19 15:05 | PCMIDPN ---
Assessment/Plan: Assessment: Diverticulitis with abscess status post partial colectomy and ileostomy. Patient has been on ertapenem since 3 days prior to surgery. Her operative cultures of the abscess fluid grew out MRSA and an unidentified yeast. I think that the ertapenem selected out for these pathogens and in fact the abscess cavity was likely significantly reminiscent of normal bowel rosy. Plan to add both micafungin and daptomycin to the ertapenem today. Discussed this with the patient and her [id number]. Plan: 1. Continue IV ertapenem. 2. Add daptomycin 6 milligrams/kilogram IV Q 24 hr. 3. Start micafungin 100 mg IV daily 4. Follow clinical course and laboratory values. 11/19/18 15:03 Subjective: Patient is sitting up in a chair in her hospital room. Her [id number] is with her. Patient complains of severe fatigue. No other complaints. Denies fevers or chills. No rash. Objective: Ertapenem # 6 Vital Signs Temp Pulse Resp BP Pulse Ox 36.8 C 79 16 141/65 H 98 11/19/18 12:23 11/19/18 12:23 11/19/18 12:23 11/19/18 12:23 11/19/18 12:23 Microbiology 11/17/18 15:41 Gram Stain - Final Abdomen - Other Laboratory Results 11/19/18 05:05 11/19/18 05:05 11/18/18 11/19/18 11/20/18 05:59 05:59 05:59 Intake Total 1300 1987 120 Output Total 1410 955 80 Balance -110 1032 40 - Physical Exam General Appearance: WD/WN, alert, no apparent distress, non-toxic Respiratory: lungs clear, normal breath sounds, No respiratory distress Cardiac/Chest: regular rate, rhythm, No tachycardia Abdomen: non-tender, soft Skin: normal color, warm/dry, No rash Neuro/Psych: alert, normal mood/affect, oriented x 3 ICD10 Worksheet Patient Problems: Problems Problem Status Onset Bladder fistula Acute Dehydration Acute Failure to thrive in adult Acute Visual hallucinations Acute Abscess of knee, right Acute Infected prosthetic knee joint Acute Knee pain Acute Septic joint of right knee joint Acute
[2018-11-19] MEDS: MICAFUNGIN NA 100 MG in NS 100 ML IV SCH (15:43)
--- NOTE | 2018-11-19 16:10 | SOAPPROG ---
SOAP Progress Note Assessment/Plan: Assessment: UNCOMFORTABLE AND HARD TO MOBILIZE/AFEBRILE/ABDOMEN SOFT NONTENDER WITH WELL- HEALING WOUND/OSTOMY LOOKS OKAY VITAL SIGNS STABLE/URINE OUTPUT ADEQUATE PATH IS PENDING ON BOTH THE LIP LESION AND THE COLON URINE OUTPUT ADEQUATE Plan: START SIPS 11/19/18 16:09 Objective: Vital Signs Temp Pulse Resp BP Pulse Ox 36.8 C 79 16 141/65 H 98 11/19/18 12:23 11/19/18 12:23 11/19/18 12:23 11/19/18 12:23 11/19/18 12:23 Microbiology 11/17/18 15:41 Gram Stain - Final Abdomen - Other Laboratory Results 11/19/18 05:05 11/19/18 05:05 11/18/18 11/19/18 11/20/18 05:59 05:59 05:59 Intake Total 1300 1987 120 Output Total 1410 955 80 Balance -110 1032 40 ICD10 Worksheet Patient Problems: Problems Problem Status Onset Bladder fistula Acute Dehydration Acute Failure to thrive in adult Acute Visual hallucinations Acute Abscess of knee, right Acute Infected prosthetic knee joint Acute Knee pain Acute Septic joint of right knee joint Acute
[2018-11-19 16:36] LABS: CREATINE KINASE 25 IU/L (0-156)
[2018-11-19] MEDS: DAPTOmycin 450 MG in NS 100 ML IV SCH (17:25)
[2018-11-19] MEDS ORDERED: LOSARTAN POTASSIUM 50 MG TAB PO SCH (21:00)
[2018-11-19] MEDS: GABAPENTIN 100 MG CAP PO SCH (21:02)
[2018-11-19] MEDS: CHOLECALCIFEROL VIT D3 1,000 UNITS TAB PO SCH (21:02)
[2018-11-19] MEDS: LOSARTAN POTASSIUM 25 MG TAB PO SCH (21:03)
[2018-11-20 05:27] LABS: PLATELET COUNT 153 10^3/uL (150-400)
[2018-11-20] MEDS: MULTIVITAMINS 1 EACH TAB PO SCH (09:01)
[2018-11-20] MEDS: CARVEDILOL 6.25 MG TAB PO SCH ×2 (09:01→17:12)
[2018-11-20] MEDS: ERTAPENEM 1 GM in NS 100 ML IV SCH (09:02)
[2018-11-20] MEDS: ENOXAPARIN 30 MG/0.3 ML SYR SC SCH ×2 (09:04→09:06)
[2018-11-20] MEDS: DAPTOmycin 450 MG in NS 100 ML IV SCH (09:36)
[2018-11-20] MEDS: MICAFUNGIN NA 100 MG in NS 100 ML IV SCH (09:36)
[2018-11-20] MEDS: oxyCODONE IR 5 MG TAB PO PRN ×2 (10:26→21:18)
--- NOTE | 2018-11-20 12:00 | HOSPPROG ---
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 Awaiting biopsy urinary incontinence: olivares placed. needs to remain in place for 10 days per surgery for bladder decompression lip lesion: biopsied on 11/17/18. Awaiting biopsy likely basal or squamous cell chronically infected knee: ertapenem will cover JENNIFER: repeat labs cr at baseline Hx of Valvular disease: monitor fluid status closely Appears Euvolemia Takes Diuretic as an outpatient and this is currently being held. May need to restart soon but not today. Pedal edema: right LE is chronic. Left with trace, not chronic monitor fluid intake closely HTN BB, Losartan, well controlled Anemia, monitor closely, if further drop consider transfusing access: picc proph: refused LMWH HAS HAD MANY knee surgeries, all w/out lmwh proph., and no dvt dispo: inpt, continue Subjective: no cp or sob. some abd pain. afebrile Objective: Vital Signs Temp Pulse Resp BP Pulse Ox 36.6 C 66 16 166/50 H 99 11/20/18 11:12 11/20/18 11:12 11/20/18 11:12 11/20/18 11:12 11/20/18 11:12 Microbiology 11/17/18 15:41 Gram Stain - Final Abdomen - Other Laboratory Results 11/20/18 05:15 11/20/18 05:15 11/19/18 11/20/18 11/21/18 05:59 05:59 05:59 Intake Total 1986 740 240 Output Total 955 965 80 Balance 1032 -225 160 - Physical Exam Constitutional: no apparent distress Eyes: PERRL Ears, Nose, Mouth, Throat: moist mucous membranes, hearing normal Cardiovascular: regular rate and rhythym Respiratory: no respiratory distress Skin: warm Musculoskeletal: generalized weakness Psychiatric: interacting appropriately, not anxious, not encephalopathic Lymph, Heme, Immunologic: No petechiae ICD10 Worksheet Patient Problems: Problems Problem Status Onset Bladder fistula Acute Dehydration Acute Failure to thrive in adult Acute Visual hallucinations Acute Abscess of knee, right Acute Infected prosthetic knee joint Acute Knee pain Acute Septic joint of right knee joint Acute
--- NOTE | 2018-11-20 12:57 | PCMIDPN ---
Assessment/Plan: Assessment: Diverticulitis with abscess status post partial colectomy and ileostomy. Patient has been on ertapenem since 3 days prior to surgery. Her operative cultures of the abscess fluid grew out MRSA and an unidentified yeast. I think that the ertapenem selected out for these pathogens and in fact the abscess cavity was likely significantly reminiscent of normal bowel rosy. There was addition of micafungin and daptomycin yesterday. Today the patient's labs reveal a normal white blood cell count. She remains weak but I think she is starting a slow clinical recovery. Plan: 1. Continue IV ertapenem, micafungin and daptomycin. 2. Follow clinical course and laboratory values. 11/19/18 15:03 11/20/18 12:55 Subjective: Patient states that she continues to feel weak. She is attempting to stand from the side of the bed using her walker. No fevers or chills. Objective: Ertapenem # 7 Daptomycin # 2 Micafungin # 2 Vital Signs Temp Pulse Resp BP Pulse Ox 36.6 C 66 16 166/50 H 99 11/20/18 11:12 11/20/18 11:12 11/20/18 11:12 11/20/18 11:12 11/20/18 11:12 Microbiology 11/17/18 15:41 Gram Stain - Final Abdomen - Other Laboratory Results 11/20/18 05:15 11/20/18 05:15 11/19/18 11/20/18 11/21/18 05:59 05:59 05:59 Intake Total 1987 740 240 Output Total 955 965 80 Balance 1032 -225 160 - Physical Exam General Appearance: WD/WN, alert, no apparent distress, non-toxic Respiratory: lungs clear, normal breath sounds, No respiratory distress Cardiac/Chest: regular rate, rhythm, No tachycardia Extremities: non-tender, normal inspection Skin: normal color, warm/dry, No rash Neuro/Psych: alert, normal mood/affect, oriented x 3 ICD10 Worksheet Patient Problems: Problems Problem Status Onset Bladder fistula Acute Dehydration Acute Failure to thrive in adult Acute Visual hallucinations Acute Abscess of knee, right Acute Infected prosthetic knee joint Acute Knee pain Acute Septic joint of right knee joint Acute
--- NOTE | 2018-11-20 13:29 | SOAPPROG ---
SOAP Progress Note Assessment/Plan: Assessment: UNCOMFORTABLE AND HARD TO MOBILIZE/AFEBRILE/ABDOMEN SOFT NONTENDER WITH WELL- HEALING WOUND/OSTOMY LOOKS OKAY VITAL SIGNS STABLE/URINE OUTPUT ADEQUATE PATH IS PENDING ON BOTH THE LIP LESION AND THE COLON URINE OUTPUT ADEQUATE Plan: START SIPS 11/19/18 16:09 11/20/18 13:28 alert/ afebrile/ wound ok/ uo good/ path pending cultures show MRSA Objective: Vital Signs Temp Pulse Resp BP Pulse Ox 36.6 C 66 16 166/50 H 99 11/20/18 11:12 11/20/18 11:12 11/20/18 11:12 11/20/18 11:12 11/20/18 11:12 Microbiology 11/17/18 15:41 Gram Stain - Final Abdomen - Other Laboratory Results 11/20/18 05:15 11/20/18 05:15 11/19/18 11/20/18 11/21/18 05:59 05:59 05:59 Intake Total 1987 740 240 Output Total 287 481 80 Balance 1032 -689 160 ICD10 Worksheet Patient Problems: Problems Problem Status Onset Bladder fistula Acute Dehydration Acute Failure to thrive in adult Acute Visual hallucinations Acute Abscess of knee, right Acute Infected prosthetic knee joint Acute Knee pain Acute Septic joint of right knee joint Acute
[2018-11-20] MEDS: CHOLECALCIFEROL VIT D3 1,000 UNITS TAB PO SCH (21:17)
[2018-11-20] MEDS: LOSARTAN POTASSIUM 25 MG TAB PO SCH (21:18)
[2018-11-20] MEDS: GABAPENTIN 100 MG CAP PO SCH (21:19)
[2018-11-21 04:14] LABS: PLATELET COUNT 169 10^3/uL (150-400)
[2018-11-21] MEDS: DAPTOmycin 450 MG in NS 100 ML IV SCH (08:28)
[2018-11-21] MEDS: MULTIVITAMINS 1 EACH TAB PO SCH (08:36)
[2018-11-21] MEDS: ENOXAPARIN 30 MG/0.3 ML SYR SC SCH (08:36)
[2018-11-21] MEDS: CARVEDILOL 6.25 MG TAB PO SCH ×2 (08:36→19:00)
[2018-11-21] MEDS: ERTAPENEM 1 GM in NS 100 ML IV SCH (09:16)
[2018-11-21] MEDS: MICAFUNGIN NA 100 MG in NS 100 ML IV SCH (10:18)
--- NOTE | 2018-11-21 12:03 | WOCRNPDOC ---
[facility] Advanced Assessment Note - Skin Integrity Problem, Advanced Assess Abdomen Surgical Wound/Incision Dressing Type: Wound Vac Dressing Description: Intact, Soiled (stool along right inferior margin ) Closure Description: [place], Approximated Exudate Amount: None Integumentary Issue Intervention: Dressing Changed, Dressing Initialed & Dated Skin Integrity Problem Comment: Removed prevena dressing as it had stool that had leached into the dressing. It was attached to the leaking appliance that was on patient's stoma. Reported to Leticia BILL. Replaced with a mepilex silver incisional dressing. - Ileostomy Assessment, Advanced Abdomen Ileostomy Appliance Intact: No Ileostomy Appliance Currently in Use: Two Piece Flat, 2 1/4, Cut to Fit Stoma Color: Red Stoma Turgor: Moist, Friable Stoma Shape: Irregular Stoma Height: Protruding Slightly Mucocutaneus Junction: Intact Ileostomy Effluent: Serosangenous Ileostomy Size - Head-to-Toe Length X Width X Depth (cm): 45mm Ileostomy Details: Loop Peristomal Skin: Intact Ileostomy Comment/Treatment Details: Ileostomy in left lower quadrant. Drainage was leaking under wafer. Wafer removed with adhesive releaser. Cut to fit one piece sadiq 2 1/4 soft convex applied. Ethan in room and taught/ observed how to change appliance (day two teaching done with him). Teaching on pouch opening/closing also done. Will round again Wed to have patient's change the appliance after he reads the day one teaching that was left for patient on wednesday. Patient did not participate at all and slept/kept eyes closed during entire change. Kasi MCKENNA in room and assisted with care. Initial ostomy supplies with Duane will be ordered. 2 1/4 soft convex one piece cut to fit cerra plus. Large ostomy belt provided and also will be ordered.
--- NOTE | 2018-11-21 13:22 | HOSPPROG ---
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 Currently diet advanced to clears. Seems to be tolerating them well. Culture grew MRSA along with yeast. Currently on daptomycin, ertapenem and micafungin. -Continue abx, duration guided by clinical response -surgery/ID following -post op care per surgery -Abx per ID, cont erta/dapto/micafungin urinary incontinence: olivares placed. needs to remain in place for 10 days per surgery for bladder decompression lip lesion: biopsied on 11/17/18. -likely basal or squamous cell, but awaiting biopsy results chronically infected knee: ertapenem will cover JENNIFER: repeat labs -cr at baseline Hx of Valvular disease: monitor fluid status closely -Appears Euvolemic -hold home diuretic until clinically warranted. Pedal edema: right LE is chronic. Left with trace, not chronic monitor fluid intake closely HTN Coreg, Losartan, well controlled Anemia, monitor closely, if further drop consider transfusing access: picc proph: lovenox Subjective: no acute pain. tired of being in hospital. no other complaints. Objective: Vital Signs Temp Pulse Resp BP Pulse Ox 36.6 C 72 18 135/51 H 91 L 11/21/18 12:00 11/21/18 12:00 11/21/18 12:00 11/21/18 12:00 11/21/18 12:00 Microbiology 11/15/18 22:15 Blood Culture - Final Blood 11/15/18 18:40 Blood Culture - Final Blood 11/17/18 15:41 Gram Stain - Final Abdomen - Other Laboratory Results 11/21/18 04:00 11/20/18 05:15 11/20/18 11/21/18 11/22/18 05:59 05:59 05:59 Intake Total 740 1120 250 Output Total 965 1230 30 Balance -225 -110 220 - Physical Exam Constitutional: no apparent distress, appears nourished, not in pain Eyes: PERRL, anicteric sclera, EOMI Ears, Nose, Mouth, Throat: moist mucous membranes, hearing normal, ears appear normal, no oral mucosal ulcers Cardiovascular: regular rate and rhythym, no murmur, rub, or gallop Respiratory: no respiratory distress, no rales or rhonchi, clear to auscultation Gastrointestinal: other (wound vac in place, with drain in place, draining scant serosanguinous fluid. ) Genitourinary: no bladder fullness, no bladder tenderness, no renal bruits, olivares in urethra Skin: no rashes or abrasions, no fluctuance, no induration Musculoskeletal: full muscle strength, no muscle tenderness, normal joint ROM Neurologic: AAOx3, sensation intact bilaterally Psychiatric: interacting appropriately, not anxious, not encephalopathic, thought process linear Lymph, Heme, Immunologic: no cervical LAD, no supraclavicular LAD ICD10 Worksheet Patient Problems: Problems Problem Status Onset Bladder fistula Acute Dehydration Acute Failure to thrive in adult Acute Visual hallucinations Acute Abscess of knee, right Acute Infected prosthetic knee joint Acute Knee pain Acute Septic joint of right knee joint Acute
--- NOTE | 2018-11-21 13:39 | PCMIDPN ---
Assessment/Plan: Assessment/Plan: * Chronic septic arthritis of right knee: Continues without acute inflammatory changes. Previously isolated Serratia which had been suppressed by levofloxacin is currently covered by ertapenem therapy for below. * Diverticular abscess with colovesicular fistula: Status post drainage of abscess with colectomy and ileostomy formation. Culture showing growth of MRSA and Mary albicans. Doubt these are initial primary pathogens given most likely to be associated with typical intestinal rosy. Will continue daptomycin , ertapenem and micafungin pending additional data and clinical course. Have asked lab to send out Mary albicans isolate for susceptibility profile. * Confusion: Consistent with delirium. 11/21/18 13:36 11/21/18 13:38 11/21/18 13:40 Subjective: Patient complains of postoperative abdominal pain. Objective: Vital Signs Temp Pulse Resp BP Pulse Ox 36.6 C 72 18 135/51 H 91 L 11/21/18 12:00 11/21/18 12:00 11/21/18 12:00 11/21/18 12:00 11/21/18 12:00 Microbiology 11/15/18 22:15 Blood Culture - Final Blood 11/15/18 18:40 Blood Culture - Final Blood 11/17/18 15:41 Gram Stain - Final Abdomen - Other Laboratory Results 11/21/18 04:00 11/20/18 05:15 11/20/18 11/21/18 11/22/18 05:59 05:59 05:59 Intake Total 740 1120 250 Output Total 965 1230 30 Balance -225 -110 220 Ertapenem # 8 Daptomycin # 3 Micafungin # 3 Diverticular abscess cultures MRSA, Mary albicans - Physical Exam General Appearance: non-toxic, other (Confused) EENT: other (Lip lesion with dried blood), No scleral icterus, No thrush Respiratory: lungs clear, No respiratory distress Cardiac/Chest: regular rate, rhythm, No systolic murmur Extremities: other (Right knee without erythema and minimal warmth present; tender to palpation) Abdomen: tender (Mild bilateral lower quadrants), other (Serosanguineous output in LEMUEL bulb), No distended Skin: No rash ICD10 Worksheet Patient Problems: Problems Problem Status Onset Bladder fistula Acute Dehydration Acute Failure to thrive in adult Acute Visual hallucinations Acute Abscess of knee, right Acute Infected prosthetic knee joint Acute Knee pain Acute Septic joint of right knee joint Acute
--- NOTE | 2018-11-21 15:47 | SOAPPROG ---
SOAP Progress Note Assessment/Plan: Assessment/plan: 73-year-old woman POD#4 s/p open sigmoidectomy with loop ileostomy for colovesicular fistula. Clear liquid diet No true stool is ostomy - passing flatus Continue IV antibiotics - daptomycin, ertapenem, micafungin. Appreciate ID input Us for bladder decompression x 10d - DO NOT REMOVE Incisional wound vac - prevena. Stays in place 1 week then remove Wound/ostomy education - will monitor, ostomy appears to be retracting PT/OT Dispo: continue inpt until return of bowel function S: no complaints this am. Tolerating clear liquids. Worried about her while she is here in the hospital O: General: Well-developed well-nourished woman in no acute distress HENT: Normocephalic, no gross hearing deficits, mucous membranes moist, pupils equal and round. Lip biopsy CDI. Lungs: No increased work of breathing Abdomen: +BS, soft, distended, nontender. LEMUEL serosanguinous. Prevena intact to suction. RUQ ileostomy flat profile, thin brown fluid in bag : Us catheter in place - urine is no longer feculent Psych: Mood and affect normal Neuro: Grossly intact Objective: Vital Signs Temp Pulse Resp BP Pulse Ox 36.6 C 72 18 135/51 H 91 L 11/21/18 12:00 11/21/18 12:00 11/21/18 12:00 11/21/18 12:00 11/21/18 12:00 Microbiology 11/17/18 15:41 Gram Stain - Final Abdomen - Other 11/15/18 22:15 Blood Culture - Final Blood 11/15/18 18:40 Blood Culture - Final Blood Laboratory Results 11/21/18 04:00 11/20/18 05:15 11/20/18 11/21/18 11/22/18 05:59 05:59 05:59 Intake Total 740 1120 250 Output Total 965 1230 30 Balance -225 -110 220 ICD10 Worksheet Patient Problems: Problems Problem Status Onset Bladder fistula Acute Dehydration Acute Failure to thrive in adult Acute Visual hallucinations Acute Abscess of knee, right Acute Infected prosthetic knee joint Acute Knee pain Acute Septic joint of right knee joint Acute
--- NOTE | 2018-11-21 15:54 | ASMTCMCOM ---
CM Note CM Note Notes: PT/OT are both recommending SNF rehab for the patient. Spoke with the patient briefly but she was too tired to participate. Left a message for the patient's regarding making plans. CM is awaiting his return call. D/C plan is for SNF rehab. CM will follow. Date Signed: 11/21/2018 03:53 PM Electronically Signed By:Patt Clinton LCSW
[2018-11-21] MEDS: oxyCODONE IR 5 MG TAB PO PRN (16:53)
[2018-11-21] MEDS: LOSARTAN POTASSIUM 25 MG TAB PO SCH (20:52)
[2018-11-21] MEDS: CHOLECALCIFEROL VIT D3 1,000 UNITS TAB PO SCH (20:52)
[2018-11-21] MEDS: GABAPENTIN 100 MG CAP PO SCH (20:53)
[2018-11-22] MEDS: ENOXAPARIN 30 MG/0.3 ML SYR SC SCH (08:12)
[2018-11-22] MEDS: CARVEDILOL 6.25 MG TAB PO SCH ×2 (08:13→18:26)
[2018-11-22] MEDS: ERTAPENEM 1 GM in NS 100 ML IV SCH (08:13)
[2018-11-22] MEDS: MULTIVITAMINS 1 EACH TAB PO SCH (08:13)
--- NOTE | 2018-11-22 08:35 | SOAPPROG ---
SOAP Progress Note Assessment/Plan: Assessment/plan: 73-year-old woman POD#5 s/p open sigmoidectomy with loop ileostomy for colovesicular fistula. 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 Gao of ENT Advance to regular diet Passing flatus and stool in appliance Continue IV antibiotics - daptomycin, ertapenem, micafungin. Appreciate ID input Us for bladder decompression x 10d - DO NOT REMOVE. F/u with urology as outpatient for cystogram prior to removal (POD#10) Wound/ostomy education - will monitor, ostomy appears flat PT/OT Dispo: continue inpt until return of bowel function, likely 1-[address] Sandoval S: no complaints this am. Tolerating liquids. No abdominal pain or nausea this am O: General: Well-developed well-nourished woman in no acute distress HENT: Normocephalic, no gross hearing deficits, mucous membranes moist, pupils equal and round. Lip biopsy CDI. Lungs: No increased work of breathing Abdomen: +BS, soft, distended, nontender. LEMUEL serosanguinous. Midline incision intact. RUQ ileostomy flat profile, stool in bag : Us catheter in place - urine is no longer feculent Psych: Mood and affect normal Neuro: Grossly intact Objective: Vital Signs Temp Pulse Resp BP Pulse Ox 36.6 C 72 16 151/59 H 98 11/22/18 07:35 11/22/18 07:35 11/22/18 07:35 11/22/18 07:35 11/22/18 07:35 Microbiology 11/17/18 15:41 Gram Stain - Final Abdomen - Other 11/15/18 22:15 Blood Culture - Final Blood 11/15/18 18:40 Blood Culture - Final Blood Laboratory Results 11/21/18 04:00 11/20/18 05:15 11/21/18 11/22/18 11/23/18 05:59 05:59 05:59 Intake Total 1120 1300 Output Total 1230 1095 Balance -110 205 ICD10 Worksheet Patient Problems: Problems Problem Status Onset Bladder fistula Acute Dehydration Acute Failure to thrive in adult Acute Visual hallucinations Acute Abscess of knee, right Acute Infected prosthetic knee joint Acute Knee pain Acute Septic joint of right knee joint Acute
[2018-11-22 08:52] LABS: PLATELET COUNT 195 10^3/uL (150-400)
[2018-11-22] MEDS: DAPTOmycin 450 MG in NS 100 ML IV SCH (09:19)
[2018-11-22] MEDS: MICAFUNGIN NA 100 MG in NS 100 ML IV SCH (10:16)
--- NOTE | 2018-11-22 10:20 | PCMIDPN ---
Assessment/Plan: Assessment/Plan: * Chronic septic arthritis of right knee: No evidence clinically of recurrent septic arthritis. Suppressive therapy for previously isolated Serratia currently with ertapenem which is being utilized for diverticular abscess. * Diverticular abscess with colovesicular fistula: Status post drainage of abscess with partial colectomy and ileostomy formation. Continue daptomycin, ertapenem and micafungin. Hope to transition to oral antibiotic therapy after 7 days of IV antibiotics given patient underwent open drainage. * Confusion: Significantly less prominent today. 11/22/18 10:15 11/22/18 10:16 Subjective: Patient complains of feeling "gassy". Still feels like she has some gas passing via urethra. Objective: Vital Signs Temp Pulse Resp BP Pulse Ox 36.6 C 72 16 151/59 H 98 11/22/18 07:35 11/22/18 07:35 11/22/18 07:35 11/22/18 07:35 11/22/18 07:35 Microbiology 11/17/18 15:41 Gram Stain - Final Abdomen - Other 11/15/18 22:15 Blood Culture - Final Blood 11/15/18 18:40 Blood Culture - Final Blood Laboratory Results 11/22/18 08:40 11/22/18 08:40 11/21/18 11/22/18 11/23/18 05:59 05:59 05:59 Intake Total 1120 1300 Output Total 1230 1095 Balance -110 205 Ertapenem # 9 Daptomycin # 4 Micafungin # 4 Diverticular abscess cultures MRSA, Mary albicans - Physical Exam General Appearance: alert, no apparent distress, non-toxic EENT: other (Lip lesion with dried blood), No scleral icterus Respiratory: lungs clear, No respiratory distress Cardiac/Chest: regular rate, rhythm, systolic murmur (2/6 left and right upper sternal border) Extremities: other (Right knee with minimal warmth; no other inflammatory findings including no erythema or drainage) Abdomen: non-tender, other (Serosanguineous output in LEMUEL drain), No distended Pelvic Exam: olivares (Blood-tinged urine present) ICD10 Worksheet Patient Problems: Problems Problem Status Onset Bladder fistula Acute Dehydration Acute Failure to thrive in adult Acute Visual hallucinations Acute Abscess of knee, right Acute Infected prosthetic knee joint Acute Knee pain Acute Septic joint of right knee joint Acute
--- NOTE | 2018-11-22 14:17 | HOSPPROG ---
Hospitalist Progress Note Assessment/Plan: 73 yo F w chronically infected L TKA here w abd pain, ct images revealing colovesicular fistula, now post op sigmoidectomy with loop ileostomy. Colovesicular fistula, s/p open sigmoidectomy with loop ileostomy on 11/17/18. Currently diet advanced to clears. Seems to be tolerating them well. Culture grew MRSA along with yeast. Currently on daptomycin (day 4), ertapenem (day 9) and micafungin (day 4). -Continue abx, -surgery/ID following -post op care per surgery -Abx per ID, cont erta/dapto/micafungin, hopefully transition to oral after 7 days urinary incontinence: olivares placed. needs to remain in place for 10 days per surgery for bladder decompression lip lesion: biopsied on 11/17/18. -likely basal or squamous cell, but awaiting biopsy results, ent consulted for outpatient follow up chronically infected knee: ertapenem will cover JENNIFER: repeat labs -cr at baseline Hx of Valvular disease: monitor fluid status closely -Appears Euvolemic -hold home diuretic until clinically warranted. Pedal edema: right LE is chronic. Left with trace, not chronic monitor fluid intake closely HTN-Coreg, Losartan, well controlled Anemia-monitor closely, if further drop consider transfusing access-picc proph: lovenox Dispo- needs to be able to take PO adequately. Per surgery likely in 1-2 days. Subjective: no pain, tired, tolerating some po. Objective: Vital Signs Temp Pulse Resp BP Pulse Ox 36.5 C 72 18 124/53 H 96 11/22/18 11:39 11/22/18 11:39 11/22/18 11:39 11/22/18 11:39 11/22/18 11:39 Microbiology 11/17/18 15:41 Gram Stain - Final Abdomen - Other 11/15/18 22:15 Blood Culture - Final Blood 11/15/18 18:40 Blood Culture - Final Blood Laboratory Results 11/22/18 08:40 11/22/18 08:40 11/21/18 11/22/18 11/23/18 05:59 05:59 05:59 Intake Total 1120 1300 Output Total 1230 1095 Balance -110 205 - Physical Exam Constitutional: no apparent distress, appears nourished, not in pain, other ( mildly lethargic) Eyes: PERRL, anicteric sclera, EOMI Ears, Nose, Mouth, Throat: moist mucous membranes, hearing normal, ears appear normal, no oral mucosal ulcers Cardiovascular: regular rate and rhythym, no murmur, rub, or gallop Respiratory: no respiratory distress, no rales or rhonchi, clear to auscultation Gastrointestinal: other (wound vac in place wtih drain. ) Genitourinary: other (olivares in place. patent with urine draining. ) Skin: no rashes or abrasions, no fluctuance, no induration Musculoskeletal: full muscle strength, no muscle tenderness, normal joint ROM Neurologic: AAOx3, sensation intact bilaterally, other (lethargic but oriented. ) Psychiatric: interacting appropriately, not anxious, not encephalopathic, thought process linear Lymph, Heme, Immunologic: no cervical LAD, no supraclavicular LAD ICD10 Worksheet Patient Problems: Problems Problem Status Onset Bladder fistula Acute Dehydration Acute Failure to thrive in adult Acute Visual hallucinations Acute Abscess of knee, right Acute Infected prosthetic knee joint Acute Knee pain Acute Septic joint of right knee joint Acute
--- NOTE | 2018-11-22 17:23 | ASMTCMCOM ---
CM Note CM Note Notes: Patient's called back to say he had to discuss placement with her sons. Christoph, patient's son called later and stated he was concerned that his mother may be out of medicare rehab days because she had just been in [facility]. The family wants SNF rehab to be paid for by Medicare if she goes. Christoph ([phone]) was concerned as his mother is having visual hallucinations, some confusion, and is somnolent. Spoke with Dr. Carpio who agreed to meet with the son and answer his questions. Discharge plan remains SNF rehab depending on whether or not she has Medicare coverage and she agrees to go. Patient has not been able to participate in a conversation for the past 2 days. CM will follow. Date Signed: 11/22/2018 05:22 PM Electronically Signed By:Patt Clinton LCSW
[2018-11-22] MEDS: CHOLECALCIFEROL VIT D3 1,000 UNITS TAB PO SCH (20:15)
[2018-11-22] MEDS: GABAPENTIN 100 MG CAP PO SCH (20:16)
[2018-11-22] MEDS: LOSARTAN POTASSIUM 25 MG TAB PO SCH (20:16)
[2018-11-23] MEDS: oxyCODONE IR 5 MG TAB PO PRN ×3 (04:09→17:35)
[2018-11-23 04:11] LABS: PLATELET COUNT 205 10^3/uL (150-400)
[2018-11-23] MEDS: CARVEDILOL 6.25 MG TAB PO SCH ×2 (08:16→17:34)
[2018-11-23] MEDS: MULTIVITAMINS 1 EACH TAB PO SCH (08:17)
[2018-11-23] MEDS: DAPTOmycin 450 MG in NS 100 ML IV SCH (08:17)
--- NOTE | 2018-11-23 08:20 | SOAPPROG ---
SOAP Progress Note Assessment/Plan: Addendum entered and electronically signed by Leticia Hernandes PA 11/22/18 13:17 : Original Note: SOAP Progress Note Assessment/Plan: Assessment/plan: 73-year-old woman POD#6 s/p open sigmoidectomy with loop ileostomy for colovesicular fistula. Pathology with diverticulitis Change Us prior to discharge Will order cystogram as outpatient prior to removing Us LEMUEL out prior to discharge SCC of lip - Dr. Gao will see as outpatient in 1-2 weeks Regular diet Passing flatus and stool in appliance Continue IV antibiotics - daptomycin, ertapenem, micafungin. Appreciate ID input Wound/ostomy education - PT/OT Dispo: Patient does not want SNF but I think she will not be able to manage IV abx, Us and new ostomy at home. I recommend SNF S: Lots of complaints this am. Concerned about her oatmeal. Wonders why she has not received more education on ostomy. Does not want to go to SNF. Does not want to wait to have lip surgery O: General: Well-developed well-nourished woman in no acute distress, sitting in chair. I like her energy and questions this am HENT: Normocephalic, no gross hearing deficits, mucous membranes moist, pupils equal and round. Lip biopsy CDI. Lungs: No increased work of breathing Abdomen: +BS, soft, minimal distension, nontender. LEMUEL serosanguinous. Midline incision intact. RUQ ileostomy flat profile, stool in bag : Us catheter in place - urine is no longer feculent Psych: Mood and affect normal Neuro: Grossly intact Objective: 11/17/18 10:20 11/19/18 06:46 11/23/18 08:13 Objective: Vital Signs Temp Pulse Resp BP Pulse Ox 36.7 C 74 14 142/64 H 98 11/23/18 07:13 11/23/18 07:13 11/23/18 07:13 11/23/18 07:13 11/23/18 07:13 Microbiology 11/17/18 15:41 Gram Stain - Final Abdomen - Other Laboratory Results 11/23/18 04:00 11/23/18 04:00 11/22/18 11/23/18 11/24/18 05:59 05:59 05:59 Intake Total 1300 1800 Output Total 1095 537 Balance 205 1180 ICD10 Worksheet Patient Problems: Problems Problem Status Onset Bladder fistula Acute Dehydration Acute Failure to thrive in adult Acute Visual hallucinations Acute Abscess of knee, right Acute Infected prosthetic knee joint Acute Knee pain Acute Septic joint of right knee joint Acute
[2018-11-23] MEDS: ENOXAPARIN 30 MG/0.3 ML SYR SC SCH (08:21)
[2018-11-23] MEDS: ERTAPENEM 1 GM in NS 100 ML IV SCH (09:02)
[2018-11-23] MEDS: MICAFUNGIN NA 100 MG in NS 100 ML IV SCH (09:40)
--- NOTE | 2018-11-23 10:08 | PCMIDPN ---
Assessment/Plan: Assessment/Plan: * Chronic septic arthritis of right knee: Knee continues without significant inflammatory findings. Anticipate resumption of oral levofloxacin suppression once antibiotic therapy for diverticular abscess has been completed. * Diverticular abscess with colovesicular fistula: Will complete 7 days of IV antibiotic therapy post drainage (# 5/7). Will change micafungin to fluconazole as Mary albicans in our institution typically azole susceptible. * Confusion: Resolved. * Squamous cell cancer of lip: Patient will have outpatient ENT follow-up. 11/23/18 10:04 Subjective: Patient complains of abdominal cramps. Oral intake remains limited. Objective: Vital Signs Temp Pulse Resp BP Pulse Ox 36.7 C 76 14 142/64 H 98 11/23/18 07:13 11/23/18 08:16 11/23/18 07:13 11/23/18 08:16 11/23/18 07:13 Microbiology 11/17/18 15:41 Gram Stain - Final Abdomen - Other Laboratory Results 11/23/18 04:00 11/23/18 04:00 11/22/18 11/23/18 11/24/18 05:59 05:59 05:59 Intake Total 1300 1800 Output Total 1095 620 100 Balance 205 1180 -100 Ertapenem # 10 Daptomycin # 5 Micafungin # 5 Diverticular abscess cultures MRSA, Mary albicans - Physical Exam General Appearance: alert, no apparent distress EENT: No scleral icterus, No conjunctival petechiae Respiratory: lungs clear, No respiratory distress Cardiac/Chest: regular rate, rhythm Extremities: inflammation (Right knee without erythema and minimal warmth present) Abdomen: non-tender, other (Serosanguineous output in LEMUEL bulb), No distended ICD10 Worksheet Patient Problems: Problems Problem Status Onset Bladder fistula Acute Dehydration Acute Failure to thrive in adult Acute Visual hallucinations Acute Abscess of knee, right Acute Infected prosthetic knee joint Acute Knee pain Acute Septic joint of right knee joint Acute
--- NOTE | 2018-11-23 14:55 | WOCRNPDOC ---
WOCRN Advanced Assessment Note - Ileostomy Assessment, Advanced Abdomen Ileostomy Appliance Intact: Yes Ileostomy Appliance Currently in Use: Two Piece Flat, 2 3/4, Cut to Fit Ileostomy Effluent: Liquid, Mixed Fecal/Serosangenous (greenish/black) Ileostomy Comment/Treatment Details: Chelsea MCKENNA reports appliance was changed this morning. Patient remembers decision science analyst rounding but not details of pouch change. Re-assigned "homework" for patient to read about how to change an appliance and how to care for her appliance. [place] order on hold as patient is likely d/cing to SNF. Showed patient which appliances sr. merchandise planner recommends for her and why. Will round again tomorrow. Patient aware that sr. merchandise planner will not be able to round again until later next week if she doesnt do "homework" again tonight. Likely patient is not teachable at this time as she doesnt remember any of 45 min spent in her room with her yesterday doing a pouch change and the various forms of education that were done on types of appliances, how to empty appliance etc. not in room, however Chelsea MCKENNA was. SNF will continue teaching after patient D/C's.
--- NOTE | 2018-11-23 15:33 | HOSPPROG ---
Hospitalist Progress Note Assessment/Plan: 73 yo F w chronically infected L TKA here w abd pain, ct images revealing colovesicular fistula, now post op sigmoidectomy with loop ileostomy. Colovesicular fistula, s/p open sigmoidectomy with loop ileostomy on 11/17/18. Currently diet advanced to clears. Seems to be tolerating them well. Culture grew MRSA along with yeast. Currently on daptomycin (day 5/7), ertapenem (day 10 ) and micafungin (day 5/7). -Continue abx, -surgery/ID following -post op care per surgery -Abx per ID, cont erta/dapto/micafungin, hopefully transition to oral after 7 days urinary incontinence: olivares placed. needs to remain in place for 10 days per surgery for bladder decompression lip lesion: biopsied on 11/17/18. -likely basal or squamous cell, but awaiting biopsy results, ent consulted for outpatient follow up. Has appt for follow up as outpatient. chronically infected knee: ertapenem will cover, but will likely need to transition to levofloxacin upon dc. JENNIFER: repeat labs -cr at baseline Hx of Valvular disease: monitor fluid status closely -Appears Euvolemic -hold home diuretic until clinically warranted. Pedal edema: right LE is chronic. Left with trace, not chronic monitor fluid intake closely HTN-Coreg, Losartan, well controlled Anemia-monitor closely, if further drop consider transfusing access-picc proph: lovenox Dispo- needs to be able to take PO adequately. Per surgery likely in 1-2 days. Subjective: more awake today. Ab pain still present. Tolerated oatmeal for breakfast. Objective: Vital Signs Temp Pulse Resp BP Pulse Ox 36.3 C 67 16 130/69 H 97 11/23/18 11:46 11/23/18 11:46 11/23/18 11:46 11/23/18 11:46 11/23/18 11:46 Microbiology 11/17/18 15:41 Gram Stain - Final Abdomen - Other Laboratory Results 11/23/18 04:00 11/23/18 04:00 11/22/18 11/23/18 11/24/18 05:59 05:59 05:59 Intake Total 1300 1800 Output Total 1095 620 100 Balance 205 1180 -100 - Physical Exam Constitutional: no apparent distress, appears nourished, not in pain, chronically ill appearing Eyes: PERRL, anicteric sclera, EOMI Ears, Nose, Mouth, Throat: moist mucous membranes, hearing normal, ears appear normal, no oral mucosal ulcers Cardiovascular: regular rate and rhythym, no murmur, rub, or gallop Respiratory: reduced air movement Gastrointestinal: other (wound vac in place, drain with serosanguinous drainage , ) Genitourinary: no bladder fullness, no bladder tenderness, no renal bruits, olivares in urethra Skin: no rashes or abrasions, no fluctuance, no induration Musculoskeletal: full muscle strength, no muscle tenderness, normal joint ROM Neurologic: AAOx3, sensation intact bilaterally Psychiatric: interacting appropriately, not anxious, not encephalopathic, thought process linear Lymph, Heme, Immunologic: no cervical LAD, no supraclavicular LAD ICD10 Worksheet Patient Problems: Problems Problem Status Onset Bladder fistula Acute Dehydration Acute Failure to thrive in adult Acute Visual hallucinations Acute Abscess of knee, right Acute Infected prosthetic knee joint Acute Knee pain Acute Septic joint of right knee joint Acute
--- NOTE | 2018-11-23 18:25 | ASMTCMCOM ---
CM Note CM Note Notes: Spoke w/ Shayan from [facility]. Pt has Medicare days but will owe $160/day for days 21-48. She would be going to on day 19. After day 48, it goes back to $0 copay. CM to discuss with son. DC Plan: TBD Date Signed: 11/23/2018 06:25 PM Electronically Signed By:Tiffanie Campos RN
[2018-11-23] MEDS: CHOLECALCIFEROL VIT D3 1,000 UNITS TAB PO SCH (20:29)
[2018-11-23] MEDS: LOSARTAN POTASSIUM 25 MG TAB PO SCH (20:30)
[2018-11-24 05:51] LABS: PLATELET COUNT 200 10^3/uL (150-400)
[2018-11-24] MEDS: DAPTOmycin 450 MG in NS 100 ML IV SCH (08:06)
[2018-11-24] MEDS: CARVEDILOL 6.25 MG TAB PO SCH ×2 (08:06→18:26)
[2018-11-24] MEDS: MULTIVITAMINS 1 EACH TAB PO SCH (08:06)
[2018-11-24] MEDS: ENOXAPARIN 30 MG/0.3 ML SYR SC SCH (08:11)
[2018-11-24] MEDS: ERTAPENEM 1 GM in NS 100 ML IV SCH (08:46)
[2018-11-24] MEDS: FLUCONAZOLE/NaCl 200 ML IV SCH (09:26)
--- NOTE | 2018-11-24 11:18 | ASMTCMCOM ---
CM Note CM Note Notes: Pts case discussed w/ Dr. Poe and BALA Tran. CM met w/ pt and her Ethan for dispo planning. Ethan reports that she has already spoken to [facility] and pt has about 9 days left of full Medicare days then pt will owe $160 a day for the 20%. Ethan reports that he was was told by Dr. Sprague that pt will not d/c until the weekend. Ethan reports that they have no come up with a decision on what they want to do yet. They would like to make the decision once pt is closer to discharging. CM to follow. Plan: [facility] vs [facility] Date Signed: 11/24/2018 11:18 AM Electronically Signed By:ELADIA Menezes
--- NOTE | 2018-11-24 14:15 | SOAPPROG ---
SOAP Progress Note Assessment/Plan: Addendum entered and electronically signed by Leticia Hernandes PA 11/22/18 13:17 : Original Note: SOAP Progress Note Assessment/Plan: Assessment/plan: 73-year-old woman POD#7 s/p open sigmoidectomy with loop ileostomy for colovesicular fistula. Pathology with diverticulitis Will order cystogram as outpatient prior to removing Us LEMUEL out prior to discharge SCC of lip - Dr. Gao will see as outpatient in 1-2 weeks Regular diet Passing flatus and stool in appliance Continue IV antibiotics - daptomycin, ertapenem, micafungin. Appreciate ID input Wound/ostomy education - PT/OT Dispo: SNF S:Better today - complains that is taking 2.5 hours to get any food O: General: Well-developed well-nourished woman in no acute distress, lying in bed HENT: Normocephalic, no gross hearing deficits, mucous membranes moist, pupils equal and round. Lip biopsy CDI. Looks better today Lungs: No increased work of breathing Abdomen: +BS, soft, minimal distension, nontender. LEMUEL serosanguinous. Midline incision intact. RUQ ileostomy flat profile, stool in bag : Us catheter in place - urine is no longer feculent Psych: Mood and affect normal Neuro: Grossly intact Objective: 11/17/18 10:20 11/19/18 06:46 11/23/18 08:13 11/24/18 14:14 Objective: Vital Signs Temp Pulse Resp BP Pulse Ox 36.8 C 68 16 145/56 H 94 11/24/18 11:44 11/24/18 11:44 11/24/18 11:44 11/24/18 11:44 11/24/18 11:44 Microbiology 11/17/18 15:41 Gram Stain - Final Abdomen - Other Laboratory Results 11/24/18 05:30 11/24/18 05:30 11/23/18 11/24/18 11/25/18 05:59 05:59 05:59 Intake Total 1800 Output Total 620 1020 200 Balance 1180 -1020 -200 ICD10 Worksheet Patient Problems: Problems Problem Status Onset Bladder fistula Acute Dehydration Acute Failure to thrive in adult Acute Visual hallucinations Acute Abscess of knee, right Acute Infected prosthetic knee joint Acute Knee pain Acute Septic joint of right knee joint Acute
--- NOTE | 2018-11-24 14:49 | ASMTCMCOM ---
JOSÉ Note JOSÉ Note Notes: Shayan from [facility] requesting that pt is evaluated for Medicaid. Pts would like [facility] to start obtaining auth once medically stable. Koki will meet w/ pt and screen her for Medicaid. CM spoke to Dr. Sandoval and she has cleared pt to d/c from their perspective. Pts LEMUEL drain will be pulled once medically stable. Pts catheter and ostomy will remain. JOSÉ instructed Shayan to start getting auth from [place]. Anticipate d/c for tomorrow. Date Signed: 11/24/2018 02:49 PM Electronically Signed By:ELADIA Menezes
--- NOTE | 2018-11-24 14:49 | HOSPPROG ---
Hospitalist Progress Note Assessment/Plan: 73 yo F w chronically infected L TKA here w abd pain, ct images revealed colovesicular fistula, taken to OR and now post op sigmoidectomy with loop ileostomy. Colovesicular fistula, s/p open sigmoidectomy with loop ileostomy on 11/17/18. Currently diet advanced to regular. Seems to be tolerating them well. Culture grew MRSA along with yeast. Currently on daptomycin (day 67), ertapenem (day 11 ) and diflucan (day 6/7). -Continue abx, -surgery/ID following, likely ready for DC on Wednesday/Saturday 11/25-11/26 -post op care per surgery -Abx per ID, cont erta/dapto/diflucan, will complete these on Wednesday11/25/18. urinary incontinence: olivares placed. needs to remain in place for 10 days per surgery for bladder decompression. will need outpatient cystoscopy prior to removing oilvares lip lesion: biopsied on 11/17/18. -likely basal or squamous cell, but awaiting biopsy results, ent consulted for outpatient follow up. Has appt for follow up as outpatient. chronically infected knee: ertapenem will cover, but will transition to levofloxacin upon dc. JENNIFER: repeat labs -cr at baseline Hx of Valvular disease: monitor fluid status closely -Appears Euvolemic -hold home diuretic until clinically warranted. Pedal edema: right LE is chronic. Left with trace, not chronic monitor fluid intake closely HTN-Coreg, Losartan, well controlled Anemia-monitor closely, access-picc proph: lovenox Dispo- needs to be able to take PO adequately, moving bowels and drain out. Per surgery likely in 1-2 days. Subjective: still some abdominal discomfort. Tolerating PO. No NV, or fevers. Objective: Vital Signs Temp Pulse Resp BP Pulse Ox 36.8 C 68 16 145/56 H 94 11/24/18 11:44 11/24/18 11:44 11/24/18 11:44 11/24/18 11:44 11/24/18 11:44 Microbiology 11/17/18 15:41 Gram Stain - Final Abdomen - Other Laboratory Results 11/24/18 05:30 11/24/18 05:30 11/23/18 11/24/18 11/25/18 05:59 05:59 05:59 Intake Total 1800 Output Total 620 1020 200 Balance 1180 -1020 -200 - Physical Exam Constitutional: no apparent distress, appears nourished, not in pain Eyes: PERRL, anicteric sclera, EOMI Ears, Nose, Mouth, Throat: moist mucous membranes, hearing normal, ears appear normal, no oral mucosal ulcers Cardiovascular: regular rate and rhythym, no murmur, rub, or gallop Respiratory: no respiratory distress, no rales or rhonchi, clear to auscultation Gastrointestinal: other (wound vac in place. Drain with serosanguinous drainage. ostomy with liquid green output. ) Genitourinary: olivares in urethra Skin: no rashes or abrasions, no fluctuance, no induration Musculoskeletal: generalized weakness Neurologic: AAOx3, sensation intact bilaterally Psychiatric: interacting appropriately, not anxious, not encephalopathic, thought process linear Lymph, Heme, Immunologic: no cervical LAD, no supraclavicular LAD ICD10 Worksheet Patient Problems: Problems Problem Status Onset Bladder fistula Acute Dehydration Acute Failure to thrive in adult Acute Visual hallucinations Acute Abscess of knee, right Acute Infected prosthetic knee joint Acute Knee pain Acute Septic joint of right knee joint Acute
[2018-11-24] MEDS: CHOLECALCIFEROL VIT D3 1,000 UNITS TAB PO SCH (20:18)
[2018-11-24] MEDS: LOSARTAN POTASSIUM 25 MG TAB PO SCH (20:18)
[2018-11-25] MEDS: oxyCODONE IR 5 MG TAB PO PRN ×2 (02:12→08:07)
[2018-11-25 05:11] LABS: PLATELET COUNT 216 10^3/uL (150-400)
[2018-11-25] MEDS: CARVEDILOL 6.25 MG TAB PO SCH ×2 (08:07→18:31)
--- NOTE | 2018-11-25 08:17 | SOAPPROG ---
SOAP Progress Note Assessment/Plan: Assessment/plan: 73-year-old woman POD#8 s/p open sigmoidectomy with loop ileostomy for colovesicular fistula. Pathology with diverticulitis Will order cystogram as outpatient prior to removing Us LEMUEL out prior to discharge SCC of lip - Dr. Gao will see as outpatient in 1-2 weeks Regular diet Passing flatus and stool in appliance. Start imodium scheduled Continue IV antibiotics - daptomycin, ertapenem, micafungin. Appreciate ID input Wound/ostomy education - PT/OT Dispo: SNF S: Feeling well. No complaints this am except insurance issues O: General: Well-developed well-nourished woman in no acute distress, lying in bed HENT: Normocephalic, no gross hearing deficits, mucous membranes moist, pupils equal and round. Lip biopsy CDI Lungs: No increased work of breathing Abdomen: +BS, soft, minimal distension, nontender. LEMUEL serous. Midline incision intact. RUQ ileostomy flat profile, thin stool in bag : Us catheter in place - urine is no longer feculent Psych: Mood and affect normal Neuro: Grossly intact Objective: Vital Signs Temp Pulse Resp BP Pulse Ox 37.2 C 75 20 136/60 H 96 11/25/18 07:39 11/25/18 07:39 11/25/18 07:39 11/25/18 07:39 11/25/18 07:39 Microbiology 11/17/18 15:41 Gram Stain - Final Abdomen - Other Laboratory Results 11/25/18 05:00 11/25/18 05:00 11/24/18 11/25/18 11/26/18 05:59 05:59 05:59 Intake Total 200 Output Total 1027 0428 Balance -1020 -1563 ICD10 Worksheet Patient Problems: Problems Problem Status Onset Bladder fistula Acute Dehydration Acute Failure to thrive in adult Acute Visual hallucinations Acute Abscess of knee, right Acute Infected prosthetic knee joint Acute Knee pain Acute Septic joint of right knee joint Acute
[2018-11-25] MEDS ORDERED: ERTAPENEM 1 GM in NS 100 ML IV SCH (09:00)
[2018-11-25] MEDS ORDERED: DAPTOmycin 450 MG in NS 100 ML IV SCH (09:00)
[2018-11-25] MEDS: MULTIVITAMINS 1 EACH TAB PO SCH (09:05)
[2018-11-25] MEDS: DAPTOmycin 450 MG in NS 100 ML IV SCH (09:06)
[2018-11-25] MEDS: ENOXAPARIN 30 MG/0.3 ML SYR SC SCH (09:14)
[2018-11-25] MEDS: FLUCONAZOLE/NaCl 200 ML IV SCH (10:03)
[2018-11-25] MEDS: LOPERAMIDE HCL 2 MG CAP PO SCH ×3 (11:26→20:51)
--- NOTE | 2018-11-25 13:05 | ASMTCMCOM ---
CM Note CM Note Notes: CM met with pt and his son to discuss plan for being discharged to [facility]F once medically stable. Pt's son is adament pt is not ready to leave here but understands that if the doctors determine she is medically ready to be discharged to the next level of care and stays here they they will likely get the bill from [facility]. Pt reports that she understands and pt's son continued to express discontent and saying that he has not seen "anything in writing". CM agreed to provide pt information about how Medicare pays for SNF coverage and left handout taped to the board in pt's room, per family's request. CM spoke with [facility] and they report that pt only has 2 more days covered by Medicare and that pt will then have a copay of $160/day. CM submit updates to [facility] as they are working on obtaining insurance auth. [facility] in to see pt. [facility] also reports that they are working on applying for [place] Medicaid for pt to help cover for cost of SNF. Pt reports that she wants to go to [facility] and does not want to go to a different facility. CM to continue to collaborate with pt and pt's family for discharge planning. CM to follow. Plan: [facility] Date Signed: 11/25/2018 01:05 PM Electronically Signed By:ELADIA Alvarado
[2018-11-25] MEDS ORDERED: NS 500 ML IV ONE (13:18)
--- NOTE | 2018-11-25 16:48 | HOSPPROG ---
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 -discharge with olivares - outpatient cystoscopy prior to removal * Diverticular abscess - polymicrobial including MRSA -IV ertapenum/daptomycin/diflucan - completed today * SCC lip -outpatient ENT follow-up * Chronic TKA infection -resume chronic levaquin * Metabolic encephalopathy -still very confused, worse this afternoon * Obesity BMI 35 - CHUCKIE -continue CPAP qhs Subjective: still very confused Objective: Vital Signs Temp Pulse Resp BP Pulse Ox 36.5 C 75 16 100/45 L 93 11/25/18 15:52 11/25/18 15:52 11/25/18 15:52 11/25/18 15:52 11/25/18 15:52 Microbiology 11/17/18 15:41 Gram Stain - Final Abdomen - Other Laboratory Results 11/25/18 05:00 11/25/18 05:00 11/24/18 11/25/18 11/26/18 05:59 05:59 05:59 Intake Total 200 Output Total 1020 1425 800 Balance -1020 -1225 -800 case d/w general surgery provider - okay to discharge from surgical standpoint CT abd - diverticular abscess with fistula - Physical Exam Constitutional: no apparent distress, appears nourished, not in pain Cardiovascular: regular rate and rhythym, no murmur, rub, or gallop Respiratory: no respiratory distress, no rales or rhonchi, clear to auscultation Gastrointestinal: normoactive bowel sounds, soft, non-tender abdomen, no palpable masses Skin: no rashes or abrasions, no fluctuance, no induration Neurologic: No AAOx3 Psychiatric: encephalopathic, agitated, poor insight, poor judgement, poor memory, No interacting appropriately ICD10 Worksheet Patient Problems: Problems Problem Status Onset Infected prosthetic knee joint Acute Dehydration Acute Bladder fistula Acute Visual hallucinations Acute Failure to thrive in adult Acute Abscess of knee, right Acute Knee pain Acute Septic joint of right knee joint Acute
[2018-11-25] MEDS: NS 1,000 ML IV SCH (17:33)
[2018-11-25] MEDS: CHOLECALCIFEROL VIT D3 1,000 UNITS TAB PO SCH (20:50)
[2018-11-25] MEDS: LOSARTAN POTASSIUM 25 MG TAB PO SCH (20:51)
[2018-11-26] MEDS: LOPERAMIDE HCL 2 MG CAP PO SCH ×4 (05:12→20:10)
[2018-11-26] MEDS: NS 1,000 ML IV SCH ×2 (05:13→13:43)
[2018-11-26 05:44] LABS: PLATELET COUNT 204 10^3/uL (150-400)
[2018-11-26] MEDS: oxyCODONE IR 5 MG TAB PO PRN (08:49)
[2018-11-26] MEDS: MULTIVITAMINS 1 EACH TAB PO SCH (08:50)
[2018-11-26] MEDS: CARVEDILOL 6.25 MG TAB PO SCH ×2 (08:50→18:35)
[2018-11-26] MEDS: ENOXAPARIN 30 MG/0.3 ML SYR SC SCH (08:51)
[2018-11-26] MEDS: FUROSEMIDE 40 MG TAB PO SCH (08:51)
[2018-11-26] MEDS: SPIRONOLACTONE 50 MG TAB PO SCH (10:01)
--- NOTE | 2018-11-26 11:17 | PCMIDPN ---
Assessment/Plan: Brief infectious disease note: Patient needs to be restarted on suppressive levofloxacin for her history of recurrent prosthetic knee infection. Will restart this today. Please call Infectious Diseases with any questions moving forward. Completed 7 days of antibiotic therapy for colovesical fistula/diverticular abscess status post washout. Objective: Vital Signs Temp Pulse Resp BP Pulse Ox 36.8 C 75 16 122/70 H 93 11/26/18 07:18 11/26/18 07:18 11/26/18 07:18 11/26/18 07:18 11/26/18 07:18 Microbiology 11/17/18 15:41 Gram Stain - Final Abdomen - Other Laboratory Results 11/26/18 05:10 11/26/18 05:10 11/25/18 11/26/18 11/27/18 05:59 05:59 05:59 Intake Total 200 1100 Output Total 2250 7386 Balance -1225 -1260 ICD10 Worksheet Patient Problems: Problems Problem Status Onset Bladder fistula Acute Dehydration Acute Failure to thrive in adult Acute Visual hallucinations Acute Abscess of knee, right Acute Infected prosthetic knee joint Acute Knee pain Acute Septic joint of right knee joint Acute
--- NOTE | 2018-11-26 13:11 | SOAPPROG ---
ARABELLA Progress Note Assessment/Plan: Assessment: 73yo F s/p ex-lap, colectomy for recurrent colovesicular fistula - VSS, HDs - pain controlled - her abdomen looks good, ok to DC LEMUEL - Us will stay, plan will be to get cysto before removal - ok for Tx to SNF when appropriate, not much to add from surgical standpoint other than encourage movement Plan: 11/26/18 13:10 Subjective: very reluctant to get out of bed Objective: Vital Signs Temp Pulse Resp BP Pulse Ox 36.8 C 75 16 122/70 H 93 11/26/18 07:18 11/26/18 07:18 11/26/18 07:18 11/26/18 07:18 11/26/18 07:18 Microbiology 11/17/18 15:41 Gram Stain - Final Abdomen - Other Laboratory Results 11/26/18 05:10 11/26/18 05:10 11/25/18 11/26/18 11/27/18 05:59 05:59 05:59 Intake Total 200 1100 Output Total 1425 2360 40 Balance -1225 -1260 -40 ICD10 Worksheet Patient Problems: Problems Problem Status Onset Bladder fistula Acute Dehydration Acute Failure to thrive in adult Acute Visual hallucinations Acute Abscess of knee, right Acute Infected prosthetic knee joint Acute Knee pain Acute Septic joint of right knee joint Acute
[2018-11-26] MEDS: ENOXAPARIN 40 MG/0.4 ML SYR SC SCH (17:44)
--- NOTE | 2018-11-26 17:54 | HOSPPROG ---
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 -start colchicine Subjective: c/o right hand pain Objective: Vital Signs Temp Pulse Resp BP Pulse Ox 37.2 C 80 16 124/80 H 96 11/26/18 16:00 11/26/18 16:00 11/26/18 16:00 11/26/18 16:00 11/26/18 16:00 Microbiology 11/17/18 15:41 Gram Stain - Final Abdomen - Other Anaerobic Culture - Final MRSA [facility] Laboratory Results 11/26/18 05:10 11/26/18 05:10 11/25/18 11/26/18 11/27/18 05:59 05:59 05:59 Intake Total 200 1100 Output Total 1425 2360 900 Balance -1225 -1260 -900 XRay - soft tissue chondrocalcinosis - Time Spent With Patient Time Spent with Patient: greater than 35 minutes (family very resistent to even discussing discharge at time time, demanded med review) Time Spent with Patient: Greater than 35 minutes spent on this patients care, greater than 50% of time spent counseling, educating, and coordinating care regarding the above mentioned plan. - Physical Exam Constitutional: no apparent distress, appears nourished, not in pain Cardiovascular: regular rate and rhythym, no murmur, rub, or gallop Respiratory: no respiratory distress, no rales or rhonchi, clear to auscultation Gastrointestinal: normoactive bowel sounds, soft, non-tender abdomen, no palpable masses Skin: no rashes or abrasions, no fluctuance, no induration Neurologic: AAOx3, sensation intact bilaterally Psychiatric: interacting appropriately, not anxious, not encephalopathic, thought process linear ICD10 Worksheet Patient Problems: Problems Problem Status Onset Infected prosthetic knee joint Acute Dehydration Acute Bladder fistula Acute Visual hallucinations Acute Failure to thrive in adult Acute Abscess of knee, right Acute Knee pain Acute Septic joint of right knee joint Acute
[2018-11-26] MEDS: traMADol 50 MG TAB PO PRN (18:02)
[2018-11-26] MEDS: CHOLECALCIFEROL VIT D3 1,000 UNITS TAB PO SCH (20:09)
[2018-11-26] MEDS: LOSARTAN POTASSIUM 25 MG TAB PO SCH (20:10)
[2018-11-26] MEDS: COLCHICINE 0.6 MG CAP/TAB PO SCH (20:10)
[2018-11-27] MEDS: LOPERAMIDE HCL 2 MG CAP PO SCH ×4 (05:18→20:32)
[2018-11-27 05:59] LABS: CREATINE KINASE < 20 IU/L (0-156)
[2018-11-27] MEDS: SPIRONOLACTONE 50 MG TAB PO SCH (10:04)
[2018-11-27] MEDS: CARVEDILOL 6.25 MG TAB PO SCH ×2 (10:04→18:12)
[2018-11-27] MEDS: ENOXAPARIN 40 MG/0.4 ML SYR SC SCH (10:05)
[2018-11-27] MEDS: FUROSEMIDE 40 MG TAB PO SCH (10:05)
[2018-11-27] MEDS: COLCHICINE 0.6 MG CAP/TAB PO SCH ×2 (10:05→20:32)
[2018-11-27] MEDS: MULTIVITAMINS 1 EACH TAB PO SCH (10:39)
[2018-11-27] MEDS ORDERED: OLANZapine 2.5 MG TAB PO ONE (15:21)
[2018-11-27] MEDS ORDERED: OLANZapine 2.5 MG TAB PO PRN (15:33)
--- NOTE | 2018-11-27 15:41 | HOSPPROG ---
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 -start colchicine To [facility] when hallucinations and delirium improved Subjective: Hallucinating, seeing her mother Objective: Vital Signs Temp Pulse Resp BP Pulse Ox 36.6 C 73 16 123/69 H 100 11/27/18 07:58 11/27/18 07:58 11/27/18 07:58 11/27/18 07:58 11/27/18 07:58 Microbiology 11/17/18 15:41 Gram Stain - Final Abdomen - Other Anaerobic Culture - Final MRSA Mary [facility] Laboratory Results 11/26/18 05:10 11/27/18 05:20 11/26/18 11/27/18 11/28/18 05:59 05:59 05:59 Intake Total 1100 100 Output Total 2360 1999 150 Balance -1260 -1900 -150 RUE US - no DVT - Time Spent With Patient Time Spent with Patient: greater than 35 minutes (prolonged discussion with son regarding metabolic encephalopathy) Time Spent with Patient: Greater than 35 minutes spent on this patients care, greater than 50% of time spent counseling, educating, and coordinating care regarding the above mentioned plan. - Physical Exam Constitutional: no apparent distress, appears nourished, not in pain Cardiovascular: regular rate and rhythym, no murmur, rub, or gallop Respiratory: no respiratory distress, no rales or rhonchi, clear to auscultation Gastrointestinal: normoactive bowel sounds, soft, non-tender abdomen, no palpable masses Skin: no rashes or abrasions, no fluctuance, no induration Neurologic: AAOx3 Psychiatric: encephalopathic, agitated, poor insight, poor judgement, No interacting appropriately, No thought process linear ICD10 Worksheet Patient Problems: Problems Problem Status Onset Infected prosthetic knee joint Acute Dehydration Acute Bladder fistula Acute Visual hallucinations Acute Failure to thrive in adult Acute Abscess of knee, right Acute Knee pain Acute Septic joint of right knee joint Acute
--- NOTE | 2018-11-27 16:01 | ASMTCMCOM ---
CM Note CM Note Notes: CM informed by Keysha MCKENNA the patient wanted to discuss co-pay at [facility]. CM presented to patient, the patient was unclear and unable to answer questions. Patient repeats she wants to go home. CM consulted with Dr. Guerra, the she has spoken with one of the patients sons as she appears to continue to present with confusion. CM to send update to [facility] that it does not appear the patient will be discharging tomorrow as planned and we will keep updated. CM to follow. D/C Plan: [facility] SNF Date Signed: 11/27/2018 04:00 PM Electronically Signed By:Mame Novak
[2018-11-27] MEDS: traMADol 50 MG TAB PO PRN (16:08)
[2018-11-27] MEDS: LOSARTAN POTASSIUM 25 MG TAB PO SCH (20:32)
[2018-11-27] MEDS: CHOLECALCIFEROL VIT D3 1,000 UNITS TAB PO SCH (20:32)
[2018-11-28] MEDS: traMADol 50 MG TAB PO PRN ×2 (05:29→20:41)
[2018-11-28] MEDS: LOPERAMIDE HCL 2 MG CAP PO SCH ×4 (05:29→20:40)
[2018-11-28] MEDS: MULTIVITAMINS 1 EACH TAB PO SCH (08:10)
[2018-11-28] MEDS: SPIRONOLACTONE 50 MG TAB PO SCH (08:10)
[2018-11-28] MEDS: COLCHICINE 0.6 MG CAP/TAB PO SCH ×2 (08:10→20:40)
[2018-11-28] MEDS: CARVEDILOL 6.25 MG TAB PO SCH ×2 (08:12→17:31)
[2018-11-28] MEDS: ENOXAPARIN 40 MG/0.4 ML SYR SC SCH (09:02)
[2018-11-28] MEDS: FUROSEMIDE 40 MG TAB PO SCH (09:02)
--- NOTE | 2018-11-28 13:34 | WOCRNPDOC ---
ANNAMARIA Advanced Assessment Note - Skin Integrity Problem, Advanced Assess Abdomen Surgical Wound/Incision Dressing Type: Open to Air Closure Description: [place], Approximated Skin Integrity Problem Comment: Superior staple was coming out. It was removed with a staple remover. Reported to Leticia BILL. - Ileostomy Assessment, Advanced Abdomen Ileostomy Appliance Intact: No Ileostomy Appliance Currently in Use: One Piece Convex, 2 1/4, Cut to Fit Stoma Color: Red Stoma Turgor: Moist Stoma Shape: Irregular Stoma Height: Protruding Slightly Mucocutaneus Junction: Intact Ileostomy Details: Loop Peristomal Skin: Intact Ileostomy Comment/Treatment Details: Teaching done with patient and on how to change appliance. Patient's son declined to participate. Patient's had forgotton our teaching last week so another demonstration of pouch changing, creating a template and cleaning bianca stomal skin was done. Written teaching on pouch changing also reviewd. Patient gave verbal consent to enroll in secure start program by Ezekiel. Initial ostomy supply order will be submitted to case management today. Discussed needing a pea sized amout of paste at small 4 oclock crease and the need for patient to begin wearing a belt tomorrow to help increase the profile of the stoma and reduce leaks. Patient and verbalized understanding and the has agreed to perform all ostomy care for the patient while she is in the hospital if he is in the room. That way he will get the hands on practice he will need to be successful at home. agile tester will round again tomorrow.
[2018-11-28] MEDS ORDERED: IOTHALAMATE MEG (CYSTO-CONRAY II) 250 ML VIAL BLADIN ONE (15:35)
--- NOTE | 2018-11-28 16:36 | ASMTCMCOM ---
CM Note CM Note Notes: Spoke with both PT/OT and they say patient did engage in therapy today as did her . They worked on transfers from bed to the chair and back. Patient still needs assist. The patient and her will need wound ostomy training. Wound care informed me they did participate in a training session today and Milagro will be doing another session tomorrow. Patient and her do not want to apply for Medicaid because they are not prepared financially to surrender her social security check to the nursing facility. The discharge plan is changing from [facility] to Home health care and possibly some assist through an agency for unskilled support to give patient's some help. Patient does not have the finances to cover the $160.00/day co pay required since she is out of rehab days. (2 left) [facility] has been their home health care in the past and [facility] is willing to take her back. A referral has been sent. Patient will need PT/OT/RN/ DECATIZER. The DECATIZER can help the patient with bathing. CM to see if patient is willing to pay for possibly 4 hours per week of unskilled care to help both she and her . CM will follow. Current D/C plan: [facility] and [facility] Date Signed: 11/28/2018 04:35 PM Electronically Signed By:Patt Clinton LCSW
--- NOTE | 2018-11-28 16:46 | HOSPPROG ---
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 Not safe for discharge home. Needs ostomy teaching. Subjective: Hand is better, confusion is better. Refusing SNF, "I want to go home" Won't consider any alternatives, stating God will help her when she gets there Objective: Vital Signs Temp Pulse Resp BP Pulse Ox 37.0 C 84 20 118/46 L 93 11/28/18 15:50 11/28/18 15:50 11/28/18 15:50 11/28/18 15:50 11/28/18 15:50 Laboratory Results 11/26/18 05:10 11/27/18 05:20 11/27/18 11/28/18 11/29/18 05:59 05:59 05:59 Intake Total 100 650 Output Total 2000 1500 Balance -1900 -850 - Time Spent With Patient Time Spent with Patient: greater than 35 minutes Time Spent with Patient: Greater than 35 minutes spent on this patients care, greater than 50% of time spent counseling, educating, and coordinating care regarding the above mentioned plan. - Physical Exam Constitutional: no apparent distress, appears nourished, not in pain Cardiovascular: regular rate and rhythym, no murmur, rub, or gallop Respiratory: no respiratory distress, no rales or rhonchi, clear to auscultation Gastrointestinal: normoactive bowel sounds, soft, non-tender abdomen, no palpable masses Skin: no rashes or abrasions, no fluctuance, no induration Neurologic: AAOx3, sensation intact bilaterally Psychiatric: interacting appropriately, anxious, agitated, poor judgement ICD10 Worksheet Patient Problems: Problems Problem Status Onset Infected prosthetic knee joint Acute Dehydration Acute Bladder fistula Acute Visual hallucinations Acute Failure to thrive in adult Acute Abscess of knee, right Acute Knee pain Acute Septic joint of right knee joint Acute
[2018-11-28] MEDS: CHOLECALCIFEROL VIT D3 1,000 UNITS TAB PO SCH (20:40)
[2018-11-28] MEDS: LOSARTAN POTASSIUM 25 MG TAB PO SCH (20:40)
[2018-11-29] MEDS: LOPERAMIDE HCL 2 MG CAP PO SCH ×4 (06:11→20:06)
[2018-11-29] MEDS: SPIRONOLACTONE 50 MG TAB PO SCH (08:23)
[2018-11-29] MEDS: COLCHICINE 0.6 MG CAP/TAB PO SCH ×2 (08:23→20:06)
[2018-11-29] MEDS: MULTIVITAMINS 1 EACH TAB PO SCH (08:23)
[2018-11-29] MEDS: CARVEDILOL 6.25 MG TAB PO SCH ×2 (08:23→18:46)
--- NOTE | 2018-11-29 09:28 | SOAPPROG ---
SOAP Progress Note Assessment/Plan: Addendum entered and electronically signed by Leticia Hernandes PA 11/22/18 13:17 : Original Note: SOAP Progress Note Assessment/Plan: Assessment/plan: 73-year-old woman POD#12 s/p open sigmoidectomy with loop ileostomy for colovesicular fistula. Pathology with diverticulitis Cystogram yesterday negative for bladder leak Us out today Staple removal today Dr. Gao will see as outpatient for SCC of lip in 1-2 weeks Regular diet Passing flatus and stool in appliance. Continue scheduled Imodium Appreciate ID input regarding antibiotic therapy. PT/OT Dispo: SNF. Concern about patient's level of independence and ability to care for ostomy appliance. S: Patient feeling well, in better spirits. Tolerating regular diet. Looking forward to discharge. O: General: Well-developed, well-nourished woman in no acute distress. Sitting upright in bed HENT: Normocephalic, no gross hearing deficits, mucous membranes moist, pupils equal and round. Lip biopsy site healing well, CDI. Lungs: No increased work of breathing Abdomen: Soft, non-distended. LEMUEL with serous drainage. Midline incision CDI. RUQ ileostomy flat profile with minimal soft stool in bag. : Us in place, will remove later today. Urine is no longer feculent Neuro: Grossly intact Objective: 11/17/18 10:20 11/19/18 06:46 11/23/18 08:13 11/24/18 14:14 11/29/18 09:25 Objective: Vital Signs Temp Pulse Resp BP Pulse Ox 37.1 C 72 16 113/70 98 11/29/18 07:17 11/29/18 07:17 11/29/18 07:17 11/29/18 07:17 11/29/18 07:17 Laboratory Results 11/26/18 05:10 11/27/18 05:20 11/28/18 11/29/18 11/30/18 05:59 05:59 05:59 Intake Total 650 Output Total 1500 2300 50 Balance -850 -2300 -50 ICD10 Worksheet Patient Problems: Problems Problem Status Onset Bladder fistula Acute Dehydration Acute Failure to thrive in adult Acute Visual hallucinations Acute Abscess of knee, right Acute Infected prosthetic knee joint Acute Knee pain Acute Septic joint of right knee joint Acute
[2018-11-29] MEDS: ENOXAPARIN 40 MG/0.4 ML SYR SC SCH (09:59)
[2018-11-29] MEDS: FUROSEMIDE 40 MG TAB PO SCH (10:03)
--- NOTE | 2018-11-29 12:11 | WOCRNPDOC ---
WOCRN Advanced Assessment Note - Ileostomy Assessment, Advanced Abdomen Ileostomy Appliance Currently in Use: One Piece Convex (soft), 2 1/4, Cut to Fit Ileostomy Accessory: Belt (not worn) Stoma Color: [place] Stoma Turgor: Moist, Shiny Stoma Shape: Irregular Stoma Height: Protruding Slightly Mucocutaneus Junction: Intact Ileostomy Effluent: Fecal Peristomal Skin: Intact Ileostomy Comment/Treatment Details: Met with patient's Ethan so that he could demonstrate to me a complete pouch change. He was able to gather all appropriate supplies to complete the change, removed the bag taking care to use adhesive remover in response to his 's complaint of pain. He identified to me the template amongst all of the supplies and was able to copy it onto the new appliance and cut it out. (I generated a new template for him and placed it in the bucket of supplies.) He was able to check the quality of his work by placing the bag over the ostomy site and reviewing where revisions could/should be made for a better fit. He then made the appropriate revisions. Prior to placing the bag, he demonstated how to close it properly. He then placed the bag over the ostomy site, applied appropriate pressure to ensure good adhesion and removed the white backing to secure to the skin. We discussed [facility] and I recommended making an appointment in advance of any need, and cancelling the appointment if it is not needed. Ethan was in agreement. I reviewed several scenarios - skin breakdown, creases in the skin surrounding the ostomy site, a leak and Ethan was able to talk me through each and address what supplies would be needed. Confirmed with both patient and that supplies have been ordered and should arrive at their home shortly. I supplied them with 4 more 1 piece convex (soft) appliances for use while in the hospital. Findings shared with JOSÉ and BALA Zee. Wound care will sign off for now. Education with patient's Ethan complete.
--- NOTE | 2018-11-29 15:30 | ASMTCMCOM ---
CM Note CM Note Notes: Spoke with patient who wants to return home today. She states she cannot afford any further care. Discussed her current physical limitations which patient does not have a realistic grasp on. She is 2 person assist and it took the PT's 10 minutes to help her to the chair.She spoke of helping her do the dishes and housekeeping when she is not able to move by herself. Her has injured his knee today and will not be able to do the caretaking at home for awhile. Patient did clarify that her is her MDPOA. However, the patient's , Ethan told Dr. Guerra her eldest son, Christoph is her MDPOA. Patient is also experiencing confusion around time. Dr. Guerra is ordering a cognitive eval to determine if there are deficits. Due to patient being unable to be realistic about her current physical limitations an eval and support will be requested of Tiffanie Hudson. Patient needs to be able to be realistic about her physical deficits and perhaps Tiffanie can help her accept her current circumstances. It is clear the family does not have any financial funds to help with her care. CM will escalate this to Naomi Badillo and Briseida Vela to see if there are some regine funds that can help patient get rehab care with [facility]. Dr. Guerra will talk to patient's family today. Discharge plan is TBD based on patient's physical and financial limitations. It is unsafe to send her home as a 2 person assist with who is injured and cannot do her care. CM will follow. Date Signed: 11/29/2018 03:29 PM Electronically Signed By:Patt Clinton LCSW
--- NOTE | 2018-11-29 16:09 | ASMTCMCOM ---
CM Note CM Note Notes: Spoke with Christoph [phone], patient's eldest son who is MDPOA second to her sister in [place]. He does have the paperwork at the [employer] and we requested he get copies to us. Christoph says he will go to the [employer] tomorrow and bring the paperwork to us.CM will follow. Date Signed: 11/29/2018 04:08 PM Electronically Signed By:Patt Clinton LCSW
--- NOTE | 2018-11-29 17:23 | HOSPPROG ---
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 She is a weight lift requiring 2 people 10 minutes to move her from bed to chair. She has poor insight into her weakness. Although she is AxO x 3 I question her decisional capacity. Will ask ST to do cognitive testing. He fell on ice today and now he is incapacitated. Son works and has 4 kids and unable to assist. Going home is just not realistic as she will fail within 24 hours. and son refuse to take her home. Will also ask Tiffanie Hudson and Palliative Care to see to explore emotional barriers to accepting proper care. Son to bring in POA paperwork as unclear who decision maker is if she is declared non- decisional. Unfortunately she only has 2 SNF days left given her multiple readmissions. After that cost will be $160 dollars per day. She will not be ready for home in 2 days. They are adamant that there is absolutely no extra finances in the budget to cover this cost, they can barely pay bills and buy food. Initiating Medicaid but SNF unlikely to take her Medicaid pending. CM looking in regine funds to assist. d/w Dr. Sandoval and she agrees that home is not a viable option. Ostomy training complete and did relatively well with it. Subjective: "I'm going home today, but my hurt his knee, now I'm going home tomorrow" Objective: Vital Signs Temp Pulse Resp BP Pulse Ox 36.7 C 85 16 107/51 L 98 11/29/18 16:00 11/29/18 16:00 11/29/18 16:00 11/29/18 16:00 11/29/18 16:00 Laboratory Results 11/26/18 05:10 11/27/18 05:20 11/28/18 11/29/18 11/30/18 05:59 05:59 05:59 Intake Total 650 Output Total 1500 2300 300 Balance -868 -3100 -300 - Time Spent With Patient Time Spent with Patient: greater than 35 minutes Time Spent with Patient: Greater than 35 minutes spent on this patients care, greater than 50% of time spent counseling, educating, and coordinating care regarding the above mentioned plan. - Physical Exam Constitutional: no apparent distress, appears nourished, not in pain Cardiovascular: regular rate and rhythym, no murmur, rub, or gallop Respiratory: no respiratory distress, no rales or rhonchi, clear to auscultation Gastrointestinal: normoactive bowel sounds, soft, non-tender abdomen, no palpable masses Skin: no rashes or abrasions, no fluctuance, no induration Neurologic: AAOx3, sensation intact bilaterally Psychiatric: anxious, agitated, poor insight, poor judgement, No interacting appropriately, No thought process linear, No poor memory ICD10 Worksheet Patient Problems: Problems Problem Status Onset Infected prosthetic knee joint Acute Dehydration Acute Bladder fistula Acute Visual hallucinations Acute Failure to thrive in adult Acute Abscess of knee, right Acute Knee pain Acute Septic joint of right knee joint Acute
[2018-11-29] MEDS: CHOLECALCIFEROL VIT D3 1,000 UNITS TAB PO SCH (20:06)
[2018-11-29] MEDS: LOSARTAN POTASSIUM 25 MG TAB PO SCH (20:28)
[2018-11-30] MEDS: LOPERAMIDE HCL 2 MG CAP PO SCH ×4 (06:29→20:39)
[2018-11-30] MEDS: CARVEDILOL 6.25 MG TAB PO SCH ×3 (08:56→18:28)
[2018-11-30] MEDS: MULTIVITAMINS 1 EACH TAB PO SCH (08:56)
[2018-11-30] MEDS: COLCHICINE 0.6 MG CAP/TAB PO SCH ×2 (08:56→20:39)
[2018-11-30] MEDS: SPIRONOLACTONE 50 MG TAB PO SCH (08:56)
[2018-11-30] MEDS: FUROSEMIDE 40 MG TAB PO SCH (09:03)
[2018-11-30] MEDS: ENOXAPARIN 40 MG/0.4 ML SYR SC SCH (09:03)
--- NOTE | 2018-11-30 10:52 | SOAPPROG ---
SOAP Progress Note Assessment/Plan: Addendum entered and electronically signed by Leticia Hernandes PA 11/22/18 13:17 : Original Note: SOAP Progress Note Assessment/Plan: Assessment/plan: 73-year-old woman POD#13 s/p open sigmoidectomy with loop ileostomy for colovesicular fistula. Pathology with diverticulitis Vishnu removed yesterday. Base of surgical wound has opened slightly with mild erythema and tenderness. Continue to monitor. Patient's current antibiotic course should cover for possible cellulitis. Work on strength, ambulating in/out of bed independently Continue ostomy education Cystogram negative for bladder leak Dr. Gao will see as outpatient for SCC of lip in 1-2 weeks Regular diet Passing flatus and stool in appliance. Continue scheduled Imodium Continue antibiotic therapy. Appreciate ID input. PT/OT Dispo: Due to financial constraints, patient may have to be discharged to home rather than SNF. I have discussed with her my hesitance to d/c her to home given her difficulties with ambulation and diligent care required of her ostomy appliance. S: Feeling less weak today. Tolerating regular diet. Ambulating well but continues to have difficulty maneuvering in/out of bed independently. O: General: Well-developed, well-nourished woman in no acute distress. Sitting upright in bed HENT: Normocephalic, no gross hearing deficits, mucous membranes moist, pupils equal and round. Lip biopsy site healing well. Lungs: No increased work of breathing Abdomen: Soft, non-distended. Midline incision CDI. Inferior portion of incision has opened slightly with small amount of surrounding erythema, mild tenderness to palpation. RUQ ileostomy soft well-formed stool in bag. Psych: mood and affect normal Neuro: Grossly intact Objective: 11/17/18 10:20 11/19/18 06:46 11/23/18 08:13 11/24/18 14:14 11/29/18 09:25 11/30/18 10:49 11/30/18 13:37 11/30/18 14:11 Objective: Vital Signs Temp Pulse Resp BP Pulse Ox 36.8 C 76 16 108/64 99 11/30/18 08:00 11/30/18 08:00 11/30/18 08:00 11/30/18 08:00 11/30/18 08:00 Laboratory Results 11/26/18 05:10 11/27/18 05:20 11/29/18 11/30/18 12/01/18 05:59 05:59 05:59 Intake Total 850 Output Total 2300 1100 50 Balance -2300 -250 -50 ICD10 Worksheet Patient Problems: Problems Problem Status Onset Bladder fistula Acute Dehydration Acute Failure to thrive in adult Acute Visual hallucinations Acute Abscess of knee, right Acute Infected prosthetic knee joint Acute Knee pain Acute Septic joint of right knee joint Acute
--- NOTE | 2018-11-30 12:19 | ASMTCMCOM ---
CM Note CM Note Notes: CM met with pt and to discuss discharge plan moving forward. Pt wants to discharge today, CM expressed to her that this is not likely given her needs and that it would not be a safe dc. Pt is very concerned about finances and Medicare days and the "deception of govt agencies and burroughs." CM clarified that her Medicare coverage for hospital and rehab are separate. I let pt know that she is not out of Medicare days but she does have a copay of $160/day. Pt and state that they have no money left, barely anything for food. CM recommended applying for Medicaid to see if they can qualify as a secondary. Shaunna from [employer] here to speak with them. CM also offered [facility] to assist with food but they declined, stating food not good. Pt needs SNF, dc date uncertain. DC Plan: TBD Date Signed: 11/30/2018 12:18 PM Electronically Signed By:Lynn Strong
--- NOTE | 2018-11-30 14:06 | HOSPPROG ---
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 - colchicine # dispo - GEOPHYSICAL LABORATORY SUPERVISOR eval pending; i suspect she does have decisional capacity; there are issues with her affording SNF and she strongly desires to go home - cont PT/OT - GEOPHYSICAL LABORATORY SUPERVISOR for cog eval - appreciate CM assistance Subjective: long conversation regarding disposition; she was able to walk to the door and back with walker Objective: Vital Signs Temp Pulse Resp BP Pulse Ox 36.8 C 76 16 108/64 99 11/30/18 08:00 11/30/18 08:00 11/30/18 08:00 11/30/18 08:00 11/30/18 08:00 Laboratory Results 11/26/18 05:10 11/27/18 05:20 11/29/18 11/30/18 12/01/18 05:59 05:59 05:59 Intake Total 850 Output Total 2300 1100 50 Balance -2300 -250 -50 chart reviewed op note reviewed - Time Spent With Patient Time Spent with Patient: greater than 35 minutes Time Spent with Patient: Greater than 35 minutes spent on this patients care, greater than 50% of time spent counseling, educating, and coordinating care regarding the above mentioned plan. - Physical Exam Constitutional: no apparent distress, appears nourished Eyes: anicteric sclera Ears, Nose, Mouth, Throat: hearing normal ICD10 Worksheet Patient Problems: Problems Problem Status Onset Bladder fistula Acute Dehydration Acute Failure to thrive in adult Acute Visual hallucinations Acute Abscess of knee, right Acute Infected prosthetic knee joint Acute Knee pain Acute Septic joint of right knee joint Acute
[2018-11-30] MEDS: traMADol 50 MG TAB PO PRN (17:36)
[2018-11-30] MEDS: CHOLECALCIFEROL VIT D3 1,000 UNITS TAB PO SCH (20:39)
[2018-11-30] MEDS: LOSARTAN POTASSIUM 25 MG TAB PO SCH (21:21)
[2018-12-01] MEDS: LOPERAMIDE HCL 2 MG CAP PO SCH ×4 (05:37→21:15)
[2018-12-01 05:57] LABS: PLATELET COUNT 194 10^3/uL (150-400)
[2018-12-01] MEDS: ENOXAPARIN 40 MG/0.4 ML SYR SC SCH (08:13)
[2018-12-01] MEDS: FUROSEMIDE 40 MG TAB PO SCH ×2 (08:14→08:29)
[2018-12-01] MEDS: CARVEDILOL 6.25 MG TAB PO SCH ×2 (08:14→18:33)
[2018-12-01] MEDS: SPIRONOLACTONE 50 MG TAB PO SCH (08:14)
[2018-12-01] MEDS: COLCHICINE 0.6 MG CAP/TAB PO SCH ×2 (08:14→21:14)
[2018-12-01] MEDS: MULTIVITAMINS 1 EACH TAB PO SCH (08:14)
--- NOTE | 2018-12-01 12:30 | HOSPPROG ---
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 - colchicine # dispo - FUNERAL DIRECTOR/EMBALMER/OWNER eval pending; i suspect she does have decisional capacity; there are issues with her affording SNF and she strongly desires to go home - she is quite debilitated, cont PT/OT - FUNERAL DIRECTOR/EMBALMER/OWNER for cog eval - appreciate CM assistance Subjective: has been working hard with PT and OT - ambulated in the horta Objective: Vital Signs Temp Pulse Resp BP Pulse Ox 36.8 C 92 18 146/77 H 97 12/01/18 07:39 12/01/18 07:39 12/01/18 07:39 12/01/18 07:39 12/01/18 07:39 Laboratory Results 12/01/18 05:30 12/01/18 05:30 11/30/18 12/01/18 12/02/18 05:59 05:59 05:59 Intake Total 850 200 Output Total 1100 1550 600 Balance -250 -1350 -600 - Physical Exam Constitutional: no apparent distress, appears nourished, other (sitting in chair ) Cardiovascular: regular rate and rhythym, no murmur, rub, or gallop Respiratory: no respiratory distress, no rales or rhonchi, clear to auscultation Gastrointestinal: normoactive bowel sounds, soft, non-tender abdomen, no palpable masses ICD10 Worksheet Patient Problems: Problems Problem Status Onset Infected prosthetic knee joint Acute Dehydration Acute Bladder fistula Acute Visual hallucinations Acute Failure to thrive in adult Acute Abscess of knee, right Acute Knee pain Acute Septic joint of right knee joint Acute
[2018-12-01] MEDS: MELATONIN 3 MG TAB PO SCH (21:14)
[2018-12-01] MEDS: LOSARTAN POTASSIUM 25 MG TAB PO SCH (21:15)
[2018-12-01] MEDS: CHOLECALCIFEROL VIT D3 1,000 UNITS TAB PO SCH (21:16)
[2018-12-02] MEDS: LOPERAMIDE HCL 2 MG CAP PO SCH ×2 (05:49→13:05)
[2018-12-02] MEDS: ACETAMINOPHEN 325 MG TAB PO PRN (06:42)
[2018-12-02] MEDS: SPIRONOLACTONE 50 MG TAB PO SCH (08:16)
[2018-12-02] MEDS: CARVEDILOL 6.25 MG TAB PO SCH ×2 (08:16→17:05)
[2018-12-02] MEDS: COLCHICINE 0.6 MG CAP/TAB PO SCH ×2 (08:16→22:34)
[2018-12-02] MEDS: MULTIVITAMINS 1 EACH TAB PO SCH (08:16)
[2018-12-02] MEDS: FUROSEMIDE 40 MG TAB PO SCH (08:20)
[2018-12-02] MEDS: ENOXAPARIN 40 MG/0.4 ML SYR SC SCH (08:20)
--- NOTE | 2018-12-02 12:01 | HOSPPROG ---
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 - colchicine # dispo - i believe she does have decisional capacity (this was questioned before) - there are issues with her affording SNF and she strongly desires to go home - she is quite debilitated and fell today, cont PT/OT - she did well on her cog eval and was cleared by COMPETITIVE SHOPPER - appreciate CM assistance Subjective: Fell this morning, hit her head; no weakness no headache; still working with therapy Objective: Vital Signs Temp Pulse Resp BP Pulse Ox 36.6 C 80 16 111/52 L 98 12/02/18 07:31 12/02/18 07:31 12/02/18 07:31 12/02/18 07:31 12/02/18 07:31 Laboratory Results 12/01/18 05:30 12/01/18 05:30 12/01/18 12/02/18 12/03/18 05:59 05:59 05:59 Intake Total 200 750 Output Total 1550 1700 450 Balance -1350 -950 -450 - Physical Exam Constitutional: no apparent distress, appears nourished Cardiovascular: regular rate and rhythym, no murmur, rub, or gallop Respiratory: no respiratory distress, no rales or rhonchi, clear to auscultation Gastrointestinal: normoactive bowel sounds, soft, non-tender abdomen Skin: warm Neurologic: AAOx3, No weakness ICD10 Worksheet Patient Problems: Problems Problem Status Onset Infected prosthetic knee joint Acute Dehydration Acute Bladder fistula Acute Visual hallucinations Acute Failure to thrive in adult Acute Abscess of knee, right Acute Knee pain Acute Septic joint of right knee joint Acute
[2018-12-02] MEDS ORDERED: LIDOCAINE 2% 100 MG/5 ML SYR IVP ONE (12:53)
--- NOTE | 2018-12-02 16:49 | ASMTCMCOM ---
CM Note CM Note Notes: Met w/pt and , at this point SNF is not an option d/t financial constraints. They cannot afford the copay, pt's is already paying [facility] $100 a month for another 4 months from pts last stay there. Per [facility],they are over income for Medicaid as well. JOSÉ called and spoke with Princess at [facility] office. She states that all they can offer is a payment plan if pt rehabs there. The plan as of now if for pt to get as strong as possible and safely dc home w/home care. JOSÉ discussed this goal with PT/OT DC Plan: Home Care/ [facility] (RN/PT/OT/OCCUPATIONAL HEALTH PHYSIOTHERAPIST/SW) Date Signed: 12/02/2018 04:48 PM Electronically Signed By:Tiffanie Campos RN
--- NOTE | 2018-12-02 17:37 | SOAPPROG ---
SOAP Progress Note Assessment/Plan: Assessment/plan: 73yo F s/p open sigmoidectomy with loop ileostomy for colovesicular fistula. Pathology with diverticulitis SCC of lip - Dr. Gao will see as outpatient Regular diet Has return of bowel function Continue IV antibiotics - daptomycin, ertapenem, micafungin. Appreciate ID input Wound/ostomy education Now with wound dehiscence of inferior midline incision - hydroferal blue and allevyn q3d PT/OT Dispo: stable for dc from surgery perspective - CM working on placement home vs SNF S: Feeling well. No new complaints. O: General: Well-developed well-nourished woman in no acute distress, lying in bed HENT: Normocephalic, no gross hearing deficits, mucous membranes moist, pupils equal and round. Lip biopsy CDI Lungs: No increased work of breathing Abdomen: soft, nondistended, nontender. Midline incision intact with wound dehiscence inferiorly - irrigated with NS with clear return of fluid, packed with HFB tunnel and allevyn. RUQ ileostomy flat profile, thin stool in bag Psych: Mood and affect normal Neuro: Grossly intact Objective: Vital Signs Temp Pulse Resp BP Pulse Ox 37.1 C 86 16 115/46 L 96 12/02/18 16:00 12/02/18 17:05 12/02/18 16:00 12/02/18 17:05 12/02/18 16:00 Laboratory Results 12/01/18 05:30 12/01/18 05:30 12/01/18 12/02/18 12/03/18 05:59 05:59 05:59 Intake Total 200 750 Output Total 1550 1700 450 Balance -1350 -950 -450 ICD10 Worksheet Patient Problems: Problems Problem Status Onset Bladder fistula Acute Dehydration Acute Failure to thrive in adult Acute Visual hallucinations Acute Abscess of knee, right Acute Infected prosthetic knee joint Acute Knee pain Acute Septic joint of right knee joint Acute
[2018-12-02] MEDS: MELATONIN 3 MG TAB PO SCH (22:34)
[2018-12-02] MEDS: traMADol 50 MG TAB PO PRN (22:34)
[2018-12-02] MEDS: CHOLECALCIFEROL VIT D3 1,000 UNITS TAB PO SCH (22:34)
[2018-12-02] MEDS: LOSARTAN POTASSIUM 25 MG TAB PO SCH (22:35)
[2018-12-03] MEDS: FUROSEMIDE 40 MG TAB PO SCH (10:25)
[2018-12-03] MEDS: ENOXAPARIN 40 MG/0.4 ML SYR SC SCH (10:27)
[2018-12-03 10:28] VITALS: BP 95/60
[2018-12-03] MEDS: CARVEDILOL 6.25 MG TAB PO SCH (10:28)
[2018-12-03] MEDS: COLCHICINE 0.6 MG CAP/TAB PO SCH (10:29)
[2018-12-03] MEDS: SPIRONOLACTONE 50 MG TAB PO SCH (10:29)
[2018-12-03] MEDS: MULTIVITAMINS 1 EACH TAB PO SCH (10:31)
--- NOTE | 2018-12-03 10:58 | SOAPPROG ---
SOAP Progress Note Assessment/Plan: Assessment/Plan:73yo F s/p open sigmoidectomy with loop ileostomy for colovesicular fistula. Viewed wound. Clean. No malodor. No erythema. +early granulation. min to moderate drainage. Otherwise, no changes. See below for summary. Pathology with diverticulitis SCC of lip - Dr. Gao will see as outpatient Regular diet Has return of bowel function Continue IV antibiotics - daptomycin, ertapenem, micafungin. Appreciate ID input Wound/ostomy education Now with wound dehiscence of inferior midline incision - hydroferal blue and allevyn q3d PT/OT Dispo: stable for dc from surgery perspective - CM working on placement home vs SNF S: Feeling well. No new complaints. O: General: Well-developed well-nourished woman in no acute distress, working with therapy, able to get to bed with some assistance. HENT: Normocephalic, no gross hearing deficits, mucous membranes moist, pupils equal and round. Lip biopsy CDI Lungs: No increased work of breathing Abdomen: soft, nondistended, nontender. Midline incision intact with wound dehiscence inferiorly, packed with HFB tunnel and allevyn. RUQ ileostomy flat profile, thin stool in bag Psych: Mood and affect normal Neuro: Grossly intact 12/03/18 10:56 Objective: Vital Signs Temp Pulse Resp BP Pulse Ox 36.6 C 95 14 95/60 L 98 12/03/18 07:33 12/03/18 10:27 12/03/18 07:33 12/03/18 10:27 12/03/18 10:27 Laboratory Results 12/01/18 05:30 12/01/18 05:30 12/02/18 12/03/18 12/04/18 05:59 05:59 05:59 Intake Total 750 800 Output Total 1700 1800 150 Balance -950 -1000 -150 ICD10 Worksheet Patient Problems: Problems Problem Status Onset Bladder fistula Acute Dehydration Acute Failure to thrive in adult Acute Visual hallucinations Acute Abscess of knee, right Acute Infected prosthetic knee joint Acute Knee pain Acute Septic joint of right knee joint Acute
--- NOTE | 2018-12-03 13:31 | PDDCSUM ---
Discharge Summary Discharge Summary: DISCHARGE DIAGNOSES: * Acute intra-abdominal abscess, diverticular origin * Acute diverticulitis * Colovesical fistula due to above * Acute encephalopathy * Acute kidney injury * Wound dehiscence * Generalized deconditioning, gait instability, fall risk, using walker * Chronic antibiotic therapy for chronic infection from prosthetic joint knee CONSULTANTS: Dr. Carol Ann Sandoval and Santy Izquierdo PROCEDURES: Open laparotomy, sigmoid colectomy, primary anastomosis, diverting loop ileostomy Biopsy of lesion on lip with pathology showing squamous cell carcinoma HOSPITAL COURSE SUMMARY: This patient presented with encephalopathy fever was found to have intra- abdominal abscess of diverticular origin with a colovesical fistula. She went to the operating room where she had the abscess cleaned out, sigmoid colectomy, primary anastomosis and loop ileostomy. She tolerated this surgery reasonably well but had significant infection in abdomen required ongoing antibiotics and antifungals initially in the intensive care unit. The patient did have a wound dehiscence and this is been treated successfully here but needing ongoing wound care. At this point she appears to have completely resolved infection in the abdomen and wound areas. She is eating well, remains very weak but is up walking with a walker. She is stable for discharge to home. She will however need ongoing home physical therapy, home wound care, and close follow-up in the surgery Clinic with Dr. Sandoval. An abnormal lesion was noted on her lip and this was biopsied while here by Dr. Chapman and found to be a squamous cell cancer. Arrangements are made for the patient to follow up with Dr. Marleny Martinez in the ENT clinic for definitive care of this lesion. PENDING TEST RESULTS: None MEDICATION CHANGES: Oxycodone discontinued and tramadol ordered for pain relief FOLLOW-UP PLAN: With Dr. Carol Ann Sandoval in surgery Clinic next week With Dr. Marleny Martinez in the ENT clinic in the next couple weeks for her lip squamous cell cancer Greater than 35 minutes bedside and care coordination time today
--- NOTE | 2018-12-03 13:34 | PDIAF ---
- Diagnosis Diagnosis: Intra-abdominal abscess, diverticulitis, squamous cell cancer lip, gait ins Code Status: Full Code - Medication Management Inspector Machine Cut Glass Antibiotics: Ongoing Levaquin orally chronically lifetime therapy for infected knee pros Discharge Medications: electronically signed and located in the Home Medication List. - Orders Services needed: Home Care, Registered Nurse, Physical Therapy, Occupational Therapy Home Care Face to Face: I certify that this patient was under my care and that I had the required [id number] encounter meeting the encounter requirements on the discharge day. My findings support the fact that the patient is homebound as defined in Home Care Face to Face Continued: CMS Chapter 7 Medicare Benefits Manual 30.1.1 , The condition of the patient is such that there exists a normal inability to leave home and consequently, leaving home would require a considerable and taxing effort. Isolation Type: Contact Isolation Diet Recommendation: no restrictions on diet Diet Texture: Regular Texture Diet Wound Care Instructions: Ostomy care: please use one piece cerra plus soft convex 2 1/8 appliance from [employer]iq. Use a belt to help hold appliance in place. May add 2mm adapt ring if necessary. No heavy lifting pushing or pulling more than 15 lbs for 5 weeks. May shower. Contact Dr. Carol Ann Sandoval for any questions related to wound care. Pack lower incisional wound with hydrofera blue q 3 days. May change outer dressing more often for saturation. Activity/Weight Bearing Restrictions: Fall risk, needs walker Equipment: Walker, ostomy supplies Additional Instructions: Ostomy care: please use one piece cerra plus soft convex 2 1/8 appliance from [employer]iq. Use a belt to help hold appliance in place. May add 2mm adapt ring if necessary. (Mercedesani HASSAN) No heavy lifting pushing or pulling more than 15 lbs for 5 weeks May shower Pack lower incisional wound with hydrofera blue q 3 days. May change outer dressing more often for saturation. [facility] if you have trouble with your ostomy appliance or if you experience skin breakdown around your stoma. [phone] Follow up in surgery clinic in [address] Sandoval [phone] Make an appoint with Dr. Martinez in ENT Clinic in the next 2 weeks for assessment of lip lesion [phone] - Follow Up Care Current Providers and Referrals: Carol Ann Cain MD [Primary Care Provider] - As per Instructions Carol Ann Sandoval MD [Medical Doctor] - follow up in 1 week Marleny Martinez MD [Medical Doctor] - follow up in 10 days
--- NOTE | 2018-12-03 14:05 | ASMTDCNOTE ---
Case Management Discharge Discharge Order Complete? Answers: Yes Patient to Obtain Answers: Independently Medications Transportation Arranged Answers: Family/Friends Faxed Final Orders Answers: Yes Agency/Facility Transfer Answers: Yes Report Printed & Faxed to Receiving Agency Family Notified Answers: Yes Discharge Comments Notes: D/w MD, final orders faxed. Aimee at [facility] notified. Will try and get RN out tomorrow to check colostomy. Date Signed: 12/03/2018 02:04 PM Electronically Signed By:Tiffanie Campos RN
--- NOTE | 2018-12-03 14:06 | ASMTLACE ---
TONIE Length of stay for Answers: 14 days or more current admission Acuity / Level of Answers: Yes Care: Did the patient have an inpatient admission? Comorbidities - select Answers: History of falls all that apply Other Notes: Prosthetic knee infection; HTN; HLD # of Emergency department Answers: 5-8 visits in the last 6 months Score: 18 Date Signed: 12/03/2018 02:06 PM Electronically Signed By:Tiffanie Campos RN
== END 2018-12-03 14:25 | disposition home health service (06) | DRG 329 ==
LOC: EDUNIT# → F3E 17:55
PROVIDERS: ADMIT Internal Medicine; ATTEND Internal Medicine
DX: K57.20 Diverticulitis of large intestine with perforation and abscess without bleeding (principal); G93.41 Metabolic encephalopathy; K63.2 Fistula of intestine; N17.9 Acute kidney failure, unspecified; T81.31XA Disruption of external operation (surgical) wound, not elsewhere classified, initial encounter; C44.02 Squamous cell carcinoma of skin of lip; E86.0 Dehydration; T84.53XD Infection and inflammatory reaction due to internal right knee prosthesis, subsequent encounter; R32 Unspecified urinary incontinence; E66.9 Obesity, unspecified; G47.33 Obstructive sleep apnea (adult) (pediatric); Z79.2 Long term (current) use of antibiotics; Z68.35 Body mass index [BMI] 35.0-35.9, adult; Z96.619 Presence of unspecified artificial shoulder joint
CPT/HCPCS: 86157-90; 86850-90; 86860-90; 86870-90; 87186-90; 92523-GN; 97116-GP; 97162-GP; 97165-GO; 97530-GO; 97530-GP; 97535-GO; C1751; C9399; J0171; J0878; J1100; J1170; J1335; J1450; J1650; J2248; J2405; J2550; J2704; J2997; J3010; Q9961; Q9967

== ENCOUNTER → 2019-01-20 | Outpatient (CLI) | payer OTHER ==
[~2019-01-20] MED LIST changes: +IOPAMIDOL (ISOVUE-300) 100 ML BTL ONE; -LIDOCAINE 1% 300 MG/30 ML SDV ONE
== END ==
LOC: CIMAGING 01-13 10:21
PROVIDERS: ATTEND Otolaryngology
DX: C00.9 Malignant neoplasm of lip, unspecified (principal); M50.30 Other cervical disc degeneration, unspecified cervical region
CPT/HCPCS: 70491; Q9967; 82565-PO

== ENCOUNTER 2019-03-02 06:03 | Emergency (ER) | payer OTHER ==
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
[2019-03-02] MEDS ORDERED: HYDROmorphONE/DILAUDID 1 MG/ML INJ IVP ONE (06:40)
[2019-03-02 07:11] LABS: PLATELET COUNT 162 10^3/uL (150-400)
[2019-03-02 09:32] VITALS: BP 128/83
== END 2019-03-02 09:59 | disposition home or self-care (01) ==
DX: M47.892 Other spondylosis, cervical region (principal); M48.02 Spinal stenosis, cervical region; M46.92 Unspecified inflammatory spondylopathy, cervical region; I10 Essential (primary) hypertension; E78.5 Hyperlipidemia, unspecified; Z85.819 Personal history of malignant neoplasm of unspecified site of lip, oral cavity, and pharynx
CPT/HCPCS: 72125; 96374; 99285; J1170

== ENCOUNTER 2019-03-04 16:16 | Inpatient (IN) | payer OTHER ==
[2019-03-04] MEDS ORDERED: HYDROmorphONE/DILAUDID 2 MG/ML INJ IVP ONE (16:46)
--- NOTE | 2019-03-04 17:03 | EDPHY ---
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 I saw the patient approximately 48 hr ago, taking over for Dr. Mullins who initially evaluated her. At that time she complained of severe cervical spine pain. Her workup including CT was negative and she refused an MRI. Since prior evaluation, the patient has had her stitches removed. She is on 500 of Levaquin daily and she has developed diffuse pain "from my head to my toes". This involves essentially her entire body including joints. She denies fever but states she never gets a fever when she has an infection. She complains of severe disability related to this pain including difficulty toileting herself and feels that she is unable to care for herself at home. REVIEW OF SYSTEMS: Aside from elements discussed in the HPI, a comprehensive 10-point review of systems was reviewed and is negative. PMH: Extensive, see chart, includes recent squamous cell carcinoma removal, history of joint infection, history of herniated disc in neck. SOCIAL HISTORY: . Lives at home. PHYSICAL EXAM: General:Patient is alert, in no acute distress. ENT: T shaped incision of the lower lip and chin is noted. This appears to be healing well with some mild pus discharge of the lip segment. Neck: Normal inspection. Full range of motion. Respiratory:No respiratory distress. Breath sounds normal bilaterally. Cardiovascular: Regular rate and rhythm. Strong peripheral pulses. Normal cap refill. Abdomen:The abdomen is nontender to palpation. There are no peritoneal signs. There are normal bowel sounds. Back: Normal to inspection. No tenderness to palpation. Skin: Normal color. No rash. Warm and dry. Extremities: Normal appearance. Full range of motion. Neuro: Oriented x3. Normal motor function. Normal sensory function. ED Course: 74-year-old female with a complex past medical history presents with generalized myalgias and arthralgias. She feels that she is unable to perform her normal ADLs and is unable to return home safely. The etiology of her symptoms is currently unknown. We will admit her for further workup and treatment. 18:[address] Gallardo, hospitalist. She accepts admission. - Data Points Laboratory Results: Laboratory Results 03/04/19 17:00 03/04/19 17:00 03/04/19 03/04/19 03/04/19 17:00 17:00 17:00 WBC 6.43 10^3/uL 10^3/uL (3.80-9.50) RBC 4.67 10^6/uL 10^6/uL (4.18-5.33) Hgb 12.1 g/dL L g/dL (12.6-16.3) Hct 37.4 % L % (38.0-47.0) MCV 80.1 fL L fL (81.5-99.8) MCH 25.9 pg L pg (27.9-34.1) MCHC 32.4 g/dL g/dL (32.4-36.7) RDW 14.9 % % (11.5-15.2) Plt Count 181 10^3/uL 10^3/uL (150-400) MPV 11.6 fL fL (8.7-11.7) Neut % (Auto) 63.6 % % (39.3-74.2) Lymph % (Auto) 19.8 % % (15.0-45.0) Owen % (Auto) 14.8 % H % (4.5-13.0) Eos % (Auto) 1.1 % % (0.6-7.6) Baso % (Auto) 0.5 % % (0.3-1.7) Nucleat RBC Rel Count 0.0 % % (0.0-0.2) Absolute Neuts (auto) 4.10 10^3/uL 10^3/uL (1.70-6.50) Absolute Lymphs (auto) 1.27 10^3/uL 10^3/uL (1.00-3.00) Absolute Monos (auto) 0.95 10^3/uL H 10^3/uL (0.30-0.80) Absolute Eos (auto) 0.07 10^3/uL 10^3/uL (0.03-0.40) Absolute Basos (auto) 0.03 10^3/uL 10^3/uL (0.02-0.10) Absolute Nucleated RBC 0.00 10^3/uL 10^3/uL (0-0.01) Immature Gran % 0.2 % % (0.0-1.1) Immature Gran # 0.01 10^3/uL 10^3/uL (0.00-0.10) ESR 82 MM/HR H MM/HR (0-30) Sodium 137 mEq/L mEq/L (135-145) Potassium 4.1 mEq/L mEq/L (3.5-5.2) Chloride 97 mEq/L mEq/L (97-110) Carbon Dioxide 26 mEq/l mEq/l (22-31) Anion Gap 14 mEq/L mEq/L (6-14) BUN 25 mg/dL H mg/dL (7-23) Creatinine 1.0 mg/dL mg/dL (0.6-1.0) Estimated GFR 54 Glucose 105 mg/dL H mg/dL (70-100) Calcium 9.9 mg/dL mg/dL (8.5-10.4) C-Reactive Protein Pending Medications Given: Discontinued Medications Hydromorphone HCl (Dilaudid) 0.5 mg IVP EDNOW ONE Stop: 03/04/19 16:47 Last Admin: 03/04/19 16:51 Dose: 0.5 mg General Time Seen by Provider: 03/04/19 16:23 Initial Vital Signs: Initial Vital Signs Temperature (C) 37.3 C 03/04/19 16:30 Heart Rate 82 03/04/19 16:30 Respiratory Rate 18 03/04/19 16:30 Blood Pressure 137/75 H 03/04/19 16:30 O2 Sat (%) 99 03/04/19 16:30 O2 (L/minute) 2 Allergies/Adverse Reactions: alcohol Allergy (Verified 03/04/19 16:26) allergic to sulfates in alcohol caffeine Allergy (Verified 03/04/19 16:26) causes agitation and insomnia NSAIDS (Non-Steroidal Anti-Inflamma Allergy (Verified 03/04/19 16:26) Sulfa (Sulfonamide Antibiotics) Allergy (Verified 03/04/19 16:26) Hives tetracycline [Tetracycline] Allergy (Verified 03/04/19 16:26) Hives vancomycin Allergy (Verified 03/04/19 16:26) very fine whole body rash BEANS,NUTS,SEEDS,SPICES,ONIONS Allergy (Uncoded 03/04/19 16:26) GI PROBLEMS BROCCOLI,CAULIFLOWER,BRUSSELSPROUTS Allergy (Uncoded 03/04/19 16:26) GI PROBLEMS DAIRY Allergy (Uncoded 03/04/19 16:26) GI PROBLEMS FRESH FRUITS EXCEPT BANANAS Allergy (Uncoded 03/04/19 16:26) GI PROBLEMS FRESH VEGETABLES Allergy (Uncoded 05/23/18 11:45) GI PROBLEMS TAPES EXCEPT PAPER Allergy (Uncoded 05/23/18 11:45) SKIN IRRITATION-BLISTERS Home Medications: Medication Instructions Recorded Albuterol [Proventil Inhaler HFA 1 - 2 puffs IH Q4 PRN 02/24/13 (*)] Cholecalciferol Vit D3 [Vitamin D3 5,000 units PO HS 02/24/13 (*)] Multivitamins [Multivitamin (*)] 1 each PO DAILY 03/23/18 Simethicone [Gas Relief] 160 mg PO DAILY PRN 03/23/18 Spironolactone [Aldactone] 50 mg PO DAILY 03/23/18 Loperamide HCl [Imodium 2 mg (*)] 2 mg PO PRN PRN 06/17/18 Diclofenac Sodium 1% [Voltaren Gel 2 gm TP QID PRN 10/14/18 (*)] Carvedilol [Coreg (*)] 6.25 mg PO BIDMEAL 11/14/18 levOFLOXACIN [levAQUIN (*)] 750 mg PO DAILY 11/14/18 oxyCODONE IR [Oxycodone Ir (*)] 5 - 10 mg PO Q6 PRN #20 tab 03/02/19 Calcium Citrate [Citracal (OTC)] 200 mg PO BID 03/04/19 Cetirizine [ZyrTEC 10 mg (*)] 10 mg PO HS 03/04/19 Diphenoxylate HCl/Atrop Sulf 1 tab PO QID PRN 03/04/19 [Lomotil Tab (*)] Herbals/Supplements -Info Only 1 ea PO DAILY 03/04/19 Ranitidine HCl [Zantac] 150 mg PO BIDMEAL 03/04/19 guaiFENesin [Robitussin 200 MG (*)] 600 mg PO BID 03/04/19 Departure - Departure Disposition: [facility] Acute Condition: Good
[2019-03-04 17:21] LABS: PLATELET COUNT 181 10^3/uL (150-400)
[2019-03-04] MEDS ORDERED: ONDANSETRON 4 MG/2 ML VIAL IVP PRN (18:56)
[2019-03-04] MEDS ORDERED: HYDROmorphONE/DILAUDID 1 MG/ML INJ IVP PRN (18:56)
[2019-03-04] MEDS ORDERED: ONDANSETRON DISINTEGRATING 4 MG TAB PO PRN (18:56)
[2019-03-04] MEDS ORDERED: ACETAMINOPHEN 325 MG TAB PO PRN (18:56)
[2019-03-04] MEDS ORDERED: PROMETHAZINE HCL 25 MG/ML INJ IVP PRN (18:56)
[2019-03-04] MEDS ORDERED: HYDROCODONE/APAP 5/325 TAB PO PRN (18:56)
--- NOTE | 2019-03-04 19:28 | PDGENHP ---
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 She was seen in the ER 2 days ago for complaints of neck pain at which time a neck CT was performed which showed erosive changes at atlantoaxial joint that appeared largely stable from prior but would be better evaluated by MRI to r/o infection however patient declined MRI. She notes she otherwise has not had any real localizing symptoms-- denies fever or chills, no abdominal pain, nausea, vomiting or new urinary sxs. She notes her ostomy output has been stable but due to her pain she has had increasing difficulties managing it--her takes care of the ostomy for the most part. She also has chronic urinary incontinence and keeps a bedside commode in order to minimize those issues but has had problems getting herself to the commode given her generalized pain. She denies shortness of breath or cough. She has not noticed any change in the swelling in her right knee and leg or any increased redness but also acknowledges she has a hard time seeing her legs due to her condition. History Information - Allergies/Home Medication List Allergies/Adverse Reactions: alcohol Allergy (Verified 03/04/19 16:26) allergic to sulfates in alcohol caffeine Allergy (Verified 03/04/19 16:26) causes agitation and insomnia NSAIDS (Non-Steroidal Anti-Inflamma Allergy (Verified 03/04/19 16:26) Sulfa (Sulfonamide Antibiotics) Allergy (Verified 03/04/19 16:26) Hives tetracycline [Tetracycline] Allergy (Verified 03/04/19 16:26) Hives vancomycin Allergy (Verified 03/04/19 16:26) very fine whole body rash BEANS,NUTS,SEEDS,SPICES,ONIONS Allergy (Uncoded 03/04/19 16:26) GI PROBLEMS BROCCOLI,CAULIFLOWER,BRUSSELSPROUTS Allergy (Uncoded 03/04/19 16:26) GI PROBLEMS DAIRY Allergy (Uncoded 03/04/19 16:26) GI PROBLEMS FRESH FRUITS EXCEPT BANANAS Allergy (Uncoded 03/04/19 16:26) GI PROBLEMS FRESH VEGETABLES Allergy (Uncoded 05/23/18 11:45) GI PROBLEMS TAPES EXCEPT PAPER Allergy (Uncoded 05/23/18 11:45) SKIN IRRITATION-BLISTERS Home Medications: Albuterol [Proventil Inhaler HFA (*)] 1 - 2 puffs IH Q4 PRN 02/24/13 [Last Taken 06/17/18] Cholecalciferol Vit D3 [Vitamin D3 (*)] 5,000 units PO HS 02/24/13 [Last Taken 03/04/19] Multivitamins [Multivitamin (*)] 1 each PO DAILY 03/23/18 [Last Taken 03/04/19] Simethicone [Gas Relief] 160 mg PO DAILY PRN 03/23/18 [Last Taken 10/14/18] Spironolactone [Aldactone] 50 mg PO DAILY 03/23/18 [Last Taken 03/04/19] Loperamide HCl [Imodium 2 mg (*)] 2 mg PO PRN PRN 06/17/18 [Last Taken Unknown] Diclofenac Sodium 1% [Voltaren Gel (*)] 2 gm TP QID PRN 10/14/18 [Last Taken ] Carvedilol [Coreg (*)] 6.25 mg PO BIDMEAL 11/14/18 [Last Taken 03/04/19] levOFLOXACIN [levAQUIN (*)] 750 mg PO HS 11/14/18 [Last Taken 03/03/19] Calcium Citrate [Citracal (OTC)] 200 mg PO BID 03/04/19 [Last Taken 03/04/19 09: 00] Cetirizine [ZyrTEC 10 mg (*)] 10 mg PO HS 03/04/19 [Last Taken 03/03/19] Diphenoxylate HCl/Atrop Sulf [Lomotil Tab (*)] 1 tab PO QID PRN 03/04/19 [Last Taken Unknown] Herbals/Supplements -Info Only 1 ea PO DAILY 03/04/19 [Last Taken Unknown] Oxybutynin Chloride [Ditropan 5mg (RX)] 5 mg PO BID 03/04/19 [Last Taken 09:00] Ranitidine HCl [Zantac] 150 mg PO BIDMEAL 03/04/19 [Last Taken 03/04/19 09:00] guaiFENesin [Robitussin 200 MG (*)] 600 mg PO BID 03/04/19 [Last Taken 03/04/19 09:00] I have personally reviewed and updated: family history, medical history, social history, surgical history - Past Medical History arthritis, asthma, cancer (SCC of the lip), GERD, hypertension Additional medical history: obesity, chronic septic arthritis of right prosthetic knee, CHUCKIE on CPAP, rheumatic fever with valvular disease (? aortic insufficiency), urinary incontinence, chronic pain w/continuous opiate use and dependency - Surgical History Additional surgical history: multiple knee replacements and shoulder replacements, , carpal tunnel release, colonic resection, tka revision , sigmoid colectomy and diverting loop ileostomy, spinal fusion - Family History Positive for: non-pertinent Additional family history: COPD, CVA - Social History Smoking Status: Never smoked Alcohol Use: None Drug Use: None Additional social history: Lives with --has been in rehab and in the hospital several times this year Review of Systems Review of Systems: ROS: 10pt was reviewed & negative except for what was stated in HPI & below Physical Exam Physical Exam: Temp Pulse Resp BP Pulse Ox 37.3 C 77 18 141/81 H 96 03/04/19 16:30 03/04/19 19:05 03/04/19 19:05 03/04/19 19:05 03/04/19 19:05 O2 (L/minute) 2 Constitutional: chronically ill appearing, uncomfortable Eyes: PERRL, anicteric sclera Ears, Nose, Mouth, Throat: moist mucous membranes, hearing normal Cardiovascular: no murmur, rub, or gallop, tachycardia, edema Respiratory: no respiratory distress, reduced air movement Gastrointestinal: normoactive bowel sounds, soft, non-tender abdomen, no palpable masses Genitourinary: no bladder tenderness Skin: warm, erythema (rle ) Musculoskeletal: pain with ROM, generalized weakness Neurologic: AAOx3 Psychiatric: interacting appropriately, anxious Lab Data & Imaging Review 03/04/19 17:00 03/04/19 17:00 WBC 6.43 10^3/uL (3.80-9.50) 03/04/19 17:00 RBC 4.67 10^6/uL (4.18-5.33) 03/04/19 17:00 Hgb 12.1 g/dL (12.6-16.3) L 03/04/19 17:00 Hct 37.4 % (38.0-47.0) L 03/04/19 17:00 MCV 80.1 fL (81.5-99.8) L 03/04/19 17:00 MCH 25.9 pg (27.9-34.1) L 03/04/19 17:00 MCHC 32.4 g/dL (32.4-36.7) 03/04/19 17:00 RDW 14.9 % (11.5-15.2) 03/04/19 17:00 Plt Count 181 10^3/uL (150-400) 03/04/19 17:00 MPV 11.6 fL (8.7-11.7) 03/04/19 17:00 Neut % (Auto) 63.6 % (39.3-74.2) 03/04/19 17:00 Lymph % (Auto) 19.8 % (15.0-45.0) 03/04/19 17:00 Wright % (Auto) 14.8 % (4.5-13.0) H 03/04/19 17:00 Eos % (Auto) 1.1 % (0.6-7.6) 03/04/19 17:00 Baso % (Auto) 0.5 % (0.3-1.7) 03/04/19 17:00 Nucleat RBC Rel Count 0.0 % (0.0-0.2) 03/04/19 17:00 Absolute Neuts (auto) 4.10 10^3/uL (1.70-6.50) 03/04/19 17:00 Absolute Lymphs (auto) 1.27 10^3/uL (1.00-3.00) 03/04/19 17:00 Absolute Monos (auto) 0.95 10^3/uL (0.30-0.80) H 03/04/19 17:00 Absolute Eos (auto) 0.07 10^3/uL (0.03-0.40) 03/04/19 17:00 Absolute Basos (auto) 0.03 10^3/uL (0.02-0.10) 03/04/19 17:00 Absolute Nucleated RBC 0.00 10^3/uL (0-0.01) 03/04/19 17:00 Immature Gran % 0.2 % (0.0-1.1) 03/04/19 17:00 Immature Gran # 0.01 10^3/uL (0.00-0.10) 03/04/19 17:00 ESR 82 MM/HR (0-30) H 03/04/19 17:00 Sodium 137 mEq/L (135-145) 03/04/19 17:00 Potassium 4.1 mEq/L (3.5-5.2) 03/04/19 17:00 Chloride 97 mEq/L (97-110) 03/04/19 17:00 Carbon Dioxide 26 mEq/l (22-31) 03/04/19 17:00 Anion Gap 14 mEq/L (6-14) 03/04/19 17:00 BUN 25 mg/dL (7-23) H 03/04/19 17:00 Creatinine 1.0 mg/dL (0.6-1.0) 03/04/19 17:00 Estimated GFR 54 03/04/19 17:00 Glucose 105 mg/dL (70-100) H 03/04/19 17:00 Calcium 9.9 mg/dL (8.5-10.4) 03/04/19 17:00 Total Bilirubin 0.7 mg/dL (0.1-1.4) 03/04/19 17:00 Conjugated Bilirubin 0.3 mg/dL (0.0-0.5) 03/04/19 17:00 Unconjugated Bilirubin 0.4 mg/dL (0.0-1.1) 03/04/19 17:00 AST 24 IU/L (14-46) 03/04/19 17:00 ALT 25 IU/L (9-52) 03/04/19 17:00 Alkaline Phosphatase 100 IU/L (38-126) 03/04/19 17:00 C-Reactive Protein 165.2 mg/L (<10.0) H 03/04/19 17:00 Total Protein 7.4 g/dL (6.3-8.2) 03/04/19 17:00 Albumin 3.7 g/dL (3.5-5.0) 03/04/19 17:00 Visualized and Interpreted Chest x-ray results: Yes Chest X-Ray results: other (peribronchial thickening ) Visualized and Interpreted imaging results: Yes Interpretation: c spine CT: severe multilevel cervical spondylosis, erosive changes of atlantoaxial joint w/o sig change from prior Assessment & Plan Assessment: 74 yo F with MMI including chronic septic arthritis of right prosthetic knee, recent diverticular abscess requiring sigmoid colectomy and ileostomy as well as SCC of the lip s/p resection presenting with worsening pain and weakness # acute on chronic pain: patient with chronic pain related to multiple prior surgeries, cervical spondylosis as well as reported history of multiple herniated discs, concern for infection given her history and particularly with c /o neck pain and question on CT whether erosive atlantoaxial changes could be infection however patient continues to refuse MRI. Will admit for pain control, pt/ot and further evaluation while in house. CRP was elevated which patient claims is her only reliable indication of acute infection, however many reasons for elevated crp in this patient, has been this elevated in the past as well. # generalized weakness/FTT: patient reports increasing difficulty managing her ADLs, caring for herself and her ostomy and her reportedly overwhelmed ( he was not present in ER). She has required SNF on several occasions this year, and at times has refused it though it was recommended. PT/OT/CM to evaluate. As above, no clear e/o acute infection but challenging evaluation for many reasons. UA pending, ecg/trop pending, blood cultures pending # chronic septic arthritis of right knee: followed by ID, on chronic suppressive abx therapy with levaquin, on evaluation of knee nothing to suggest acute on chronic infection, there is some mild erythema of the right jack however appears more c/w stasis dermatitis and not convincing for cellulitis-- monitor overnight. Will ask ID to consult given complexity and difficulty ruling out possible occult infectious process. # diverticular abscess with colovesicular fistula s/p sigmoid colectomy and ileostomy: ileostomy with stool output and stoma appears pink and healthy, followed by Dr. Sandoval, will get wound care involved # SCC of lip: s/p wedge resection on 02/[address] Kong at [facility], neck CT performed pre op and not thought to have any associated neck lesions by that scan. Area around the surgical incision site is erythematous but more diffusely and no associated purulence, wound itself CDI and does not appear c/w infection # cuhckie: continue cpap # HTN: will continue her op medications # dispo: IP status, given inability to care for herself at home will require > 48 hours stay FC Patient new to my care. Old records reviewed and summarized as above. Care plan reviewed with ER doctor as above.
[2019-03-04] MEDS ORDERED: DICLOFENAC SODIUM 1% 100 GM GEL TP PRN (20:09)
[2019-03-04] MEDS ORDERED: DIPHENOXYLATE/ATROPINE LOMOTIL 1 TAB PO PRN (20:09)
[2019-03-04] MEDS ORDERED: ALBUTEROL 60 PUFFS/8 GM MDI IH PRN (20:09)
[2019-03-04] MEDS ORDERED: SIMETHICONE 80 MG TAB CHEW PO PRN (20:09)
[2019-03-04] MEDS: CETIRIZINE 10 MG TAB PO SCH (22:05)
[2019-03-04] MEDS: FAMOTIDINE 20 MG TAB PO SCH (22:07)
[2019-03-04] MEDS: oxyCODONE IR 5 MG TAB PO PRN ×2 (22:07→23:11)
[2019-03-04] MEDS: CHOLECALCIFEROL VIT D3 1,000 UNITS TAB PO SCH (22:07)
[2019-03-04] MEDS: OXYBUTYNIN CHLORIDE 5 MG TAB PO SCH (22:08)
[2019-03-04] MEDS: CALCIUM CITRATE 200 MG PO SCH (22:08)
[2019-03-04] MEDS: guaiFENesin 200 MG TAB PO SCH (22:17)
[2019-03-05 06:32] LABS: PLATELET COUNT 184 10^3/uL (150-400)
[2019-03-05] MEDS: oxyCODONE IR 5 MG TAB PO PRN ×3 (07:44→21:32)
[2019-03-05] MEDS: OXYBUTYNIN CHLORIDE 5 MG TAB PO SCH ×2 (07:45→21:33)
[2019-03-05] MEDS: guaiFENesin 200 MG TAB PO SCH ×2 (07:45→21:33)
[2019-03-05] MEDS: MULTIVITAMINS 1 EACH TAB PO SCH (07:45)
[2019-03-05] MEDS: SPIRONOLACTONE 50 MG TAB PO SCH (07:45)
[2019-03-05] MEDS: FAMOTIDINE 20 MG TAB PO SCH ×2 (07:45→21:33)
[2019-03-05] MEDS: CALCIUM CITRATE 200 MG PO SCH ×2 (07:46→21:35)
[2019-03-05] MEDS: ENOXAPARIN 40 MG/0.4 ML SYR SC SCH (07:50)
[2019-03-05] MEDS ORDERED: CARVEDILOL 6.25 MG TAB PO SCH (08:00)
--- NOTE | 2019-03-05 08:28 | PDMN ---
Medical Necessity Medical necessity: Pt meets IP criteria as of 03/04/2019 per and [facility] ( General Discharge Criteria); est los > 2 mn for multiple conditions including acute on chronic pain related to multiple prior surgeries, generalized weakness the is impeding the pt's ability to perform baseline ADL's including caring for her ostomy, chronic septic arthritis of the knee that is followed by ID, pt is on chronic suppressive abx therapy for this, diverticular abcess with colovesicular fistula s/p sigmoid colectomy, SCC of the lip with a recent wedge resection (02/20), CHUCKIE and HTN. With worsened/new neck pain there is concern for infection given pt's hx; requiring further workup, pain control, PT/OT, case management, ID consultation, surgery consultation and oncology consultation.
--- NOTE | 2019-03-05 12:54 | ASMTCMCOM ---
CM Note CM Note Notes: Chart reviewed. Pt admitted for FTT and pain mgmt. Pt has a complex PMH - please see H&P Pt was admitted 11/14-12/03/18 and discharged home with [facility] RN/PT/OT. Pt [facility] [place] with her , Ethan (h:[phone], c: [phone]) amd is increasingly unable to care for herself; Ethan is her primary caregiver and they both are fatigued/overwhelmed. Pt had also been admitted 10/20-10/22/18 and was discharged to [facility] at that time. Pt has been in and out of the hospital and SNFs throughout the past year +. Per past CM Reports (11/25, 11/29 - & 12/02/18, etc.) pt and also are unable to afford for pt to return to a rehab at this time due to co-pays and are having other financial difficulties as well (ability to pay for food? additional homecare assistance, etc.). Per CM Report 11/29/18, pt's oldest son, Christoph ([phone]) is her MDPOA; second to her daughter who lives in [place]. Multiple requests have been made for pt, Christoph or Ethan to provide MDPOA and/or Advance Directive paperwork in the past but still have yet to do so. See Behavioral Health RN Note 12/01/18. Palliative Care was consulted 11/30/18 for decisional capacity. Pt's PCP is Dr Carol Ann Cain at [facility] and RN Gypsum Calciner is Celina Henry ([phone]) and Behavioral Health Specialist is listed as Tj Johansen ([phone]). PT & OT recc home w/HC. Wound care consult ordered. Palliative Care consult ordered. Anticipate pt to DC home w/HC ([facility]) and maybe Palliative Care. Maybe request that COIN MACHINE COLLECTOR SUPERVISOR and SW be added for HC services? Also provide other additional support resources to pt and Ethan as needed (M[facility], [facility] [employer]?, etc.). CM to follow Date Signed: 03/05/2019 12:54 PM Electronically Signed By:Starla Posadas RN
--- NOTE | 2019-03-05 14:03 | ASMTCMCOM ---
CM Note CM Note Notes: Spoke w/Aimee at [facility] ([phone]) and she says they recently discharged pt from RN services on 02/22/19. Pt had been discharged from PT/OT in December. In the likelihood of pt not being willing or able to afford a SNF stay even if it was recommended, and pt needing to return home w/[facility], a [facility] CM to follow Date Signed: 03/05/2019 02:03 PM Electronically Signed By:Starla Posadas RN
--- NOTE | 2019-03-05 14:09 | PCMIDPN ---
Assessment/Plan: 1. Failure to thrive/chronic progressive pain in a patient with multiple medical problems including history of diverticulitis with abscess and right knee septic arthritis on chronic suppression with levofloxacin: At this point in time, it is unclear what is causing her severe aches and pains. Her CRP is impressively elevated. Neck CT is notable for erosive changes at the atlantoaxial joint. Patient does have a history of pseudogout, and although she has multiple arthralgias, I cannot appreciate bonafide arthritis on exam. For now, will hold Levaquin in case this medication could be exacerbating or causing her underlying symptoms; will start ertapenem 1 g IV daily while she is in-house to suppress the history of Serratia in the right knee. Will obtain studies for drug-induced lupus, and check for rheumatoid arthritis in the setting of her C1-C2 joint changes on CT, and arthralgias. Blood cultures are pending. An active infection seems less likely at this point in time. Patient adamantly refuses an MRI of her neck. My colleague, Dr. Izquierdo will be back tomorrow and knows this patient well. Over 60 min spent with this patient today. Case discussed with hospitalist. Subjective: Patient is well known to our practice, and specifically, my colleague, Dr. Ethan Izquierdo who follows this patient closely. She was last seen by Dr. Izquierdo on 2018, at which point she was there for follow-up of septic arthritis of the right knee, and ongoing suppressive therapy with levofloxacin. The patient had been complaining of Achilles tendon pain; Dr. Izquierdo dose reduced to levofloxacin from 750 mg to 500 mg, and her pain resolved after 4 days. She also has a history of an open sigmoid colectomy with primary anastomosis and diverting loop ileostomy for perforated diverticulitis with associated abscess and colovesicular fistula on 11/17/2018. In addition at that hospitalization, she had a lip biopsy which revealed squamous cell carcinoma. She tells me that approximately 3 weeks ago she had a resection of this area by Dr. Kong. Patient was admitted yesterday due to failure to thrive at home and ongoing severe pain "all over."The patient is tearful today, and tells me that she has had progressive pain, that is worse in her shoulders, neck, back and "all over. "She states that her entire body hurts. Again, she is no longer able to function at home given the progression in pain. She tells me that she walks with a walker, but her activity has slowed down. This is affecting her quality of life. She denies any fevers, shaking chills, headache, blurred vision, nausea or vomiting. Her ostomy bag has been working well with no increased output. No skin rash. She did have a neck CT performed 2 days prior to admission for neck pain that revealed (no contrast was used), erosive changes at the atlantoaxial joint. The patient refused an MRI. Talking with her today about that, she states that she absolutely refuses an MRI because she tells me "MRIs do not work for me."She tells me that they consistently reveal artifact, and she has to pay 20% of the cost. She states that this is prohibitive for her. Again, the patient is very frustrated today, and tells me that she is "sick of living in pain." Objective: Levaquin 750 mg daily (patient takes 500 home) No fevers Vital Signs Temp Pulse Resp BP Pulse Ox 36.6 C 75 18 119/61 99 03/05/19 11:30 03/05/19 11:30 03/05/19 11:30 03/05/19 11:30 03/05/19 11:30 Microbiology 03/04/19 22:26 Respiratory Panel (PCR) - Final Nasal, Sinus - [place] Viral Transport No Organism Detected By Pcr Laboratory Results 03/05/19 06:25 03/05/19 06:25 03/04/19 03/05/19 03/06/19 05:59 05:59 05:59 Intake Total 350 Output Total 900 Balance -550 ESR 82 MM/HR (0-30) H 03/04/19 17:00 C-Reactive Protein 165.2 mg/L (<10.0) H 03/04/19 17:00 - Physical Exam General Appearance: obese, other (Tearful.) EENT: pharynx normal, other (Patient has an elliptical incision on her chin consistent with recent surgery. She also has another vertical incision in her lower lip that connects with this elliptical incision. The midpole of this incision is dehisced, with a superficial wound that appears to be healing. No surrounding cellulitis.), No scleral icterus, No thrush Neck: supple Cardiac/Chest: systolic murmur Extremities: other (Not appreciate any obvious arthritis of her shoulders, elbows, small joints in her hands or feet. Right lower extremity is larger compared with left, that is chronic. The right knee incision is well-healed with a very superficial scab and is not draining with no overlying skin changes. ) Abdomen: other (Ostomy bag is full of brown liquid stool. Abdomen is soft.) Skin: No rash Neuro/Psych: oriented x 3 ICD10 Worksheet Patient Problems: Problems Problem Status Onset Abscess of knee, right Acute Bladder fistula Acute Dehydration Acute Failure to thrive in adult Acute Infected prosthetic knee joint Acute Knee pain Acute Septic joint of right knee joint Acute Visual hallucinations Acute
[2019-03-05] MEDS ORDERED: COLCHICINE 0.6 MG CAP/TAB PO ONE (15:20)
--- NOTE | 2019-03-05 15:29 | HOSPPROG ---
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 Flynn -start colchicine -will DC coreg and change to metoprolol due to severe interaction between coreg and colchicine -ability to use colchicine will be limited for 14 days until Coreg out of system -colchicine 0.6mg PO once now -consider start 0.3mg daily with increase to standard dosing in 2 weeks -consider empiric steroid for short term management * Chronic septic arthritis of knee - Serratia -hold levaquin per Dr. Flynn - on IV invanz * Diverticular abscess with fistula s/p ileostomy * SCC of lip s/p resection * CHUCKIE - CPAP - Obesity BMI 34 * HTN -DC coreg as above Subjective: Pain in many joints all over body, severe, can't walk Objective: Vital Signs Temp Pulse Resp BP Pulse Ox 37.0 C 84 16 115/71 98 03/05/19 15:00 03/05/19 15:00 03/05/19 15:00 03/05/19 15:00 03/05/19 15:00 Microbiology 03/04/19 22:26 Respiratory Panel (PCR) - Final Nasal, Sinus - [place] Viral Transport No Organism Detected By Pcr Laboratory Results 03/05/19 06:25 03/05/19 06:25 03/04/19 03/05/19 03/06/19 05:59 05:59 05:59 Intake Total 350 Output Total 900 500 Balance -550 -500 d/w DR. Flynn - arthritis work up old chart reviewed - CT spine done recently - also showed changes c/w CPPD - Physical Exam Constitutional: no apparent distress, appears nourished, not in pain Cardiovascular: regular rate and rhythym, no murmur, rub, or gallop Respiratory: no respiratory distress, no rales or rhonchi, clear to auscultation Gastrointestinal: normoactive bowel sounds, soft, non-tender abdomen, no palpable masses Skin: no rashes or abrasions, no fluctuance, no induration Musculoskeletal: normal joint ROM, No joint effusion, No joint tenderness Neurologic: AAOx3, sensation intact bilaterally Psychiatric: interacting appropriately, not anxious, not encephalopathic, thought process linear ICD10 Worksheet Patient Problems: Problems Problem Status Onset Infected prosthetic knee joint Acute Dehydration Acute Bladder fistula Acute Visual hallucinations Acute Failure to thrive in adult Acute Abscess of knee, right Acute Knee pain Acute Septic joint of right knee joint Acute
[2019-03-05] MEDS: METOPROLOL TARTRATE 25 MG TAB PO SCH (21:34)
[2019-03-05] MEDS: CETIRIZINE 10 MG TAB PO SCH (21:34)
[2019-03-05] MEDS: CHOLECALCIFEROL VIT D3 1,000 UNITS TAB PO SCH (21:34)
[2019-03-06] MEDS: oxyCODONE IR 5 MG TAB PO PRN ×5 (01:52→22:54)
[2019-03-06] MEDS: SPIRONOLACTONE 50 MG TAB PO SCH (09:33)
[2019-03-06] MEDS: guaiFENesin 200 MG TAB PO SCH ×2 (09:34→22:55)
[2019-03-06] MEDS: FAMOTIDINE 20 MG TAB PO SCH ×2 (09:34→22:55)
[2019-03-06] MEDS: MULTIVITAMINS 1 EACH TAB PO SCH (09:34)
[2019-03-06] MEDS: METOPROLOL TARTRATE 25 MG TAB PO SCH ×2 (09:34→22:54)
[2019-03-06] MEDS: CALCIUM CITRATE 200 MG PO SCH (09:36)
[2019-03-06] MEDS: ERTAPENEM 1 GM in NS 100 ML IV SCH (09:36)
[2019-03-06] MEDS: OXYBUTYNIN CHLORIDE 5 MG TAB PO SCH (09:36)
[2019-03-06] MEDS: ENOXAPARIN 40 MG/0.4 ML SYR SC SCH (09:36)
[2019-03-06] MEDS: predniSONE 20 MG TAB PO SCH (12:25)
--- NOTE | 2019-03-06 13:27 | WOCRNPDOC ---
ANNAMARIA Advanced Assessment Note - Skin Integrity Problem, Advanced Assess Lip Surgical Wound/Incision Dressing Type: Open to Air Closure Description: Not Approximated Exudate Amount: None Mary Wound Tissue: Erythema Wound Bed Color: Brown Wound Bed Constitution: Scab Site Measurement - Head-to-Toe Length X Width X Depth (cm): 1.5x0.7xscab Skin Integrity Problem Comment: Patient states that she had surgery to remove a cancerous lesion from her lip earlier this month. She is scheduled to follow-up with the physician later this week. Given the proximity to this patient's mouth , I hesitate to moisten the scab. Patient in agreement. I encouraged her to follow-up outpatient. Wound care will not continue to round. Lower Medial Abdomen Surgical Wound/Incision Dressing Type: Open to Air Closure Description: Not Approximated Exudate Amount: Scant Exudate Color: Reddish/Yellow Exudate Characteristic(s): Serosanguinous Integumentary Issue Intervention: Dressing Applied Mary Wound Tissue: Intact Wound Bed Color: Red Wound Bed Constitution: Red/[place] - Non Granular Tissue Wound Edges: Attached, Well Defined Site Odor: None Site Measurement - Head-to-Toe Length X Width X Depth (cm): 0.3x0.3x1 Skin Integrity Problem Comment: Small area of surgical incision opening at the distal end of the otherwise healed medial abdominal incision. The opening is within the fold of her pannus and this needs to be lifted to identify. Cleaned with NS and gauze. The blunt end of a Qtip tunnels into the wound about 1cm. Wound bed packed with plain gauze packing and covered with Medipore tape. Wound care will follow this wound, rounding again later this week. - Ileostomy Assessment, Advanced Medial Abdomen Ileostomy Ileostomy Appliance Intact: Yes Ileostomy Appliance Currently in Use: One Piece Convex, 2 3/4, Cut to Fit Stoma Color: [place] Stoma Turgor: Moist Stoma Shape: Irregular Stoma Height: Protruding Slightly Mucocutaneus Junction: Intact Peristomal Skin: Intact Ileostomy Comment/Treatment Details: Per report from BALA Johns, patient and report some "skin issues" with the mary-stomal skin. Unable to elaborate or explain but ask that I take a look to be sure it is OK. Patient requests that she take a shower first and then I return to complete pouch change. Gayle PHYSICIAN OK with this plan and will be in touch. After patient showers, I return to room with BALA Villaseñor. Pouch removed and stoma cleaned of thick stool and allowed to air dry. Mary-stomal skin appears to be intact. Patient reports having sensitive skin, but no specific skin issues or pain with change. left a pre-cut convex appliance in the room that I applied to patient followed by a warm blanket to the abdomen. Wound care will not continue to round on her ostomy. Please reconsult if any new issues arise.
--- NOTE | 2019-03-06 14:46 | PCMIDPN ---
Assessment/Plan: Assessment/Plan: * Polyarthralgia: Most likely this will be related to crystalline arthropathy with polyarticular gout or pseudogout consideration. Other consideration would be drug induced lupus or serum sickness (serum sickness typically associated with fever and rash which is not present). No opposition to empiric prednisone from Infectious Disease perspective to see if this alleviates joint pain. Likely will reintroduce levofloxacin tomorrow as feel like this is less likely etiology. Risk of tendinopathy with quinolone and prednisone however will be increased (anticipate short duration of prednisone). Follow-up autoimmune serologies as available. * Septic arthritis of right total knee arthroplasty due to Serratia: See above discussion. Currently covered with ertapenem. Anticipate change to levofloxacin provided joint pain improved with prednisone. Reluctant to discontinue therapy as risk of recurrent septic arthritis and patient has experienced multiple episodes of septic arthritis in this knee previously. * Lip cancer: Will coordinate with Hospital Service regarding a Oncology consultation. Time spent, greater than 35 min, which greater than half was spent in education/ counseling/coordination of care related to polyarthralgia and ongoing suppressive fluoroquinolone antibiotic therapy for septic arthritis of right total knee arthroplasty. Care was coordinated with patient, family and Dr. Guerra. 03/06/19 14:34 03/06/19 14:51 Subjective: Patient with persistent diffuse joint pain. Patient's son with questions about treatment plans for lip cancer and any potential relationship of cancer and joint pain. Dr. Flynn's note from 03/05/2019 reviewed. On chronic suppressive levofloxacin for septic arthritis of right total knee arthroplasty due to Serratia. This has been modified ertapenem in event that levofloxacin contributing to joint pain. Objective: Vital Signs Temp Pulse Resp BP Pulse Ox 36.9 C 88 16 117/68 97 03/06/19 10:54 03/06/19 10:54 03/06/19 10:54 03/06/19 10:54 03/06/19 10:54 Laboratory Results 03/05/19 06:25 03/05/19 06:25 03/05/19 03/06/19 03/07/19 05:59 05:59 05:59 Intake Total 350 300 Output Total 900 1800 Balance -550 -1500 ESR 82 MM/HR (0-30) H 03/04/19 17:00 C-Reactive Protein 165.2 mg/L (<10.0) H 03/04/19 17:00 Ertapenem # 2 Laboratory Tests 11/16/18 03/04/19 03/05/19 04:30 17:00 16:05 Uric Acid Total Bilirubin 0.4 AST 12 L ALT 22 Alkaline Phosphatase 52 C-Reactive Protein 165.2 H Rheum Factor Semi-Quant 11.7 03/05/19 16:05 Uric Acid 8.0 H Total Bilirubin AST ALT Alkaline Phosphatase C-Reactive Protein Rheum Factor Semi-Quant - Physical Exam General Appearance: alert, no apparent distress EENT: No scleral icterus, No conjunctival petechiae Extremities: inflammation (Tenderness to palpation of joint without objective findings of arthritis; right knee without erythema or drainage) Abdomen: non-tender, No distended Skin: No rash, No embolic lesions ICD10 Worksheet Patient Problems: Problems Problem Status Onset Abscess of knee, right Acute Bladder fistula Acute Dehydration Acute Failure to thrive in adult Acute Infected prosthetic knee joint Acute Knee pain Acute Septic joint of right knee joint Acute Visual hallucinations Acute
--- NOTE | 2019-03-06 15:38 | CPEKG ---
Test Reason : OPEN Blood Pressure : / mmHG Vent. Rate : 111 BPM Atrial Rate : 110 BPM P-R Int : 155 ms QRS Dur : 130 ms QT Int : 387 ms P-R-T Axes : 000 -61 080 degrees QTc Int : 526 ms Sinus tachycardia RBBB and LAFB Left ventricular hypertrophy Confirmed by Collins Shah ([id number]) on 03/06/2019 3:37:55 PM Referred By: Darin Gallardo Confirmed By:Collins Shah
--- NOTE | 2019-03-06 15:40 | CPEKG ---
Test Reason : OPEN Blood Pressure : / mmHG Vent. Rate : 082 BPM Atrial Rate : 082 BPM P-R Int : 190 ms QRS Dur : 114 ms QT Int : 375 ms P-R-T Axes : -69 -64 007 degrees QTc Int : 438 ms Sinus or ectopic atrial rhythm right bundle branch block Left ventricular hypertrophy Confirmed by Collins Shah ([id number]) on 03/06/2019 3:39:53 PM Referred By: Darin Gallardo Confirmed By:Collins Shah
--- NOTE | 2019-03-06 15:48 | ASMTCMCOM ---
CM Note CM Note Notes: 03/06/2019 Case Management Note Discussed pt during rounds. Met w/pt to discuss d/c needs. Pt declined [facility] referral. Placed referral with [facility] program. Left voicemail with Rody [phone] with [facility]. [facility] Palliative team met w/pt. Please see note. Palliative team requested referral to [facility]. Faxed referral via all scripts. Therapy evals pending. Pt recently discharged from [facility]. Case Management d/c poc: to be determined. Case Management to follow. Date Signed: 03/06/2019 02:57 PM Electronically Signed By:Eli Robison RN
--- NOTE | 2019-03-06 16:21 | HOSPPROG ---
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 Flynn -s/p colchicine 0.6mg x 1 -ability to re-dose will be limited for 14 days until coreg out of system -consider start 0.3mg daily with increase to standard dosing in 2 weeks -start prednisone 40mg PO daily and monitor for effect -follow-up closely with rheumatology outpatient * Chronic septic arthritis of knee - Serratia -back to [facility] - d/w Dr. Izquierdo * Diverticular abscess with fistula s/p ileostomy * SCC of lip s/p resection -oncology consult per family request - d/w Dr. Martinez * CHUCKIE - CPAP - Obesity BMI 34 * HTN -DC coreg - change to metoprolol Subjective: A little better pain gallegos than yesterday Objective: Vital Signs Temp Pulse Resp BP Pulse Ox 36.9 C 102 H 16 115/80 95 03/06/19 16:00 03/06/19 16:00 03/06/19 16:00 03/06/19 16:00 03/06/19 16:00 Laboratory Results 03/05/19 06:25 03/05/19 06:25 03/05/19 03/06/19 03/07/19 05:59 05:59 05:59 Intake Total 350 300 Output Total 900 1800 Balance -550 -1500 d/w Dr. Izquierdo and Dr. Martinez - Time Spent With Patient Time Spent with Patient: greater than 35 minutes (complex care regarding frequent readmissions, discussed at length at inter-disc rounds) Time Spent with Patient: Greater than 35 minutes spent on this patients care, greater than 50% of time spent counseling, educating, and coordinating care regarding the above mentioned plan. - Physical Exam Constitutional: no apparent distress, appears nourished, not in pain Cardiovascular: regular rate and rhythym, no murmur, rub, or gallop Respiratory: no respiratory distress, no rales or rhonchi, clear to auscultation Gastrointestinal: normoactive bowel sounds, soft, non-tender abdomen, no palpable masses Skin: no rashes or abrasions, no fluctuance, no induration Neurologic: AAOx3, sensation intact bilaterally Psychiatric: interacting appropriately, not anxious, not encephalopathic, thought process linear ICD10 Worksheet Patient Problems: Problems Problem Status Onset Abscess of knee, right Acute Bladder fistula Acute Dehydration Acute Failure to thrive in adult Acute Infected prosthetic knee joint Acute Knee pain Acute Septic joint of right knee joint Acute Visual hallucinations Acute
--- NOTE | 2019-03-06 18:15 | GCON ---
[f rep st] CONSULTATION REFERRING PHYSICIAN: Karen Guerra MD REASON FOR CONSULTATION: Lip cancer, bone pain. HPI: The patient is a 74-year-old woman with a history of lower lip squamous cell carcinoma. She reports the lesion had been present for about 9 months, but she was having multiple other medical issues. She reports a biopsy with Dr. Sandoval or Dr. Gao. She eventually saw Dr. Peña in [place] and had excision 02/20/2019. She reports neck CT demonstrated no adenopathy. She does not recall any additional staging. I do not have any of Dr. Peña's records or pathology results. She was admitted 03/04/2019, with diffuse pain over her "entire body" from the top of her head down to her feet. She reports this pain has been present for "years." She really does not offer much in the way of details and directs me to "read my chart." No family is available at the time of her visit, but my understanding is there was possible concern regarding the connection between her cancer diagnosis and bone pain. During the course of her hospitalization, she has been seen by Infectious Disease due to a history of a right knee septic arthritis on chronic suppression with levofloxacin. Right hand films from 11/2018, demonstrated severe degenerative change at the first [facility] and probable underlying chondrocalcinosis. Cervical spine CT (03/02/2019) demonstrated severe multilevel cervical spondylosis with erosive involvement of the atlantoaxial joint with severe osteoarthritis or CPPD in the differential. Uric acid 8.0. CRP 165.2. Her presentation and radiologic studies are suspicious for polyarticular arthritis due to CPPD. PAST MEDICAL HISTORY: 1. 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 2. Diverticulitis with intraabdominal abscess in October, requiring diverting ileostomy. 3. Multiple orthopedic surgeries with right septic arthritis. 4. Valvular heart disease. 5. Sleep apnea, on CPAP. PAST SURGICAL HISTORY: Multiple orthopedic surgeries, diverting ileostomy as above, squamous cell carcinoma excision from the lower lip. FAMILY HISTORY: Noncontributory. SOCIAL HISTORY: She is and lives in [place]. REVIEW OF SYSTEMS: Limited due to her participation. She denies any change in overall pattern of her bone pain. No specific sites out of proportion to another. No joint inflammation or erythema. PHYSICAL EXAM: VITAL SIGNS: Blood pressure 115/80, heart rate 102, afebrile, 95% on room air. GENERAL APPEARANCE: Fatigued appearing, in no acute distress. HEENT: surgical scars over chin, healing site with crusting and no erythema lower lip. CARDIOVASCULAR: Regular rate and rhythm. No pretibial edema. RESPIRATORY: Clear to auscultation bilaterally. Breathing comfortably. ABDOMEN: Positive bowel sounds. Soft, nontender and nondistended. SKIN: No rashes. MUSCULOSKELETAL: No joint abnormalities. LABORATORY DATA: Sodium 137, potassium 4.2, chloride 101, bicarbonate 25, BUN 22, creatinine 0.9, glucose 105, calcium 9.4 (03/05/2019). Uric acid and CRP, as above, (03/05/2019). WBC 6.3, hemoglobin 11.3, MCV 92.6, platelets 184,000. RADIOLOGIC STUDIES: As above. ASSESSMENT: 1. Diffuse bone pain, suspicious for polyarticular arthritis due to CPPD deposition: Rheumatologic serologies are pending. She received 1 dose of colchicine with a plan to start prednisone and monitor. I do not have any of her oncologic records, but I think it is quite unlikely that she has metastatic bone disease resulting in her present symptoms, given their diffuse nature and chronicity. 2. Squamous cell carcinoma of the lip: Records will be requested from Dr. Peña's office. She has seen Dr. Garibay remotely in the past for thrombocytopenia. She can follow up in our office if needed. /[id number]/MODL MTDD
--- NOTE | 2019-03-06 18:40 | ASMTCMCOM ---
CM Note CM Note Notes: 03/06/2019 Case Management Note Onsite visit from Supriya with [facility]. Per Supriya [employer] has denied pt continuining with home care services. Appointment set with Dr. Gerardo with [facility] rheumatology on 03/09 at 1300. [phone]. Case Management d/c poc: Home with family support and either services from [facility] or [facility]. Case Management to follow. Date Signed: 03/06/2019 04:11 PM Electronically Signed By:Eli Robison RN
[2019-03-06] MEDS: CETIRIZINE 10 MG TAB PO SCH (22:55)
[2019-03-06] MEDS: CHOLECALCIFEROL VIT D3 1,000 UNITS TAB PO SCH (22:55)
[2019-03-07] MEDS: guaiFENesin 200 MG TAB PO SCH ×2 (08:39→20:19)
[2019-03-07] MEDS: FAMOTIDINE 20 MG TAB PO SCH ×2 (08:39→20:18)
[2019-03-07] MEDS: METOPROLOL TARTRATE 25 MG TAB PO SCH ×2 (08:39→20:18)
[2019-03-07] MEDS: SPIRONOLACTONE 50 MG TAB PO SCH (08:39)
[2019-03-07] MEDS: predniSONE 20 MG TAB PO SCH (08:39)
[2019-03-07] MEDS: MULTIVITAMINS 1 EACH TAB PO SCH (08:39)
[2019-03-07] MEDS: ENOXAPARIN 40 MG/0.4 ML SYR SC SCH (09:57)
[2019-03-07] MEDS: oxyCODONE IR 5 MG TAB PO PRN ×2 (10:10→19:10)
[2019-03-07] MEDS: ERTAPENEM 1 GM in NS 100 ML IV SCH (10:53)
--- NOTE | 2019-03-07 13:37 | ASMTCMCOM ---
CM Note CM Note Notes: 03/07/2019 Case Management Note Phone call from Rody with [facility]. Rody to evaluate pt for program tomorrow. Met w/pt and to discuss d/c needs. Notified both that insurance has denied home care services. Encouraged pt to contact PCP if any needs arise. Pt has previous conflict with appointment scheduled yesterday. Cancelled appointment. Arranged new follow up appointment with Dr. De Los Santos with [facility] on WednesdayMarch 14 at 11:00 am. Contact info: [phone]; [address] [facility]. Per , office called to confirm appointment with him. Called PCP and requested referral for rheumatology appointment. No further case management d/c needs identified. Anticipating d/c tomorrow. Case Management d/c poc: see above. Case Management to follow. Date Signed: 03/07/2019 01:35 PM Electronically Signed By:Eli Robison RN
--- NOTE | 2019-03-07 13:47 | HOSPPROG ---
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 Flynn -s/p colchicine 0.6mg x 1 -ability to re-dose will be limited for 14 days until coreg out of system -consider start 0.3mg daily with increase to standard dosing in 2 weeks -start prednisone 40mg PO daily and monitor for effect -follow-up closely with rheumatology outpatient -pain level slowly improving - suspect will be able to go home tomorrow * Chronic septic arthritis of knee - Serratia -back to Levaquin * Diverticular abscess with fistula s/p ileostomy * SCC of lip s/p resection -f/u Dr. Kong on [facility] follow-up with Dr. Garibay * CHUCKIE - CPAP - Obesity BMI 34 * HTN -DC coreg - change to metoprolol Subjective: Pain is improving Objective: Vital Signs Temp Pulse Resp BP Pulse Ox 36.6 C 93 16 127/73 H 93 03/07/19 08:00 03/07/19 08:39 03/07/19 08:00 03/07/19 08:39 03/07/19 08:00 Laboratory Results 03/05/19 06:25 03/05/19 06:25 03/06/19 03/07/19 03/08/19 05:59 05:59 05:59 Intake Total 300 1175 Output Total 1800 1850 Balance -1500 -205 - Physical Exam Constitutional: no apparent distress, appears nourished, not in pain Cardiovascular: regular rate and rhythym, no murmur, rub, or gallop Respiratory: no respiratory distress, no rales or rhonchi, clear to auscultation Gastrointestinal: normoactive bowel sounds, soft, non-tender abdomen, no palpable masses Skin: no rashes or abrasions, no fluctuance, no induration Neurologic: AAOx3, sensation intact bilaterally Psychiatric: interacting appropriately, not anxious, not encephalopathic, thought process linear ICD10 Worksheet Patient Problems: Problems Problem Status Onset Infected prosthetic knee joint Acute Dehydration Acute Bladder fistula Acute Visual hallucinations Acute Failure to thrive in adult Acute Abscess of knee, right Acute Knee pain Acute Septic joint of right knee joint Acute
--- NOTE | 2019-03-07 13:51 | PCMIDPN ---
Assessment/Plan: Assessment/Plan: * Polyarthralgia: Significantly improved with initiation of prednisone. Suspect most likely related to underlying crystalline arthropathy. Plan to resume suppressive levofloxacin 500 mg orally daily once a course of prednisone completed. Patient will have outpatient follow-up with rheumatology next week. * Septic arthritis of right total knee arthroplasty due to Serratia: See above discussion. * Lip cancer: Seen by Oncology yesterday. Has follow-up with her ENT surgeon . Time spent, greater than 25 min, which greater than half was spent in education/ counseling/coordination of care related to polyarthralgia and ongoing plan of care including resumption of oral levofloxacin after prednisone completed. Side effects of fluoroquinolone use including tendinopathy which may be of increased risk in the setting of steroid use reviewed with patient. 03/07/19 13:22 Subjective: Patient feels improved. Up walking in room and in halls with walker today. Objective: Vital Signs Temp Pulse Resp BP Pulse Ox 36.6 C 93 16 127/73 H 93 03/07/19 08:00 03/07/19 08:39 03/07/19 08:00 03/07/19 08:39 03/07/19 08:00 Laboratory Results 03/05/19 06:25 03/05/19 06:25 03/06/19 03/07/19 03/08/19 05:59 05:59 05:59 Intake Total 300 1175 Output Total 1800 1850 Balance -1500 -675 ESR 82 MM/HR (0-30) H 03/04/19 17:00 C-Reactive Protein 165.2 mg/L (<10.0) H 03/04/19 17:00 Blood cultures x2 no growth - Physical Exam General Appearance: alert, no apparent distress, non-toxic Extremities: inflammation (Joint discomfort markedly reduced versus examination yesterday; right knee without signs or symptoms of infection) Skin: No rash ICD10 Worksheet Patient Problems: Problems Problem Status Onset Abscess of knee, right Acute Bladder fistula Acute Dehydration Acute Failure to thrive in adult Acute Infected prosthetic knee joint Acute Knee pain Acute Septic joint of right knee joint Acute Visual hallucinations Acute
--- NOTE | 2019-03-07 17:19 | SOAPPROG ---
ARABELLA Progress Note Assessment/Plan: Assessment: 1. Lip cancer-s/p excision. No records yet available, but patient is s/p excision and has planned follow up with her surgeon on and with Dr. Garibay at [facility]. No evidence that her current symptoms are related to this localized cancer. 2. Polyarthritis-improved on Pred. Plan: Outpatient follow up as above. will sign off, please call for further questions. 03/07/19 17:18 03/07/19 17:20 Objective: Vital Signs Temp Pulse Resp BP Pulse Ox 36.5 C 79 16 157/73 H 93 03/07/19 16:00 03/07/19 16:00 03/07/19 16:00 03/07/19 16:00 03/07/19 16:00 Laboratory Results 03/05/19 06:25 03/05/19 06:25 03/06/19 03/07/19 03/08/19 05:59 05:59 05:59 Intake Total 300 1175 Output Total 1800 1850 Balance -1500 -279 ICD10 Worksheet Patient Problems: Problems Problem Status Onset Abscess of knee, right Acute Bladder fistula Acute Dehydration Acute Failure to thrive in adult Acute Infected prosthetic knee joint Acute Knee pain Acute Septic joint of right knee joint Acute Visual hallucinations Acute
[2019-03-07] MEDS: CETIRIZINE 10 MG TAB PO SCH (20:18)
[2019-03-07] MEDS: CHOLECALCIFEROL VIT D3 1,000 UNITS TAB PO SCH (20:47)
[2019-03-07] MEDS ORDERED: MELATONIN 3 MG TAB PO SCH (21:17)
[2019-03-08] MEDS: oxyCODONE IR 5 MG TAB PO PRN (06:16)
[2019-03-08 08:06] VITALS: BP 131/52
[2019-03-08] MEDS: ENOXAPARIN 40 MG/0.4 ML SYR SC SCH (08:29)
[2019-03-08] MEDS: SPIRONOLACTONE 50 MG TAB PO SCH (08:29)
[2019-03-08] MEDS: guaiFENesin 200 MG TAB PO SCH (08:29)
[2019-03-08] MEDS: predniSONE 20 MG TAB PO SCH (08:29)
[2019-03-08] MEDS: METOPROLOL TARTRATE 25 MG TAB PO SCH (08:29)
[2019-03-08] MEDS: MULTIVITAMINS 1 EACH TAB PO SCH (08:29)
[2019-03-08] MEDS: FAMOTIDINE 20 MG TAB PO SCH (08:29)
--- NOTE | 2019-03-08 13:33 | ASMTLACE ---
KAYLEIGH Length of stay for Answers: 3 days current admission Acuity / Level of Answers: Yes Care: Did the patient have an inpatient admission? Comorbidities - select Answers: Chronic pulmonary disease all that apply Opioid dependence / Chronic pain Other Notes: HTN, GERD, asthma, CHUCKIE (on CPAP),recent dx of squamous cell carcinoma on lip, diverticulitis, os blanquita y, chronic septic arthritis of right prosthetic knee, obesity, high fal l risk, arthritis, hx of spinal fusion and ortho surgeries # of Emergency department Answers: 5-8 visits in the last 6 months Score: 17 Date Signed: 03/08/2019 01:32 PM Electronically Signed By:Eli Robison RN
--- NOTE | 2019-03-08 13:37 | ASDISCHSUM ---
Discharge Information Plan Status:Home with No Needs Medically Cleared to Leave:03/08/2019 Discharge Date:03/08/2019 11:32 AM D/C Disposition:Home, Routine, Self-Care ADT D/C Disposition:Home Health Service Projected Discharge Date:03/06/2019 11:00 AM Transportation at D/C: Discharge Delay Reason: Follow-Up Date:03/06/2019 11:00 AM Discharge Slot: Final Diagnosis: Placement Information Referral Type:*Home Health Care Services Referral ID:[id number] Provider Name: Address 1: Phone Number: Address 2: Fax Number: City: Selection Factors: State: Referral Type:Palliative Care Referral ID:[id number] Provider Name:[facility] Address 1:[address] Address 2: City:[place] Selection Factors: State:[place] Patient Contact Information Contact Name:PIHL Relationship: Address:[address] City:[place] Alternate Phone: [facility]/Zip Code:[place] [address] Email: Financial Information Financial Class:Medicare Advantage Plans Primary Plan Desc:UNITED MEDICARE COMPLETE Primary Plan Number:[id number] Secondary Plan Desc: Secondary Plan Number: Assessment Information [facility] CM Progress Note CM Note CM Note Notes: Chart reviewed. Pt admitted for FTT and pain mgmt. Pt has a complex PMH - please see H&P Pt was admitted 11/14-12/03/18 [facility]. [facility] [place] with her , Ethan (h:[phone], c: [phone]) amd is increasingly unable to care for herself; Ethan is her primary caregiver and they both are fatigued/overwhelmed. Pt had also been admitted 10/20-10/22/18 and was discharged to [facility] at that time. Pt has been in and out of the hospital and SNFs throughout the past year +. Per past CM Reports (11/25, 11/29 & 12/02/18, etc.) pt and also are unable to afford for pt to return to a rehab at this time due to co-pays and are having other financial difficulties as well (ability to pay for food? additional homecare assistance, etc.). Per CM Report 11/29/18, pt's oldest son, Christoph ([phone]) is her MDPOA; second to her daughter who lives in [place]. Multiple requests have been made for pt, Christoph or Ethan to provide MDPOA and/or Advance Directive paperwork in the past but still have yet to do so. See Behavioral Health RN Note 12/01/18. Palliative Care was consulted 11/30/18 for decisional capacity. Pt's PCP is Dr Carol Ann Cain at [facility] and RN Cooker Mechanic is Celina Henry ([phone]) and Behavioral Health Specialist is listed as Tj Johansen ([phone]). PT & OT recc home w/HC. Wound care consult ordered. Palliative Care consult ordered. Anticipate pt to DC home w/HC ([facility]) and maybe Palliative Care. Maybe request that INSECTICIDE MAKER and SW be added for HC services? Also provide other additional support resources to pt and Ethan as needed ([facility], [facility]?, etc.). CM to follow Date Signed: 03/05/2019 12:54 PM Electronically Signed By:Starla Posadas RN LACE LACE Length of stay for Answers: 3 days current admission Acuity / Level of Answers: Yes Care: Did the patient have an inpatient admission? 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 Pt had been discharged from PT/OT in December. In the likelihood of pt not being willing or able to afford a SNF stay even if it was recommended, [facility] a referral was sent to [facility] via [employer]. CM to follow Date Signed: 03/05/2019 02:03 PM Electronically Signed By:Starla Posadas RN [facility] CM Progress Note CM Note CM Note Notes: 03/06/2019 Case Management Note Discussed pt during rounds. Met w/pt to discuss d/c needs. Pt declined meals on wheels referral. Placed referral with [facility]. Left voicemail with Rody [phone] with [facility]. [facility] Palliative team met w/pt. Please see note. Palliative team requested referral to [facility]. Faxed referral via [employer]. Therapy evals pending. Pt recently discharged from [facility]. Case Management d/c poc: to be determined. Case Management to follow. Date Signed: 03/06/2019 02:57 PM Electronically Signed By:Eli Robison RN [facility] CM Progress Note CM Note CM Note Notes: 03/06/2019 Case Management Note Onsite visit from Supriya with [facility]. Per Supriya [place] has denied pt continuining with home care services. Appointment set with Dr. Gerardo with [facility] rheumatology on 03/09 at 1300. [phone]. Case Management d/c poc: Home with family support and either services from [facility] or [facility]. Case Management to follow. Date Signed: 03/06/2019 04:11 PM Electronically Signed By:Eli Robison RN [facility] CM Progress Note CM Note CM Note Notes: 03/07/2019 Case Management Note Phone call from Rody with [facility]. Rody to evaluate pt for program tomorrow. Met w/pt and to discuss d/c needs. Notified both that insurance has denied home care services. Encouraged pt to contact PCP if any needs arise. Pt has previous conflict with appointment scheduled yesterday. Cancelled appointment. Arranged new follow up appointment with Dr. De Los Santos with [facility] on WednesdayMarch 14 at 11:00 am. Contact info: [phone]; [address] [facility]. Per , office called to confirm appointment with him. Called PCP and requested referral for rheumatology appointment. No further case management d/c needs identified. Anticipating d/c tomorrow. Case Management d/c poc: see above. Case Management to follow. Date Signed: 03/07/2019 01:35 PM Electronically Signed By:Eli Robison RN Case Management Discharge Plan Note Case Management Discharge Discharge Order Complete? Answers: Yes Patient to Obtain Answers: via [facility] Transportation Arranged Answers: Family/Friends Faxed Final Orders Answers: Yes Notes: [facility] Agency/Facility Transfer Answers: Yes Notes: [facility] Report Printed & Faxed to Receiving Agency Family Notified Answers: Yes Notes: in the room Discharge Comments Notes: 03/08/2019 Case Management Note Faxed final orders to [facility]. Pt evaluated onsite by [facility] this morning. Pt has multiple follow ups scheduled next week. Case Management d/c poc: independent with follow up as directed. Date Signed: 03/08/2019 01:35 PM Electronically Signed By:Eli Robison RN Intervention Information
--- NOTE | 2019-03-08 19:51 | GDS ---
[f rep st] DISCHARGE SUMMARY DISCHARGE DIAGNOSES: 1. Acute inflammatory arthritis. 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 2. 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 3. Diverticular abscess with fistula, status post ileostomy. 4. Squamous cell carcinoma of the lip, status post recent resection. 5. Obesity, body mass index 34, with obstructive sleep apnea, on CPAP. 6. Hypertension. HISTORY: The patient is a 74-year-old female who presented with multiple joints acutely worsening, 1 0/10 pain, to the point of not being able to walk. She was admitted to the hospital. Recent outpati ent imaging of her cervical spine was done. She had a CT scan that showed changes consistent with CP PD. She refused an MRI of the cervical spine. On her last hospitalization, she had an acutely infla med thumb joint, and hand x-ray during that admission also showed changes consistent with CPPD. She was not discharged on colchicine at her last hospitalization. During this hospitalization, we felt t he most likely etiology for her arthritic pain was calcium pyrophosphate deposition. She received li mited doses of colchicine as she is currently on Coreg which has an interaction. I discontinued her Coreg and started her on metoprolol so we can more freely use colchicine in the future. In the short term, I started her on oral prednisone. She had dramatic improvement. At the time of discharge, he r pain had reduced from a 10 down to a 5, and it was tolerable and she was able to [facility]ulate [facility]. We will do a short burst of prednisone for 5 days. I will start colchicine at a low dose 0.3 m g p.o. daily, but it can be increased to standard dosing once she is off Coreg for 14 days. We chelsey porras for outpatient rheumatology followup and made an appointment for her with Dr. De Los Santos, a local rheumatology provider. She has an outpatient appointment with Dr. Kong, the ENT who did the wide resection of the squamou s cell carcinoma. She should also follow up with Dr. Garibay at [facility]. DISCHARGE MEDICATIONS: Please see computerized record for full detailed list. New Medications 1. Metoprolol 25 mg p.o. b.i.d. to be taken instead of the Coreg. 2. Prednisone 40 mg p.o. daily x5 days. 3. Colchicine 0.3 mg p.o. daily. ADDITIONAL DISCHARGE INSTRUCTIONS: 1. Rheumatology consultation scheduled for next Wednesday to confirm diagnosis of CPPD. 2. Discontinue Coreg due to drug interaction with colchicine. 3. Increase colchicine to standard dosing at 14 days post discontinuation of Coreg. Greater than 30 minutes' time was spent arranging this discharge. Patient seen and examined by me on the day of discharge. /[id number]/MODL
[2019-03-08] MEDS ORDERED: MELATONIN 3 MG TAB PO SCH (21:00)
[2019-03-09] MEDS ORDERED: COLCHICINE 0.6 MG CAP/TAB PO SCH (09:00)
== END 2019-03-08 11:32 | disposition home health service (06) | DRG 554 ==
LOC: OBSVTOIN 19:00 → F2W 19:05
PROVIDERS: ADMIT Internal Medicine; ATTEND Internal Medicine
DX: M11.89 Other specified crystal arthropathies, multiple sites (principal); M06.4 Inflammatory polyarthropathy; T84.53XD Infection and inflammatory reaction due to internal right knee prosthesis, subsequent encounter; G89.29 Other chronic pain; E66.9 Obesity, unspecified; G47.33 Obstructive sleep apnea (adult) (pediatric); I10 Essential (primary) hypertension; M47.812 Spondylosis without myelopathy or radiculopathy, cervical region; R62.7 Adult failure to thrive; Z93.2 Ileostomy status; Z68.34 Body mass index [BMI] 34.0-34.9, adult; Z79.2 Long term (current) use of antibiotics; Z85.831 Personal history of malignant neoplasm of soft tissue
CPT/HCPCS: 83516-90; 86225-90; 86235-90; 96374; 97116-GP; 97161-GP; 97166-GO; 97530-GP; 97535-GO; J1170; J1335; J1650; J7512

== ENCOUNTER → 2019-04-07 | Outpatient (CLI) | payer OTHER | LOC: FIMAGING 09:20 ==